=== PATIENT | male | born 1965 | race Caucasian/White ===

== ENCOUNTER 2019-08-24 13:21 | Outpatient (RCR) | payer MEDICARE, OTHER, SELFPAY | END 2019-08-25 00:01 | LOC: WOUND 13:21 | PROVIDERS: Family Provider Family Medicine; Visit Provider Nurse Practitioner Family | DX: I96 Gangrene, not elsewhere classified (principal); L89.623 Pressure ulcer of left heel, stage 3; L02.416 Cutaneous abscess of left lower limb | CPT/HCPCS: 11042 ×2; 87070; 87075; 87186; 87205; 97605 ×3 ==

== ENCOUNTER 2019-09-15 11:11 | Outpatient (CLI) | payer MEDICARE, BC, SELFPAY ==
--- NOTE | 2019-09-15 11:26 | CT_ITS ---
WS: [id number] CT LEFT LOWER EXTREMITY WITH CONTRAST. HISTORY: PAIN, REDNESS, NON HEALING ULCER, SWELLING LT KNEE DOWN Technique: All CT scans at [facility] use at least one of these dose optimization techniq ues: automated exposure control; mA and/or kV adjustment per patient size (includes targeted exams wh ere dose is matched to clinical indication); or iterative reconstruction. DLP: 2894.83 mGy-cm. COMPARISON: 04/20/2016. Prior MRI 05/26/2019. Progression of the abscess centered within the anterior tibialis muscle since 05/26/2019. There is a c omplex fluid collection with enhancing wall extending over a length of 25 cm in the anterior tibialis muscle. Fluid collection begins in the proximal lower extremity and extends nearly to the ankle join t. Maximum diameter of 3.2 cm. There is a large amount of adjacent soft tissue edema and cellulitis. Focal tract-like ulceration measures 1.4 cm over the anterior tibia. There is an additional ulceratio n/tract over the mid tibia which extends to the abscess collection. Advanced degenerative changes at the knee. There is a single screw remaining in the proximal tibia. H ealed fracture with degenerative changes and bone hypertrophy involving the proximal tibia. No defini te osteomyelitis. There is hypertrophic bone formation over the tibial cortex. CT/CT lower leg LT w con [id number] IMPRESSION: 1. Progression of the anterior tibialis intramuscular abscess now extending ov er length of 25 cm with a maximum transverse diameter of 3.2 cm. Large amount o f adjacent soft tissue edema and cellulitis. 2. Ulcerated tracts over the anterior and mid tibia extend to the abscess. 3. No osteomyelitis is identified.
[2019-09-15] MEDS: iohexol 300 mg/mL 100 mL Btl IV (12:05)
== END 2019-09-15 11:12 | disposition home or self-care (01) ==
LOC: RADWPI 11:25
PROVIDERS: Family Provider Family Medicine; PCP Family Medicine; Visit Provider Nurse Practitioner Family
DX: L97.825 Non-pressure chronic ulcer of other part of left lower leg with muscle involvement without evidence of necrosis (principal); M79.662 Pain in left lower leg; M79.89 Other specified soft tissue disorders; M60.062 Infective myositis, left lower leg
CPT/HCPCS: 73701; Q9967

== ENCOUNTER → 2019-09-17 13:22 | Outpatient (BNVA) | payer MEDICARE, BC, SELFPAY | PROVIDERS: Family Provider Family Medicine; PCP Family Medicine; Visit Provider Anesthesiology | DX: G89.29 Other chronic pain (principal); M54.5 Low back pain; M12.812 Other specific arthropathies, not elsewhere classified, left shoulder; Z79.891 Long term (current) use of opiate analgesic | CPT/HCPCS: 99214 ==

== ENCOUNTER 2019-09-21 11:09 | Day surgery (SDC) | payer MEDICARE, BC, SELFPAY ==
[2019-09-19 07:54] VITALS: BMI 33.5
--- NOTE | 2019-09-21 | SCC_ITS ---
Procedure Done: Removal of deep retained hardware left tibia 10.3 seconds of fluoroscopic guidance, for a cumulative dose of 0.16 mGy, was provided to Dr. Hastings by the radiology department. C-arm images of the LEFT knee/lower leg were saved for the patient's permanent record. [facility]
--- NOTE | 2019-09-21 | XR_ITS ---
WS: [id number] C-ARM RADIOGRAPHS LEFT KNEE; 2 IMAGES HISTORY: HARDWARE REMOVAL COMPARISON: None available. Intraoperative imaging during hardware removal of the tibia. XR/XR knee LT 1-2V 19558 IMPRESSION: Intraoperative imaging during hardware removal. Only a small portion of the tib ia is included.
[2019-09-21 11:37] VITALS: BP 117/97; PULSE 61; RESP 18; TEMP 36.8; O2SAT 94
--- NOTE | 2019-09-21 11:46 | PM.OP ---
Operative Report Date of procedure: 09/21/19 Pre-op Diagnosis: retained harware left tibia Post-op diagnosis: other (Multiple wounds left leg with packing of which one wound was debrided and standard wound cultures taken) Procedure Done: Removal of deep retained hardware left tibia Debridement of skin subcutaneous tissue from left leg Implants: n/a Specimens removed/disposition: Screw sterilized and given to patient Aerobic and anaerobic cultures done of wound Aspirate from bone marrow submitted and blood culture bottles Pathology: other Pathology: See above Surgeon: Krishan Hastings Anesthesia: Local Estimated blood loss (mL): 25 Tourniquet time (min): 0 Tourniquet time: not used Complications: None Findings: Screw was removed without difficulty from the proximal tibia. The screw was well affixed. No purulent material flowed out from the screw hole. We did stick an 18-gauge needle into the screw hole and aspirated the marrow contents in the region and submitted these in 2 blood culture bottles. There is granulation distal to our incision we debrided that to include skin and subcutaneous tissue down to bone of the tibia that was healthy in appearance. The patient prior to surgery had 4 draining sinuses. Packing was removed from the sinuses the wounds were irrigated and repacked. The middle superior sinus had some purulent material about the edges this was debrided sharply and using a curette and I cultured areas and here with standard aerobic and anaerobic cultures these were submitted. No purulence was noted from the proximal incision area with there is granulation tissue which was distal and lateral to the actual placement of the screw that was retained and has now been removed. An elevator was taken from the proximal incision and run along the anterior medial aspect of the tibia as there is been some report previously that there was a fluid collection deep to the tibialis anterior muscle. After he advanced the elevator approximately 8 mm down the anterior aspect of the tibia we encountered no fluid pocket. Condition: stable Disposition: other (outpatient surgery) Brief History: 53-year-old quadriplegic white male status post ORIF of left tibial plateau fracture. He is developed some wound breakdown has had 2 years ago portion of the plate and screws removed from his left tibia leaving a single anterior to posterior screw that was used to treat a coronal fracture at the time of his index surgery in 2014. Wound care called the office 3 days ago and were concerned that the reason he was having breakdown and was because of a retained screw. Patient was seen in the office today will be taken to the operating to remove the screw cultures will be taken. Procedure: Paced identified. Surgical site signed. Surgical permit signed. Patient taken the operative room. Patient was given intravenous Tylenol in the preoperative holding area. He was kept on his [facility]. We used fluoroscopic imaging to identify the precise location of the screw in the proximal tibia. The left lower extremity then sterilely prepped and draped in usual fashion while he was in his [facility]. A timeout was performed. We injected local anesthetic in the intended area of incision approximately 5 cc of a one-to-one mixture of 1% lidocaine with epinephrine and half percent bupivacaine made a 4 cm incision along his previous incision line and sharply dissected down to bone and then used the periosteal elevator to expose the anterior aspect of the medial tibia and identified the screw. Using a screwdriver we remove the screw without difficulty. We aspirated intramedullary bloody contents and put this in blood culture bottles to see if there is any infection within the bone marrow. (Previous MRI showed no abnormalities of the bone marrow that might suggest osteomyelitis however there was hardware shadow in the area.) No gross purulence was noted of this aspirated material. The patient had several sinus areas that had packing in them the packing is been removed prior to prepping the wounds. The most superior of the packed wounds had some degree of purulence so I debrided this with brushing a 15 blade along the margins of the sinus tract and took a curette deeply in this area and encountered some purulent material. We performed aerobic and anaerobic cultures of this area. We then irrigated our surgical wound and the draining sinus areas had been packed in the wound care clinic with Betadine containing saline solution antibiotic-containing saline solution. We repacked the wounds with quarter percent packing material. I packed the incision area on the distal pole where there is been some granulation tissue that we excised after we had closed the incision partially using interrupted sutures of 3-0 nylon in a vertical mattress fashion. Silver sorb gel was then applied to the sinus areas as well as the surgical wound we created today surgery. Sterile dressings were applied which included Telfa, 4 x 4's, ABD pads, 4 inch sterile Webril and a 4 inch Ronn. The patient was then taken to outpatient surgery he received no sedation during this procedure and will be allowed to go home later today. At the end the procedure all counts are correct.. Patient tolerated the procedure well.
--- NOTE | 2019-09-21 12:19 | ANES.PREANES ---
Pre-Anesthetic Assessment Pre-Anesthetic Assessment: Height/Weight: Height 1.8 m Weight 108.862 kg Temp Pulse Resp BP Pulse Ox 98.3 F 61 18 117/97 94 09/21/19 11:37 09/21/19 11:37 09/21/19 11:37 09/21/19 11:37 09/21/19 11:37 Preop Diagnosis: retained harware left tibia Proposed Procedure: Operation Date: 09/21/19 12:20 Proposed Procedures p Hardware Removal Knee Tiba(Left) - Krishna Hastings DO Familial anesthetic complications: None (but has personal history of autonomic hyperreflexia). Says he's had procedures done on this knee with local before. Decided together with surgeon and patient we will attempt local and convert to general if any increase in BP or sweating/tachycardia occurs Was Beta Shana taken within 24 hours: N/A Last intake: Intake Last Liquid Date 09/20/19 Last Liquid Time 22:00 Last Solid Date 09/20/19 Last Solid Time 19:00 Social: Social History: No alcohol and No tobacco Exam: Pre-Anes Outpt Exam: alert Airway: Cervical ROM: Other (C6 injury) MP: 3 Dentition: Chipped Pulmonary: Pulmonary: None reported CV/HEM: CV/HEM: None reported : : None reported Hepatic: Hepatic: None reported GI: GI: None reported Metabolic: Metabolic: None reported Musc/skel: Comments: c6 injury Neuropsych: Neuropsych: Neuropathy Anesthetic Plan: ASA status: III Anesthesia: Local Only Risk of > 500 ml blood loss (7ml/kg in children): No PFSH Anesthesia PFSH: Medical History (Updated 09/21/19 @ 11:29 by Krishan Hastings DO) Chronic bilateral low back pain without sciatica (Chronic) Encounter for long-term opiate analgesic use (Chronic) Hx of fracture of femur (Acute) 2014 metal placed right femur Hx of staphylococcal infection (Acute) multiple surgeries to remove STAPH in left wrist Presence of retained hardware (Acute) Surgical History History of nasal surgery (Acute) 1989 History of urostomy (Acute) 10-15 years ago Hx of knee surgery (Acute) Left -metal put in 2014 and removed 2016- due to infection Hx of neck surgery (Acute) 1989 Social History Smoking and tobacco status: never smoked Alcohol intake: never Data Anesthesia Cardiac Studies: No Data to Display
[2019-09-21] MEDS: sodium chloride 0.9% 1,000 ML 30 ML IV (12:52)
[2019-09-21] MEDS: silvasorb gel 44.4 mL 1 APPLIC TOPICAL (13:35)
[2019-09-21 13:53] VITALS: BP 119/67; PULSE 82; RESP 18; TEMP 36.8; O2SAT 93
--- NOTE | 2019-09-21 14:03 | SUR.OPER ---
3963 one screw removed intact. sent out of room to be cleaned for patient to take home.
[2019-09-21] MEDS: diphenhydrAMINE 12.5 mg/5 mL UDC 10 mL PO (14:05)
[2019-09-21 14:24] VITALS: BP 116/66; PULSE 63; RESP 18; O2SAT 98
== END 2019-09-21 15:56 | disposition home or self-care (01) ==
PROVIDERS: Family Provider Family Medicine; PCP Family Medicine; Visit Provider Orthopaedic Surgery
PROC: (CPT 20680; principal; 2019-09-21 12:00)
DX: T84.84XA Pain due to internal orthopedic prosthetic devices, implants and grafts, initial encounter (principal); S81.802A Unspecified open wound, left lower leg, initial encounter; X58.XXXA Exposure to other specified factors, initial encounter
CPT/HCPCS: 20680; 12345; 36415; 73560; 76000; 87070; 87075; 87077; 87176; 87186; 87205; 96365; J0131; J1580; J2001; J3370; J3490; J7030; J7050

== ENCOUNTER 2019-09-23 13:57 | Outpatient (RCR) | payer MEDICARE, BC, SELFPAY | END 2019-09-25 23:59 | disposition home or self-care (01) | LOC: WOUND 13:57 | PROVIDERS: Family Provider Family Medicine; PCP Family Medicine; Visit Provider Nurse Practitioner Family | DX: L89.623 Pressure ulcer of left heel, stage 3 (principal); I87.2 Venous insufficiency (chronic) (peripheral); L97.822 Non-pressure chronic ulcer of other part of left lower leg with fat layer exposed; T81.89XA Other complications of procedures, not elsewhere classified, initial encounter; Y83.8 Other surgical procedures as the cause of abnormal reaction of the patient, or of later complication, without mention of misadventure at the time of the procedure | CPT/HCPCS: 11042; 99214; 99215; A6446 ==

== ENCOUNTER 2019-09-28 12:54 | Day surgery (SDC) | payer MEDICARE, BC, SELFPAY ==
[2019-09-25 16:05] VITALS: BMI 33.5
[2019-09-28 13:21] VITALS: BP 143/90; PULSE 66; RESP 20; TEMP 36.7; O2SAT 90
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
[2019-09-28] MEDS: sodium chloride 0.9% 1,000 ML 30 ML IV (15:27)
--- NOTE | 2019-09-28 15:53 | P.HPUD_ITS ---
H&P update H&P Update: DATE OF SURGERY/PROCEDURE: 09/28/19 DATE H&P PERFORMED: H&P UPDATE INFORMATION: H&P completed within last 30 days and Changes to prior documentation as noted here (Apparently the patient undergone hardware removal by orthopedic service last week yet the abscess was not drained for unclear reason, patient came back to the wound care center and continue to have discharging sinuses with purulent material, I did developmental training counselor the patient for I&D of left leg abscess and he agreed to proceed accordingly) CHANGES TO PREVIOUS DOCUMENTATION: Patient comes today for incision and drainage of left lower extremity abscess status post orthopedic procedure that had a hardware due to fracture of the tibia and patient ended up by having multiple sinuses that was taking care at the wound care center because of the nature of the wounds did not heal with my nurse practitioner approach me to assess the patient, at that point I did request a CT scan of the left lower extremity with IV contrast that showed retained hardware at the proximal tibia, orthopedic service was approached to intervene and their intervention was limited only to removal of the hardware but the abscess was not drained, and so I elected to proceed and drain the abscess and have the patient continue follow-up with wound care center to. PREOP DIAGNOSIS: Left lower extremity abscess status post orthopedic intervention PLANNED PROCEDURE: Operation Date: 09/28/19 14:15 Proposed Procedures p Incision And Drainage/Left Leg 59205(Left) - Kalen Londono MD Full H&P Medications/Allergies: Current Medications: Current Medications Generic Name Dose Route Start Last Admin Trade Name Freq PRN Reason Stop Dose Admin Sodium Chloride 1,000 mls @ 30 ml s/hr 09/28/19 15:15 09/28/19 15:27 Sodium Chloride 0.9% IV 09/29/19 15:14 30 mls/hr .Q24H LAYTON Administration Perinent History: Medical/Surgical History: Medical History (Updated 09/22/19 @ 00:00 by ) Chronic bilateral low back pain without sciatica (Chronic) Encounter for long-term opiate analgesic use (Chronic) Hx of fracture of femur (Acute) 2014 metal placed right femur Hx of staphylococcal infection (Acute) multiple surgeries to remove STAPH in left wrist Family History: Family History (Updated 09/17/19 @ 14:45 by LU Cristina) Grandfather Diabetes Family history of premature coronary artery disease Mother Lupus (systemic lupus erythematosus) Social History: Social History Smoking and tobacco status: never smoked Alcohol intake: never
--- NOTE | 2019-09-28 16:53 | PM.OP ---
Operative Report Date of procedure: September 28, 2019 Pre-op Diagnosis: Left lower extremity abscess status post orthopedic intervention Pre-op Diagnosis: Multiple draining sinuses along the anterior tibial line average in diameter 2 to 4 mm Post-op diagnosis: other (Left tibialis anterior muscle central necrosis) Procedure Done: Incision and drainage of left lower extremity abscess Sharp debridement of the abscess cavity postprocedure and debridement wound 17 x 5 x 3[address] to the muscle layer Specimens removed/disposition: Tissues sent for cultures and sensitivities Wound edge tissue sent for pathology Surgeon: Kalen Londono Needle Felt Making Machine Operator: technical expert Gloria Medical student Candy Cutter Machine Anesthesia: MAC Estimated blood loss (mL): 20 Condition: stable Disposition: same day Brief History: This is a pleasant 53 years old gentleman undergone an orthopedic procedure before 1 year or so the hardware was placed for fracture left tibia, apparently most of the hardware was removed and patient was followed up on with nonhealing wound at the wound care center by my nurse practitioner Ms. Mijares, whom she did approach me about a week ago or so that the wound is not healing, so I elected to order a CT scan of the left lower extremity with IV contrast and it did show a proximal left tibial hardware, orthopedic surgery was consulted to remove the hardware and to drain the left lower extremity abscess, apparently the patient ended up by having the hardware removed and the patient was referred back to us for abscess management. After thorough history physical examination and reviewing the chart and images with my personal interpretation further counseling the patient for I&D of left lower extremity abscess, understanding that the patient may require future surgical interventions and he may end up by [id number] amputation if local measures were not successful, patient is fully aware and he wants to proceed accordingly. An informed consent per chart Procedure: After identifying the patient holding area, the left lower extremity was marked before the procedure by myself, patient was then transferred to the operative suite, was placed in supine position then was placed in right lateral position where all pressure points were padded, IV antibiotics were given per protocol,IV Versed was infused by the anesthesia provider, prep and drape of the left lower extremity was done under the usual sterile technique. Time-out was done verifying the patient's name/date of /planned procedure and destination after the procedure, all were in agreement. There are multiple draining sinuses along the chin of the left tibia, I started by incision along the anterior tibial line including the draining sinuses all the way to the deeper muscle layer of the left tibialis anterior muscle, there was a cavity within the muscle was appreciated with lots of necrotic material. Started by excising the unhealthy necrotic indurated tissues using sharp debridement at that point tissues were sent for cultures and sensitivities.Noticed extensive fibrotic tissues while debridment Pre-debridement measurements of multiple sinuses with range of 2 to 4 mm in diameter reaching to the deeper muscle layer Post debridement measurements 17 x 5 x 3[address] to the muscle layer there was no evidence of bone exposure Towards the edge of the wound and underlying fibrotic tissues were sent for pathology Thorough irrigation of the wound was done with Pulsavac using 3 L, followed by appropriate hemostasis were multiple [id number] silk sutures were applied to the bed of the wound, I did extend the incision cephalad and caudad to make sure all necrotic tissues were debrided, following that I did place nylon sutures horizontal mattress x2 at the proximal part of the wound and x1 at the distal part.Followed by application of large piece of Surgicel then wet to dry 4 x 4 Kerlix and Ronn wrap. Patient tolerated the procedure well, count of instruments, needles and sponges were completed at the end of the procedure.Patient was then transferred to the recovery area in stable condition. I was present for the whole entire procedure
[2019-09-28 16:55] VITALS: BP 105/60; PULSE 83; RESP 18; TEMP 36.3; O2SAT 92
[2019-09-28 17:37] VITALS: BP 121/72; PULSE 72; RESP 18; TEMP 36.4; O2SAT 99
[2019-09-28 17:55] VITALS: BP 138/67; PULSE 105; RESP 18; TEMP 36.6; O2SAT 92
== END 2019-09-28 18:55 | disposition home or self-care (01) ==
PROVIDERS: Family Provider Family Medicine; PCP Family Medicine; Visit Provider Surgery
PROC: (CPT 11043; principal; 2019-09-28 14:05)
DX: L02.416 Cutaneous abscess of left lower limb (principal); Z79.891 Long term (current) use of opiate analgesic; Z82.49 Family history of ischemic heart disease and other diseases of the circulatory system; Z83.3 Family history of diabetes mellitus
CPT/HCPCS: 11043; 11046 ×4; 12345; 87070; 87077; 87176; 87186; 87205; 88304; 96365; J0690; J2250; J7030

== ENCOUNTER 2019-10-22 10:19 | Outpatient (RCR) | payer MEDICARE, BC, SELFPAY ==
--- NOTE | 2019-10-13 12:45 | US_ITS ---
WS: [id number] RENAL ULTRASOUND REASON FOR EXAM: Renal Lesion TECHNIQUE: Grayscale and Doppler ultrasound examination of the kidneys. FINDINGS: Right kidney: Right kidney measures 12.0 cm x 4.9 cm x 4.4 cm. Right kidney cortex measures 1.9 cm. Left kidney: Left kidney measures 10.7 cm x 7.1 cm x 6.4 cm. Left kidney cortex measures 1.4 cm. In the region of the superior aspects of the right kidney is a lesion measures 2.8 x 2.2 x 2.8 cm thi s lesion is solid. No additional lesion measures 2.83 x 2.83 x 3.06 cm is noted along the midportion of the right kidney. US/US renal BI* [id number] IMPRESSION: 2 solid lesions are identified in the right kidney consideration of CT with con trast to evaluate these structures. These lesions appear to be solid.
== END 2019-10-24 23:59 | disposition home or self-care (01) ==
LOC: WOUND 10:19
PROVIDERS: Family Provider Family Medicine; PCP Family Medicine; Visit Provider Nurse Practitioner Family
DX: L02.416 Cutaneous abscess of left lower limb; L89.623 Pressure ulcer of left heel, stage 3; I87.2 Venous insufficiency (chronic) (peripheral); L97.822 Non-pressure chronic ulcer of other part of left lower leg with fat layer exposed; T81.31XA Disruption of external operation (surgical) wound, not elsewhere classified, initial encounter; Y83.8 Other surgical procedures as the cause of abnormal reaction of the patient, or of later complication, without mention of misadventure at the time of the procedure; N28.1 Cyst of kidney, acquired
CPT/HCPCS: 11044; 11047; 76770; 97606; 99214; 99215

== ENCOUNTER → 2019-11-12 13:57 | Outpatient (BNVA) | payer MEDICARE, BC, SELFPAY | PROVIDERS: Family Provider Family Medicine; PCP Family Medicine; Visit Provider Anesthesiology | DX: G89.29 Other chronic pain (principal); M54.5 Low back pain; Z79.891 Long term (current) use of opiate analgesic | CPT/HCPCS: 99213; 99214 ==

== ENCOUNTER 2019-11-23 13:21 | Outpatient (RCR) | payer MEDICARE, BC, SELFPAY | END 2019-11-24 23:59 | disposition home or self-care (01) | LOC: WOUND 13:21 | PROVIDERS: Family Provider Family Medicine; PCP Family Medicine; Visit Provider Nurse Practitioner Family | DX: I96 Gangrene, not elsewhere classified (principal); L02.416 Cutaneous abscess of left lower limb; L97.822 Non-pressure chronic ulcer of other part of left lower leg with fat layer exposed | CPT/HCPCS: 11042; 11045; 87070; 87077; 87176; 87186; 87205; 97605; 97606; 99214; G0463 ==

== ENCOUNTER 2019-12-21 14:49 | Outpatient (RCR) | payer MEDICARE, BC, SELFPAY ==
--- NOTE | 2019-12-08 15:03 | USCV_ITS ---
Mihir Keller Age: 53 Gender: M : 1965 Exam Date: 12/08/2019 15:08 Ordering Phys: Marialuisa Negron DO Technologist: Exam Location: [facility] [place] Indication: OPEN WOUND LT LEG RIGHT LEFT Brachial 116.00 mmHg Brachial 126.00 mmHg Pressure (mmHg) Waveform Pressure (mmHg) Waveform STUDENT OFFICER 177.00 DPA 169.00 Ankle/Brachial Index 1.23 Pre-Exercise Toe Pressure 155.00 Pre-Exercise Toe/Brachial Index 1.23 FINDINGS Normal resting WENDY and TBI on the left side PVR waveforms showing blunting of the dicrotic notch CONCLUSIONS No significant arterial obstruction based on the above findings. Abnormal PVR waveforms may suggest arterial noncompliance Dr Jamel Bell MD FAC (Electronically Signed) Final Date: 09 December 2019 20:26 S
== END 2019-12-24 23:59 | disposition home or self-care (01) ==
LOC: WOUND 14:49
PROVIDERS: Family Provider Family Medicine; PCP Family Medicine; Visit Provider Emergency Medicine
DX: I96 Gangrene, not elsewhere classified (principal); L02.416 Cutaneous abscess of left lower limb
CPT/HCPCS: 11042; 11043; 11045; 11046; 15271; 15272; 93922; 97606; E0191; Q4110

== ENCOUNTER 2019-12-28 13:23 | Outpatient (CLI) | payer MEDICARE, BC, SELFPAY | END 2019-12-28 13:24 | disposition home or self-care (01) | PROVIDERS: Family Provider Family Medicine; PCP Family Medicine; Visit Provider Nurse Practitioner Family | DX: I96 Gangrene, not elsewhere classified (principal); L89.893 Pressure ulcer of other site, stage 3; L02.416 Cutaneous abscess of left lower limb | CPT/HCPCS: 97606 ==

== ENCOUNTER 2020-01-04 14:51 | Outpatient (CLI) | payer MEDICARE, BC, SELFPAY | END 2020-01-04 14:52 | disposition home or self-care (01) | LOC: WOUND 14:52 | PROVIDERS: Family Provider Family Medicine; PCP Family Medicine; Visit Provider Nurse Practitioner Family | DX: I96 Gangrene, not elsewhere classified (principal); L89.893 Pressure ulcer of other site, stage 3; L02.416 Cutaneous abscess of left lower limb | CPT/HCPCS: 11042; 11045 ==

== ENCOUNTER 2020-01-06 13:22 | Outpatient (CLI) | payer MEDICARE, BC, SELFPAY ==
--- NOTE | 2020-01-06 13:00 | CT_ITS ---
WS: [id number] CT ABDOMEN AND PELVIS WITH AND WITHOUT CONTRAST HISTORY: Renal Lesion TECHNIQUE: Unenhanced 5 mm axial imaging first performed through the abdomen. Post contrast imaging t hrough the abdomen and pelvis. Oral contrast has been provided. Sagittal and coronal reformats are s ubmitted. All CT scans at [facility] use at least one of these dose optimization techniqu es: automated exposure control; mA and/or kV adjustment per patient size (includes targeted exams whe re dose is matched to clinical indication); or iterative reconstruction. CONTRAST: Omnipaque 300; 95 mL IV. DLP: 4700.74 mGy.cm COMPARISON: Renal ultrasound 10/13/2019 and 01/10/2019 CT. Moderate cardiomegaly. Dependent changes at the lung bases. Liver, spleen, gallbladder, pancreas and adrenal glands are negative. No acute process is identified. RIGHT kidney: Mild atrophy of the renal cortex. Nonobstructing 5 mm calcification lower pole. Multipl e focal areas of cortical thinning from scarring. Nonobstructing 5 mm calcification in the lower pole . No enhancing solid mass identified. There is very slight dilatation of the RIGHT renal pelvis. This is due to an ileal conduit in the mild dilatation has been present on prior studies. LEFT kidney: Mild atrophy of the kidney with focal areas of diffuse cortical thinning and scarring. N onobstructing 8 mm calcification in the mid kidney. Mild dilatation of the LEFT renal pelvis due to t he ileal conduit. Exophytic cortical cyst from the medial kidney measures 1.5 cm which is been presen t on prior studies. No free fluid or adenopathy. No GI tract obstruction. CT/CT abdomen pelvis wo/w [id number] IMPRESSION: 1. No renal mass identified. 2. Mild renal atrophy bilateral multifocal areas of cortical thinning cyst. Si milar to prior studies. 3. Ileal conduit intact with no complications. 4. Cardiomegaly.
[2020-01-06] MEDS: iohexol 300 mg/mL 50 mL Btl PO (13:48)
[2020-01-06] MEDS: iohexol 300 mg/mL 100 mL Btl PO (15:01)
== END 2020-01-06 13:23 | disposition home or self-care (01) ==
LOC: RAD 13:25
PROVIDERS: Family Provider Family Medicine; PCP Family Medicine; Visit Provider Urology
DX: N28.9 Disorder of kidney and ureter, unspecified (principal); I51.7 Cardiomegaly
CPT/HCPCS: 74178

== ENCOUNTER 2020-01-07 13:48 | Outpatient (CLI) | payer MEDICARE, BC, SELFPAY | END 2020-01-07 13:49 | disposition home or self-care (01) | LOC: WOUND 13:50 | PROVIDERS: Family Provider Family Medicine; PCP Family Medicine; Visit Provider Nurse Practitioner Family | DX: Z51.89 Encounter for other specified aftercare (principal) | CPT/HCPCS: 29581; L4397 ==

== ENCOUNTER 2020-01-11 13:41 | Outpatient (CLI) | payer MEDICARE, BC, SELFPAY | END 2020-01-11 13:42 | disposition home or self-care (01) | LOC: WOUND 13:42 | PROVIDERS: Family Provider Family Medicine; PCP Family Medicine; Visit Provider Nurse Practitioner Family | DX: I96 Gangrene, not elsewhere classified (principal); L89.892 Pressure ulcer of other site, stage 2; L02.416 Cutaneous abscess of left lower limb | CPT/HCPCS: 11042; 11045; 15275; 15276; Q4110 ==

== ENCOUNTER 2020-01-20 13:43 | Outpatient (CLI) | payer MEDICARE, BC, SELFPAY | END 2020-01-20 13:44 | disposition home or self-care (01) | LOC: WOUND 13:44 | PROVIDERS: Family Provider Family Medicine; PCP Family Medicine; Visit Provider Nurse Practitioner Family | DX: I96 Gangrene, not elsewhere classified (principal); L89.893 Pressure ulcer of other site, stage 3; L02.416 Cutaneous abscess of left lower limb | CPT/HCPCS: 15271; 15272; Q4110 ==

== ENCOUNTER 2020-02-03 13:48 | Outpatient (CLI) | payer MEDICARE, BC, SELFPAY | END 2020-02-03 13:49 | disposition home or self-care (01) | LOC: WOUND 13:52 | PROVIDERS: Family Provider Family Medicine; PCP Family Medicine; Visit Provider Thoracic Surgery (Cardiothoracic Vascular Surgery) | DX: I96 Gangrene, not elsewhere classified (principal); L89.893 Pressure ulcer of other site, stage 3; L02.416 Cutaneous abscess of left lower limb | CPT/HCPCS: 11042; 11045 ==

== ENCOUNTER 2020-02-10 13:34 | Outpatient (CLI) | payer MEDICARE, BC, SELFPAY | END 2020-02-10 13:35 | disposition home or self-care (01) | LOC: WOUND 13:35 | PROVIDERS: Family Provider Family Medicine; PCP Family Medicine; Visit Provider Nurse Practitioner Family | DX: L89.893 Pressure ulcer of other site, stage 3 (principal); L02.416 Cutaneous abscess of left lower limb | CPT/HCPCS: 11042; 11045 ==

== ENCOUNTER 2020-02-17 13:45 | Outpatient (CLI) | payer MEDICARE, BC, SELFPAY | END 2020-02-17 13:46 | disposition home or self-care (01) | LOC: WOUND 13:47 | PROVIDERS: Family Provider Family Medicine; PCP Family Medicine; Visit Provider Thoracic Surgery (Cardiothoracic Vascular Surgery) | DX: L89.893 Pressure ulcer of other site, stage 3 (principal); L02.416 Cutaneous abscess of left lower limb | CPT/HCPCS: 11042; 11045 ==

== ENCOUNTER 2020-02-23 14:25 | Outpatient (CLI) | payer MEDICARE, BC, SELFPAY | END 2020-02-23 14:26 | disposition home or self-care (01) | LOC: WOUND 14:26 | PROVIDERS: Family Provider Family Medicine; PCP Family Medicine; Visit Provider Thoracic Surgery (Cardiothoracic Vascular Surgery) | DX: L02.416 Cutaneous abscess of left lower limb (principal) | CPT/HCPCS: 11042; 11045 ==

== ENCOUNTER → 2020-02-24 15:04 | Outpatient (BNVA) | payer MEDICARE, BC, SELFPAY | PROVIDERS: Family Provider Family Medicine; PCP Family Medicine; Visit Provider Nurse Practitioner | DX: G89.29 Other chronic pain (principal); M54.5 Low back pain; M12.812 Other specific arthropathies, not elsewhere classified, left shoulder; Z79.891 Long term (current) use of opiate analgesic | CPT/HCPCS: 99213 ==

== ENCOUNTER 2020-03-02 13:22 | Outpatient (CLI) | payer MEDICARE, BC, SELFPAY | END 2020-03-02 13:23 | disposition home or self-care (01) | LOC: WOUND 13:23 | PROVIDERS: Family Provider Family Medicine; PCP Family Medicine; Visit Provider Thoracic Surgery (Cardiothoracic Vascular Surgery) | DX: L02.416 Cutaneous abscess of left lower limb (principal) | CPT/HCPCS: 11042; 11045 ==

== ENCOUNTER 2020-03-09 14:30 | Outpatient (CLI) | payer MEDICARE, BC, SELFPAY | END 2020-03-09 14:31 | disposition home or self-care (01) | LOC: WOUND 14:32 | PROVIDERS: Family Provider Family Medicine; PCP Family Medicine; Visit Provider Thoracic Surgery (Cardiothoracic Vascular Surgery) | DX: L02.31 Cutaneous abscess of buttock (principal) | CPT/HCPCS: 11042; 11045 ==

== ENCOUNTER 2020-03-15 16:09 | Outpatient (CLI) | payer MEDICARE, BC, SELFPAY | END 2020-03-15 16:10 | disposition home or self-care (01) | LOC: WOUND 16:10 | PROVIDERS: Family Provider Family Medicine; PCP Family Medicine; Visit Provider Thoracic Surgery (Cardiothoracic Vascular Surgery) | DX: L02.416 Cutaneous abscess of left lower limb (principal) | CPT/HCPCS: 11042; 11045 ==

== ENCOUNTER 2020-03-22 15:30 | Outpatient (CLI) | payer MEDICARE, BC, SELFPAY | END 2020-03-22 15:31 | disposition home or self-care (01) | LOC: WOUND 15:31 | PROVIDERS: Family Provider Family Medicine; PCP Family Medicine; Visit Provider Thoracic Surgery (Cardiothoracic Vascular Surgery) | DX: L97.825 Non-pressure chronic ulcer of other part of left lower leg with muscle involvement without evidence of necrosis (principal) | CPT/HCPCS: 11042; 11045 ==

== ENCOUNTER 2020-03-25 14:02 | Outpatient (CLI) | payer MEDICARE, BC, SELFPAY ==
--- NOTE | 2020-03-25 14:16 | MR_ITS ---
WS: [id number] MRI OF THE LEFT LOWER LEG WITHOUT AND WITH GADOLINIUM ENHANCEMENT. INDICATION: Osteomyelitis TECHNIQUE: MRI of the left lower leg without and with gadolinium enhancement. Coronal T1, coronal STI R, coronal post gadolinium imaging was obtained. Sagittal T1, STIR, axial T2, axial PD, and post gado linium imaging with fat saturation technique. FINDINGS: MRI May 26, [address] September 15, 2019 reviewed Vitamin E marker placed over the nonhealing ulcer. Soft tissue ulceration. Soft tissue edema and subc utaneous enhancement involving the anterior lower leg compartment soft tissues deep to the ulceration . Previously described abscess is decreased in size today measuring 2.2 x 1.0 cm with residual sinus track extending to the ulceration. This does not appear to be drainable. Cellulitis and inflammatory changes extend down to the underlying Tibia and fibula. Evidence of prior hardware removal. Abnormal cortical bone marrow signal in the mid tibial diaphysis with enhancement involving the middle third tibial diaphysis extending over approximately 10.4 cm miah picious for osteomyelitis. Underlying additional similar-appearing abnormal bone marrow signal in the mid to proximal third fibula extending over approximately 6.9 CM. Associated enhancement. This is al so suspicious for osteomyelitis. Some of the signal abnormality in the tibia and fibula may be reacti ve no evidence of bony destruction or fragmentation. MR/MR lower leg LT wo/w con [id number] IMPRESSION: 1. Abnormal bone marrow signal in the mid tibial diaphysis and adjacent fibula r diaphysis with edema and enhancement suspicious for osteomyelitis. This is ne w from the prior examinations. No bony destruction or fragmentation 2. Extensive soft tissue edema in the anterior tibialis with sinus tract exten ding to the ulceration consistent with previously described phlegmon/abscess. T his is smaller compared to the prior CT. Abscess measures 2.2 x 1.0 CM. This do es not appear to be drainable.
== END 2020-03-25 14:03 | disposition home or self-care (01) ==
LOC: RADSHAW 14:09
PROVIDERS: PCP Family Medicine; Visit Provider Thoracic Surgery (Cardiothoracic Vascular Surgery)
DX: M79.605 Pain in left leg (principal); L53.9 Erythematous condition, unspecified; L97.829 Non-pressure chronic ulcer of other part of left lower leg with unspecified severity; R60.0 Localized edema; M86.9 Osteomyelitis, unspecified
CPT/HCPCS: 73720; A9579

== ENCOUNTER 2020-03-29 15:38 | Outpatient (CLI) | payer MEDICARE, BC, SELFPAY | END 2020-03-29 15:39 | disposition home or self-care (01) | LOC: WOUND 15:39 | PROVIDERS: PCP Family Medicine; Visit Provider Thoracic Surgery (Cardiothoracic Vascular Surgery) | DX: L97.823 Non-pressure chronic ulcer of other part of left lower leg with necrosis of muscle (principal) | CPT/HCPCS: 29581 ==

== ENCOUNTER 2020-04-01 14:54 | Outpatient (CLI) | payer MEDICARE, BC, SELFPAY ==
[2020-04-01 15:10] LABS: Basophils # 0.1 10^3/uL (0.0-0.1); Basophils % 0.8 %; Eosinophils # 0.2 10^3/uL (0.0-0.8); Eosinophils % 3.8 %; Hematocrit 33.7 % (42.0-52.0); Hemoglobin 8.2 g/dL (11.7-16.6); Lymphocytes # 1.1 10^3/uL (0.8-4.8); Lymphocytes % 17.6 %; Mean Corpuscular HGB Conc 24.3 g/dL (30.0-36.0); Mean Corpuscular Hemoglobin 17.4 pg (28.0-34.0); Mean Corpuscular Volume 71.5 fL (80-94); Mean Platelet Volume 9.6 fL (7.4-10.4); Monocytes # 0.6 10^3/uL (0.2-0.9); Monocytes % 9.7 %; Neutrophils % 67.6 %; Nucleated Red Blood Cells % 0 %; Platelet Count 356 10^3/cmm (130-400); Red Blood Count 4.71 10^6/uL (4.1-5.3); Red Cell Distribution Width 18.8 % (12.1-15.1); White Blood Count 6.1 10^3/uL (4.0-10.0)
[2020-04-01 15:53] LABS: Alanine Aminotransferase 7 U/L (0-41); Albumin Level 3.5 g/dL (3.5-5.2); Alkaline Phosphatase 86 IU/L (40-130); Anion Gap 11.4 (5-19); Aspartate Amino Transferase 11 U/L (0-40); Blood Urea Nitrogen 19 mg/dL (6-20); Calcium 8.5 mg/dL (8.5-10.5); Carbon Dioxide 31 mmol/L (22-29); Chloride 102 mmol/L (98-107); Glomerular Filtration Rate 100.7 mL/min (90-130); Glucose 121 mg/dL (65-115); Osmolality Calculated 288 mOsm/kg (285-295); Potassium 4.4 mmol/L (3.5-5.1); Sodium 140 mmol/L (136-145); Total Bilirubin 0.6 mg/dL (0.15-1.2); Total Protein 6.5 g/dL (6.6-8.7)
== END 2020-04-01 14:55 | disposition home or self-care (01) ==
LOC: LAB 14:59
PROVIDERS: PCP Family Medicine; Visit Provider Surgery
DX: L98.499 Non-pressure chronic ulcer of skin of other sites with unspecified severity (principal)
CPT/HCPCS: 80053; 85025

== ENCOUNTER 2020-04-05 15:00 | Outpatient (CLI) | payer MEDICARE, BC, SELFPAY | END 2020-04-05 15:01 | disposition home or self-care (01) | LOC: WOUND 15:02 | PROVIDERS: PCP Family Medicine; Visit Provider Thoracic Surgery (Cardiothoracic Vascular Surgery) | DX: L97.825 Non-pressure chronic ulcer of other part of left lower leg with muscle involvement without evidence of necrosis (principal) | CPT/HCPCS: 11042; 11045 ==

== ENCOUNTER 2020-04-12 13:54 | Outpatient (CLI) | payer MEDICARE, BC, SELFPAY | END 2020-04-12 13:55 | disposition home or self-care (01) | LOC: WOUND 13:55 | PROVIDERS: PCP Family Medicine; Visit Provider Nurse Practitioner Family | DX: L97.825 Non-pressure chronic ulcer of other part of left lower leg with muscle involvement without evidence of necrosis (principal) | CPT/HCPCS: G0463 ==

== ENCOUNTER 2020-04-18 17:00 | Outpatient (CLI) | payer MEDICARE, BC, SELFPAY ==
[2020-04-18 17:30] LABS: Basophils % 0.6 %; Eosinophils # 0.1 10^3/uL (0.0-0.8); Eosinophils % 1.9 %; Hematocrit 35.1 % (42.0-52.0); Hemoglobin 8.6 g/dL (11.7-16.6); Lymphocytes # 0.5 10^3/uL (0.8-4.8); Lymphocytes % 10.1 %; Mean Corpuscular HGB Conc 24.5 g/dL (30.0-36.0); Mean Corpuscular Hemoglobin 18.3 pg (28.0-34.0); Mean Corpuscular Volume 74.7 fL (80-94); Mean Platelet Volume 8.8 fL (7.4-10.4); Monocytes # 0.5 10^3/uL (0.2-0.9); Neutrophils # 3.49 10^3/uL (1.8-7.7); Neutrophils % 75.1 %; Nucleated Red Blood Cells % 0 %; Platelet Count 260 10^3/cmm (130-400); White Blood Count 4.7 10^3/uL (4.0-10.0)
[2020-04-18 19:11] LABS: Alanine Aminotransferase 6 U/L (0-41); Albumin Level 3.4 g/dL (3.5-5.2); Alkaline Phosphatase 75 IU/L (40-130); Aspartate Amino Transferase 9 U/L (0-40); Blood Urea Nitrogen 8 mg/dL (6-20); Carbon Dioxide 31 mmol/L (22-29); Chloride 101 mmol/L (98-107); Globulin 3.7 g/dL (1.3-4.6); Glomerular Filtration Rate 117.5 mL/min (90-130); Glucose 94 mg/dL (65-115); Osmolality Calculated 286 mOsm/kg (285-295); Sodium 140 mmol/L (136-145); Total Protein 7.1 g/dL (6.6-8.7)
== END 2020-04-18 17:01 | disposition home or self-care (01) ==
LOC: LAB 17:03
PROVIDERS: PCP Family Medicine; Visit Provider Thoracic Surgery (Cardiothoracic Vascular Surgery)
DX: I10 Essential (primary) hypertension (principal); L89.90 Pressure ulcer of unspecified site, unspecified stage; I87.2 Venous insufficiency (chronic) (peripheral)
CPT/HCPCS: 80053; 85025

== ENCOUNTER 2020-04-19 14:02 | Outpatient (CLI) | payer MEDICARE, BC, SELFPAY | END 2020-04-19 14:03 | disposition home or self-care (01) | LOC: WOUND 14:03 | PROVIDERS: PCP Family Medicine; Visit Provider Thoracic Surgery (Cardiothoracic Vascular Surgery) | DX: L97.822 Non-pressure chronic ulcer of other part of left lower leg with fat layer exposed (principal) | CPT/HCPCS: 11042; 11045 ==

== ENCOUNTER 2020-04-26 14:13 | Outpatient (CLI) | payer MEDICARE, BC, SELFPAY | END 2020-04-26 14:14 | disposition home or self-care (01) | LOC: WOUND 14:14 | PROVIDERS: PCP Family Medicine; Visit Provider Thoracic Surgery (Cardiothoracic Vascular Surgery) | DX: L02.416 Cutaneous abscess of left lower limb (principal) | CPT/HCPCS: 11042; 11045 ==

== ENCOUNTER 2020-05-03 14:15 | Outpatient (CLI) | payer MEDICARE, BC, SELFPAY | END 2020-05-03 14:16 | disposition home or self-care (01) | LOC: WOUND 14:16 | PROVIDERS: PCP Family Medicine; Visit Provider Thoracic Surgery (Cardiothoracic Vascular Surgery) | DX: L97.822 Non-pressure chronic ulcer of other part of left lower leg with fat layer exposed (principal) | CPT/HCPCS: 11042; 11045 ==

== ENCOUNTER → 2020-05-06 13:40 | Outpatient (BNVA) | payer MEDICARE, BC, SELFPAY | PROVIDERS: PCP Family Medicine; Visit Provider Anesthesiology | DX: G89.29 Other chronic pain (principal); M54.5 Low back pain; M12.812 Other specific arthropathies, not elsewhere classified, left shoulder; Z79.891 Long term (current) use of opiate analgesic | CPT/HCPCS: 99213; 99214 ==

== ENCOUNTER 2020-05-10 14:29 | Outpatient (CLI) | payer MEDICARE, BC, SELFPAY | END 2020-05-10 14:30 | disposition home or self-care (01) | LOC: WOUND 14:32 | PROVIDERS: PCP Family Medicine; Visit Provider Thoracic Surgery (Cardiothoracic Vascular Surgery) | DX: L97.825 Non-pressure chronic ulcer of other part of left lower leg with muscle involvement without evidence of necrosis (principal) | CPT/HCPCS: 11042; 11045 ==

== ENCOUNTER 2020-05-17 15:04 | Outpatient (CLI) | payer MEDICARE, BC, SELFPAY | END 2020-05-17 15:05 | disposition home or self-care (01) | LOC: WOUND 15:05 | PROVIDERS: PCP Family Medicine; Visit Provider Thoracic Surgery (Cardiothoracic Vascular Surgery) | DX: T81.89XA Other complications of procedures, not elsewhere classified, initial encounter (principal) | CPT/HCPCS: 11042; 11045 ==

== ENCOUNTER 2020-05-24 15:08 | Outpatient (CLI) | payer MEDICARE, BC, SELFPAY | END 2020-05-24 15:09 | disposition home or self-care (01) | LOC: WOUND 15:09 | PROVIDERS: PCP Family Medicine; Visit Provider Thoracic Surgery (Cardiothoracic Vascular Surgery) | DX: L97.823 Non-pressure chronic ulcer of other part of left lower leg with necrosis of muscle (principal) | CPT/HCPCS: 15271; Q4137 ==

== ENCOUNTER 2020-06-03 13:43 | Outpatient (CLI) | payer MEDICARE, BC, SELFPAY | END 2020-06-03 13:44 | disposition home or self-care (01) | LOC: WOUND 13:44 | PROVIDERS: PCP Family Medicine; Visit Provider Surgery | DX: L97.822 Non-pressure chronic ulcer of other part of left lower leg with fat layer exposed (principal) | CPT/HCPCS: 15271; Q4137 ==

== ENCOUNTER 2020-06-07 14:16 | Outpatient (CLI) | payer MEDICARE, BC, SELFPAY | END 2020-06-07 14:17 | disposition home or self-care (01) | LOC: WOUND 14:17 | PROVIDERS: PCP Family Medicine; Visit Provider Thoracic Surgery (Cardiothoracic Vascular Surgery) | DX: L97.823 Non-pressure chronic ulcer of other part of left lower leg with necrosis of muscle (principal) | CPT/HCPCS: 11042; 11045 ==

== ENCOUNTER 2020-06-14 14:05 | Outpatient (CLI) | payer MEDICARE, BC, SELFPAY | END 2020-06-14 14:06 | disposition home or self-care (01) | LOC: WOUND 14:06 | PROVIDERS: PCP Family Medicine; Visit Provider Thoracic Surgery (Cardiothoracic Vascular Surgery) | DX: L97.825 Non-pressure chronic ulcer of other part of left lower leg with muscle involvement without evidence of necrosis (principal) | CPT/HCPCS: 11042; 11045 ==

== ENCOUNTER 2020-06-21 14:42 | Outpatient (CLI) | payer MEDICARE, BC, SELFPAY | END 2020-06-21 14:43 | disposition home or self-care (01) | LOC: WOUND 14:43 | PROVIDERS: PCP Family Medicine; Visit Provider Thoracic Surgery (Cardiothoracic Vascular Surgery) | DX: L97.822 Non-pressure chronic ulcer of other part of left lower leg with fat layer exposed (principal) | CPT/HCPCS: 11042; 11045 ==

== ENCOUNTER 2020-06-28 15:06 | Outpatient (CLI) | payer MEDICARE, BC, SELFPAY | END 2020-06-28 15:07 | disposition home or self-care (01) | LOC: WOUND 15:09 | PROVIDERS: PCP Family Medicine; Visit Provider Thoracic Surgery (Cardiothoracic Vascular Surgery) | DX: L97.825 Non-pressure chronic ulcer of other part of left lower leg with muscle involvement without evidence of necrosis (principal) | CPT/HCPCS: 15271; 15272; Q4137 ==

== ENCOUNTER 2020-07-05 14:58 | Outpatient (CLI) | payer MEDICARE, BC, SELFPAY | END 2020-07-05 14:59 | disposition home or self-care (01) | LOC: WOUND 14:59 | PROVIDERS: PCP Family Medicine; Visit Provider Thoracic Surgery (Cardiothoracic Vascular Surgery) | DX: L97.823 Non-pressure chronic ulcer of other part of left lower leg with necrosis of muscle (principal) | CPT/HCPCS: 11042; 11045; 87070; 87077; 87176; 87186; 87205 ==

== ENCOUNTER 2020-07-12 15:58 | Outpatient (CLI) | payer MEDICARE, BC, SELFPAY | END 2020-07-12 15:59 | disposition home or self-care (01) | LOC: WOUND 15:59 | PROVIDERS: PCP Family Medicine; Visit Provider Nurse Practitioner Family | DX: L97.822 Non-pressure chronic ulcer of other part of left lower leg with fat layer exposed (principal) | CPT/HCPCS: 11042; 11045 ==

== ENCOUNTER 2020-07-27 14:15 | Outpatient (CLI) | payer MEDICARE, BC, SELFPAY | END 2020-07-27 14:16 | disposition home or self-care (01) | LOC: WOUND 14:16 | PROVIDERS: PCP Family Medicine; Visit Provider Thoracic Surgery (Cardiothoracic Vascular Surgery) | DX: L97.822 Non-pressure chronic ulcer of other part of left lower leg with fat layer exposed (principal); I96 Gangrene, not elsewhere classified | CPT/HCPCS: 11042; 11045 ==

== ENCOUNTER 2020-07-28 11:17 | Emergency (ER) | payer MEDICARE, BC, SELFPAY ==
[2020-07-28] VITALS (8 sets, daily range): BP systolic 109–180; BP diastolic 60–118; PULSE 83–107; RESP 17–18; TEMP 36.6; O2SAT 93–99; BMI 32.8
--- NOTE | 2020-07-28 11:37 | USCV_ITS ---
Mihir Keller Age: 54 Gender: M : 1965 Exam Date: 07/28/2020 11:54 Ordering Phys: Elvira Arce MD Technologist: Lashell Harris Exam Location: [facility] Indication: LT ABSCESS, SWELLING HISTORY: HX OF ABSCESS SINCE INFECTION IN HARDWARE IN KNEE; PT QUAD PROCEDURES: Venous duplex imaging was performed in only the left lower extremity. The following venous structures were evaluated: common femoral vein, profunda vein, proximal portion of the greater saphenous vein, superficial femoral vein, and the popliteal vein. In addition, the posterior tibial and peroneal trunk were evaluated. FINDINGS: Normal 2-D Doppler and augmentation and compressibility throughout the lower extremity venous structures. Additional imaging through the proximal calf veins also reveals no thrombus. Limited evaluation of the greater saphenous vein is patent with no thrombus.. CONCLUSIONS No evidence of left lower extremity DVT. Oh Crowley MD (Electronically Signed) Final Date: 28 July 2020 12:38 S
--- NOTE | 2020-07-28 12:05 | W.ED.EXTPRO ---
HPI - Extremity Problem General: Chief complaint: Extremity Problem,Nontraumatic Stated complaint: SWOLLEN LEFT LEG/ ABSCESS ON CASTILLO Time Seen by Provider: 07/28/20 11:28 Source: patient Mode of arrival: ambulatory Limitations: no limitations History of Present Illness: HPI Narrative: 54-year-old male who has a history of paraplegia has had a chronic wound to his lower leg for months is being treated in the wound clinic. Patient states he saw Dr. Orozco in the wound clinic yesterday and has no acute changes. He states today he is worried he started having pain in his thigh with swelling. He states he had a blood clot in the other leg and was concerned he may have a blood clot. States pain is sharp in nature and rates it a 4 out of 10. Denies any worsening improving factors. Denies any vomiting. Associated symptoms: Deny chest pain, fever(s) or rash Review of Systems Const: Denies: fever(s), chills, body aches or change in appetite Eyes: Denies: blurry vision or eye discomfort ENMT: Denies: throat pain or dental pain Card: Denies: chest pain Resp: Denies: dyspnea GI: Denies: abdominal pain, nausea, vomiting or diarrhea : Denies: dysuria Musc: Reports: extremity pain Skin/Breast: Denies: rash Neuro: Denies: headache(s) Psych: Denies: depression Boaz/Lymph: Denies: easy bruising All/Imm: Denies: urticaria PFSH ED PFSH: Medical History (Updated 07/28/20 @ 15:47 by Elvira Arce MD) Chronic bilateral low back pain without sciatica Encounter for long-term opiate analgesic use History of recurrent UTI (urinary tract infection) Hx of fracture of femur 2014 metal placed right femur Hx of staphylococcal infection multiple surgeries to remove STAPH in left wrist Renal lesion Surgical History History of nasal surgery 1989 History of removal of calculus of renal pelvis through percutaneous nephrostomy History of removal of retained hardware 09/2019 Dr. Hastings at [facility] left lower ext History of urostomy 10-15 years ago Hx of knee surgery Left -metal put in 2014 and removed 2016- due to infection Hx of neck surgery 1989 Family History Grandfather Diabetes Family history of premature coronary artery disease Mother Lupus (systemic lupus erythematosus) Social History Smoking and tobacco status: never smoked Second hand smoke exposure: Yes Alcohol intake: never Marital status: Single Current occupational status: disabled History of recent travel: No Current gender identity: Male Physical Exam Const: COMMON NORMALS: no acute distress, patient oriented x3 and healthy appearing HENMT: COMMON NORMALS: normocephalic and atraumatic HEAD & SCALP: normocephalic and atraumatic Eye: COMMON NORMALS: Equal, round and reactive pupils present and EOMs intact bilaterally PUPIL: Yes Equal, round and reactive pupils present Neck/C-Spine: COMMON NORMALS: full ROM and supple Chest: COMMONS NORMALS: normal inspection of the chest and normal palpation of entire chest wall Resp: COMMON NORMALS: normal respiratory effort, No retractions, No use of accessory muscles and clear to auscultation bilaterally AUSCULTATION: clear to auscultation bilaterally Cardio: COMMON NORMALS: regular rate, regular rhythm and No murmurs present (Cardio) RATE: regular rate RHYTHM: regular rhythm GI: COMMON NORMALS: Normal to inspection, nondistended, normoactive bowel sounds present, Soft to palpation, non-tender and no masses PALPATION: Yes Soft to palpation Extremity: NARRATIVE EXTREMITY EXAM: Slight tenderness in left upper thigh with little swelling. No wounds noted. Did undress his lower leg wound on the left it is well-appearing at this time. Neuro: COMMON NORMALS: patient oriented x3, moves all extremities and no focal motor deficits Psych: COMMON NORMALS: mental status grossly normal, Normal thought process present and cooperative THOUGHT PROCESS: Normal thought process present Skin: COMMON NORMALS: no rashes or lesions noted and no wounds GENERAL SKIN EXAM: no rashes or lesions noted Course Vital Signs: Vital signs: Vital Signs Temperature 97.8 F 07/28/20 11:22 Pulse Rate 87 07/28/20 15:00 Respiratory Rate 18 07/28/20 15:36 Blood Pressure 180/118 07/28/20 15:00 Pulse Oximetry 99 07/28/20 15:36 MDM - Extremity (Nontraumatic) MDM Narrative: Medical decision making narrative: 54-year-old male seen here for left hip pain. He did state that he had a fall while getting in the shower 1 week ago. He has a intertrochanteric fracture of the left hip. Patient is pain is been well. I spoke to Dr. Walsh and patient is a quadriplegic and he stated he would follow him up outpatient in 1 to 2 weeks patient is okay with this plan as well. He had no other injuries. We will place him on Percocet and he is stable for discharge. He is return if worsening. Lab Data: Labs: Lab Results 07/28/20 07/28/20 Range/Units 13:54 13:54 WBC 8.3 (4.0-10.0) 10^3/ uL RBC 4.64 (4.1-5.3) 10^6/u L Hgb 10.7 L (11.7-16.6) g/dL Hct 38.3 L (42.0-52.0) % MCV 82.5 (80-94) fL MCH 23.1 L (28.0-34.0) pg MCHC 27.9 L (30.0-36.0) g/dL RDW 16.5 H (12.1-15.1) % Plt Count 383 (130-400) 10^3/c mm MPV 8.8 (7.4-10.4) fL Neut % (Auto) 76.2 % Lymph % (Auto) 9.6 % [place] % (Auto) 10.5 % Eos % (Auto) 2.5 % Baso % (Auto) 0.7 % Neut # (Auto) 6.30 (1.8-7.7) 10^3/u L Lymph # (Auto) 0.8 (0.8-4.8) 10^3/u L [place] # (Auto) 0.9 (0.2-0.9) 10^3/u L Eos # (Auto) 0.2 (0.0-0.8) 10^3/u L Baso # (Auto) 0.1 (0.0-0.1) 10^3/u L Nucleated RBC % (a uto) 0 % Nucleated RBCs # 0.0 /100WBC Sodium 143 (136-145) mmol/L Potassium 5.3 H (3.5-5.1) mmol/L Chloride 107 (98-107) mmol/L Carbon Dioxide 27 (22-29) mmol/L Anion Gap 14.3 (5-19) BUN 19 (6-20) mg/dL Creatinine 0.7 (0.7-1.2) mg/dL GFR Calculation 117.5 (90-130) mL/min Glucose 94 (65-115) mg/dL Calculated Osmolal ity 298 H (285-295) mOsm/k g Calcium 8.4 L (8.5-10.5) mg/dL Total Bilirubin 0.6 (0.15-1.2) mg/dL AST 10 (0-40) U/L ALT 7 (0-41) U/L Alkaline Phosphata se 56 (40-130) IU/L Total Protein 6.7 (6.6-8.7) g/dL Albumin 2.6 L (3.5-5.2) g/dL Globulin 4.1 (1.3-4.6) g/dL Imaging Data^: xr l hip: Attestation: I personally reviewed and interpreted this imaging study as follows: Radiologist's impression: [address] [address] XRay Report Signed Patient: Mihir Keller Unit #: [id number] : 1965 Age/Sex: 54 / M ADM Date: 07/28/20 Loc: ER Room/Bed: Attending Dr: Ordering Provider/Ordering MD: Elvira Arce MD Date of Service: 07/28/20 Procedure(s): XR femur LT min 2V* [id number] Accession Number(s): [id number] Report Number: [id number] WS: [id number] Left femur and thigh, AP and lateral views, 07/28/2020 Clinical Data: fx Comparison: None. Findings: The comminuted intertrochanteric fracture of the left hip is seen. The shaft of the femurs intact. The left knee is partly seen and shows osteoarthritis but no definite fracture. The soft tissues are normal. XR/XR femur LT min 2V* [id number] Impression: Comminuted intertrochanteric fracture left hip but no fractures of the distal left femoral shaft. Discharge Plan Discharge Patient Disposition: Home Clinical Impression: Leg wound, left Qualifiers: Encounter type: subsequent encounter Qualified Code(s): S81.802D - Unspecified open wound, left lower leg, subsequent encounter Closed fracture of left hip Qualifiers: Encounter type: initial encounter Qualified Code(s): S72.002A - Fracture of unspecified part of neck of left femur, initial encounter for closed fracture Condition: Stable Prescriptions: New Percocet 5-325 mg tablet 1 tab PO Q8H PRN (Reason: pain) Qty: 15 RF: 0 Continued oxycodone-acetaminophen [Percocet] 5-325 mg tablet 1 tab PO BID PRN (Reason: pain) 30 Days Qty: 60 RF: 0 No Action linezolid 600 mg tablet 600 mg PO BID RF: 0 baclofen 20 mg tablet 20 mg PO BID PRN (Reason: muscle spasticity) 30 Days Qty: 60 RF: 0 gabapentin 300 mg capsule 300 mg PO BID 30 Days Qty: 60 RF: 1 oxycodone-acetaminophen [Percocet] 5-325 mg tablet 1 tab PO BID PRN (Reason: pain) 30 Days Qty: 60 RF: 0 ascorbic acid (vitamin C) 1,000 mg tablet 1 gm PO ONCE RF: 0 naproxen sodium [Aleve] 220 mg tablet 220 mg PO ONCE PRN (Reason: pain) RF: 0 Hold Instructions: Resume on 10/01/19. testosterone 20.25 mg/1.25 gram (1.62 %) gel in metered-dose pump 1 pump TOPICAL .5 pumps day RF: 0 methenamine hippurate 1 gram tablet 1 gm PO BID Qty: 60 RF: 12 Discharge Orders: Discharge ED (Routine); Ordered 07/28/20 Ordered By: Elvira Arce Referrals: Jonah Kerr MD [Primary Care Provider] - Des Walsh MD [Physician] - 1-3 days Discharge Diet: Advance as tolerated Discharge Activity: Resume usual activity Patient Instructions: Leg Fracture (ED) Coding Level of Care Code ED Acid Maker for Cristyg Fwd Exam Comprehensive
[2020-07-28 14:03] LABS: Basophils # 0.1 10^3/uL (0.0-0.1); Basophils % 0.7 %; Eosinophils # 0.2 10^3/uL (0.0-0.8); Eosinophils % 2.5 %; Hematocrit 38.3 % (42.0-52.0); Hemoglobin 10.7 g/dL (11.7-16.6); Lymphocytes # 0.8 10^3/uL (0.8-4.8); Lymphocytes % 9.6 %; Mean Corpuscular HGB Conc 27.9 g/dL (30.0-36.0); Mean Corpuscular Hemoglobin 23.1 pg (28.0-34.0); Mean Corpuscular Volume 82.5 fL (80-94); Mean Platelet Volume 8.8 fL (7.4-10.4); Monocytes # 0.9 10^3/uL (0.2-0.9); Monocytes % 10.5 %; Neutrophils % 76.2 %; Nucleated Red Blood Cells % 0 %; Platelet Count 383 10^3/cmm (130-400); Red Blood Count 4.64 10^6/uL (4.1-5.3); Red Cell Distribution Width 16.5 % (12.1-15.1); White Blood Count 8.3 10^3/uL (4.0-10.0)
[2020-07-28 14:22] LABS: Alanine Aminotransferase 7 U/L (0-41); Albumin Level 2.6 g/dL (3.5-5.2); Alkaline Phosphatase 56 IU/L (40-130); Anion Gap 14.3 (5-19); Aspartate Amino Transferase 10 U/L (0-40); Blood Urea Nitrogen 19 mg/dL (6-20); Calcium 8.4 mg/dL (8.5-10.5); Carbon Dioxide 27 mmol/L (22-29); Chloride 107 mmol/L (98-107); Creatinine Clr Calc Pharmacy 149.8475; Globulin 4.1 g/dL (1.3-4.6); Glomerular Filtration Rate 117.5 mL/min (90-130); Glucose 94 mg/dL (65-115); Osmolality Calculated 298 mOsm/kg (285-295); Potassium 5.3 mmol/L (3.5-5.1); Sodium 143 mmol/L (136-145); Total Bilirubin 0.6 mg/dL (0.15-1.2); Total Protein 6.7 g/dL (6.6-8.7)
--- NOTE | 2020-07-28 14:43 | XR_ITS ---
WS: [id number] Left hip, AP and frog-leg, 07/28/2020 Clinical Data: pain Comparison: Left hip, 09/18/2014 Findings: There is a comminuted intertrochanteric fracture left hip. The left femoral head remains within the a cetabulum. There is deformity of the left iliac crest which is old. The soft tissues are unremarkable. XR/XR hip LT 2-3V wo/w pel* [id number] Impression: Comminuted intertrochanteric fracture of the left hip.
--- NOTE | 2020-07-28 14:46 | XR_ITS ---
WS: [id number] Left femur and thigh, AP and lateral views, 07/28/2020 Clinical Data: fx Comparison: None. Findings: The comminuted intertrochanteric fracture of the left hip is seen. The shaft of the femurs intact. Th e left knee is partly seen and shows osteoarthritis but no definite fracture. The soft tissues are normal. XR/XR femur LT min 2V* [id number] Impression: Comminuted intertrochanteric fracture left hip but no fractures of the distal l eft femoral shaft.
[2020-07-28] MEDS: morphine 4 mg/mL SDV 1 mL IM (15:36)
--- NOTE | 2020-07-29 09:09 | DCPLANNER ---
extrusion manager has message to schedule a follow up appointment for patient with ortho. extrusion manager called the ortho clinic, spoke with Betzy, gave clinic patients information. extrusion manager was told that patients information would be printed and reviewed. Clinic will call patient with appointment information.
--- NOTE | 2020-08-03 14:26 | DCPLANNER ---
Patient has a follow up appointment scheduled for Sunday, August 23, 2020 at 3:15 with . Clinic will call patient with appointment information.
--- NOTE | 2020-10-07 13:56 | DCPLANNER ---
Patient had a follow up appointment scheduled for 08.23.20 with ortho - patient did attend appointment.
== END 2020-07-28 17:05 | disposition home or self-care (01) ==
PROVIDERS: Emergency Provider Emergency Medicine; PCP Family Medicine
DX: S72.002A Fracture of unspecified part of neck of left femur, initial encounter for closed fracture (principal); S81.802A Unspecified open wound, left lower leg, initial encounter; Z77.22 Contact with and (suspected) exposure to environmental tobacco smoke (acute) (chronic); X58.XXXA Exposure to other specified factors, initial encounter; M79.89 Other specified soft tissue disorders
CPT/HCPCS: 12345; 73502; 73552; 80053; 85025; 93971; 96372; 99281; 99283; J2270

== ENCOUNTER 2020-08-03 14:06 | Outpatient (CLI) | payer MEDICARE, BC, SELFPAY ==
--- NOTE | 2020-08-03 14:16 | MR_ITS ---
WS: [id number] MRI LEFT LOWER LEG WITH AND WITHOUT CONTRAST. COMPARISON: 03/25/2020 Multiplanar, multisequence imaging is performed with and without contrast. Persistent increased T2 signal in the mid tibial diaphysis extending over length of 11 cm. There has been slight improvement in the overall intensity of the signal. The cortex is intact. Signal abnormal ity described in the fibula has resolved. There is still mild enhancement in the tibial diaphysis ext ending over length of 10 cm. No focal abscess within the bone. The enhancement and abnormal signal wi thin the anterior tibialis muscle has significantly improved. There is no focal collection remaining. There is some very mild edema and enhancement. The sinus tract is still evident but there is no enha ncement. Mild soft tissue thickening with enhancement over the anterior mid tibia and fibula. No joint effusion of any significance at the knee or ankle identified. MR/MR lower leg LT wo/w con [id number] IMPRESSION: 1. Persistent osteomyelitis but improved since 03/25/2020 in the mid tibial benny physis extending over a length of 10 cm. 2. Resolved osteomyelitis in the fibula. 3. Near complete resolution of the myositis and enhancement in the anterior ti bialis. There is still mild soft tissue thickening and cellulitis over the ante rior tibia. No soft tissue abscess.
== END 2020-08-03 14:07 | disposition home or self-care (01) ==
LOC: RADSHAW 14:10
PROVIDERS: PCP Family Medicine; Visit Provider Thoracic Surgery (Cardiothoracic Vascular Surgery)
DX: M86.9 Osteomyelitis, unspecified (principal); M79.662 Pain in left lower leg; L53.9 Erythematous condition, unspecified
CPT/HCPCS: 73720; A9579

== ENCOUNTER 2020-08-04 14:25 | Outpatient (CLI) | payer MEDICARE, BC, SELFPAY | END 2020-08-04 14:26 | disposition home or self-care (01) | LOC: WOUND 14:25 | PROVIDERS: PCP Family Medicine; Visit Provider Nurse Practitioner Family | DX: L97.822 Non-pressure chronic ulcer of other part of left lower leg with fat layer exposed (principal) | CPT/HCPCS: 11042; 11045 ==

== ENCOUNTER → 2020-08-05 10:10 | Outpatient (BNVA) | payer MEDICARE, BC, SELFPAY | PROVIDERS: PCP Family Medicine; Visit Provider Anesthesiology | DX: G89.29 Other chronic pain (principal); M54.5 Low back pain; Z79.891 Long term (current) use of opiate analgesic | CPT/HCPCS: 99212; 99214 ==

== ENCOUNTER 2020-08-10 14:34 | Outpatient (CLI) | payer MEDICARE, BC, SELFPAY | END 2020-08-10 14:35 | disposition home or self-care (01) | LOC: WOUND 14:35 | PROVIDERS: PCP Family Medicine; Visit Provider Thoracic Surgery (Cardiothoracic Vascular Surgery) | DX: L97.822 Non-pressure chronic ulcer of other part of left lower leg with fat layer exposed (principal) | CPT/HCPCS: 11042; 11045 ==

== ENCOUNTER 2020-08-12 17:52 | Outpatient (CLI) | payer MEDICARE, BC, SELFPAY ==
[2020-08-12 18:12] LABS: Basophils # 0.1 10^3/uL (0.0-0.1); Basophils % 0.6 %; Eosinophils # 0.2 10^3/uL (0.0-0.8); Eosinophils % 1.9 %; Hematocrit 43.3 % (42.0-52.0); Hemoglobin 11.7 g/dL (11.7-16.6); Lymphocytes # 0.9 10^3/uL (0.8-4.8); Lymphocytes % 7.9 %; Mean Corpuscular Hemoglobin 22.6 pg (28.0-34.0); Mean Corpuscular Volume 83.8 fL (80-94); Mean Platelet Volume 9.1 fL (7.4-10.4); Monocytes % 8.5 %; Neutrophils % 80.7 %; Nucleated Red Blood Cells % 0 %; Platelet Count 558 10^3/cmm (130-400); Red Blood Count 5.17 10^6/uL (4.1-5.3); White Blood Count 11.3 10^3/uL (4.0-10.0)
[2020-08-12 18:36] LABS: Anion Gap 14.5 (5-19); Blood Urea Nitrogen 12 mg/dL (6-20); Calcium 8.7 mg/dL (8.5-10.5); Carbon Dioxide 32 mmol/L (22-29); Chloride 97 mmol/L (98-107); Glomerular Filtration Rate 140.4 mL/min (90-130); Glucose 114 mg/dL (65-115); Osmolality Calculated 289 mOsm/kg (285-295); Potassium 4.5 mmol/L (3.5-5.1); Sodium 139 mmol/L (136-145)
== END 2020-08-12 17:53 | disposition home or self-care (01) ==
LOC: LAB 18:00
PROVIDERS: PCP Family Medicine; Visit Provider Thoracic Surgery (Cardiothoracic Vascular Surgery)
DX: I83.009 Varicose veins of unspecified lower extremity with ulcer of unspecified site (principal)
CPT/HCPCS: 80048; 85025

== ENCOUNTER 2020-08-17 13:14 | Outpatient (CLI) | payer MEDICARE, BC, SELFPAY | END 2020-08-17 13:15 | disposition home or self-care (01) | LOC: WOUND 13:15 | PROVIDERS: PCP Family Medicine; Visit Provider Nurse Practitioner Family | DX: L97.823 Non-pressure chronic ulcer of other part of left lower leg with necrosis of muscle (principal) | CPT/HCPCS: 11042; 11045 ==

== ENCOUNTER 2020-08-22 17:51 | Outpatient (CLI) | payer MEDICARE, BC, SELFPAY ==
[2020-08-22 18:52] LABS: Basophils # 0.1 10^3/uL (0.0-0.1); Basophils % 0.6 %; Eosinophils # 0.2 10^3/uL (0.0-0.8); Eosinophils % 2.6 %; Hematocrit 41.6 % (42.0-52.0); Hemoglobin 11.4 g/dL (11.7-16.6); Lymphocytes # 0.9 10^3/uL (0.8-4.8); Lymphocytes % 9.6 %; Mean Corpuscular HGB Conc 27.4 g/dL (30.0-36.0); Mean Corpuscular Hemoglobin 22.4 pg (28.0-34.0); Mean Corpuscular Volume 81.6 fL (80-94); Mean Platelet Volume 9.2 fL (7.4-10.4); Monocytes # 0.6 10^3/uL (0.2-0.9); Neutrophils # 7.14 10^3/uL (1.8-7.7); Neutrophils % 79.8 %; Nucleated Red Blood Cells % 0 %; Platelet Count 444 10^3/cmm (130-400); Red Cell Distribution Width 16.2 % (12.1-15.1)
[2020-08-22 19:56] LABS: Alanine Aminotransferase 7 U/L (0-41); Albumin Level 3.2 g/dL (3.5-5.2); Alkaline Phosphatase 205 IU/L (40-130); Anion Gap 16.4 (5-19); Aspartate Amino Transferase 12 U/L (0-40); Blood Urea Nitrogen 20 mg/dL (6-20); Calcium 8.6 mg/dL (8.5-10.5); Carbon Dioxide 26 mmol/L (22-29); Chloride 101 mmol/L (98-107); Globulin 3.6 g/dL (1.3-4.6); Glomerular Filtration Rate 117.5 mL/min (90-130); Glucose 137 mg/dL (65-115); Osmolality Calculated 293 mOsm/kg (285-295); Potassium 4.4 mmol/L (3.5-5.1); Sodium 139 mmol/L (136-145); Total Bilirubin 0.6 mg/dL (0.15-1.2); Total Protein 6.8 g/dL (6.6-8.7)
== END 2020-08-22 17:52 | disposition home or self-care (01) ==
LOC: LAB 17:54
PROVIDERS: PCP Family Medicine; Visit Provider Thoracic Surgery (Cardiothoracic Vascular Surgery)
DX: Z79.01 Long term (current) use of anticoagulants (principal)
CPT/HCPCS: 80053; 85025

== ENCOUNTER → 2020-08-23 15:25 | Outpatient (BNVA) | payer MEDICARE, BC, SELFPAY | PROVIDERS: PCP Family Medicine; Visit Provider Orthopaedic Surgery | DX: S72.142A Displaced intertrochanteric fracture of left femur, initial encounter for closed fracture (principal); X58.XXXA Exposure to other specified factors, initial encounter | CPT/HCPCS: 73502 ==

== ENCOUNTER 2020-08-24 14:07 | Outpatient (CLI) | payer MEDICARE, BC, SELFPAY | END 2020-08-24 14:08 | disposition home or self-care (01) | LOC: WOUND 14:08 | PROVIDERS: PCP Family Medicine; Visit Provider Nurse Practitioner Family | DX: L97.822 Non-pressure chronic ulcer of other part of left lower leg with fat layer exposed (principal) | CPT/HCPCS: 11042; 11045 ==

== ENCOUNTER 2020-08-31 13:57 | Outpatient (CLI) | payer MEDICARE, BC, SELFPAY | END 2020-08-31 13:58 | disposition home or self-care (01) | PROVIDERS: PCP Family Medicine; Visit Provider Nurse Practitioner Family | DX: L97.822 Non-pressure chronic ulcer of other part of left lower leg with fat layer exposed (principal) | CPT/HCPCS: 11042 ==

== ENCOUNTER 2020-09-07 13:43 | Outpatient (CLI) | payer MEDICARE, BC, SELFPAY | END 2020-09-07 13:44 | disposition home or self-care (01) | LOC: WOUND 13:44 | PROVIDERS: PCP Family Medicine; Visit Provider Thoracic Surgery (Cardiothoracic Vascular Surgery) | DX: I96 Gangrene, not elsewhere classified (principal); L89.313 Pressure ulcer of right buttock, stage 3; L97.822 Non-pressure chronic ulcer of other part of left lower leg with fat layer exposed | CPT/HCPCS: 11042; 11045 ==

== ENCOUNTER 2020-09-14 14:09 | Outpatient (CLI) | payer MEDICARE, BC, SELFPAY | END 2020-09-14 14:10 | disposition home or self-care (01) | LOC: WOUND 14:09 | PROVIDERS: PCP Family Medicine; Visit Provider Thoracic Surgery (Cardiothoracic Vascular Surgery) | DX: L97.822 Non-pressure chronic ulcer of other part of left lower leg with fat layer exposed (principal); L89.313 Pressure ulcer of right buttock, stage 3 | CPT/HCPCS: 11042; 11045 ==

== ENCOUNTER 2020-09-19 17:16 | Outpatient (CLI) | payer MEDICARE, BC, SELFPAY ==
[2020-09-19 17:33] LABS: Basophils # 0.1 10^3/uL (0.0-0.1); Basophils % 0.5 %; Eosinophils # 0.4 10^3/uL (0.0-0.8); Eosinophils % 3.3 %; Hematocrit 38.5 % (42.0-52.0); Hemoglobin 10.7 g/dL (11.7-16.6); Lymphocytes # 1.1 10^3/uL (0.8-4.8); Lymphocytes % 9.6 %; Mean Corpuscular HGB Conc 27.8 g/dL (30.0-36.0); Mean Corpuscular Hemoglobin 21.1 pg (28.0-34.0); Mean Corpuscular Volume 75.9 fL (80-94); Mean Platelet Volume 9.5 fL (7.4-10.4); Monocytes # 0.8 10^3/uL (0.2-0.9); Monocytes % 6.9 %; Neutrophils # 9.37 10^3/uL (1.8-7.7); Neutrophils % 79.2 %; Nucleated Red Blood Cells % 0 %; Platelet Count 548 10^3/cmm (130-400); Red Blood Count 5.07 10^6/uL (4.1-5.3); Red Cell Distribution Width 16.6 % (12.1-15.1); White Blood Count 11.8 10^3/uL (4.0-10.0)
[2020-09-19 18:38] LABS: Alanine Aminotransferase 8 U/L (0-41); Albumin Level 2.9 g/dL (3.5-5.2); Alkaline Phosphatase 100 IU/L (40-130); Anion Gap 13.4 (5-19); Aspartate Amino Transferase 9 U/L (0-40); Blood Urea Nitrogen 20 mg/dL (6-20); Calcium 8.6 mg/dL (8.5-10.5); Carbon Dioxide 29 mmol/L (22-29); Chloride 101 mmol/L (98-107); Globulin 4.1 g/dL (1.3-4.6); Glomerular Filtration Rate 140.4 mL/min (90-130); Glucose 85 mg/dL (65-115); Osmolality Calculated 290 mOsm/kg (285-295); Potassium 4.4 mmol/L (3.5-5.1); Sodium 139 mmol/L (136-145); Total Bilirubin 0.6 mg/dL (0.15-1.2)
== END 2020-09-19 17:17 | disposition home or self-care (01) ==
PROVIDERS: PCP Family Medicine; Visit Provider Thoracic Surgery (Cardiothoracic Vascular Surgery)
DX: L08.9 Local infection of the skin and subcutaneous tissue, unspecified (principal)
CPT/HCPCS: 80053; 85025

== ENCOUNTER 2020-09-21 14:03 | Outpatient (CLI) | payer MEDICARE, BC, SELFPAY | END 2020-09-21 14:04 | disposition home or self-care (01) | LOC: WOUND 14:10 | PROVIDERS: PCP Family Medicine; Visit Provider Thoracic Surgery (Cardiothoracic Vascular Surgery) | DX: I96 Gangrene, not elsewhere classified (principal); L89.313 Pressure ulcer of right buttock, stage 3; L97.822 Non-pressure chronic ulcer of other part of left lower leg with fat layer exposed | CPT/HCPCS: 11042; 11045 ==

== ENCOUNTER 2020-09-28 13:55 | Outpatient (CLI) | payer MEDICARE, BC, SELFPAY | END 2020-09-28 13:56 | disposition home or self-care (01) | LOC: WOUND 13:56 | PROVIDERS: PCP Family Medicine; Visit Provider Thoracic Surgery (Cardiothoracic Vascular Surgery) | DX: I96 Gangrene, not elsewhere classified (principal); L89.313 Pressure ulcer of right buttock, stage 3; L02.416 Cutaneous abscess of left lower limb | CPT/HCPCS: 11042; 11045 ==

== ENCOUNTER → 2020-09-30 11:17 | Outpatient (BNVA) | payer MEDICARE, BC, SELFPAY | PROVIDERS: PCP Family Medicine; Visit Provider Nurse Practitioner | DX: G89.29 Other chronic pain (principal); M54.5 Low back pain; Z79.891 Long term (current) use of opiate analgesic | CPT/HCPCS: 99213; 99214 ==

== ENCOUNTER 2020-10-06 06:42 | Inpatient (IN) | payer MEDICARE, BC, SELFPAY ==
[2020-10-06] VITALS (56 sets, daily range): BP systolic 63–151; BP diastolic 39–103; PULSE 61–136; RESP 11–33; TEMP 36.2–37.2; O2SAT 95–100; BMI 33.5
--- NOTE | 2020-10-06 06:51 | CTR_ITS ---
PROCEDURE INFORMATION: Exam: CT Head Without Contrast Exam date and time: 10/06/2020 6:52 AM Age: 54 years old Clinical indication: Altered mental status/memory loss. TECHNIQUE: Imaging protocol: Computed tomography of the head without contrast. Radiation optimization: All CT scans at this facility use at least one of these dose optimization techniques: automated exposure control; mA and/or kV adjustment per patient size (includes targeted exams where dose is matched to clinical indication); or iterative reconstruction. COMPARISON: CT HEAD 12/08/2018 3:02 PM RADIATION DOSE METRICS: Total DLP (mGy-cm): 335.52 FINDINGS: Limitations: Streak artifact. Brain: No acute brain parenchymal abnormality. No intracranial hemorrhage. No extraaxial fluid collections. Cerebral ventricles: No hydrocephalus. Bones/joints: No calvarial fracture. Paranasal sinuses: The visualized paranasal sinuses are aerated. Mastoid air cells: The mastoid air cells are aerated. Soft tissues: No acute soft tissue abnormality. CT/CT head wo con* [id number] IMPRESSION: No acute intracranial abnormality. Radiation Dose CTDIVOL = (mGy): DLP = 335.52 (mGy-cm)
--- NOTE | 2020-10-06 06:51 | XR_ITS ---
WS: [id number] Portable AP upright chest, 10/06/2020 Clinical Data: dyspnea/cough Comparison: Portable chest, 01/10/2019. Findings: No nodules, masses or effusions are seen. The heart is enlarged. The pulmonary vascularity is not increased. No pneumonia or pneumothorax is seen. The patient has had an anterior cervical disc fusion. Monitor leads are on the chest wall. XR/XR chest 1V portable [id number] Impression: Cardiomegaly.
--- NOTE | 2020-10-06 06:51 | ECG_ITS ---
[facility] Test Date: 2020-10-06 Pat Name: Mihir Keller Department: Room: Gender: Male Recruiter Manager: : 1965 Requested By: Marcio Acosta Order Number: [id number] Pennie MD: Abelardo Chang M.D. Measurements Intervals [place] Rate: 110 P: 55 KS: 136 QRS: 70 QRSD: 101 T: 37 QT: 329 QTc: 446 Interpretive Statements SINUS TACHYCARDIA POSSIBLE LEFT ATRIAL ENLARGEMENT [-0.1mV P WAVE IN V1/V2] LOW QRS VOLTAGE IN PRECORDIAL LEADS [QRS DEFLECTION < 1.0 mV IN CHEST LEADS] SEPTAL MYOCARDIAL INFARCTION [40+ ms Q WAVE IN V1/V2], OF INDETERMINATE AGE Compared to ECG 01/11/2019 04:49:25 Myocardial infarct finding now present Sinus rhythm no longer present Electronically Signed On 10-06-2020 16:03:39 STONE PROCESSING MACHINE OPERATOR by Abelardo Chang M.D. [id number]
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
[2020-10-06] MEDS: sodium chloride 0.9% 1,000 ML 999 ML IV ×2 (07:00→09:48)
[2020-10-06 07:03] LABS: ABG PCO2 40.9 mmHg (35-45); Alveolar-Arterial Oxygen Gradi 62.2 mmHg (5-10); Arterial Blood Gas Hematocrit 26.2 % (42-52); Base Excess ABG 0.4 mmol/L (-2.0-2.0); Blood Gas Allen Test Pos; Blood Gas Sample Site Brachial, left; Blood Gas Sample Type Arterial; Carboxyhemoglobin 0.8 %THgb (0.4-20.1); HCO3 ABG 25.2 mmol/L (22-26); HGB O2 Sat 97.6 % (95-100); Ionized Calcium Level - ABG 1.1 mmol/L (1.1-1.4); Methemoglobin 1.2 % (0.4-1.5); Oxygen Device NRB; Oxygen Saturation ABG 99.7; Potassium Level - ABG 4.6 mmol/L (3.5-5.0); Total Hemoglobin 8.5 g/dL (14-18)
[2020-10-06 08:06] LABS: Lactic Sepsis W/Reflex 2.6 mmol/L (0.5-2.2)
[2020-10-06 08:10] LABS: Basophils # 0.1 10^3/uL (0.0-0.1); Basophils % 0.4 %; Eosinophils % 0.1 %; Hematocrit 30.6 % (42.0-52.0); Hemoglobin 8.5 g/dL (11.7-16.6); Lymphocytes # 0.3 10^3/uL (0.8-4.8); Lymphocytes % 1.8 %; Mean Corpuscular HGB Conc 27.8 g/dL (30.0-36.0); Mean Corpuscular Hemoglobin 20.3 pg (28.0-34.0); Mean Corpuscular Volume 73.2 fL (80-94); Mean Platelet Volume 9.4 fL (7.4-10.4); Monocytes # 0.3 10^3/uL (0.2-0.9); Monocytes % 2.1 %; Neutrophils % 94.9 %; Nucleated Red Blood Cells % 0 %; Platelet Count 472 10^3/cmm (130-400); Red Blood Count 4.18 10^6/uL (4.1-5.3); Red Cell Distribution Width 17.5 % (12.1-15.1)
[2020-10-06 08:26] LABS: Alanine Aminotransferase 9 U/L (0-41); Albumin Level 2.2 g/dL (3.5-5.2); Alkaline Phosphatase 103 IU/L (40-130); Anion Gap 16.7 (5-19); Aspartate Amino Transferase 20 U/L (0-40); Blood Urea Nitrogen 37 mg/dL (6-20); Calcium 7.6 mg/dL (8.5-10.5); Carbon Dioxide 23 mmol/L (22-29); Chloride 96 mmol/L (98-107); Creatine Phosphokinase 86 U/L (39-308); Globulin 4.6 g/dL (1.3-4.6); Glomerular Filtration Rate 52.8 mL/min (90-130); Glucose 88 mg/dL (65-115); Lipase 19 U/L (13-60); Magnesium 1.5 mg/dL (1.7-2.3); Osmolality Calculated 280 mOsm/kg (285-295); Potassium 4.7 mmol/L (3.5-5.1); Sodium 131 mmol/L (136-145); Total Bilirubin 0.6 mg/dL (0.15-1.2); Total Protein 6.8 g/dL (6.6-8.7)
[2020-10-06 08:27] LABS: Troponin(5th) Baseline 60 ng/L (0-15)
[2020-10-06 08:43] LABS: Urine Appearance Hazy (CLEAR); Urine Color Yellow (Yellow); pH Urine 5 (5-7)
[2020-10-06 08:44] LABS: Add Urine Culture? Yes; Add Urine Microscopic? YES; Bacteria Urine 3+ /hpf; Bilirubin Urine Neg (Negative); Blood Urine Neg (Negative); Glucose Urine UA Norm (Normal); Ketones Urine 1+ (Negative); Leukocyte Esterase Urine 1+ (Negative); Nitrate Urine Negative (Negative); Protein Urine Neg (Negative); Squamous Epithelial Cell Urine 0-4 /hpf (0-5); Urobilinogen Urine Norm (Negative)
--- NOTE | 2020-10-06 08:51 | ECG_ITS ---
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 Measurements Intervals [place] Rate: 126 P: 44 ME: 108 QRS: 67 QRSD: 112 T: 11 QT: 315 QTc: 456 Interpretive Statements SINUS TACHYCARDIA WITH SHORT ME INTERVAL LOW QRS VOLTAGE IN PRECORDIAL LEADS [QRS DEFLECTION < 1.0 mV IN CHEST LEADS] MODERATE INTRAVENTRICULAR CONDUCTION DELAY [110+ ms QRS DURATION] ABNORMAL RHYTHM ECG Compared to ECG 01/11/2019 04:49:25 Short ME interval now present Intraventricular conduction delay now present Sinus rhythm no longer present Electronically Signed On 10-06-2020 16:06:59 CAMPAIGN CONSULTANT by Abelardo Chang M.D. [id number]
--- NOTE | 2020-10-06 09:18 | CT_ITS ---
WS: [id number] CT ABDOMEN PELVIS TECHNIQUE: Contrast-enhanced CT of the abdomen and pelvis with coronal and sagittal reformatted image s. CLINICAL INFORMATION: abd pain COMPARISON: January 06, 2020 DLP: 1548.[address] scans at [facility] use at least one of these dose optimization techniques: automat ed exposure control; mA and/or kV adjustment per patient size (includes targeted exams where dose is matched to clinical indication); or iterative reconstruction. FINDINGS: Mild diffuse fatty infiltration liver. Splenomegaly. Normal gallbladder. Normal portal vein and splen ic vein. Cardiomegaly. Atelectasis in the lung bases. Normal pancreas. Adrenal glands are normal. No hydronephrosis. Normal renal parenchymal enhancement. Bilateral renal cortical atrophy. Bilateral renal cysts unchanged from previous. Nonobstructing renal parenchymal calculi. Ileal conduit in the r ight lower quadrant. Normal caliber abdominal aorta. Normal sigmoid colon. No evidence of high-grade small or large bowel obstruction. Comminuted healing left intertrochanteric hip fracture with callus formation. CT/CT abdomen pelvis w con* [id number] IMPRESSION: 1. No acute abdominal or pelvic findings. 2. Normal bilateral renal parenchymal enhancement. No hydronephrosis. Ileal co nduit. 3. Stable bilateral renal cysts. 4. No evidence of small or large bowel obstruction. 5. Comminuted intratrochanteric left hip fracture with callus formation. Attempted notification Marcio Gardner DO at 10/06/2020 9:58 AM.
[2020-10-06] MEDS: pantoprazole 40 mg SDV IVP ×2 (09:30→20:02)
[2020-10-06 09:35] LABS: Reflex Lactate Order REFLEX LACTIC ORDERD
[2020-10-06] MEDS: iodixanol 320 mg/mL 100mL Btl IV ×2 (09:35→12:20)
--- NOTE | 2020-10-06 09:40 | PC.NURSE ---
Patient returns from CT lethargic and not responsive. This RN obtained the Dr. Gardner. Orders from Dr. Gardner was then then given. Low BP noted upon patients arrival back from CT.
[2020-10-06] MEDS: naloxone 0.4 mg/ml SDV IVP (09:44)
[2020-10-06] MEDS: magnesium sulfate premix 2 GM/50 ML PIGGYBACK IV (09:49)
[2020-10-06] MEDS: piperacillin-tazobactam 3.375 GM in sodium chloride 0.9% (plus) 50 ML IV ×2 (10:00→16:13)
[2020-10-06] MEDS: sodium chloride 0.9% 500 ML 999 ML IV ×2 (10:07→12:42)
[2020-10-06 10:15] LABS: Troponin 5 2HR 61.52 ng/L (0-15); Troponin 5 2HR Delta 1.52 ABS# (0-10)
[2020-10-06 10:29] LABS: ABG PH Result 7.29 (7.35-7.45); Alveolar-Arterial Oxygen Gradi 54.9 mmHg (5-10); Arterial Blood Gas Hematocrit 24.5 % (42-52); Base Excess ABG -1.5 mmol/L (-2.0-2.0); Blood Gas Operator Identificat ED; Blood Gas Sample Site Brachial, left; Blood Gas Sample Type Arterial; Carboxyhemoglobin 0.6 %THgb (0.4-20.1); HCO3 ABG 25.2 mmol/L (22-26); HGB O2 Sat 98.2 % (95-100); Ionized Calcium Level - ABG 1.1 mmol/L (1.1-1.4); Methemoglobin 0.9 % (0.4-1.5); Oxygen Device NRB; Oxygen Saturation ABG 99.7; Potassium Level - ABG 4.2 mmol/L (3.5-5.0)
--- NOTE | 2020-10-06 10:32 | CT_ITS ---
WS: [id number] NONCONTRAST CT OF THE RIGHT HIP TECHNIQUE: Noncontrast CT right hip with coronal and sagittal reformatted images. CLINICAL INFORMATION: open wound COMPARISON: None. DLP: 1591.[address] scans at [facility] use at least one of these dose optimization techniques: automat ed exposure control; mA and/or kV adjustment per patient size (includes targeted exams where dose is matched to clinical indication); or iterative reconstruction. FINDINGS:Decubitus ulceration in the right buttock medially near the gluteal cleft. Soft tissue thick ening with induration and edema extending along the ulceration. This extends down to the inferior pub ic ramus with bony irregularity and osteolysis involving the tip of the pubic ramus consistent with o steomyelitis. No drainable fluid collections or drainable abscess. Small amount of soft tissue thicke alesha and induration extends to the base of the corpora cavernosum with a small locule of air. Noncontrast CT of the right hip. Moderate degenerative arthritis right hip joint space narrowing. Hyp ertrophic changes about the acetabulum. No acute femoral fractures. Hypertrophic changes along the gr eater trochanter. Tiny right joint effusion. Dystrophic calcification along the right femoral neck. CT/CT hip RT w con [id number] IMPRESSION: 1. Decubitus ulcer along the right buttock near the gluteal cleft with soft ti ssue thickening and induration. No evidence of drainable abscess or fluid colle ction. 2. Decubitus ulcer extends down to the right dorsal pubic ramus with osteolysi s and fragmentation consistent with osteomyelitis. 3. Moderate degenerative arthritis right hip with joint space narrowing and hy pertrophic changes. Notified Marcio Gardner DO at 10/06/2020 12:41 PM.
[2020-10-06 10:37] LABS: INR 1.84 (0.8-1.2)
[2020-10-06 10:38] LABS: Partial Thromboplastin Time 53.4 SECONDS (23.9-36.7)
[2020-10-06] MEDS: vancomycin 1,000 MG in sodium chloride 0.9% 250 ML 250 MG IV (10:57)
[2020-10-06] MEDS: sodium chlor 0.9% + KCl 20 mEq 20 MEQ/1,000 ML BAG 150 MEQ IV (10:59)
[2020-10-06 11:03] LABS: Lactic Acid level (Lactate) 1.5 mmol/L (0.5-2.2)
[2020-10-06 11:15] LABS: Hemoglobin 8.1 g/dL (11.7-16.6)
[2020-10-06 11:29] LABS: SARS Covid-2 Antigen Negative (Negative)
[2020-10-06 11:48] LABS: ABG PCO2 43.4 mmHg (35-45); ABG PH Result 7.36 (7.35-7.45); Alveolar-Arterial Oxygen Gradi 7.5 mmHg (5-10); Arterial Blood Gas Hematocrit 25.6 % (42-52); Blood Gas Operator Identificat ED; Blood Gas Sample Site Brachial, left; Blood Gas Sample Type Arterial; Carboxyhemoglobin 0.7 %THgb (0.4-20.1); HCO3 ABG 24.5 mmol/L (22-26); HGB O2 Sat 95.3 % (95-100); Ionized Calcium Level - ABG 1.1 mmol/L (1.1-1.4); Methemoglobin 0.8 % (0.4-1.5); Oxygen Device BIPAP; Oxygen Saturation ABG 96.8; PO2 ABG 89.5 mmHg (80.0-100.0); Potassium Level - ABG 4.4 mmol/L (3.5-5.0); Total Hemoglobin 8.3 g/dL (14-18)
--- NOTE | 2020-10-06 12:51 | ECG_ITS ---
[facility] Test Date: 2020-10-06 Pat Name: Mihir Keller Department: Room: Gender: Male Internal Consultant: : 1965 Requested By: Marcio Acosta Order Number: [id number] Pennie MD: Abelardo Chang M.D. Measurements Intervals Gregory Rate: 103 P: 51 TN: 133 QRS: 78 QRSD: 109 T: 24 QT: 337 QTc: 442 Interpretive Statements SINUS TACHYCARDIA POSSIBLE LEFT ATRIAL ENLARGEMENT [-0.1mV P WAVE IN V1/V2] LOW QRS VOLTAGE IN PRECORDIAL LEADS [QRS DEFLECTION < 1.0 mV IN CHEST LEADS] MODERATE INTRAVENTRICULAR CONDUCTION DELAY [105+ ms QRS DURATION, 80+ ms Q/S IN V1/V2, NO Q AND 60+ ms R IN I/aVL/V5/V6] Compared to ECG 10/06/2020 08:34:15 Short TN interval no longer present Electronically Signed On 10-06-2020 16:06:47 [employer]ITCHER [employer] by Abelardo Chang M.D. [id number]
--- NOTE | 2020-10-06 13:36 | PM.HP ---
Providers/Chief Complaint Admitting Physician: Sadi Blanton MD Primary Care Provider: Jonah Kerr MD Chief Complaint: ams History of Present Illness Mihir Keller is a 54 year old male who presented to the emergency department with history of some confusion. Mother, who he lives with supplemented his history for me. Patient himself was very sleepy and not able to relate what brought him into the emergency department. According to the mother he was not feeling well yesterday. He was hurting all over which sometimes occurs when he is getting an infection. This morning he passed out while he was being moved. She reports he was breathing through the entire event, and had no shaking. When the ambulance arrived he came around and was able to answer some questions. She does not believe he has been having any fever. He has had a significant odor to his wound on his right buttock lately. His most recent wound care appointment he could not make secondary to weather. Mother believes that the syncopal episode occurred around 5 AM. He has had no vomiting. He has been eating and drinking poorly lately. Mother does not believe he has had any blood in his stool or black or tarry stool but is not 100% sure. He does follow chronically at the wound care clinic and is currently on linezolid. I am not for sure of the duration. Review of Systems General: Reports: ROS unobtainable due to mental status (Unable to obtain from the patient currently secondary to lethargy) Medications/Allergies Home Medications Medication Instructions Recorded Confirmed Last Taken Type ascorbic acid (vitamin C) 1,000 mg 1 gm PO ONCE tab 09/16/19 10/06/20 09/27/19 History tablet naproxen sodium 220 mg tablet 220 mg PO ONCE PRN tab 09/16/19 10/06/20 09/27/19 History testosterone 20.25 mg/1.25 gram 1 pump TOPICAL .5 pumps day gm 09/16/19 10/06/20 09/27/19 History (1.62 %) transdermal gel pump methenamine hippurate 1 gram tablet 1 gm PO BID #60 tab 03/03/20 10/06/20 Unknown Rx linezolid 600 mg tablet 600 mg PO BID 05/06/20 10/06/20 Unknown History baclofen 20 mg tablet 20 mg PO BID PRN 30 Days #60 tab 09/30/20 10/06/20 Unknown Rx gabapentin 300 mg capsule 300 mg PO BID 30 Days #60 cap 09/30/20 10/06/20 Unknown Rx oxycodone-acetaminophen 5 mg-325 1 tab PO BID PRN 30 Days #60 tab 09/30/20 10/06/20 Unknown Rx mg tablet apixaban [Eliquis] 2.5 mg PO BID 10/06/20 10/06/20 Unknown History Allergies Allergy/AdvReac Type Severity Reaction Status Date / Time clindamycin Allergy rash Verified 09/30/20 11:26 PFSH Acute PFSH: Medical History (Updated 10/06/20 @ 13:50 by Sadi Blanton MD) Chronic bilateral low back pain without sciatica Encounter for long-term opiate analgesic use History of DVT (deep vein thrombosis) History of recurrent UTI (urinary tract infection) Hx of fracture of femur 2014 metal placed right femur Hx of staphylococcal infection multiple surgeries to remove STAPH in left wrist Opioid contract exists Renal lesion Surgical History History of nasal surgery 1989 History of removal of calculus of renal pelvis through percutaneous nephrostomy History of removal of retained hardware 09/2019 Dr. Hastings at [facility] left lower ext History of urostomy 10-15 years ago Hx of knee surgery Left -metal put in 2014 and removed 2016- due to infection Hx of neck surgery 1989 Family History Grandfather Diabetes Family history of premature coronary artery disease Mother Lupus (systemic lupus erythematosus) Social History Smoking and tobacco status: never smoked Second hand smoke exposure: Yes Alcohol intake: never Marital status: Single Current occupational status: disabled History of recent travel: No Current gender identity: Male Vitals/I&O/Wt Last Vital Signs Temp 99.0 F 10/06/20 13:12 Pulse 97 10/06/20 13:32 Resp 29 H 10/06/20 13:32 BP 131/80 10/06/20 13:32 Pulse Ox 98 10/06/20 13:32 10/05/20 10/06/20 10/06/20 22:59 06:59 14:59 Intake Total 2909.373 / 2909.373 Balance 2909.373 / 2909.373 Weight last 48 hrs Weight 108.862 kg Physical Exam Narrative: EXAM NARRATIVE: General exam is a sleepy male on BiPAP. Does not appear to be in any distress. HEENT: Atraumatic and normocephalic. Pupils equally round. Oropharynx not examined as he is on BiPAP Neck is supple no lymphadenopathy or thyromegaly Cardiovascular tachycardic, without murmur Lungs diminished breath sounds bilaterally but clear without wheezes or crackles Abdomen is soft, positive bowel sounds. No obvious organomegaly. Urostomy bag noted demonstrates normal-appearing male Extremities left atrophied. Tibial skin ulceration noted with slight maceration. Right buttock/gluteal area with tunneled decubitus with foul odor and significant amount of fibrin. Neuro: Unable to adequately test but consistent with paraplegia. From my understanding he has some movement of his upper extremities but this will need to be evaluated at a later date. Data : 10/06/20 11:08 10/06/20 07:57 Micro: Microbiology 10/06/20 07:57 Blood Culture - Preliminary Blood SPECIMEN COLLECTED 10/06/20 07:41 Blood Culture - Preliminary Blood SPECIMEN COLLECTED Other data: The emergency department physician alerts me that he is heme positive, although not grossly bloody INR 1.84 Multiple ABGs done. One demonstrating respiratory acidosis. Last ABG on BiPAP demonstrating a pH of 7.36, PCO2 43, PO2 89 on 28% FiO2. I think he likely had a rate entered on BiPAP for this blood gas Lactic acid 2.6 Magnesium 1.5 Calcium 7.6 Albumin 2.2 Troponin 60 with repeat 61 LFTs largely normal Urinalysis with 5-10 whites 0-4 squamous 0 reds 3+ bacteria 1+ leukocyte esterace Rapid Covid negative and PCR pending Hip CT on the right with large decubitus with no obvious abscess. This extends to the pubic ramus and evidence of osteomyelitis is present Moderate degenerative changes right hip are noted as well Abdominal pelvis CT demonstrated stable bilateral renal cysts, no evidence of obstruction, left hip fracture old with callus formation Head CT without acute changes Chest x-ray which I visualize demonstrated no infiltrate EKG demonstrated sinus tachycardia, normal axis, nonspecific ST-T wave changes A&P Assessment and plan (1) Sepsis: Septic on admission. Appropriate fluid being ordered by the emergency department. Note that he has elevated white blood cell count, elevated lactic acid, hypotension, tachycardia, evidence of significant organ dysfunction. Blood cultures, urine cultures, Covid PCR, IV antibiotics consisted of vancomycin and Zosyn Status: Acute (2) Hypotension: Fluid hydration Norepinephrine initiated, titrate for mean greater than 65 Status: Acute (3) Acute encephalopathy: Secondary to sepsis. Monitor closely for improvement Status: Acute (4) Acute kidney injury: Secondary to sepsis Hydration CT abdomen pelvis demonstrates no obstruction Avoid renal toxic medications Hold all anti-inflammatories Continue to monitor closely Status: Acute (5) Hypomagnesemia: Supplemented IV in the emergency department Status: Acute (6) Decubitus skin ulcer: Likely the cause of sepsis is right buttocks decubitus. Left tibia decubitus also noted. Surgery consulted for possible debridement, following patient stabilization Status: Acute (7) GI bleeding: Hold all anti-inflammatories Initiate Protonix 40 mg IV twice daily Close monitoring of hemoglobin Transfusion if needed Status: Acute (8) Anemia: See GI bleeding Anemia panel. Appears to be iron deficiency Status: Acute (9) Hyponatremia: Likely secondary to renal dysfunction. Close follow-up Check random cortisol and TSH Status: Acute (10) Elevated troponin: Type II. Secondary to sepsis Status: Acute (11) UTI (urinary tract infection): With urostomy it is difficult to know if this is skin organisms or colonization. Will culture. Status: Acute (12) Paraplegia: Longstanding since neck injury around 1989. Some movement of his upper extremities that needs to be reevaluated. Status: Acute Additional A&P Information Full code Secondary to decubiti sequential compression devices contraindicated and anticoagulation currently being held secondary to heme positive stool and significant anemia Attestations Medical Necessity Statement*: Will need greater than 2 midnight stay for evaluation and treatment of sepsis. Critical Care Time: Critical Care Time (min): 64 Other Attestations: The high probability of a clinically significant, sudden or life threatening deterioration of the patient's [neurologic, cardiovascular, infectious, renal] system(s) required my full and direct attention, intervention and personal management. The critical care time is as shown. 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
[2020-10-06] MEDS: lactated ringers 1,000 ML 150 ML IV ×2 (15:27→22:42)
[2020-10-06 16:50] LABS: Folate Level 9.4 ng/mL (4.5-32.2)
[2020-10-06 16:51] LABS: Thyroid Stimulating Hormone 0.83 uIU/mL (0.27-4.20); Vitamin B12 292 pg/mL (232-1245)
[2020-10-06 17:24] LABS: Ferritin 622 ng/mL (30-400); Iron 7 ug/dL (59-158); Percent Saturation 5.3 % (20-50); Total Iron Binding Capacity 130 mcg/dl; Unsaturated Iron Binding 123 ug/dL (112-347)
[2020-10-06 17:30] LABS: Troponin 5 6HR 42.35 ng/L (0-15)
[2020-10-06 17:59] LABS: Cortisol Random 12.19 ug/dL (2.47-19.5)
[2020-10-06] MEDS: vancomycin 1,500 MG/300 ML PIGGYBACK 200 MG IV (20:02)
[2020-10-07] VITALS (38 sets, daily range): BP systolic 80–164; BP diastolic 46–113; PULSE 53–96; RESP 13–32; TEMP 36.4–37.2; O2SAT 94–100
[2020-10-07] MEDS: piperacillin-tazobactam 3.375 GM in sodium chloride 0.9% (plus) 50 ML IV ×4 (00:58→23:55)
[2020-10-07] MEDS: morphine 4 mg/mL SDV 1 mL 2 MG IVP (03:57)
[2020-10-07 05:20] LABS: Basophils # 0.1 10^3/uL (0.0-0.1); Basophils % 0.5 %; Eosinophils # 0.2 10^3/uL (0.0-0.8); Eosinophils % 1.7 %; Hemoglobin 8.7 g/dL (11.7-16.6); Lymphocytes # 0.8 10^3/uL (0.8-4.8); Lymphocytes % 6.4 %; Mean Corpuscular HGB Conc 28.1 g/dL (30.0-36.0); Mean Corpuscular Hemoglobin 21.3 pg (28.0-34.0); Mean Platelet Volume 9.2 fL (7.4-10.4); Monocytes # 1.2 10^3/uL (0.2-0.9); Monocytes % 9.8 %; Neutrophils # 10.04 10^3/uL (1.8-7.7); Neutrophils % 80.4 %; Nucleated Red Blood Cells % 0 %; Platelet Count 436 10^3/cmm (130-400); Red Blood Count 4.08 10^6/uL (4.1-5.3); Red Cell Distribution Width 17.5 % (12.1-15.1); White Blood Count 12.5 10^3/uL (4.0-10.0)
[2020-10-07] MEDS: lactated ringers 1,000 ML 150 ML IV (05:57)
[2020-10-07 06:13] LABS: Alanine Aminotransferase 10 U/L (0-41); Alkaline Phosphatase 93 IU/L (40-130); Anion Gap 13.9 (5-19); Aspartate Amino Transferase 18 U/L (0-40); Blood Urea Nitrogen 27 mg/dL (6-20); Calcium 8.2 mg/dL (8.5-10.5); Carbon Dioxide 24 mmol/L (22-29); Chloride 105 mmol/L (98-107); Globulin 4.5 g/dL (1.3-4.6); Glomerular Filtration Rate 77.9 mL/min (90-130); Glucose 82 mg/dL (65-115); Osmolality Calculated 290 mOsm/kg (285-295); Potassium 4.9 mmol/L (3.5-5.1); Sodium 138 mmol/L (136-145); Total Bilirubin 0.5 mg/dL (0.15-1.2); Total Protein 6.5 g/dL (6.6-8.7)
[2020-10-07] MEDS: vancomycin 1,500 MG/300 ML PIGGYBACK 200 MG IV ×2 (08:01→20:52)
[2020-10-07] MEDS: pantoprazole 40 mg SDV IVP ×2 (09:15→20:52)
--- NOTE | 2020-10-07 11:23 | PC.NURSE ---
pt transferred to 269, report called to cynthia Villa
--- NOTE | 2020-10-07 12:00 | PM.PN ---
Subjective Subjective: Interval history: Mihir reports he is doing okay today. Does not feel confused. Less sleepy. Reports he needs some of his home medications back. Medications: Reviewed: Yes Vitals/I&O/Wt Last Vital Signs Temp 98.4 F 10/07/20 11:22 Pulse 92 10/07/20 11:22 Resp 18 10/07/20 11:22 BP 143/87 10/07/20 11:22 Pulse Ox 94 10/07/20 11:22 10/06/20 10/07/20 10/07/20 22:59 06:59 14:59 Intake Total 2642.25 / 5942.798 1175.488 / 7118.286 300 / 300 Output Total 1025 / 1025 500 / 1525 450 / 450 Balance 1617.25 / 4917.798 675.488 / 5593.286 -150 / -150 Weight last 48 hrs Weight 104.78 kg Weight 108.862 kg Physical Exam Narrative: EXAM NARRATIVE: General exam is a conversant male in no distress Neck is supple no lymphadenopathy or thyromegaly Cardiovascular regular rate and rhythm without murmur Lungs diminished breath sounds bilaterally but clear without wheezes or crackles Abdomen is soft, positive bowel sounds. No obvious organomegaly. Urostomy bag noted Extremities left atrophied. Tibial skin ulceration noted with slight maceration. Right buttock/gluteal area with tunneled decubitus with foul odor and significant amount of fibrin. Data : 10/07/20 05:00 10/07/20 05:00 Micro: Microbiology 10/06/20 07:50 Urine Culture - Preliminary Urine,Clean Catch Gram Negative Rods Gram Negative Rods#2 10/06/20 07:41 Blood Culture - Preliminary Blood Gram positive cocci 10/06/20 07:32 Occult Blood (FIT) - Final Stool Routine Collection 10/06/20 07:57 Blood Culture - Preliminary Blood NEGATIVE TO DATE A&P Assessment and plan (1) Sepsis: Septic on admission. This is resolving. Covid PCR pending. Rapid negative. Continue vancomycin and Zosyn Urine culture preliminary gram-negative rods, blood culture preliminary 1/4 bottles gram-positive cocci chains Status: Acute (2) Hypotension: Resolved. Norepinephrine discontinued Status: Acute (3) Acute encephalopathy: Secondary to sepsis. Resolved currently Status: Acute (4) Acute kidney injury: Secondary to sepsis With hydration this has resolved CT abdomen pelvis demonstrates no obstruction Avoid renal toxic medications Hold all anti-inflammatories Status: Acute (5) Hypomagnesemia: Supplemented IV in the emergency department Normal today Status: Acute (6) Decubitus skin ulcer: Likely the cause of sepsis is right buttocks decubitus. Left tibia decubitus also noted. Surgery consulted for possible debridement, which may occur today Evidence of osteomyelitis on CT scan Will likely need infectious disease consultation, PICC line prior to discharge but await full culture results. Status: Acute (7) GI bleeding: Hold all anti-inflammatories Continue Protonix 40 mg IV twice daily Close monitoring of hemoglobin Transfusion if needed Consider transitioning to oral protonix when starting po after surgery. Status: Acute (8) Anemia: See GI bleeding Anemia panel significant iron deficiency Iron transfusion today Status: Acute (9) Hyponatremia: Likely secondary to renal dysfunction. Normal today. Random cortisol and TSH normal Status: Acute (10) Elevated troponin: Type II. Secondary to sepsis Status: Acute (11) UTI (urinary tract infection): With urostomy it is difficult to know if this is skin organisms or colonization. Will culture. Status: Acute (12) Paraplegia: Longstanding since neck injury around 1989. Some movement of his upper extremities that needs to be reevaluated. 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
[2020-10-07] MEDS: lactated ringers 1,000 ML 75 ML IV (12:21)
--- NOTE | 2020-10-07 13:37 | P.ANESASSM_ITS ---
Pre-Anesthetic Assessment Pre-Anesthetic Assessment: Height/Weight: Height 1.8 m Weight 104.78 kg Temp Pulse Resp BP Pulse Ox 98.4 F 92 18 143/87 94 10/07/20 11:22 10/07/20 11:22 10/07/20 11:22 10/07/20 11:22 10/07/20 11:22 Preop Diagnosis: Left lower extremity abscess status post orthopedic intervention Proposed Procedure: Operation Date: 10/07/20 13:25 Proposed Procedures p Incision And Drainage Buttocks wound(Not Applicable) - Zaire Callejas MD Familial anesthetic complications: none Was Beta Shana taken within 24 hours: N/A Last intake: 10/05/20 2100 solid food 10/07/20 0800 water Social: Social History: No alcohol and No tobacco Exam: Pre-Anes Outpt Exam: alert, oriented x 3 and clear to auscultation bilaterally Airway: Submandibular: WNL Cervical ROM: WNL MP: 2 Dentition: Full History/ROS: No significant history except as noted Pulmonary: Pulmonary: None reported CV/HEM: CV/HEM: DVT : Comments: urostomy tube Hepatic: Hepatic: None reported Musc/skel: Musc/skel: Weakness Comments: quadriplegic Anesthetic Plan: ASA status: 3 Anesthesia: Anesthesia Evaluation and MAC Risk of > 500 ml blood loss (7ml/kg in children): No Meds/Allergies Current Medications: Current Medications Generic Name Dose Route Start Last Admin Trade Name Freq PRN Reason Stop Dose Admin Lactated Ringer's 1,000 mls @ 75 ml s/hr 10/06/20 15:11 10/07/20 12:21 Lactated Ringers IV 75 mls/hr .[id number] LAYTON Administration Piperacillin Sod/T azobactam 50 mls @ 12.5 mls /hr 10/06/20 16:00 10/07/20 12:27 Sod 3.375 gm/ So dium Chloride IV Infused Q8H LAYTON Infusion Vancomycin/PEG/NAD A/Lysine/Water 1,500 mg in 300 m ls @ 200 mls/hr 10/06/20 20:00 10/07/20 11:48 Vancocin IV Infused Q12H LAYTON Infusion Morphine Sulfate 2 mg 10/06/20 15:11 10/07/20 03:57 Morphine 4 Mg/Ml Sdv 1 Ml IVP 2 mg Q4H PRN Administration SEVERE PAIN Pantoprazole Sodiu m 40 mg 10/06/20 21:00 10/07/20 09:15 Pantoprazole 40 Mg Sdv IVP 40 mg Q12H L[place] Administration PFSH Anesthesia PFSH: Medical History (Updated 10/06/20 @ 13:50 by Sadi Blanton MD) Chronic bilateral low back pain without sciatica Encounter for long-term opiate analgesic use History of DVT (deep vein thrombosis) History of recurrent UTI (urinary tract infection) Hx of fracture of femur 2014 metal placed right femur Hx of staphylococcal infection multiple surgeries to remove STAPH in left wrist Opioid contract exists Renal lesion Surgical History History of nasal surgery 1989 History of removal of calculus of renal pelvis through percutaneous nephrostomy History of removal of retained hardware 09/2019 Dr. Hastings at [facility] [place] left lower ext History of urostomy 10-15 years ago Hx of knee surgery Left -metal put in 2014 and removed 2016- due to infection Hx of neck surgery 1989 Family History Grandfather Diabetes Family history of premature coronary artery disease Mother Lupus (systemic lupus erythematosus) Social History Smoking and tobacco status: never smoked Second hand smoke exposure: Yes Alcohol intake: never Marital status: Single Current occupational status: disabled History of recent travel: No Current gender identity: Male Data Anesthesia CBC & Chem 7: 10/07/20 05:00 10/07/20 05:00 Other Labs: Laboratory Results - last 48 hr 10/06/20 10/06/20 10/06/20 06:57 07:41 07:50 WBC RBC Hgb Hct MCV MCH MCHC RDW Plt Count MPV Neut % (Auto) Lymph % (Auto) [place] % (Auto) Eos % (Auto) Baso % (Auto) Neut # (Auto) Lymph # (Auto) [place] # (Auto) Eos # (Auto) Baso # (Auto) Nucleated RBC % (auto) Nucleated RBCs # PT INR APTT Specimen Type Arterial Sample Site Brachial, left ABG pH 7.40 ABG pCO2 40.9 ABG pO2 186.0 H ABG HCO3 25.2 ABG O2 Saturation 99.7 ABG Base Excess 0.4 Vito Test Pos A-a O2 Gradient 62.2 H Hematocrit 26.2 L Hgb O2 Saturation 97.6 Carboxyhemoglobin 0.8 Methemoglobin 1.2 Total Hemoglobin 8.5 L Sodium 135.0 Potassium 4.6 Glucose 99.0 Ionized Calcium 1.1 O2 Delivery Device Nrb O2 Liters/Min 15.0 FiO2 100.0 Cause Analyst ID [id number] Chloride Carbon Dioxide Anion Gap BUN Creatinine GFR Calculation Calculated Osmolality Lactic Acid 2.6 H Lactic Acid (Sepsis) Calcium Ionized Calcium Anny Magnesium Iron TIBC % Saturation Unsat Iron Binding Ferritin Total Bilirubin AST ALT Alkaline Phosphatase Creatine Kinase Troponin T Baseline Troponin T 120 Minute Delta Troponin T Troponin T Hi Sens 6Hr Troponin T Hi Sens 6Hr Delta Total Protein Albumin Globulin Lipase Vitamin B12 Folate TSH Random Cortisol Urine Color Yellow Urine Appearance Hazy A Urine pH 5 Ur Specific [place] 1.010 Urine Protein Neg Urine Glucose (UA) Norm Urine Ketones 1+ H Urine Blood Neg Urine Nitrate Negative Urine Bilirubin Neg Urine Urobilinogen Norm Ur Leukocyte Esterase 1+ H Urine RBC None Urine WBC 5-10 H Ur Squamous Epith Cells 0-4 H Amorphous Sediment Not Reportable Urine Bacteria 3+ H SARS-CoV-2 Ag (Rapid) Blood Type Rho(D) Type Antibody Screen Crossmatch 10/06/20 10/06/20 10/06/20 07:57 07:57 07:57 WBC 14.0 H RBC 4.18 Hgb 8.5 L Hct 30.6 L MCV 73.2 L MCH 20.3 L MCHC 27.8 L RDW 17.5 H Plt Count 472 H MPV 9.4 Neut % (Auto) 94.9 Lymph % (Auto) 1.8 [place] % (Auto) 2.1 Eos % (Auto) 0.1 Baso % (Auto) 0.4 Neut # (Auto) 13.30 H Lymph # (Auto) 0.3 L [place] # (Auto) 0.3 Eos # (Auto) 0.0 Baso # (Auto) 0.1 Nucleated RBC % (auto) 0 Nucleated RBCs # 0.0 PT INR APTT Specimen Type Sample Site ABG pH ABG pCO2 ABG pO2 ABG HCO3 ABG O2 Saturation ABG Base Excess Vito Test A-a O2 Gradient Hematocrit Hgb O2 Saturation Carboxyhemoglobin Methemoglobin Total Hemoglobin Sodium 131 L Potassium 4.7 Glucose 88 Ionized Calcium O2 Delivery Device O2 Liters/Min FiO2 Cause Analyst ID Chloride 96 L Carbon Dioxide 23 Anion Gap 16.7 BUN 37 H Creatinine 1.4 H GFR Calculation 52.8 L Calculated Osmolality 280 L Lactic Acid Lactic Acid (Sepsis) Calcium 7.6 L Ionized Calcium Anny Magnesium 1.5 L Iron TIBC % Saturation Unsat Iron Binding Ferritin Total Bilirubin 0.6 AST 20 ALT 9 Alkaline Phosphatase 103 Creatine Kinase 86 Troponin T Baseline 60 H Troponin T 120 Minute Delta Troponin T Troponin T Hi Sens 6Hr Troponin T Hi Sens 6Hr Delta Total Protein 6.8 Albumin 2.2 L Globulin 4.6 Lipase 19 Vitamin B12 Folate TSH Random Cortisol Urine Color Urine Appearance Urine pH Ur Specific [place] Urine Protein Urine Glucose (UA) Urine Ketones Urine Blood Urine Nitrate Urine Bilirubin Urine Urobilinogen Ur Leukocyte Esterase Urine RBC Urine WBC Ur Squamous Epith Cells Amorphous Sediment Urine Bacteria SARS-CoV-2 Ag (Rapid) Blood Type Rho(D) Type Antibody Screen Crossmatch 10/06/20 10/06/20 10/06/20 07:57 07:57 07:57 WBC RBC Hgb Hct MCV MCH MCHC RDW Plt Count MPV Neut % (Auto) Lymph % (Auto) [place] % (Auto) Eos % (Auto) Baso % (Auto) Neut # (Auto) Lymph # (Auto) [place] # (Auto) Eos # (Auto) Baso # (Auto) Nucleated RBC % (auto) Nucleated RBCs # PT 21.90 H INR 1.84 H APTT 53.4 H Specimen Type Sample Site ABG pH ABG pCO2 ABG pO2 ABG HCO3 ABG O2 Saturation ABG Base Excess Vito Test A-a O2 Gradient Hematocrit Hgb O2 Saturation Carboxyhemoglobin Methemoglobin Total Hemoglobin Sodium Potassium Glucose Ionized Calcium O2 Delivery Device O2 Liters/Min FiO2 Cause Analyst ID Chloride Carbon Dioxide Anion Gap BUN Creatinine GFR Calculation Calculated Osmolality Lactic Acid Lactic Acid (Sepsis) Calcium Ionized Calcium Anny Magnesium Iron 7 L TIBC 130 % Saturation 5.3 L Unsat Iron Binding 123 Ferritin 622 H Total Bilirubin AST ALT Alkaline Phosphatase Creatine Kinase Troponin T Baseline Troponin T 120 Minute Delta Troponin T Troponin T Hi Sens 6Hr Troponin T Hi Sens 6Hr Delta Total Protein Albumin Globulin Lipase Vitamin B12 292 Folate 9.4 TSH 0.83 Random Cortisol Urine Color Urine Appearance Urine pH Ur Specific [place] Urine Protein Urine Glucose (UA) Urine Ketones Urine Blood Urine Nitrate Urine Bilirubin Urine Urobilinogen Ur Leukocyte Esterase Urine RBC Urine WBC Ur Squamous Epith Cells Amorphous Sediment Urine Bacteria SARS-CoV-2 Ag (Rapid) Blood Type Rho(D) Type Antibody Screen Crossmatch 10/06/20 10/06/20 10/06/20 09:48 09:48 09:48 WBC RBC Hgb Hct MCV MCH MCHC RDW Plt Count MPV Neut % (Auto) Lymph % (Auto) [place] % (Auto) Eos % (Auto) Baso % (Auto) Neut # (Auto) Lymph # (Auto) [place] # (Auto) Eos # (Auto) Baso # (Auto) Nucleated RBC % (auto) Nucleated RBCs # PT INR APTT Specimen Type Sample Site ABG pH ABG pCO2 ABG pO2 ABG HCO3 ABG O2 Saturation ABG Base Excess Vito Test A-a O2 Gradient Hematocrit Hgb O2 Saturation Carboxyhemoglobin Methemoglobin Total Hemoglobin Sodium Potassium Glucose Ionized Calcium O2 Delivery Device O2 Liters/Min FiO2 Cause Analyst ID Chloride Carbon Dioxide Anion Gap BUN Creatinine GFR Calculation Calculated Osmolality Lactic Acid Lactic Acid (Sepsis) Calcium Ionized Calcium Anny 1.0 L Magnesium Iron TIBC % Saturation Unsat Iron Binding Ferritin Total Bilirubin AST ALT Alkaline Phosphatase Creatine Kinase Troponin T Baseline Troponin T 120 Minute 61.52 H Delta Troponin T 1.52 Troponin T Hi Sens 6Hr Troponin T Hi Sens 6Hr Delta Total Protein Albumin Globulin Lipase Vitamin B12 Folate TSH Random Cortisol Urine Color Urine Appearance Urine pH Ur Specific [place] Urine Protein Urine Glucose (UA) Urine Ketones Urine Blood Urine Nitrate Urine Bilirubin Urine Urobilinogen Ur Leukocyte Esterase Urine RBC Urine WBC Ur Squamous Epith Cells Amorphous Sediment Urine Bacteria SARS-CoV-2 Ag (Rapid) Blood Type O Positive Rho(D) Type Positive Antibody Screen Negative Crossmatch See Detail 10/06/20 10/06/20 10/06/20 10:00 10:27 10:41 WBC RBC Hgb Hct MCV MCH MCHC RDW Plt Count MPV Neut % (Auto) Lymph % (Auto) [place] % (Auto) Eos % (Auto) Baso % (Auto) Neut # (Auto) Lymph # (Auto) [place] # (Auto) Eos # (Auto) Baso # (Auto) Nucleated RBC % (auto) Nucleated RBCs # PT INR APTT Specimen Type Arterial Sample Site Brachial, left ABG pH 7.29 L ABG pCO2 53.0 H ABG pO2 229.0 H ABG HCO3 25.2 ABG O2 Saturation 99.7 ABG Base Excess -1.5 Vito Test N/a A-a O2 Gradient 54.9 H Hematocrit 24.5 L Hgb O2 Saturation 98.2 Carboxyhemoglobin 0.6 Methemoglobin 0.9 Total Hemoglobin 8.0 L Sodium 136.0 Potassium 4.2 Glucose 117.0 H Ionized Calcium 1.1 O2 Delivery Device Nrb O2 Liters/Min 15.0 FiO2 100.0 Cause Analyst ID Ed Chloride Carbon Dioxide Anion Gap BUN Creatinine GFR Calculation Calculated Osmolality Lactic Acid Lactic Acid (Sepsis) 1.5 Calcium Ionized Calcium Anny Magnesium Iron TIBC % Saturation Unsat Iron Binding Ferritin Total Bilirubin AST ALT Alkaline Phosphatase Creatine Kinase Troponin T Baseline Troponin T 120 Minute Delta Troponin T Troponin T Hi Sens 6Hr Troponin T Hi Sens 6Hr Delta Total Protein Albumin Globulin Lipase Vitamin B12 Folate TSH Random Cortisol Urine Color Urine Appearance Urine pH Ur Specific [place] Urine Protein Urine Glucose (UA) Urine Ketones Urine Blood Urine Nitrate Urine Bilirubin Urine Urobilinogen Ur Leukocyte Esterase Urine RBC Urine WBC Ur Squamous Epith Cells Amorphous Sediment Urine Bacteria SARS-CoV-2 Ag (Rapid) Negative Blood Type Rho(D) Type Antibody Screen Crossmatch 10/06/20 10/06/20 10/06/20 11:08 11:46 17:00 WBC RBC Hgb 8.1 L Hct MCV MCH MCHC RDW Plt Count MPV Neut % (Auto) Lymph % (Auto) [place] % (Auto) Eos % (Auto) Baso % (Auto) Neut # (Auto) Lymph # (Auto) [place] # (Auto) Eos # (Auto) Baso # (Auto) Nucleated RBC % (auto) Nucleated RBCs # PT INR APTT Specimen Type Arterial Sample Site Brachial, left ABG pH 7.36 ABG pCO2 43.4 ABG pO2 89.5 ABG HCO3 24.5 ABG O2 Saturation 96.8 ABG Base Excess -1.0 Vito Test N/a A-a O2 Gradient 7.5 Hematocrit 25.6 L Hgb O2 Saturation 95.3 Carboxyhemoglobin 0.7 Methemoglobin 0.8 Total Hemoglobin 8.3 L Sodium 135.0 Potassium 4.4 Glucose 120.0 H Ionized Calcium 1.1 O2 Delivery Device Bipap O2 Liters/Min FiO2 28.0 Cause Analyst ID Ed Chloride Carbon Dioxide Anion Gap BUN Creatinine GFR Calculation Calculated Osmolality Lactic Acid Lactic Acid (Sepsis) Calcium Ionized Calcium Anny Magnesium Iron TIBC % Saturation Unsat Iron Binding Ferritin Total Bilirubin AST ALT Alkaline Phosphatase Creatine Kinase Troponin T Baseline Troponin T 120 Minute Delta Troponin T Troponin T Hi Sens 6Hr 42.35 H Troponin T Hi Sens 6Hr Delta TNP Total Protein Albumin Globulin Lipase Vitamin B12 Folate TSH Random Cortisol Urine Color Urine Appearance Urine pH Ur Specific [place] Urine Protein Urine Glucose (UA) Urine Ketones Urine Blood Urine Nitrate Urine Bilirubin Urine Urobilinogen Ur Leukocyte Esterase Urine RBC Urine WBC Ur Squamous Epith Cells Amorphous Sediment Urine Bacteria SARS-CoV-2 Ag (Rapid) Blood Type Rho(D) Type Antibody Screen Crossmatch 10/06/20 10/07/20 10/07/20 17:00 05:00 05:00 WBC 12.5 H RBC 4.08 L Hgb 8.7 L Hct 31.0 L MCV 76.0 L MCH 21.3 L MCHC 28.1 L RDW 17.5 H Plt Count 436 H MPV 9.2 Neut % (Auto) 80.4 Lymph % (Auto) 6.4 [place] % (Auto) 9.8 Eos % (Auto) 1.7 Baso % (Auto) 0.5 Neut # (Auto) 10.04 H Lymph # (Auto) 0.8 [place] # (Auto) 1.2 H Eos # (Auto) 0.2 Baso # (Auto) 0.1 Nucleated RBC % (auto) 0 Nucleated RBCs # 0.0 PT INR APTT Specimen Type Sample Site ABG pH ABG pCO2 ABG pO2 ABG HCO3 ABG O2 Saturation ABG Base Excess Vito Test A-a O2 Gradient Hematocrit Hgb O2 Saturation Carboxyhemoglobin Methemoglobin Total Hemoglobin Sodium Potassium Glucose Ionized Calcium O2 Delivery Device O2 Liters/Min FiO2 Cause Analyst ID Chloride Carbon Dioxide Anion Gap BUN Creatinine GFR Calculation Calculated Osmolality Lactic Acid Lactic Acid (Sepsis) Calcium Ionized Calcium Anny Magnesium 2.0 Iron TIBC % Saturation Unsat Iron Binding Ferritin Total Bilirubin AST ALT Alkaline Phosphatase Creatine Kinase Troponin T Baseline Troponin T 120 Minute Delta Troponin T Troponin T Hi Sens 6Hr Troponin T Hi Sens 6Hr Delta Total Protein Albumin Globulin Lipase Vitamin B12 Folate TSH Random Cortisol 12.19 Urine Color Urine Appearance Urine pH Ur Specific [place] Urine Protein Urine Glucose (UA) Urine Ketones Urine Blood Urine Nitrate Urine Bilirubin Urine Urobilinogen Ur Leukocyte Esterase Urine RBC Urine WBC Ur Squamous Epith Cells Amorphous Sediment Urine Bacteria SARS-CoV-2 Ag (Rapid) Blood Type Rho(D) Type Antibody Screen Crossmatch 10/07/20 05:00 WBC RBC Hgb Hct MCV MCH MCHC RDW Plt Count MPV Neut % (Auto) Lymph % (Auto) [place] % (Auto) Eos % (Auto) Baso % (Auto) Neut # (Auto) Lymph # (Auto) [place] # (Auto) Eos # (Auto) Baso # (Auto) Nucleated RBC % (auto) Nucleated RBCs # PT INR APTT Specimen Type Sample Site ABG pH ABG pCO2 ABG pO2 ABG HCO3 ABG O2 Saturation ABG Base Excess Vito Test A-a O2 Gradient Hematocrit Hgb O2 Saturation Carboxyhemoglobin Methemoglobin Total Hemoglobin Sodium 138 Potassium 4.9 Glucose 82 Ionized Calcium O2 Delivery Device O2 Liters/Min FiO2 Cause Analyst ID Chloride 105 Carbon Dioxide 24 Anion Gap 13.9 BUN 27 H Creatinine 1.0 GFR Calculation 77.9 L Calculated Osmolality 290 Lactic Acid Lactic Acid (Sepsis) Calcium 8.2 L Ionized Calcium Anny Magnesium Iron TIBC % Saturation Unsat Iron Binding Ferritin Total Bilirubin 0.5 AST 18 ALT 10 Alkaline Phosphatase 93 Creatine Kinase Troponin T Baseline Troponin T 120 Minute Delta Troponin T Troponin T Hi Sens 6Hr Troponin T Hi Sens 6Hr Delta Total Protein 6.5 L Albumin 2.0 L Globulin 4.5 Lipase Vitamin B12 Folate TSH Random Cortisol Urine Color Urine Appearance Urine pH Ur Specific [place] Urine Protein Urine Glucose (UA) Urine Ketones Urine Blood Urine Nitrate Urine Bilirubin Urine Urobilinogen Ur Leukocyte Esterase Urine RBC Urine WBC Ur Squamous Epith Cells Amorphous Sediment Urine Bacteria SARS-CoV-2 Ag (Rapid) Blood Type Rho(D) Type Antibody Screen Crossmatch Micro: Microbiology 10/06/20 07:50 Urine Culture - Preliminary Urine,Clean Catch Gram Negative Rods Gram Negative Rods#2 10/06/20 07:41 Blood Culture - Preliminary Blood Gram positive cocci 10/06/20 07:32 Occult Blood (FIT) - Final Stool Routine Collection 10/06/20 07:57 Blood Culture - Preliminary Blood NEGATIVE TO DATE Cardiac Studies: No Data to Display
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
--- NOTE | 2020-10-07 14:30 | PM.OP ---
Operative Report Date of procedure: October 07, 2020 Pre-op Diagnosis: Right gluteal stage IV decubitus ulcer Post-op Diagnosis: Right gluteal stage IV decubitus ulcer measuring 7 x 5 x 10 cm Procedure Done: Excisional debridement of necrotic subcutaneous tissue and muscle using Molina scissors Specimens removed/disposition: Necrotic tissue for wound cultures Surgeon: Zaire Callejas Anesthesia: MAC Condition: stable Disposition: same day Procedure: The patient was taken to the operating room and placed in right lateral position under MAC. Patient is on therapeutic IV antibiotics. The area around the gluteal decubitus ulcer was prepped and draped in a sterile manner. Using Molina scissors extensive debridement of necrotic subcutaneous tissue and muscle was performed until there was punctate bleeding noted. The wound measured 7 x 5 x 10 cm with tunneling. Surgicel was used for hemostasis and wound packed with moist Kerlix gauze and covered with ABDs. The patient was transferred to recovery room in stable condition.
--- NOTE | 2020-10-07 15:13 | ANE.PACU2 ---
Inpatient post-anesthesia follow up: Airway intact: Yes Vital signs: Temperature 98.4 F Pulse Rate [Monito r] 111 Pulse Rate 87 Respiratory Rate 16 Blood Pressure [Ri ght Arm] 83/58 Blood Pressure 99/51 Pulse Oximetry 94 Oxygen Delivery Me thod Room Air Oxygen Flow Rate 2 Fraction of Inspir ed Oxygen 28 Hydration adequate: Yes Pain level: 1 Mental status: Baseline
[2020-10-07] MEDS: iron sucrose 200 MG in sodium chloride 0.9% (100 ml) 100 ML 220 MG IV (15:57)
[2020-10-07] MEDS: oxyCODONE-APAP 5-325 mg Tablet 1 TAB PO (17:30)
[2020-10-07] MEDS: gabapentin 300 mg Capsule PO (17:30)
[2020-10-07 18:42] LABS: Coronavirus Test Green County Not Detected
--- NOTE | 2020-10-07 21:15 | PM.CONSULT ---
Providers/Reason For Consult Consulting Physican/Specialty*: aKtia Infante MD/Infectious Disease Attending Physician: Sadi Blanton MD Primary Care Provider: Jonah Kerr MD History of Present Illness History of Present Illness Mihir Keller is a 54 year old male Meds/Allergies Home Medications and Allergies Home Medications Medication Instructions Recorded Confirmed Last Taken Type ascorbic acid (vitamin C) 1,000 mg 1 gm PO ONCE tab 09/16/19 10/06/20 09/27/19 History tablet naproxen sodium 220 mg tablet 220 mg PO ONCE PRN tab 09/16/19 10/06/20 09/27/19 History testosterone 20.25 mg/1.25 gram 1 pump TOPICAL .5 pumps day gm 09/16/19 10/06/20 09/27/19 History (1.62 %) transdermal gel pump methenamine hippurate 1 gram tablet 1 gm PO BID #60 tab 03/03/20 10/06/20 Unknown Rx linezolid 600 mg tablet 600 mg PO BID 05/06/20 10/06/20 Unknown History baclofen 20 mg tablet 20 mg PO BID PRN 30 Days #60 tab 09/30/20 10/06/20 Unknown Rx gabapentin 300 mg capsule 300 mg PO BID 30 Days #60 cap 09/30/20 10/06/20 Unknown Rx oxycodone-acetaminophen 5 mg-325 1 tab PO BID PRN 30 Days #60 tab 09/30/20 10/06/20 Unknown Rx mg tablet apixaban [Eliquis] 2.5 mg PO BID 10/06/20 10/06/20 Unknown History Allergies Allergy/AdvReac Type Severity Reaction Status Date / Time clindamycin Allergy rash Verified 09/30/20 11:26 Current Medications Current Medications Generic Name Dose Route Start Last Admin Trade Name Freq PRN Reason Stop Dose Admin Gabapentin 300 mg 10/07/20 18:00 10/07/20 17:30 Gabapentin 300 Mg Capsule PO 300 mg BID [facility] Administration Lactated Ringer's 1,000 mls @ 75 mls/hr 10/06/20 15:11 10/07/20 12:21 Lactated Ringers IV 75 mls/hr .[id number] [facility] Administration Piperacillin Sod/Tazobactam 50 mls @ 12.5 mls/hr 10/06/20 16:00 10/07/20 21:00 Sod 3.375 gm/ Sodium Chloride IV Infused Q8H [facility] Infusion Vancomycin/PEG/NADA/Lysine/Water 1,500 mg in 300 mls @ 200 mls/hr 10/06/20 20:00 10/07/20 20:52 Vancocin IV 200 mls/hr Q12H [facility] Administration Morphine Sulfate 2 mg 10/06/20 15:11 10/07/20 03:57 Morphine 4 Mg/Ml Sdv 1 Ml IVP 2 mg Q4H PRN Administration SEVERE PAIN Oxycodone/Acetaminophen 1 tab 10/07/20 09:11 10/07/20 17:30 Oxycodone-Apap 5-325 Mg Tablet PO 1 tab Q6H PRN Administration MODERATE PAIN Pantoprazole Sodium 40 mg 10/06/20 21:00 10/07/20 20:52 Pantoprazole 40 Mg Sdv IVP 40 mg Q12H [facility] Administration PFSH Acute PFSH: Medical History Chronic bilateral low back pain without sciatica History of DVT (deep vein thrombosis) History of recurrent UTI (urinary tract infection) Hx of fracture of femur 2014 metal placed right femur Hx of staphylococcal infection multiple surgeries to remove STAPH in left wrist Renal lesion Surgical History History of nasal surgery 1989 History of removal of calculus of renal pelvis through percutaneous nephrostomy History of removal of retained hardware 09/2019 Dr. Hastings at [facility] left lower ext History of urostomy 10-15 years ago Hx of knee surgery Left -metal put in 2014 and removed 2016- due to infection Hx of neck surgery 1989 Family History Grandfather Diabetes Family history of premature coronary artery disease Mother Lupus (systemic lupus erythematosus) Social History Smoking and tobacco status: never smoked Second hand smoke exposure: Yes Alcohol intake: never Marital status: Single Current occupational status: disabled History of recent travel: No Current gender identity: Male Vitals/I&O/Wt Last Vital Signs Temp 98.3 F 10/07/20 19:55 Pulse 87 10/07/20 19:55 Resp 18 10/07/20 19:55 BP 128/83 10/07/20 19:55 Pulse Ox 99 10/07/20 19:55 10/07/20 10/07/20 10/07/20 06:59 14:59 22:59 Intake Total 1175.488 / 7118.286 1534.297 / 1534.297 520 / 2054.297 Output Total 500 / 1530 750 / 750 450 / 1200 Balance 675.488 / 5588.286 784.297 / 784.297 70 / 854.297 Weight last 48 hrs Weight 104.78 kg Weight 108.862 kg Data Micro: Micro: Microbiology 10/07/20 14:06 Gram Stain - Final Buttock 10/06/20 07:41 Blood Culture - Pr eliminary Blood Gram positive c occi 10/06/20 07:57 Blood Culture - Pr eliminary Blood Gram positive c occi 10/06/20 07:50 Urine Culture - Pr eliminary Urine,Clean Catch Gram Negative R ods Gram Negative R ods#2 10/06/20 07:32 Occult Blood (FIT) - Final Stool Routine Col lection Coding Level of Care Code 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
[2020-10-07] MEDS: baclofen 10 mg Tablet PO (22:42)
[2020-10-08] VITALS (14 sets, daily range): BP systolic 108–133; BP diastolic 67–84; PULSE 64–87; RESP 17–19; TEMP 36.4–36.7; O2SAT 98–100
[2020-10-08 06:35] LABS: Basophils # 0.1 10^3/uL (0.0-0.1); Basophils % 0.5 %; Eosinophils # 0.5 10^3/uL (0.0-0.8); Eosinophils % 4.6 %; Hemoglobin 8.5 g/dL (11.7-16.6); Lymphocytes # 0.9 10^3/uL (0.8-4.8); Lymphocytes % 8.4 %; Mean Corpuscular HGB Conc 27.4 g/dL (30.0-36.0); Mean Corpuscular Hemoglobin 20.7 pg (28.0-34.0); Mean Corpuscular Volume 75.4 fL (80-94); Mean Platelet Volume 9.2 fL (7.4-10.4); Monocytes # 0.8 10^3/uL (0.2-0.9); Monocytes % 7.2 %; Neutrophils # 7.96 10^3/uL (1.8-7.7); Neutrophils % 76.9 %; Nucleated Red Blood Cells % 0 %; Platelet Count 443 10^3/cmm (130-400); Red Blood Count 4.11 10^6/uL (4.1-5.3); Red Cell Distribution Width 17.9 % (12.1-15.1); White Blood Count 10.4 10^3/uL (4.0-10.0)
--- NOTE | 2020-10-08 07:23 | NUR.SHIFT ---
Patient was awake for most of the night. Patient had no real complaints. Patient stated that he will have the adapter to go from his urostomy to our [place] system.
[2020-10-08 07:35] LABS: Alanine Aminotransferase 9 U/L (0-41); Alkaline Phosphatase 81 IU/L (40-130); Anion Gap 10.7 (5-19); Aspartate Amino Transferase 15 U/L (0-40); Blood Urea Nitrogen 17 mg/dL (6-20); Calcium 8.3 mg/dL (8.5-10.5); Carbon Dioxide 27 mmol/L (22-29); Chloride 106 mmol/L (98-107); Globulin 4.5 g/dL (1.3-4.6); Glomerular Filtration Rate 100.7 mL/min (90-130); Glucose 73 mg/dL (65-115); Osmolality Calculated 288 mOsm/kg (285-295); Potassium 4.7 mmol/L (3.5-5.1); Sodium 139 mmol/L (136-145); Total Bilirubin 0.4 mg/dL (0.15-1.2); Total Protein 6.5 g/dL (6.6-8.7)
[2020-10-08 08:12] LABS: Vancomycin Trough 23.7 ug/mL (10-15)
[2020-10-08] MEDS: lactated ringers 1,000 ML 74 ML IV (08:20)
[2020-10-08] MEDS: pantoprazole 40 mg SDV IVP ×2 (08:26→21:33)
[2020-10-08 08:52] LABS: Erythrocyte Sedimentation Rate 68 mm/hr (0-10)
--- NOTE | 2020-10-08 11:14 | PM.PN ---
Subjective Subjective: Interval history: Patient stable overnight Vitals/I&O/Wt Last Vital Signs Temp 97.8 F 10/08/20 07:34 Pulse 85 10/08/20 08:00 Resp 17 10/08/20 07:34 BP 121/74 10/08/20 07:34 Pulse Ox 98 10/08/20 08:00 10/07/20 10/08/20 10/08/20 22:59 06:59 14:59 Intake Total 520 / 3404.297 1350 / 3404.297 236 / 236 Output Total 700 / 1750 300 / 1750 450 / 450 Balance -180 / 7021.307 0614 / 1654.297 -214 / -214 Weight last 48 hrs Weight 233 lb 3.2 oz Weight 231 lb Data : 10/08/20 05:55 10/08/20 05:55 Micro: Microbiology 10/07/20 14:06 Gram Stain - Final Buttock Tissue Culture - Preliminary Gram Negative Rods 10/06/20 07:57 Blood Culture - Preliminary Blood Strep species, alpha hemolytic 10/06/20 07:41 Blood Culture - Preliminary Blood Strep species, alpha hemolytic 10/06/20 07:50 Urine Culture - Final Urine,Clean Catch Escherichia coli 10/08/20 05:55 Blood Culture - Preliminary Blood SPECIMEN COLLECTED 10/08/20 05:55 Blood Culture - Preliminary Blood SPECIMEN COLLECTED 10/06/20 07:32 Occult Blood (FIT) - Final Stool Routine Collection A&P Assessment and plan (1) Decubitus skin ulcer: Status post debridement of right gluteal wound Wet-to-dry dressing change 3 times a day Medical management as per hospitalist service Status: Acute Attestations Medical Necessity Statement*: Status post debridement of gluteal wound Coding Level of Care Code Acute Doctor Of Naturopathic Medicine for [facility] Fwd Diagnoses Decubitus skin ulcer L89.90
[2020-10-08] MEDS: gabapentin 300 mg Capsule PO (11:29)
[2020-10-08] MEDS: piperacillin-tazobactam 3.375 GM in sodium chloride 0.9% (plus) 50 ML IV ×3 (11:29→23:54)
[2020-10-08] MEDS: morphine 4 mg/mL SDV 1 mL 2 MG IVP ×2 (11:48→17:54)
--- NOTE | 2020-10-08 13:47 | P.PN_ITS ---
Subjective Subjective: Interval history: Hospital course, labs and vitals noted. Patient is post day 1 surgical debridement. He states he is fairly comfortable. He is doing a lot better. Pain is well controlled. Denies any nausea, vomiting, headache. Patient seems to be jovial today during the examination. Medications: Reviewed: Yes Vitals/I&O/Wt Last Vital Signs Temp 98.0 F 10/08/20 11:17 Pulse 87 10/08/20 11:17 Resp 19 H 10/08/20 11:48 BP 133/84 10/08/20 11:17 Pulse Ox 100 10/08/20 11:48 10/07/20 10/08/20 10/08/20 22:59 06:59 14:59 Intake Total 520 / 2054.297 1350 / 3404.297 236 / 236 Output Total 700 / 1450 300 / 1750 600 / 600 Balance -180 / 723.422 1659 / 1654.297 -364 / -364 Weight last 48 hrs Weight 105.778 kg Weight 104.78 kg Physical Exam Narrative: EXAM NARRATIVE: General exam is a conversant male in no distress Neck is supple no lymphadenopathy or thyromegaly Cardiovascular regular rate and rhythm without murmur Lungs diminished breath sounds bilaterally but clear without wheezes or crackles Abdomen is soft, positive bowel sounds. No obvious organomegaly. Urostomy bag noted Extremities left atrophied. Tibial skin ulceration noted with slight maceration. Right buttock/gluteal area surgically dressed. Data : 10/08/20 05:55 10/08/20 05:55 Other Labs: Pertinent Labs During Stay 10/06/20 10/06/20 10/06/20 07:57 07:57 07:57 ESR Lactic Acid (Sepsis) Iron 7 L TIBC 130 % Saturation 5.3 L Ferritin 622 H Creatine Kinase 86 Lipase 19 Vitamin B12 292 Folate 9.4 TSH 0.83 Random Cortisol Vancomycin Trough 10/06/20 10/06/20 10/08/20 10:41 17:00 05:55 ESR 68 H Lactic Acid (Sepsis) 1.5 Iron TIBC % Saturation Ferritin Creatine Kinase Lipase Vitamin B12 Folate TSH Random Cortisol 12.19 Vancomycin Trough 10/08/20 07:25 ESR Lactic Acid (Sepsis) Iron TIBC % Saturation Ferritin Creatine Kinase Lipase Vitamin B12 Folate TSH Random Cortisol Vancomycin Trough 23.7 H Impressions Chest X-Ray 10/06/20 06:51 Impression: Cardiomegaly. Head CT 10/06/20 06:51 IMPRESSION: No acute intracranial abnormality. Radiation Dose CTDIVOL = (mGy): DLP = 335.52 (mGy-cm) Abdomen/Pelvis CT 10/06/20 09:18 IMPRESSION: 1. No acute abdominal or pelvic findings. 2. Normal bilateral renal parenchymal enhancement. No hydronephrosis. Ileal conduit. 3. Stable bilateral renal cysts. 4. No evidence of small or large bowel obstruction. 5. Comminuted intratrochanteric left hip fracture with callus formation. Attempted notification Marcio Gardner DO at 10/06/2020 9:[address] 10/06/20 10:32 IMPRESSION: 1. Decubitus ulcer along the right buttock near the gluteal cleft with soft tissue thickening and induration. No evidence of drainable abscess or fluid collection. 2. Decubitus ulcer extends down to the right dorsal pubic ramus with osteolysis and fragmentation consistent with osteomyelitis. 3. Moderate degenerative arthritis right hip with joint space narrowing and hypertrophic changes. Notified Marcio Gardner DO at 10/06/2020 12:41 PM. Micro: Microbiology 10/07/20 14:06 Gram Stain - Final Buttock Tissue Culture - Preliminary Gram Negative Rods 10/06/20 07:57 Blood Culture - Preliminary Blood Strep species, alpha hemolytic 10/06/20 07:41 Blood Culture - Preliminary Blood Strep species, alpha hemolytic 10/06/20 07:50 Urine Culture - Final Urine,Clean Catch Escherichia coli 10/08/20 05:55 Blood Culture - Preliminary Blood SPECIMEN COLLECTED 10/08/20 05:55 Blood Culture - Preliminary Blood SPECIMEN COLLECTED 10/06/20 07:32 Occult Blood (FIT) - Final Stool Routine Collection Microbiology 10/07/20 14:06 Buttock Gram Stain - Final 10/07/20 14:06 Buttock Tissue Culture - Preliminary Gram Negative Rods 10/06/20 07:57 Blood Blood Culture - Preliminary Strep species, alpha hemolytic 10/06/20 07:41 Blood Blood Culture - Preliminary Strep species, alpha hemolytic 10/06/20 07:50 Urine,Clean Catch Urine Culture - Final Escherichia coli 10/08/20 05:55 Blood Blood Culture - Preliminary SPECIMEN COLLECTED 10/08/20 05:55 Blood Blood Culture - Preliminary SPECIMEN COLLECTED 10/06/20 07:32 Stool Routine Collection Occult Blood (FIT) - Final A&P Assessment and plan (1) Streptococcal bacteremia: Sensitivities pending. For now c/w Vanc. Most likely need 4 weeks outpatient ABx with PICC line once repeat Bcx come back negative Status: Acute (2) Sepsis: Septic on admission. Secondary to UTI, decubitus ulcer. COVID-19 negative. Remove isolation cautions: Continue vancomycin and Zosyn. Urine culture growing E. coli and blood culture growing 2 out of 4 bottles positive for strep species, alpha hemolytic. Repeat blood cultures sent today. Status: Acute (3) Osteomyelitis hip: Status: Acute (4) Decubitus skin ulcer: S/p debridement day 1. Likely the cause of sepsis is right buttocks decubitus. Left tibia decubitus also noted. Evidence of osteomyelitis on CT scan. Wound care as per Dr. Callejas Patient will most likely need 6 weeks antibiotics for gram-negative osteomyelitis, and strep alphahemolytic bacteremia Appreciate Dr. Callejas's recommendations. Patient will most likely need PICC line once blood cultures come back negative. ID consulted. Will likely need infectious disease consultation, PICC line prior to discharge but await full culture results. Status: Acute (5) UTI (urinary tract infection): With urostomy it is difficult to know if this is skin organisms or colonization. Culture results appreciated. Being covered with Zosyn. Status: Acute (6) GI bleeding: Hold all anti-inflammatories Continue Protonix 40 mg IV twice daily Close monitoring of hemoglobin Transfusion if needed Consider transitioning to oral protonix when starting po after surgery. Status: Acute (7) Anemia: See GI bleeding Anemia panel significant iron deficiency IV iron 2 mg daily for 5 days for overall 1 g supplementation. Status: Acute (8) Hyponatremia: Likely secondary to renal dysfunction. Normal today. Random cortisol and TSH normal Status: Acute (9) Acute encephalopathy: Secondary to sepsis. Resolved currently Status: Acute (10) Hypotension: Resolved. Norepinephrine discontinued Status: Acute (11) Acute kidney injury: Secondary to sepsis With hydration this has resolved CT abdomen pelvis demonstrates no obstruction Avoid renal toxic medications Hold all anti-inflammatories Status: Acute (12) Hypomagnesemia: Supplemented IV in the emergency department Normal today Status: Acute (13) Paraplegia: Longstanding since neck injury around 1989. Some movement of his upper extremities that needs to be reevaluated. Status: Acute (14) Elevated troponin: Type II. Secondary to sepsis Status: Acute Additional A&P Information Full code Secondary to decubiti sequential compression devices contraindicated and anticoagulation currently being held secondary to heme positive stool and significant anemia Regular diet Attestations Medical Necessity Statement*: Requires further hospitalization for management of strep bacteremia, sepsis due to decubitus ulcer, UTI, post surgical debridement care for decubitus ulcer with osteomyelitis Time Spent in Patient Care: Greater than 35 minutes (>than 50% of time spent in counselling and/or direct pt care on unit) . Coding Level of Care Code Acute Head Of Precision Targeting for [facility] Fwd Diagnoses Streptococcal bacteremia R78.81; B95.5 Sepsis A41.9 Osteomyelitis hip M86.9 Decubitus skin ulcer L89.90 UTI (urinary tract infection) N39.0 GI bleeding K92.2 Anemia D64.9 Hyponatremia E87.1 Acute encephalopathy G93.40 Hypotension I95.9 Acute kidney injury N17.9 Hypomagnesemia E83.42 Paraplegia G82.20 Elevated troponin R77.8
[2020-10-08 14:49] LABS: Thyroid Stimulating Hormone 2.33 uIU/mL (0.27-4.20)
[2020-10-08] MEDS: iron sucrose 200 MG in sodium chloride 0.9% (100 ml) 100 ML 220 MG IV (15:16)
--- NOTE | 2020-10-08 16:29 | PC.NURSE ---
PATIENT CURRENTLY SLEEPING
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
--- NOTE | 2020-10-08 18:35 | PC.NURSE ---
SHIFT SUMMARY PATIENT HAS BEEN ALERT AND ORIENTED X3 THROUGHOUT SHIFT. PATIENT HAS ONLY REQUESTED PAIN MEDICATION TWICE THROUGHOUT TODAY. PATIENT HAS BEEN ABLE TO EAT ALL OF HIS MEALS AND HAS GOOD URINE OUTPUT. PATIENT HAS BEEN CALM AND COOPERATIVE FOR THE MOST PART, BUT DID BECOME IRRITABLE WHEN HIS VISITED.
[2020-10-08] MEDS: vancomycin 1,500 MG/300 ML PIGGYBACK 200 MG IV (21:34)
[2020-10-08] MEDS: lactated ringers 1,000 ML 75 ML IV (23:55)
[2020-10-09] VITALS (15 sets, daily range): BP systolic 130–152; BP diastolic 70–91; PULSE 69–93; RESP 17–20; TEMP 36.3–37; O2SAT 97–100
--- NOTE | 2020-10-09 00:34 | PC.NURSE ---
Wet to dry dressing change done.
[2020-10-09 06:47] LABS: Hematocrit 34.5 % (42.0-52.0); Hemoglobin 9.1 g/dL (11.7-16.6); Mean Corpuscular HGB Conc 26.4 g/dL (30.0-36.0); Mean Corpuscular Hemoglobin 20.5 pg (28.0-34.0); Mean Corpuscular Volume 77.7 fL (80-94); Mean Platelet Volume 9.5 fL (7.4-10.4); Platelet Count 481 10^3/cmm (130-400); Red Blood Count 4.44 10^6/uL (4.1-5.3); Red Cell Distribution Width 17.8 % (12.1-15.1); White Blood Count 9.9 10^3/uL (4.0-10.0)
--- NOTE | 2020-10-09 06:48 | NUR.SHIFT ---
Wet to dry dressing changes done x2, patient tolerated well. Patient had no complaints through the night. Patient mainly slept.
[2020-10-09 07:05] LABS: Alanine Aminotransferase 9 U/L (0-41); Albumin Level 2.2 g/dL (3.5-5.2); Alkaline Phosphatase 81 IU/L (40-130); Anion Gap 7.8 (5-19); Aspartate Amino Transferase 11 U/L (0-40); Blood Urea Nitrogen 12 mg/dL (6-20); Calcium 7.9 mg/dL (8.5-10.5); Carbon Dioxide 31 mmol/L (22-29); Chloride 102 mmol/L (98-107); Globulin 4.7 g/dL (1.3-4.6); Glomerular Filtration Rate 140.4 mL/min (90-130); Glucose 83 mg/dL (65-115); Osmolality Calculated 281 mOsm/kg (285-295); Potassium 4.8 mmol/L (3.5-5.1); Sodium 136 mmol/L (136-145); Total Bilirubin 0.3 mg/dL (0.15-1.2); Total Protein 6.9 g/dL (6.6-8.7)
--- NOTE | 2020-10-09 07:43 | PC.NURSE ---
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
[2020-10-09] MEDS: piperacillin-tazobactam 3.375 GM in sodium chloride 0.9% (plus) 50 ML IV (08:25)
[2020-10-09] MEDS: gabapentin 300 mg Capsule PO ×2 (08:26→17:29)
[2020-10-09 08:28] LABS: Slide Review Slide Review Perform
[2020-10-09 08:36] LABS: Absolute Eosinophils 0.1 10^3/cmm (0.0-0.7); Absolute Segmented Neutrophil 6.8 10/cmm (1.6-7.1); Band Neutrophils Absolute 1.3 10^3/cmm (0.0-1.2); Eosinophils 2 %; Lymphocytes 8 %; Monocytes Absolute 0.6 10^3/cmm (0.1-0.6); Segmented Neutrophils 69 %; Total Cells Counted 100 (0-100)
[2020-10-09 08:37] LABS: Anisocytosis 1+; Poikilocytosis 1+
[2020-10-09 08:38] LABS: Microcytosis Trace; Ovalocytes 1+
[2020-10-09 08:39] LABS: Absolute Neutrophil 8.1 10^3/cmm (1.4-6.5); Platelet Estimate Increased (Normal)
[2020-10-09 08:40] LABS: Tear Drop Cells Trace
[2020-10-09] MEDS: oxyCODONE-APAP 5-325 mg Tablet 1 TAB PO ×3 (09:20→23:35)
--- NOTE | 2020-10-09 09:20 | PC.SOCIAL ---
IM follow up explained and copy provided. Pt verbalized understanding.
--- NOTE | 2020-10-09 09:34 | PC.NURSE ---
DR ESPINOZA DORAN PREVIOUSLY IN ROOM TO ASSESS PT - PLAN OF CARE REVIEWED
[2020-10-09] MEDS: pantoprazole 40 mg SDV IVP ×2 (09:36→21:30)
[2020-10-09] MEDS: morphine 4 mg/mL SDV 1 mL 2 MG IVP ×2 (10:27→15:38)
[2020-10-09] MEDS: lactated ringers 1,000 ML 75 ML IV (13:19)
[2020-10-09] MEDS: vancomycin 1,500 MG/300 ML PIGGYBACK 200 MG IV (14:49)
--- NOTE | 2020-10-09 15:49 | P.PN_ITS ---
Subjective Subjective: Interval history: No acute events overnight. Patient has remained hemodynamically stable. He states he is feeling a lot better and he is a lot more awake. Denies any nausea, vomiting, headache. Medications: Reviewed: Yes Vitals/I&O/Wt Last Vital Signs Temp 97.9 F 10/09/20 15:43 Pulse 80 10/09/20 15:43 Resp 20 H 10/09/20 15:43 BP 152/91 10/09/20 15:43 Pulse Ox 99 10/09/20 15:43 10/09/20 10/09/20 10/09/20 06:59 14:59 22:59 Intake Total 350 / 2411 1750 / 1750 Output Total 900 / 2050 Balance -550 / 361 1750 / 1750 Weight last 48 hrs Weight 106.005 kg Weight 105.778 kg Physical Exam Narrative: EXAM NARRATIVE: General exam is a conversant male in no distress Neck is supple no lymphadenopathy or thyromegaly Cardiovascular regular rate and rhythm without murmur Lungs diminished breath sounds bilaterally but clear without wheezes or crackles Abdomen is soft, positive bowel sounds. No obvious organomegaly. Urostomy bag noted Extremities left atrophied. Tibial skin ulceration noted with slight maceration. Right buttock/gluteal area surgically dressed. Data : 10/09/20 05:10 10/09/20 05:10 Micro: Microbiology 10/06/20 07:57 Blood Culture - Preliminary Blood Strep anginosus group 10/06/20 07:41 Blood Culture - Preliminary Blood Strep anginosus group 10/07/20 14:06 Gram Stain - Final Buttock Tissue Culture - Preliminary Escherichia coli 10/08/20 05:55 Blood Culture - Preliminary Blood NEGATIVE TO DATE 10/08/20 05:55 Blood Culture - Preliminary Blood NEGATIVE TO DATE Microbiology 10/06/20 07:57 Blood Blood Culture - Preliminary Strep anginosus group 10/06/20 07:41 Blood Blood Culture - Preliminary Strep anginosus group 10/07/20 14:06 Buttock Gram Stain - Final 10/07/20 14:06 Buttock Tissue Culture - Preliminary Escherichia coli 10/08/20 05:55 Blood Blood Culture - Preliminary NEGATIVE TO DATE 10/08/20 05:55 Blood Blood Culture - Preliminary NEGATIVE TO DATE 10/06/20 07:50 Urine,Clean Catch Urine Culture - Final Escherichia coli 10/06/20 07:32 Stool Routine Collection Occult Blood (FIT) - Final A&P Assessment and plan (1) Streptococcal bacteremia: Sensitivities appreciated Case discussed with ID We will switch over to ceftriaxone which will cover both for strep and E. coli. Status: Acute (2) Sepsis: Septic on admission. Secondary to UTI, decubitus ulcer. COVID-19 negative. Remove isolation cautions: Continue vancomycin and Zosyn. Urine culture growing E. coli and blood culture growing 2 out of 4 bottles positive for strep species, alpha hemolytic. Repeat blood cultures sent October 08 have remained negative for now. Status: Acute (3) Osteomyelitis hip: Status: Acute (4) Decubitus skin ulcer: S/p debridement day 2. Likely the cause of sepsis is right buttocks decubitus. Left tibia decubitus also noted. Evidence of osteomyelitis on CT scan. Wound care as per Dr. Callejas Patient will most likely need 6 weeks antibiotics for gram-negative osteomyeli tis, and strep alphahemolytic bacteremia Appreciate Dr. Callejas's and Dr. Infante recommendations. Patient will most likely need PICC line once blood cultures come back negative. Will likely need infectious disease consultation, PICC line prior to discharge but await full culture results. Status: Acute (5) UTI (urinary tract infection): With urostomy it is difficult to know if this is skin organisms or coloniz ation. Culture results appreciated. Being covered with Zosyn. Status: Acute (6) GI bleeding: Hold all anti-inflammatories Continue Protonix 40 mg IV twice daily Close monitoring of hemoglobin Transfusion if needed Consider transitioning to oral protonix when starting po after surgery. Status: Acute (7) Anemia: See GI bleeding Anemia panel significant iron deficiency IV iron 2 mg daily for 5 days for overall 1 g supplementation. Status: Acute (8) Hyponatremia: Likely secondary to renal dysfunction. Normal today. Random cortisol and TSH normal Status: Acute (9) Acute encephalopathy: Secondary to sepsis. Resolved currently Status: Acute (10) Hypotension: Resolved. Norepinephrine discontinued Status: Acute (11) Acute kidney injury: Secondary to sepsis With hydration this has resolved CT abdomen pelvis demonstrates no obstruction Avoid renal toxic medications Hold all anti-inflammatories Status: Acute (12) Hypomagnesemia: Supplemented IV in the emergency department Normal today Status: Acute (13) Paraplegia: Longstanding since neck injury around 1989. Some movement of his upper extremities that needs to be reevaluated. Status: Acute (14) Elevated troponin: Type II. Secondary to sepsis Status: Acute Additional A&P Information Full code. Regular diet. Lovenox for DVT prophylaxis. Discharge planning: If patient blood cultures remain negative we will plan for PICC line tomorrow and then discharged on IV antibiotics as per ID recommendations for next 6 weeks. Attestations Medical Necessity Statement*: Patient requires further hospitalization for management of strep bacteremia, osteomyelitis of buttocks, E. coli infection Time Spent in Patient Care: Greater than 35 minutes (>than 50% of time spent in counselling and/or direct pt care on unit) . Coding Level of Care Code Acute Clinical Practitioner for g Fwd Diagnoses Streptococcal bacteremia R78.81; B95.5 Sepsis A41.9 Osteomyelitis hip M86.9 Decubitus skin ulcer L89.90 UTI (urinary tract infection) N39.0 GI bleeding K92.2 Anemia D64.9 Hyponatremia E87.1 Acute encephalopathy G93.40 Hypotension I95.9 Acute kidney injury N17.9 Hypomagnesemia E83.42 Paraplegia G82.20 Elevated troponin R77.8
[2020-10-09] MEDS: cefTRIAXone 1,000 MG in sodium chloride 0.9% (plus) 50 ML 100 MG IV (17:02)
[2020-10-09] MEDS: heparin 5,000 unit/mL INJ 1 mL 5000 UNIT SUBCUT (17:29)
[2020-10-09] MEDS: iron sucrose 200 MG in sodium chloride 0.9% (100 ml) 100 ML 220 MG IV (17:49)
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
[2020-10-09] MEDS: baclofen 10 mg Tablet PO (23:35)
[2020-10-10] VITALS (11 sets, daily range): BP systolic 143–160; BP diastolic 85–96; PULSE 71–81; RESP 17–19; TEMP 36.4–37.1; O2SAT 95–99
[2020-10-10] MEDS: heparin 5,000 unit/mL INJ 1 mL 5000 UNIT SUBCUT ×2 (05:15→17:31)
[2020-10-10 06:06] LABS: Hematocrit 31.2 % (42.0-52.0); Hemoglobin 8.5 g/dL (11.7-16.6); Mean Corpuscular HGB Conc 27.2 g/dL (30.0-36.0); Mean Corpuscular Hemoglobin 21.1 pg (28.0-34.0); Mean Corpuscular Volume 77.6 fL (80-94); Mean Platelet Volume 9.3 fL (7.4-10.4); Platelet Count 421 10^3/cmm (130-400); Red Blood Count 4.02 10^6/uL (4.1-5.3); Red Cell Distribution Width 17.6 % (12.1-15.1); White Blood Count 8.7 10^3/uL (4.0-10.0)
[2020-10-10 06:27] LABS: Alanine Aminotransferase < 5 U/L (0-41); Albumin Level 2.1 g/dL (3.5-5.2); Alkaline Phosphatase 67 IU/L (40-130); Anion Gap 7.6 (5-19); Aspartate Amino Transferase 9 U/L (0-40); Blood Urea Nitrogen 8 mg/dL (6-20); Carbon Dioxide 32 mmol/L (22-29); Chloride 106 mmol/L (98-107); Globulin 4.2 g/dL (1.3-4.6); Glomerular Filtration Rate 173.3 mL/min (90-130); Glucose 76 mg/dL (65-115); Osmolality Calculated 289 mOsm/kg (285-295); Potassium 4.6 mmol/L (3.5-5.1); Sodium 141 mmol/L (136-145); Total Bilirubin 0.3 mg/dL (0.15-1.2); Total Protein 6.3 g/dL (6.6-8.7)
[2020-10-10] MEDS: lactated ringers 1,000 ML 75 ML IV ×2 (07:13→22:38)
[2020-10-10 08:02] LABS: Slide Review Slide Review Perform
[2020-10-10 08:10] LABS: Absolute Eosinophils 0.4 10^3/cmm (0.0-0.7); Absolute Segmented Neutrophil 4.7 10/cmm (1.6-7.1); Band Neutrophils Absolute 0.3 10^3/cmm (0.0-1.2); Eosinophils 5 %; Lymphocytes 23 %; Monocytes Absolute 0.7 10^3/cmm (0.1-0.6); Segmented Neutrophils 54 %; Total Cells Counted 100 (0-100)
[2020-10-10 08:11] LABS: Platelet Estimate Normal (Normal); Toxic Granulation 1+
[2020-10-10 08:12] LABS: Hypochromasia 1+; Poikilocytosis Trace
[2020-10-10] MEDS: gabapentin 300 mg Capsule PO ×2 (08:57→17:31)
[2020-10-10] MEDS: pantoprazole 40 mg SDV IVP ×2 (09:35→20:18)
--- NOTE | 2020-10-10 10:13 | PM.PN ---
Subjective Subjective: Interval history: No events overnight. Patient has remained comfortable without any nausea, vomiting, headache. Afebrile last 24 hours. Denies any nausea vomiting, headache. Medications: Reviewed: Yes Vitals/I&O/Wt Last Vital Signs Temp 97.9 F 10/10/20 07:57 Pulse 73 10/10/20 07:57 Resp 18 10/10/20 07:57 BP 156/95 10/10/20 07:57 Pulse Ox 98 10/10/20 07:57 10/09/20 10/10/20 10/10/20 22:59 06:59 14:59 Intake Total 1820 / 3570 Output Total 1300 / 1300 Balance 1820 / 3570 -1300 / 2270 Weight last 48 hrs Weight 107.365 kg Weight 106.005 kg Physical Exam Narrative: EXAM NARRATIVE: General exam is a conversant male in no distress Neck is supple no lymphadenopathy or thyromegaly Cardiovascular regular rate and rhythm without murmur Lungs diminished breath sounds bilaterally but clear without wheezes or crackles Abdomen is soft, positive bowel sounds. No obvious organomegaly. Urostomy bag noted Extremities left atrophied. Tibial skin ulceration noted with slight maceration. Right buttock/gluteal area surgically dressed. Edema of left arm seen. Data : 10/10/20 05:40 10/10/20 05:40 Micro: Microbiology 10/07/20 14:06 Gram Stain - Final Buttock Tissue Culture - Final Escherichia coli 10/06/20 07:57 Blood Culture - Preliminary Blood Strep anginosus group 10/06/20 07:41 Blood Culture - Preliminary Blood Strep anginosus group 10/08/20 05:55 Blood Culture - Preliminary Blood NEGATIVE TO DATE 10/08/20 05:55 Blood Culture - Preliminary Blood NEGATIVE TO DATE Microbiology 10/06/20 07:57 Blood Blood Culture - Final Strep anginosus group 10/06/20 07:41 Blood Blood Culture - Final Strep anginosus group 10/07/20 14:06 Buttock Gram Stain - Final 10/07/20 14:06 Buttock Tissue Culture - Final Escherichia coli 10/08/20 05:55 Blood Blood Culture - Preliminary NEGATIVE TO DATE 10/08/20 05:55 Blood Blood Culture - Preliminary NEGATIVE TO DATE 10/06/20 07:50 Urine,Clean Catch Urine Culture - Final Escherichia coli 10/06/20 07:32 Stool Routine Collection Occult Blood (FIT) - Final A&P Assessment and plan (1) Streptococcal bacteremia: Sensitivities appreciated Case discussed with ID. Continue with ceftriaxone 2 g IV daily. Patient will require IV antibiotics for 6 weeks overall. Status: Acute (2) Sepsis: Septic on admission. Secondary to UTI, decubitus ulcer. COVID-19 negative. Remove isolation cautions: Continue vancomycin and Zosyn. Urine culture and wound culture from the OR growing E. coli and blood culture growing 2 out of 4 bottles positive for strep species, alpha hemolytic. Repeat blood cultures sent October 08 have remained negative for now. Status: Acute (3) Osteomyelitis hip: Status: Acute (4) Decubitus skin ulcer: S/p debridement. Likely the cause of sepsis is right buttocks decubitus. Left tibia decubitus also noted. Evidence of osteomyelitis on CT scan. Wound care as per Dr. Callejas Patient will most likely need 6 weeks antibiotics for gram-negative osteomyelitis, and strep alphahemolytic bacteremia Appreciate Dr. Callejas's and Dr. Infante recommendations. Patient to get PICC line today. Status: Acute (5) UTI (urinary tract infection): With urostomy it is difficult to know if this is skin organisms or colonization. Culture results appreciated. Being covered with Zosyn. Status: Acute (6) GI bleeding: Hold all anti-inflammatories Continue Protonix 40 mg IV twice daily Close monitoring of hemoglobin Transfusion if needed Consider transitioning to oral protonix when starting po after surgery. Status: Acute (7) Anemia: See GI bleeding Anemia panel significant iron deficiency IV iron 2 mg daily for 5 days for overall 1 g supplementation. Status: Acute (8) Hyponatremia: Likely secondary to renal dysfunction. Normal today. Random cortisol and TSH normal Status: Acute (9) Acute encephalopathy: Secondary to sepsis. Resolved currently Status: Acute (10) Hypotension: Resolved. Norepinephrine discontinued Status: Acute (11) Acute kidney injury: Secondary to sepsis With hydration this has resolved CT abdomen pelvis demonstrates no obstruction Avoid renal toxic medications Hold all anti-inflammatories Status: Acute (12) Hypomagnesemia: Supplemented IV in the emergency department Normal today Status: Acute (13) Paraplegia: Longstanding since neck injury around 1989. Some movement of his upper extremities that needs to be reevaluated. Status: Acute (14) Elevated troponin: Type II. Secondary to sepsis Status: Acute Additional A&P Information Full code. Regular diet. Heparin for DVT prophylaxis. Discharge planning: Plan for PICC line today and after that IV ceftriaxone for 6 weeks. Today patient states he would like to go to SNF for at least a week where he can get his medications arranged. Attestations Medical Necessity Statement*: Patient requires further hospitalization for management of strep bacteremia, gram-negative osteomyelitis needing antibiotics for next 6 weeks while safe discharge planning is sought. Time Spent in Patient Care: Greater than 35 minutes (>than 50% of time spent in counselling and/or direct pt care on unit). 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
[2020-10-10] MEDS: cefTRIAXone 2,000 MG in sodium chloride 0.9% (plus) 50 ML 100 MG IV (10:50)
--- NOTE | 2020-10-10 11:50 | USCV_ITS ---
Mihir Keller Age: 54 Gender: M : 1965 Exam Date: 10/10/2020 12:41 Ordering Phys: Ramakrishna Amaral MD Technologist: Anshu Ramos [place] [facility] [place]: LT ARM SWELLING HISTORY: Upper extremity swelling. PROCEDURES: Venous duplex imaging was performed in only the left upper extremity. The following venous structures were evaluated: internal jugular vein, subclavian vein, axillary vein, and brachial veins. In addition, the basilic vein, cephalic vein, radial vein, and ulnar vein. FINDINGS: The veins of the left upper extremity are readily compressible with normal venous flow dynamics including spontaneous flow, respiratory phasic variation and augmentation. No evidence of deep vein thrombosis or superficial thrombophlebitis in the left upper extremity. There is subcutaneous left upper extremity edema noted. CONCLUSIONS No left upper extremity DVT. Dr. Micki Hart DO (Electronically Signed) Final Date: 10 October 2020 15:22 S
--- NOTE | 2020-10-10 13:58 | XR_ITS ---
WS: [id number] PORTABLE CHEST HISTORY: PICC placement. COMPARISON: 10/06/2020 Significant rotation of patient the RIGHT. Right-sided PICC line with tip overlying the spine. Obscuration of the LEFT lower lobe is probably due to rotation of the patient in the heart silhouette . No pleural effusion or pneumothorax. Cardiac size: Mildly enlarged cardiac silhouette. Mediastinum/Aorta: Normal mediastinum. No osseous abnormality seen. XR/XR chest 1V portable [id number] IMPRESSION: Interval insertion of a RIGHT PICC line. Significant rotation of the patient bu t the tip appears to be in the distal SVC.
[2020-10-10] MEDS: baclofen 10 mg Tablet PO (16:49)
[2020-10-10] MEDS: oxyCODONE-APAP 5-325 mg Tablet 1 TAB PO (16:49)
[2020-10-10] MEDS: morphine 4 mg/mL SDV 1 mL 2 MG IVP (17:32)
[2020-10-10] MEDS: iron sucrose 200 MG in sodium chloride 0.9% (100 ml) 100 ML 220 MG IV (17:33)
[2020-10-11] VITALS (13 sets, daily range): BP systolic 143–184; BP diastolic 85–99; PULSE 68–91; RESP 17–20; TEMP 36.5–37.2; O2SAT 95–98
[2020-10-11] MEDS: oxyCODONE-APAP 5-325 mg Tablet 1 TAB PO (01:05)
[2020-10-11] MEDS: heparin 5,000 unit/mL INJ 1 mL 5000 UNIT SUBCUT ×2 (06:11→17:17)
[2020-10-11 06:15] LABS: Basophils % 0.2 %; Eosinophils # 0.6 10^3/uL (0.0-0.8); Eosinophils % 6.5 %; Hematocrit 32.4 % (42.0-52.0); Hemoglobin 8.8 g/dL (11.7-16.6); Lymphocytes # 1.5 10^3/uL (0.8-4.8); Lymphocytes % 15.5 %; Mean Corpuscular HGB Conc 27.2 g/dL (30.0-36.0); Mean Corpuscular Hemoglobin 21.3 pg (28.0-34.0); Mean Corpuscular Volume 78.3 fL (80-94); Mean Platelet Volume 9.1 fL (7.4-10.4); Monocytes # 0.6 10^3/uL (0.2-0.9); Monocytes % 6.6 %; Neutrophils # 5.56 10^3/uL (1.8-7.7); Neutrophils % 58.9 %; Nucleated Red Blood Cells % 0 %; Platelet Count 432 10^3/cmm (130-400); Red Blood Count 4.14 10^6/uL (4.1-5.3); Red Cell Distribution Width 17.5 % (12.1-15.1); White Blood Count 9.4 10^3/uL (4.0-10.0)
[2020-10-11 06:32] LABS: Slide Review Slide Review Perform
[2020-10-11 06:43] LABS: Alanine Aminotransferase 7 U/L (0-41); Albumin Level 2.1 g/dL (3.5-5.2); Alkaline Phosphatase 70 IU/L (40-130); Anion Gap 7.7 (5-19); Aspartate Amino Transferase 13 U/L (0-40); Blood Urea Nitrogen 6 mg/dL (6-20); Carbon Dioxide 34 mmol/L (22-29); Chloride 103 mmol/L (98-107); Globulin 4.4 g/dL (1.3-4.6); Glomerular Filtration Rate 224.2 mL/min (90-130); Glucose 75 mg/dL (65-115); Osmolality Calculated 286 mOsm/kg (285-295); Potassium 4.7 mmol/L (3.5-5.1); Sodium 140 mmol/L (136-145); Total Bilirubin 0.3 mg/dL (0.15-1.2); Total Protein 6.5 g/dL (6.6-8.7)
--- NOTE | 2020-10-11 10:05 | PC.SOCIAL ---
IMM Updated Updated pt on Pg 2 IMM. No questions voiced. Provided pt a copy. Signed, dated, & timed copy in chart.
[2020-10-11] MEDS: gabapentin 300 mg Capsule PO ×2 (10:23→18:11)
[2020-10-11] MEDS: pantoprazole 40 mg SDV IVP ×2 (10:26→23:29)
[2020-10-11] MEDS: cyanocobalamin 1,000 mcg/mL SDV 1000 MCG IM (10:36)
[2020-10-11] MEDS: folic acid 1 mg Tablet PO (10:37)
[2020-10-11] MEDS: cefTRIAXone 2,000 MG in sodium chloride 0.9% (plus) 50 ML 100 MG IV (12:07)
[2020-10-11] MEDS: lactated ringers 1,000 ML 75 ML IV (12:08)
--- NOTE | 2020-10-11 12:25 | P.PN_ITS ---
Subjective Subjective: Interval history: Chart reviewed, updates discussed with case management, patient not seen due to bad weather today. Vitals/I&O/Wt Last Vital Signs Temp 97.7 F 10/11/20 11:57 Pulse 80 10/11/20 11:57 Resp 18 10/11/20 11:57 BP 184/98 10/11/20 11:57 Pulse Ox 96 10/11/20 11:57 10/10/20 10/11/20 10/11/20 22:59 06:59 14:59 Intake Total 1710 / 2240 1200 / 1200 Output Total 3100 / 3100 1750 / 4850 Balance -1390 / -860 -1750 / -2610 1200 / 1200 Weight last 48 hrs Weight 104.236 kg Weight 107.365 kg Data : 10/11/20 05:30 10/11/20 05:30 Micro: Microbiology 10/06/20 07:57 Blood Culture - Final Blood Strep anginosus group 10/06/20 07:41 Blood Culture - Final Blood Strep anginosus group 10/07/20 14:06 Gram Stain - Final Buttock Tissue Culture - Final Escherichia coli Coding Level of Care Code Acute Business Consult for Vinicio Murphy
[2020-10-11] MEDS: iron sucrose 200 MG in sodium chloride 0.9% (100 ml) 100 ML 220 MG IV (18:11)
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
[2020-10-12] VITALS (15 sets, daily range): BP systolic 121–190; BP diastolic 74–99; PULSE 67–84; RESP 16–20; TEMP 36.6–37; O2SAT 94–97
[2020-10-12] MEDS: lactated ringers 1,000 ML 75 ML IV (02:09)
[2020-10-12] MEDS: oxyCODONE-APAP 5-325 mg Tablet 1 TAB PO (04:02)
--- NOTE | 2020-10-12 04:03 | PC.NURSE ---
REPORTED BP TO NURSE!
[2020-10-12] MEDS: heparin 5,000 unit/mL INJ 1 mL 5000 UNIT SUBCUT ×2 (05:07→17:19)
[2020-10-12 06:13] LABS: Basophils % 0.2 %; Eosinophils # 0.6 10^3/uL (0.0-0.8); Eosinophils % 5.1 %; Hematocrit 34.6 % (42.0-52.0); Hemoglobin 9.3 g/dL (11.7-16.6); Lymphocytes # 1.5 10^3/uL (0.8-4.8); Mean Corpuscular HGB Conc 26.9 g/dL (30.0-36.0); Mean Corpuscular Volume 78.3 fL (80-94); Mean Platelet Volume 9.8 fL (7.4-10.4); Monocytes # 0.6 10^3/uL (0.2-0.9); Monocytes % 5.7 %; Neutrophils # 7.07 10^3/uL (1.8-7.7); Neutrophils % 63.1 %; Nucleated Red Blood Cells % 0 %; Platelet Count 444 10^3/cmm (130-400); Red Blood Count 4.42 10^6/uL (4.1-5.3); Red Cell Distribution Width 19.6 % (12.1-15.1); White Blood Count 11.2 10^3/uL (4.0-10.0)
[2020-10-12 06:42] LABS: Albumin Level 2.4 g/dL (3.5-5.2); Blood Urea Nitrogen 6 mg/dL (6-20); Calcium 8.1 mg/dL (8.5-10.5); Carbon Dioxide 28 mmol/L (22-29); Chloride 100 mmol/L (98-107); Glomerular Filtration Rate 224.2 mL/min (90-130); Glucose 76 mg/dL (65-115); Phosphorus 2.3 mg/dL (2.5-4.5); Sodium 137 mmol/L (136-145)
[2020-10-12 06:44] LABS: Anion Gap 14.3 (5-19); Potassium 5.3 mmol/L (3.5-5.1)
[2020-10-12 07:14] LABS: Slide Review Slide Review Perform
[2020-10-12 08:03] LABS: Magnesium 1.5 mg/dL (1.7-2.3)
[2020-10-12] MEDS: gabapentin 300 mg Capsule PO ×2 (08:38→17:19)
[2020-10-12] MEDS: folic acid 1 mg Tablet PO (08:38)
[2020-10-12] MEDS: cyanocobalamin 1,000 mcg/mL SDV 1000 MCG IM (08:38)
--- NOTE | 2020-10-12 10:05 | PC.NURSE ---
Dr. Fraire notified of elevated blood pressure, pitting edema to lower legs, and elevated potassium, new orders received for labetalol PRN, see MAR for further details.
[2020-10-12] MEDS: sodium chloride 0.9% 1,000 ML 50 ML IV (10:12)
[2020-10-12] MEDS: labetalol 5 mg/mL SDV 20mL 10 MG IVP (10:23)
--- NOTE | 2020-10-12 10:23 | PC.NURSE ---
labetalol given for hypertension per doctors orders, see MAR for further details. BP 169/96 heart rate 81.
--- NOTE | 2020-10-12 10:52 | PC.NURSE ---
dressings changed per doctors orders, see wound care for further details, patient tolerated well and denies pain.
[2020-10-12] MEDS: cefTRIAXone 2,000 MG in sodium chloride 0.9% (plus) 50 ML 100 MG IV (11:19)
--- NOTE | 2020-10-12 11:28 | PC.NURSE ---
Blood pressure reassessment 121/74 heart rate 83.
[2020-10-12] MEDS: pantoprazole 40 mg SDV IVP ×2 (12:18→22:03)
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
--- NOTE | 2020-10-12 16:14 | PC.NURSE ---
2nd dressing change completed by this nurse per doctors wound care orders, patient tolerated well, see wound care for further details.
[2020-10-12] MEDS: iron sucrose 200 MG in sodium chloride 0.9% (100 ml) 100 ML 220 MG IV (17:19)
[2020-10-13] VITALS (10 sets, daily range): BP systolic 160–196; BP diastolic 82–96; PULSE 71–81; RESP 16–18; TEMP 36.6–37.3; O2SAT 94–98
[2020-10-13] MEDS: labetalol 5 mg/mL SDV 20mL 10 MG IVP ×2 (00:12→04:26)
[2020-10-13] MEDS: oxyCODONE-APAP 5-325 mg Tablet 1 TAB PO (04:31)
[2020-10-13] MEDS: heparin 5,000 unit/mL INJ 1 mL 5000 UNIT SUBCUT (05:48)
[2020-10-13 05:49] LABS: Basophils % 0.2 %; Eosinophils # 0.4 10^3/uL (0.0-0.8); Eosinophils % 3.5 %; Hematocrit 35.8 % (42.0-52.0); Hemoglobin 9.6 g/dL (11.7-16.6); Lymphocytes # 1.4 10^3/uL (0.8-4.8); Lymphocytes % 11.3 %; Mean Corpuscular HGB Conc 26.8 g/dL (30.0-36.0); Mean Corpuscular Hemoglobin 21.2 pg (28.0-34.0); Mean Corpuscular Volume 79.2 fL (80-94); Mean Platelet Volume 9.2 fL (7.4-10.4); Monocytes # 0.9 10^3/uL (0.2-0.9); Monocytes % 6.9 %; Neutrophils # 8.66 10^3/uL (1.8-7.7); Neutrophils % 68.2 %; Nucleated Red Blood Cells % 0.2 %; Platelet Count 477 10^3/cmm (130-400); Red Blood Count 4.52 10^6/uL (4.1-5.3); Red Cell Distribution Width 20.5 % (12.1-15.1); White Blood Count 12.7 10^3/uL (4.0-10.0)
[2020-10-13] MEDS: sodium chloride 0.9% 1,000 ML 50 ML IV (05:53)
[2020-10-13 06:09] LABS: Magnesium 1.6 mg/dL (1.7-2.3)
[2020-10-13 06:22] LABS: Slide Review Slide Review Perform
[2020-10-13 06:31] LABS: Albumin Level 2.3 g/dL (3.5-5.2); Anion Gap 11.8 (5-19); Blood Urea Nitrogen 8 mg/dL (6-20); Calcium 8.4 mg/dL (8.5-10.5); Carbon Dioxide 28 mmol/L (22-29); Chloride 103 mmol/L (98-107); Glomerular Filtration Rate 173.3 mL/min (90-130); Glucose 85 mg/dL (65-115); Phosphorus 2.6 mg/dL (2.5-4.5); Potassium 4.8 mmol/L (3.5-5.1); Sodium 138 mmol/L (136-145)
[2020-10-13] MEDS: folic acid 1 mg Tablet PO (09:25)
[2020-10-13] MEDS: pantoprazole 40 mg SDV IVP (09:25)
[2020-10-13] MEDS: gabapentin 300 mg Capsule PO (09:25)
[2020-10-13] MEDS: cyanocobalamin 1,000 mcg/mL SDV 1000 MCG IM (09:25)
[2020-10-13] MEDS: amlodipine 10 mg Tablet PO (09:28)
[2020-10-13] MEDS: magnesium oxide 400 mg tablet PO (09:28)
[2020-10-13] MEDS: metoprolol tartrate 25 mg Tablet PO (09:28)
[2020-10-13] MEDS: cefTRIAXone 2,000 MG in sodium chloride 0.9% (plus) 50 ML 100 MG IV (10:51)
--- NOTE | 2020-10-13 10:55 | PC.NURSE ---
wound care completed per doctors orders, tolerated well, repositioned with pillows to prevent pressure, denies pain or needs, call light in reach, side rails up X2.
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
--- NOTE | 2020-10-13 12:06 | PC.NURSE ---
Called report to Maria C [facility], denies further questions or concerns.
--- NOTE | 2020-10-13 14:23 | PC.NURSE ---
ANJ here to package pick up patient for transportation via stretcher, belongings sent with patient including phone and zinc furnace charger contacts case and solution, denies further needs, discharge packet given to transportation.
== END 2020-10-13 14:25 | disposition home or self-care (01) | DRG 853 ==
LOC: ER 07:11 → ICU 13:23 → MEDSURG 10-07 11:04
PROVIDERS: Student in an Organized Health Care Education/Training Program; Surgery; Admitting Provider Internal Medicine; Emergency Provider Family Medicine; PCP Family Medicine; Visit Provider Internal Medicine
PROC: 0KBN0ZZ Excision of Right Hip Muscle, Open Approach (ICD-10-PCS; principal; 2020-10-07 13:25)
DX: A41.9 Sepsis, unspecified organism (principal); L89.893 Pressure ulcer of other site, stage 3; L89.313 Pressure ulcer of right buttock, stage 3; E87.2 Acidosis; M86.18 Other acute osteomyelitis, other site; F05 Delirium due to known physiological condition; N17.9 Acute kidney failure, unspecified; K92.2 Gastrointestinal hemorrhage, unspecified; N39.0 Urinary tract infection, site not specified; G82.20 Paraplegia, unspecified; I95.9 Hypotension, unspecified; G89.29 Other chronic pain; M54.5 Low back pain; Z86.718 Personal history of other venous thrombosis and embolism; Z87.440 Personal history of urinary (tract) infections; Z79.891 Long term (current) use of opiate analgesic; E83.42 Hypomagnesemia; D50.9 Iron deficiency anemia, unspecified; B95.5 Unspecified streptococcus as the cause of diseases classified elsewhere; B96.20 Unspecified Escherichia coli [E. coli] as the cause of diseases classified elsewhere; I10 Essential (primary) hypertension; Z87.442 Personal history of urinary calculi; L89.322 Pressure ulcer of left buttock, stage 2
CPT/HCPCS: 12345; 36415; 36430; 36569; 36592; 36600; 70450; 71045; 73701; 74177; 80051; 80053; 80069; 80202; 81001; 82274; 82330; 82533; 82550; 82607; 82728; 82746; 82805; 83540; 83550; 83605; 83690; 83735; 84443; 84484; 85007; 85018; 85025; 85610; 85651; 85730; 86850; 86900; 86920; 87040; 87070; 87077; 87086; 87176; 87186; 87205; 87426; 87635; 93005; 93971; 94660; 96372; C9113; J0696; J1644; J1756; J2270; J2310; J2543; J3010; J3370; J3420; J3475; J3490; J7030; J7040; J7050; P9016; Q9967

== ENCOUNTER 2020-10-25 09:49 | Day surgery (SDC) | payer MEDICARE, BC, SELFPAY ==
[2020-10-21 09:21] VITALS: BMI 29.2
[2020-10-25 10:34] VITALS: BP 91/58; PULSE 75; RESP 18; TEMP 36.9; O2SAT 93
[2020-10-25] MEDS: sodium chloride 0.9% 1,000 ML 30 ML IV (10:35)
--- NOTE | 2020-10-25 11:32 | P.ANESASSM_ITS ---
Pre-Anesthetic Assessment Pre-Anesthetic Assessment: Height/Weight: Height 1.8 m Weight 95.254 kg Temp Pulse Resp BP Pulse Ox 98.5 F 75 18 91/58 93 10/25/20 10:34 10/25/20 10:34 10/25/20 10:34 10/25/20 10:34 10/25/20 10:34 Preop Diagnosis: Right gluteal stage IV decubitus ulcer Proposed Procedure: Operation Date: 10/25/20 11:00 Proposed Procedures p EGD 34358 39655 D64.9 K92.2(Not Applicable) - Zaire Callejas MD s Colonoscopy(Not Applicable) - Zaire Callejas MD Familial anesthetic complications: None Last intake: Intake Last Liquid Date 10/24/20 Last Liquid Time 23:55 Last Solid Date 10/23/20 Last Solid Time 20:00 Social: Social History: No alcohol and No tobacco Exam: Pre-Anes Outpt Exam: alert, oriented x 3, clear to auscultation bilaterally and regular rate & rhythm Airway: Cervical ROM: WNL MP: 3 Dentition: Full CV/HEM: CV/HEM: Anemia, DVT and HTN Neuropsych: Comments: quadriplegia, 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 of autonomic hyper-refle garrett - states BP goes up when he's in pain Anesthetic Plan: ASA status: 3 Anesthesia: MAC Risk of > 500 ml blood loss (7ml/kg in children): No PFSH Anesthesia PFSH: Medical History Acute kidney injury Chronic bilateral low back pain without sciatica History of DVT (deep vein thrombosis) History of recurrent UTI (urinary tract infection) Hx of fracture of femur 2014 metal placed right femur Hx of staphylococcal infection multiple surgeries to remove STAPH in left wrist Renal lesion Surgical History History of nasal surgery 1989 History of removal of calculus of renal pelvis through percutaneous nephrostomy History of removal of retained hardware 09/2019 [place] [facility] [place] History of urostomy 10-15 years ago Hx of knee surgery Left -metal put in 2014 and removed 2016- due to infection Hx of neck surgery 1989 S/P debridement (10/07/20) right gluteal wound Family History Grandfather Diabetes Family history of premature coronary artery disease Mother Lupus (systemic lupus erythematosus) Social History Smoking and tobacco status: never smoked Second hand smoke exposure: Yes Alcohol intake: never Marital status: Single Current occupational status: disabled History of recent travel: No Current gender identity: Male Data Anesthesia Cardiac Studies: No Data to Display
--- NOTE | 2020-10-25 12:04 | W.PM.OPSUD ---
Surgery/Procedure H&P Update DATE OF PROCEDURE: October 25, 2020 DATE H&P PERFORMED: 10/17/20 H&P UPDATE INFORMATION: I have reviewed H&P completed within last 30 days, I have examined patient prior to procedure and No changes to prior documentation PREOP DIAGNOSIS: Right gluteal stage IV decubitus ulcer PLANNED PROCEDURE: Operation Date: 10/25/20 11:00 Proposed Procedures p EGD 46604 20236 D64.9 K92.2(Not Applicable) - Zaire Callejas MD s Colonoscopy(Not Applicable) - Zaire Callejas MD
[2020-10-25 13:28] VITALS: BP 106/75; PULSE 75; RESP 16; TEMP 36.3; O2SAT 93
[2020-10-25 13:43] VITALS: BP 131/79; PULSE 64; RESP 16; O2SAT 98
--- NOTE | 2020-10-25 21:34 | ANE.PACU2 ---
Inpatient post-anesthesia follow up: Airway intact: Yes Vital signs: Temperature 97.4 F Pulse Rate 64 Respiratory Rate 16 Blood Pressure 131/79 Pulse Oximetry 98 Oxygen Delivery Me thod Room Air Oxygen Flow Rate Fraction of Inspir ed Oxygen Hydration adequate: Yes Nausea and vomiting: No Pain level: 2 Mental status: Baseline
== END 2020-10-25 14:18 | disposition home or self-care (01) ==
PROVIDERS: PCP Family Medicine; Visit Provider Surgery
PROC: 0DJ08ZZ Inspection of Upper Intestinal Tract, Via Natural or Artificial Opening Endoscopic (ICD-10-PCS; CPT 43235; principal; 2020-10-25 11:00)
PROC: 0DJD8ZZ Inspection of Lower Intestinal Tract, Via Natural or Artificial Opening Endoscopic (ICD-10-PCS; CPT 45378; 2020-10-25 11:00)
DX: R19.5 Other fecal abnormalities (principal); D64.9 Anemia, unspecified; K29.70 Gastritis, unspecified, without bleeding; K64.8 Other hemorrhoids; Z79.01 Long term (current) use of anticoagulants; Z86.718 Personal history of other venous thrombosis and embolism; I10 Essential (primary) hypertension
CPT/HCPCS: 43235; 45378; 96360; 96361; J2704; J7030

== ENCOUNTER 2020-11-02 14:20 | Outpatient (CLI) | payer MEDICARE, BC, SELFPAY | END 2020-11-02 14:21 | disposition home or self-care (01) | LOC: WOUND 14:22 | PROVIDERS: PCP Family Medicine; Visit Provider Thoracic Surgery (Cardiothoracic Vascular Surgery) | DX: I96 Gangrene, not elsewhere classified (principal); L89.313 Pressure ulcer of right buttock, stage 3; L97.822 Non-pressure chronic ulcer of other part of left lower leg with fat layer exposed | CPT/HCPCS: 11042; 11045 ==

== ENCOUNTER 2020-11-22 13:43 | Outpatient (CLI) | payer MEDICARE, BC, SELFPAY | END 2020-11-22 13:44 | disposition home or self-care (01) | LOC: WOUND 13:47 | PROVIDERS: PCP Family Medicine; Visit Provider Thoracic Surgery (Cardiothoracic Vascular Surgery) | DX: L89.152 Pressure ulcer of sacral region, stage 2 (principal); L89.313 Pressure ulcer of right buttock, stage 3 | CPT/HCPCS: 11042; 11045 ==

== ENCOUNTER → 2020-11-25 14:14 | Outpatient (BNVA) | payer MEDICARE, BC, SELFPAY | PROVIDERS: PCP Family Medicine; Visit Provider Nurse Practitioner | DX: G89.29 Other chronic pain (principal); M54.5 Low back pain; Z79.891 Long term (current) use of opiate analgesic | CPT/HCPCS: 99213 ==

== ENCOUNTER 2020-11-29 13:53 | Outpatient (CLI) | payer MEDICARE, BC, SELFPAY | END 2020-11-29 13:54 | disposition home or self-care (01) | LOC: WOUND 13:54 | PROVIDERS: PCP Family Medicine; Visit Provider Thoracic Surgery (Cardiothoracic Vascular Surgery) | DX: I96 Gangrene, not elsewhere classified (principal); L89.313 Pressure ulcer of right buttock, stage 3; T81.89XA Other complications of procedures, not elsewhere classified, initial encounter; L02.416 Cutaneous abscess of left lower limb | CPT/HCPCS: 11042; 11045; 97597 ==

== ENCOUNTER 2020-12-06 13:54 | Outpatient (CLI) | payer MEDICARE, BC, SELFPAY | END 2020-12-06 13:55 | disposition home or self-care (01) | LOC: WOUND 13:57 | PROVIDERS: PCP Family Medicine; Visit Provider Thoracic Surgery (Cardiothoracic Vascular Surgery) | DX: I96 Gangrene, not elsewhere classified (principal); L89.314 Pressure ulcer of right buttock, stage 4; L97.422 Non-pressure chronic ulcer of left heel and midfoot with fat layer exposed; L97.822 Non-pressure chronic ulcer of other part of left lower leg with fat layer exposed | CPT/HCPCS: 11044; 11047; 87070; 87077; 87176; 87186; 87205 ==

== ENCOUNTER 2020-12-14 14:13 | Outpatient (CLI) | payer MEDICARE, BC, SELFPAY | END 2020-12-14 14:14 | disposition home or self-care (01) | LOC: WOUND 14:14 | PROVIDERS: PCP Family Medicine; Visit Provider Thoracic Surgery (Cardiothoracic Vascular Surgery) | DX: I96 Gangrene, not elsewhere classified (principal); L89.314 Pressure ulcer of right buttock, stage 4; L97.822 Non-pressure chronic ulcer of other part of left lower leg with fat layer exposed; L97.422 Non-pressure chronic ulcer of left heel and midfoot with fat layer exposed | CPT/HCPCS: 11042; 11045 ==

== ENCOUNTER 2020-12-21 13:59 | Outpatient (CLI) | payer MEDICARE, BC, SELFPAY | END 2020-12-21 14:00 | disposition home or self-care (01) | LOC: WOUND 14:00 | PROVIDERS: Visit Provider Thoracic Surgery (Cardiothoracic Vascular Surgery) | DX: I96 Gangrene, not elsewhere classified (principal); L89.314 Pressure ulcer of right buttock, stage 4; L89.623 Pressure ulcer of left heel, stage 3 | CPT/HCPCS: 11042; 11045 ==

== ENCOUNTER 2020-12-28 15:09 | Outpatient (CLI) | payer MEDICARE, BC, SELFPAY | END 2020-12-28 15:10 | disposition home or self-care (01) | LOC: WOUND 15:10 | PROVIDERS: Visit Provider Thoracic Surgery (Cardiothoracic Vascular Surgery) | DX: L89.314 Pressure ulcer of right buttock, stage 4 (principal); L89.623 Pressure ulcer of left heel, stage 3 | CPT/HCPCS: 11042; 11045 ==

== ENCOUNTER 2021-01-03 13:12 | Outpatient (CLI) | payer MEDICARE, BC, SELFPAY ==
--- NOTE | 2021-01-03 13:00 | XRR_ITS ---
PROCEDURE INFORMATION: Exam: XR Abdomen Exam date and time: 01/03/2021 2:09 PM Age: 55 years old Clinical indication: Condition or disease; Kidney or ureter condition; Calculus (stone) in kidney; Additional info: N20.0 - calculus of kidney TECHNIQUE: Imaging protocol: XR of the abdomen. Views: Frontal supine view of the abdomen. 1 View. COMPARISON: CT abdomen pelvis w con* [id number] 10/06/2020 9:48 AM FINDINGS: Gastrointestinal tract: Moderate retained feces. Bones/joints: Unremarkable. Other findings: There are postoperative changes over the abdomen. XR/XR KUB [id number] IMPRESSION: Moderate retained feces.
[2021-01-03 14:06] LABS: Basophils # 0.1 10^3/uL (0.0-0.1); Basophils % 0.7 %; Eosinophils # 0.2 10^3/uL (0.0-0.8); Eosinophils % 1.7 %; Hematocrit 39.6 % (42.0-52.0); Hemoglobin 11.7 g/dL (11.7-16.6); Lymphocytes # 1.2 10^3/uL (0.8-4.8); Mean Corpuscular HGB Conc 29.5 g/dL (30.0-36.0); Mean Corpuscular Hemoglobin 25.9 pg (28.0-34.0); Mean Corpuscular Volume 87.8 fL (80-94); Mean Platelet Volume 8.7 fL (7.4-10.4); Monocytes # 0.9 10^3/uL (0.2-0.9); Monocytes % 9.4 %; Neutrophils # 7.38 10^3/uL (1.8-7.7); Neutrophils % 75.4 %; Nucleated Red Blood Cells % 0 %; Platelet Count 462 10^3/cmm (130-400); Red Blood Count 4.51 10^6/uL (4.1-5.3); Red Cell Distribution Width 16.9 % (12.1-15.1); White Blood Count 9.8 10^3/uL (4.0-10.0)
[2021-01-03 15:03] LABS: Erythrocyte Sedimentation Rate 72 mm/hr (0-10)
== END 2021-01-03 13:13 | disposition home or self-care (01) ==
PROVIDERS: Student in an Organized Health Care Education/Training Program; PCP Family Medicine; Visit Provider Urology
DX: N20.0 Calculus of kidney (principal); M86.9 Osteomyelitis, unspecified
CPT/HCPCS: 36415; 74018; 85025; 85651

== ENCOUNTER 2021-01-04 14:41 | Outpatient (CLI) | payer MEDICARE, BC, SELFPAY | END 2021-01-04 14:42 | disposition home or self-care (01) | LOC: WOUND 14:42 | PROVIDERS: PCP Family Medicine; Visit Provider Thoracic Surgery (Cardiothoracic Vascular Surgery) | DX: I96 Gangrene, not elsewhere classified (principal); L89.314 Pressure ulcer of right buttock, stage 4; L89.623 Pressure ulcer of left heel, stage 3 | CPT/HCPCS: 11042; 11045 ==

== ENCOUNTER 2021-01-04 16:07 | Outpatient (CLI) | payer MEDICARE, BC, SELFPAY ==
[2021-01-04 17:26] LABS: Alanine Aminotransferase < 5 U/L (0-41); Albumin Level 2.6 g/dL (3.5-5.2); Alkaline Phosphatase 123 IU/L (40-130); Aspartate Amino Transferase 9 U/L (0-40); Blood Urea Nitrogen 11 mg/dL (6-20); C Reactive Protein 96.9 mg/L (0.0-4.9); Calcium 8.2 mg/dL (8.5-10.5); Carbon Dioxide 30 mmol/L (22-29); Chloride 103 mmol/L (98-107); Globulin 4.9 g/dL (1.3-4.6); Glomerular Filtration Rate 172.6 mL/min (90-130); Glucose 109 mg/dL (65-115); Osmolality Calculated 288 mOsm/kg (285-295); Sodium 139 mmol/L (136-145); Total Bilirubin 0.3 mg/dL (0.15-1.2); Total Protein 7.5 g/dL (6.6-8.7)
== END 2021-01-04 16:08 | disposition home or self-care (01) ==
PROVIDERS: PCP Family Medicine; Visit Provider Student in an Organized Health Care Education/Training Program
DX: M86.9 Osteomyelitis, unspecified (principal)
CPT/HCPCS: 80053; 86140

== ENCOUNTER 2021-01-11 14:08 | Outpatient (CLI) | payer MEDICARE, BC, SELFPAY | END 2021-01-11 14:09 | disposition home or self-care (01) | LOC: WOUND 14:10 | PROVIDERS: PCP Family Medicine; Visit Provider Thoracic Surgery (Cardiothoracic Vascular Surgery) | DX: I96 Gangrene, not elsewhere classified (principal); L89.314 Pressure ulcer of right buttock, stage 4; L89.623 Pressure ulcer of left heel, stage 3 | CPT/HCPCS: 11042; 11045 ==

== ENCOUNTER 2021-01-17 14:22 | Outpatient (CLI) | payer MEDICARE, BC, SELFPAY | END 2021-01-17 14:23 | disposition home or self-care (01) | LOC: WOUND 14:23 | PROVIDERS: PCP Family Medicine; Visit Provider Nurse Practitioner Family | DX: I96 Gangrene, not elsewhere classified (principal); L89.314 Pressure ulcer of right buttock, stage 4; L89.623 Pressure ulcer of left heel, stage 3 | CPT/HCPCS: G0463 ==

== ENCOUNTER → 2021-01-24 10:46 | Day surgery (SDC) | payer MEDICARE, BC, SELFPAY ==
[2021-01-24 11:04] VITALS: BP 89/49; PULSE 87; RESP 18; TEMP 36.1; O2SAT 98
[2021-01-24] MEDS: DEXTROSE 5% IV (12:03)
[2021-01-24] MEDS: DALBAVANCIN IV (12:03)
--- NOTE | 2021-01-24 12:08 | PC.NURSE ---
IV FLUSED WITH D5W BEFORE MEDICINE STARTED
== END ==
PROVIDERS: PCP Family Medicine; Visit Provider Student in an Organized Health Care Education/Training Program
DX: M86.9 Osteomyelitis, unspecified (principal)
CPT/HCPCS: 96365; 96366; J0875

== ENCOUNTER 2021-01-24 13:48 | Outpatient (CLI) | payer MEDICARE, BC, SELFPAY | END 2021-01-24 13:49 | disposition home or self-care (01) | LOC: WOUND 13:49 | PROVIDERS: PCP Family Medicine; Visit Provider Thoracic Surgery (Cardiothoracic Vascular Surgery) | DX: I96 Gangrene, not elsewhere classified (principal); L89.314 Pressure ulcer of right buttock, stage 4; L89.623 Pressure ulcer of left heel, stage 3; L89.613 Pressure ulcer of right heel, stage 3 | CPT/HCPCS: 11042; 11045 ==

== ENCOUNTER 2021-01-31 14:21 | Outpatient (CLI) | payer MEDICARE, BC, SELFPAY | END 2021-01-31 14:22 | disposition home or self-care (01) | LOC: WOUND 14:22 | PROVIDERS: PCP Family Medicine; Visit Provider Thoracic Surgery (Cardiothoracic Vascular Surgery) | DX: I96 Gangrene, not elsewhere classified (principal); L89.314 Pressure ulcer of right buttock, stage 4; L89.623 Pressure ulcer of left heel, stage 3; L89.613 Pressure ulcer of right heel, stage 3 | CPT/HCPCS: 11042; 11045 ==

== ENCOUNTER → 2021-02-02 13:08 | Day surgery (SDC) | payer MEDICARE, BC, SELFPAY ==
[2021-02-02 13:21] VITALS: BP 70/44; PULSE 92; RESP 18; TEMP 37.3; O2SAT 96; BMI 29.2
--- NOTE | 2021-02-02 13:22 | PC.NURSE ---
PATIENTS BLOOD PRESSURE IS 70/44. PATIENT SAYS THIS CAN BE NORMAL FOR HIM. HE SAYS HE HAS PAIN IN HIS BACK, IS WANTING TO TAKE HOME MEDICATION OF GABAPENTIN. PATIENT IS AWAKE ALERT ORIENTED.
[2021-02-02] MEDS: dalbavancin 500 MG in dextrose 5 % 100 ML 200 MG IV (14:38)
[2021-02-02 14:40] VITALS: BP 86/55
--- NOTE | 2021-02-02 14:43 | SUR.PREOP ---
Administration of medication was late due to delay from pharmacy - emergency meds needed in ER
== END ==
PROVIDERS: PCP Family Medicine; Visit Provider Student in an Organized Health Care Education/Training Program
DX: M86.9 Osteomyelitis, unspecified (principal)
CPT/HCPCS: 96365; J0875

== ENCOUNTER → 2021-02-03 14:07 | Outpatient (BNVA) | payer MEDICARE, BC, SELFPAY | PROVIDERS: PCP Family Medicine; Visit Provider Anesthesiology | DX: G89.29 Other chronic pain (principal); M54.5 Low back pain; Z79.891 Long term (current) use of opiate analgesic | CPT/HCPCS: 99213 ==

== ENCOUNTER 2021-02-07 14:03 | Outpatient (RCR) | payer MEDICARE, BC, SELFPAY | END 2021-02-22 23:59 | disposition home or self-care (01) | LOC: WOUND 14:03 | PROVIDERS: PCP Family Medicine; Visit Provider Thoracic Surgery (Cardiothoracic Vascular Surgery) | DX: I96 Gangrene, not elsewhere classified (principal); L89.314 Pressure ulcer of right buttock, stage 4; L89.623 Pressure ulcer of left heel, stage 3; L89.613 Pressure ulcer of right heel, stage 3 | CPT/HCPCS: 11042; 11045 ==

== ENCOUNTER 2021-02-21 13:53 | Outpatient (CLI) | payer MEDICARE, BC, SELFPAY | END 2021-02-21 13:54 | disposition home or self-care (01) | LOC: WOUND 13:54 | PROVIDERS: PCP Family Medicine; Visit Provider Thoracic Surgery (Cardiothoracic Vascular Surgery) | DX: I96 Gangrene, not elsewhere classified (principal); L89.314 Pressure ulcer of right buttock, stage 4; L89.623 Pressure ulcer of left heel, stage 3; L89.613 Pressure ulcer of right heel, stage 3 | CPT/HCPCS: 11042; 11043; 11045 ==

== ENCOUNTER → 2021-02-28 16:55 | Outpatient (BNVA) | payer MEDICARE, BC, SELFPAY | PROVIDERS: PCP Family Medicine; Visit Provider Student in an Organized Health Care Education/Training Program | DX: M86.9 Osteomyelitis, unspecified (principal) | CPT/HCPCS: 85651; 86140 ==

== ENCOUNTER 2021-03-15 13:34 | Outpatient (CLI) | payer MEDICARE, BC, SELFPAY | END 2021-03-15 13:35 | disposition home or self-care (01) | LOC: WOUND 13:35 | PROVIDERS: PCP Family Medicine; Visit Provider Thoracic Surgery (Cardiothoracic Vascular Surgery) | DX: I96 Gangrene, not elsewhere classified (principal); L89.314 Pressure ulcer of right buttock, stage 4; L89.623 Pressure ulcer of left heel, stage 3; L89.613 Pressure ulcer of right heel, stage 3 | CPT/HCPCS: 11042; 11045 ==

== ENCOUNTER 2021-03-29 13:21 | Outpatient (CLI) | payer MEDICARE, BC, SELFPAY | END 2021-03-29 13:22 | disposition home or self-care (01) | LOC: WOUND 13:22 | PROVIDERS: PCP Family Medicine; Visit Provider Thoracic Surgery (Cardiothoracic Vascular Surgery) | DX: I96 Gangrene, not elsewhere classified (principal); L89.314 Pressure ulcer of right buttock, stage 4; L89.623 Pressure ulcer of left heel, stage 3; L89.613 Pressure ulcer of right heel, stage 3 | CPT/HCPCS: 11042; 11043; 11045; 97597 ==

== ENCOUNTER 2021-04-12 13:56 | Outpatient (CLI) | payer MEDICARE, BC, SELFPAY | END 2021-04-12 13:57 | disposition home or self-care (01) | LOC: WOUND 13:57 | PROVIDERS: PCP Family Medicine; Visit Provider Thoracic Surgery (Cardiothoracic Vascular Surgery) | DX: I96 Gangrene, not elsewhere classified (principal); L89.314 Pressure ulcer of right buttock, stage 4; L89.613 Pressure ulcer of right heel, stage 3 | CPT/HCPCS: 11042; 11045 ==

== ENCOUNTER → 2021-04-14 14:05 | Outpatient (BNVA) | payer MEDICARE, BC, SELFPAY | PROVIDERS: PCP Family Medicine; Visit Provider Anesthesiology | DX: G89.29 Other chronic pain (principal); M54.5 Low back pain; Z79.891 Long term (current) use of opiate analgesic | CPT/HCPCS: 99213 ==

== ENCOUNTER 2021-04-26 13:50 | Outpatient (CLI) | payer MEDICARE, BC, SELFPAY | END 2021-04-26 13:51 | disposition home or self-care (01) | LOC: WOUND 13:51 | PROVIDERS: PCP Family Medicine; Visit Provider Thoracic Surgery (Cardiothoracic Vascular Surgery) | DX: I96 Gangrene, not elsewhere classified (principal); L89.314 Pressure ulcer of right buttock, stage 4; L89.613 Pressure ulcer of right heel, stage 3 | CPT/HCPCS: 11042; 11045 ==

== ENCOUNTER 2021-05-07 15:12 | Inpatient (IN) | payer MEDICARE, BC, SELFPAY ==
--- NOTE | 2021-05-07 15:25 | ECG_ITS ---
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 Measurements Intervals [place] Rate: 74 P: 36 [place]: 128 QRS: 67 QRSD: 101 T: 42 QT: 382 QTc: 424 Interpretive Statements SINUS RHYTHM Compared to ECG 10/06/2020 09:54:17 Sinus tachycardia no longer present Intraventricular conduction delay no longer present Electronically Signed On 05-08-2021 19:11:49 CDT by Bette Lopez M.D. [id number]
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
[2021-05-07 15:49] VITALS: BP 99/60; PULSE 92; RESP 18; TEMP 36.8; O2SAT 94
[2021-05-07] MEDS: sodium chloride 0.9% 1,000 ML 50 ML IV (16:08)
[2021-05-07 16:34] VITALS: RESP 18
[2021-05-07] MEDS: famotidine 20 mg/2 mL INJ IVP (16:34)
[2021-05-07] MEDS: oxyCODONE-APAP 5-325 mg Tablet 1 TAB PO (16:34)
[2021-05-07 16:49] VITALS: BMI 25.9
[2021-05-07 17:19] LABS: Basophils % 0.4 %; Eosinophils # 0.1 10^3/uL (0.0-0.8); Eosinophils % 0.9 %; Hematocrit 34.2 % (42.0-52.0); Hemoglobin 9.7 g/dL (11.7-16.6); Lymphocytes # 0.7 10^3/uL (0.8-4.8); Lymphocytes % 8.9 %; Mean Corpuscular HGB Conc 28.4 g/dL (30.0-36.0); Mean Corpuscular Hemoglobin 23.1 pg (28.0-34.0); Mean Corpuscular Volume 81.4 fl (80-94); Mean Platelet Volume 8.7 fL (7.4-10.4); Monocytes # 0.8 10^3/uL (0.2-0.9); Monocytes % 10.6 %; Neutrophils % 78.5 %; Nucleated Red Blood Cells % 0 %; Platelet Count 439 10^3/cmm (130-400); Red Cell Distribution Width 17.5 % (12.1-15.1); White Blood Count 7.6 10^3/uL (4.0-10.0)
[2021-05-07 17:28] LABS: Bilirubin Urine Neg (Negative); Blood Urine 2+ (Negative); Glucose Urine UA Norm (Normal); Ketones Urine Negative (Negative); Nitrate Urine Positive (Negative); Protein Urine Trace (Negative); Specific Gravity, Urine 1.015 (1.005-1.030); Urine Appearance Cloudy (CLEAR); Urine Color Yellow (Yellow); Urobilinogen Urine Norm (Negative); pH Urine 5 (5-7)
[2021-05-07 17:29] LABS: Add Urine Microscopic? YES; Leukocyte Esterase Urine 2+ (Negative)
[2021-05-07 17:30] LABS: Add Urine Culture? Yes; Bacteria Urine 1+ /hpf; WBC Urine >100 /hpf (0-5)
[2021-05-07 17:39] LABS: Lactic Sepsis W/Reflex 1.8 mmol/L (0.5-2.2)
[2021-05-07 17:50] LABS: NT Pro B Type Natriuretic Pept 352 pg/mL (0-125); Procalcitonin 0.08 ng/mL (0-0.5)
[2021-05-07 17:51] LABS: Magnesium 1.9 mg/dL (1.7-2.3); Phosphorus 2.7 mg/dL (2.5-4.5); Thyroid Stimulating Hormone 1.38 uIU/mL (0.27-4.20)
[2021-05-07] MEDS: apixaban 5 mg Tablet 2.5 MG PO (18:00)
[2021-05-07 18:02] LABS: Alanine Aminotransferase < 5 U/L (0-41); Albumin Level 2.4 g/dL (3.5-5.2); Alkaline Phosphatase 121 IU/L (40-130); Anion Gap 13.9 (5-19); Aspartate Amino Transferase 5 U/L (0-40); Blood Urea Nitrogen 10 mg/dL (6-20); Calcium 7.6 mg/dL (8.5-10.5); Carbon Dioxide 24 mmol/L (22-29); Chloride 102 mmol/L (98-107); Glomerular Filtration Rate 77.6 mL/min (90-130); Glucose 85 mg/dL (65-115); Osmolality Calculated 278 mOsm/kg (285-295); Potassium 4.9 mmol/L (3.5-5.1); Sodium 135 mmol/L (136-145); Total Bilirubin 0.2 mg/dL (0.15-1.2); Total Protein 6.4 g/dL (6.6-8.7)
[2021-05-07 18:08] VITALS: O2SAT 95
[2021-05-07 20:00] VITALS: BP 94/57; PULSE 79; RESP 17; TEMP 36.9; O2SAT 93
[2021-05-07] MEDS: baclofen 10 mg Tablet PO (21:59)
[2021-05-07] MEDS: gabapentin 300 mg Capsule PO (21:59)
[2021-05-07 22:02] LABS: Iron 12 ug/dL (59-158); Percent Saturation 10.7 % (20-50); Total Iron Binding Capacity 112 mcg/dl; Unsaturated Iron Binding 100 ug/dL (112-347)
[2021-05-08] VITALS (9 sets, daily range): BP systolic 105–136; BP diastolic 64–83; PULSE 64–74; RESP 16–18; TEMP 36.4–36.9; O2SAT 65–97
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
[2021-05-08] MEDS: famotidine 20 mg/2 mL INJ IVP ×2 (04:05→15:30)
--- NOTE | 2021-05-08 05:06 | PC.NURSE ---
amount of patient urostomy is under cath amount
[2021-05-08] MEDS: cefTRIAXone 2,000 MG in sodium chloride 0.9% (plus) 50 ML 100 MG IV (05:42)
[2021-05-08] MEDS: DAPTOmycin 800 MG in sodium chloride 0.9% (100 ml) 100 ML 100 MG IV (06:19)
[2021-05-08 06:42] LABS: Basophils % 0.6 %; Eosinophils # 0.2 10^3/uL (0.0-0.8); Hematocrit 32.7 % (42.0-52.0); Hemoglobin 9.1 g/dL (11.7-16.6); Lymphocytes # 1.5 10^3/uL (0.8-4.8); Lymphocytes % 30.6 %; Mean Corpuscular HGB Conc 27.8 g/dL (30.0-36.0); Mean Corpuscular Hemoglobin 22.8 pg (28.0-34.0); Mean Platelet Volume 8.7 fL (7.4-10.4); Monocytes # 0.6 10^3/uL (0.2-0.9); Monocytes % 11.4 %; Neutrophils # 2.53 10^3/uL (1.8-7.7); Neutrophils % 52.6 %; Nucleated Red Blood Cells % 0 %; Platelet Count 425 10^3/cmm (130-400); Red Blood Count 3.99 10^6/uL (4.1-5.3); Red Cell Distribution Width 17.6 % (12.1-15.1); White Blood Count 4.8 10^3/uL (4.0-10.0)
--- NOTE | 2021-05-08 07:00 | CT_ITS ---
WS: [id number] CT bony pelvis [address] REASON FOR EXAM: osteomyelitis of pubic ramus IV CONTRAST ADMINISTERED: Noncontrast. TOTAL EXAM DLP: 1960.[address] scans at [facility] use at least one of these dose optimization techniques: automat ed exposure control; mA and/or kV adjustment per patient size (includes targeted exams where dose is matched to clinical indication); or iterative reconstruction. FINDINGS: Compared to the previous CT examination of 10/06/2020: The decubitus ulcer underlying the right ischial tuberosity has increased in depth. The ill-defined, presumed inflammatory, mass associated with the decubitus ulcer has increased signif icantly in volume. There is gas within this mass and possibly a soft tissue abscess posterior and lat eral to the right ischial tuberosity at the level of the lesser trochanter of the right femur. There is edema and adjacent muscle groups. There is an effusion in the right hip joint which was present on the previous examination. Septic rig ht hip joint cannot be excluded. There is extensive heterotopic bone formation in the region of contact between the decubitus ulcer an d the right ischial tuberosity. CT/CT bony pelvis 37318 IMPRESSION: The inflammatory soft tissue changes have increased significantly in volume and there may be a focal abscess. Extensive heterotopic bone formation is most lik lenore secondary to chronic organizing periosteal reaction to chronic osteomyeliti s involving the the right ischial tuberosity and inferior pubic ramus. Possible septic right hip joint.
[2021-05-08 07:05] LABS: Alanine Aminotransferase < 5 U/L (0-41); Albumin Level 2.1 g/dL (3.5-5.2); Alkaline Phosphatase 104 IU/L (40-130); Anion Gap 12.6 (5-19); Aspartate Amino Transferase 6 U/L (0-40); Blood Urea Nitrogen 9 mg/dL (6-20); Calcium 7.6 mg/dL (8.5-10.5); Carbon Dioxide 24 mmol/L (22-29); Chloride 108 mmol/L (98-107); Glomerular Filtration Rate 117.1 mL/min (90-130); Glucose 72 mg/dL (65-115); Osmolality Calculated 287 mOsm/kg (285-295); Potassium 4.6 mmol/L (3.5-5.1); Sodium 140 mmol/L (136-145); Total Bilirubin 0.2 mg/dL (0.15-1.2); Total Protein 6.1 g/dL (6.6-8.7)
[2021-05-08 07:06] LABS: C Reactive Protein 77.7 mg/L (0.0-4.9); Creatine Phosphokinase 17 U/L (39-308)
[2021-05-08 07:29] LABS: Estmated Average Glucose 88; Hemoglobin A1C 4.7 % (4.0-6.0)
[2021-05-08 07:33] LABS: Ferritin 511 ng/mL (30-400)
[2021-05-08 07:55] LABS: Erythrocyte Sedimentation Rate 61 mm/hr (0-10)
--- NOTE | 2021-05-08 08:59 | PC.CHAP ---
Pastoral Care Encounter/Spiritual Assessment Type of Contact [] Declined warehouse order puller visit [] Patient/Family/Request visit [] Outpatient visit [] Follow-up visit [] Physician referral [] Code/Alert [x] Routine visit [] Staff referral [] Actively dying [] Patient sleeping [] Family support [] [x] Out of room [] Palliative care [] [] Receiving care in room [] Pre-surgical visit [] Trauma [] Long length of stay [] ICU visit [] Other: Relational/Emotional Strength [] Patient feels connected with others/family/visitors/staff [] Distress [] Loneliness/isolation [] Abandonment Spirituality of Patient [] Person of Stella [] Attends Muslim of their Stella [] Believes in Prayer [] Reads Bible or Restoration materials [] There are Spiritual issues to be addressed Flight Dynamicist Interventions [] Prayer [] Active listening [] Non-anxious presence [] Spiritual/emotional support [] Crisis/trauma care [] Spiritual counseling [] Bereavement support [] Provided bereavement packet [] Provided Bible/devotional materials [] Provided toy/stuffed animal, coloring book to patient or family member [] Provided Communion [] Anointing/[place] [] Salvation [] Completed spiritual assessment [] Other: Impact on Illness or Injury [] Angry [] Fearful [] Anxious [] Often cries [] Exhaustion [] Unable to work [] Unable to attend sikh [] Unable to walk/stand [] Unable to read [] Unable to drive [] Unable to eat/drink [] Unable to sleep [] Unable to be with family [] Patient intubated [] Other: Summary Time spent with patient
--- NOTE | 2021-05-08 09:13 | PC.PHAR ---
pt states he takes care of his own medications-pt states he takes the medications entered
[2021-05-08] MEDS: apixaban 5 mg Tablet 2.5 MG PO ×2 (09:20→17:52)
[2021-05-08] MEDS: gabapentin 300 mg Capsule PO ×3 (09:21→21:52)
--- NOTE | 2021-05-08 10:03 | PM.PN ---
Subjective Subjective: Interval history: Mihir reports he is doing okay this morning and is in no pain secondary to paraplegia. States he can tell when his body is stressed due to shaking and diaphoresis, when this occurs he will ask for pain medication. He is currently receiving IV ceftriaxone and daptomycin for chronic osteomyelitis of the hip and pelvis and a pressure ulcer on right gluteus. Medications: Reviewed: Yes Vitals/I&O/Wt Last Vital Signs Temp 98.5 F 05/08/21 08:00 Pulse 72 05/08/21 08:25 Resp 18 05/08/21 08:00 BP 105/64 05/08/21 08:00 Pulse Ox 92 05/08/21 08:25 05/07/21 05/08/21 05/08/21 22:59 06:59 14:59 Intake Total 340 / 340 50 / 390 460 / 460 Output Total 1400 / 1400 Balance 340 / 340 -1350 / -1010 460 / 460 Weight last 48 hrs Weight 84.623 kg Weight 84.277 kg Physical Exam Narrative: EXAM NARRATIVE: General: Male in no acute distress, AO x3 HEENT: PERRLA, oropharynx clear. Chest: Normal vesicular breath sounds bilaterally, no wheezing, rales or crackles. CVS: S1-S2 regular rate and rhythm, no murmurs, rubs or gallops. Abdomen: Soft, nontender, no organomegaly, bowel sounds present Neuro: paraplegia, wheelchair bound at baseline. Extremities: stage 4 pressure ulcer located over the right gluteal region, measuring approx 9x10x6 cm with tunneling at 11 o clock position probes to bone. Necrotic tissue and adherent slough over wound margins with serosanginous discharge. ZAK Reeves noted Data : 05/08/21 05:58 05/08/21 05:58 Micro: Microbiology 05/07/21 17:08 Blood Culture - Preliminary Blood SPECIMEN COLLECTED 05/07/21 17:05 Blood Culture - Preliminary Blood SPECIMEN COLLECTED Other data: ESR 61 CK 17 CRP 77 Procalcitonin 0.08 Ferritin [address] pelvis inflammatory soft tissue changes increased with possible focal abscess. Extensive heterotopic bone formation secondary to chronic osteomyelitis involving the right ischial tuberosity and inferior pubic ramus. Possible septic right hip joint. Blood culture pending A&P Assessment and plan (1) Osteomyelitis, pelvis: Status: Acute (2) Failure of outpatient treatment: Status: Acute (3) Paraplegia: Status: Acute (4) Pressure ulcers of skin of multiple topographic sites: Status: Acute Additional A&P Information Osteomyelitis of pelvis: Continue daptomycin and ceftriaxone CT pelvis showed inflammatory soft tissue changes with possible focal abscess and possible septic right hip joint. Most recent bone cx 12/06 with MRSA and E. fecalis, deep tissue cx with E. Coli and E.fecalis. Blood cultures pending PICC to be placed today. Wound care as per outpatient wound center. Goal: Best chance moving forward to clear his osteomyelitis will be to use a combined approach of iv abx, daily wound care and debridements as necessary, prone positioning with offloading for extended time of the day and eventually plastics wound closure. Full code Heparin for DVT prophylaxis Coding Level of Care Code Acute Automobile Taillight Assembler for [facility] Fwd Diagnoses Osteomyelitis, pelvis M86.9 Failure of outpatient treatment Z78.9 Paraplegia G82.20 Pressure ulcers of skin of multiple topographic sites L89.90
[2021-05-08] MEDS: ferrous sulfate EC 325 mg Tablet PO (10:55)
[2021-05-08] MEDS: ascorbic acid 500 mg Tablet PO ×2 (10:55→17:52)
[2021-05-08] MEDS: sodium chloride 0.9% 1,000 ML 50 ML IV (16:36)
[2021-05-08] MEDS: oxyCODONE-APAP 5-325 mg Tablet 1 TAB PO (17:51)
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
[2021-05-08] MEDS: piperacillin-tazobactam 3.375 GM in sodium chloride 0.9% (plus) 50 ML IV (22:52)
[2021-05-09] VITALS (7 sets, daily range): BP systolic 129–150; BP diastolic 78–86; PULSE 59–71; RESP 16–20; TEMP 36.4–37; O2SAT 93–96
--- NOTE | 2021-05-09 03:31 | PC.NURSE ---
SPOKE WITH BENSON AT [facility]. SHE STATES THAT [facility] IS AT FULL CAPACITY BUT PT IS STILL ON THE WAITING LIST AND WILL CONTINUE TO BE UNLESS PROVIDER CHANGES ORDERS. THEY WILL CALL EVERY SHIFT (q12H) FOR UPDATES FROM US AND TO LET US KNOW OF HIS POSITION ON THE WAIT LIST. IF WE NEED TO CALL FOR ANY REASON THE NUMBER IS [phone].
[2021-05-09] MEDS: famotidine 20 mg/2 mL INJ IVP ×2 (04:19→16:14)
[2021-05-09] MEDS: DAPTOmycin 800 MG in sodium chloride 0.9% (100 ml) 100 ML 100 MG IV (05:45)
[2021-05-09 06:41] LABS: Basophils % 0.7 %; Eosinophils # 0.2 10^3/uL (0.0-0.8); Eosinophils % 3.8 %; Hematocrit 35.2 % (42.0-52.0); Hemoglobin 10.1 g/dL (11.7-16.6); Lymphocytes # 1.4 10^3/uL (0.8-4.8); Lymphocytes % 25.8 %; Mean Corpuscular HGB Conc 28.7 g/dL (30.0-36.0); Mean Corpuscular Volume 80.2 fl (80-94); Mean Platelet Volume 8.7 fL (7.4-10.4); Monocytes # 0.6 10^3/uL (0.2-0.9); Monocytes % 10.4 %; Neutrophils # 3.18 10^3/uL (1.8-7.7); Neutrophils % 58.4 %; Nucleated Red Blood Cells % 0 %; Platelet Count 418 10^3/cmm (130-400); Red Blood Count 4.39 10^6/uL (4.1-5.3); Red Cell Distribution Width 17.5 % (12.1-15.1); White Blood Count 5.5 10^3/uL (4.0-10.0)
[2021-05-09] MEDS: piperacillin-tazobactam 3.375 GM in sodium chloride 0.9% (plus) 50 ML IV ×3 (06:49→21:08)
[2021-05-09 07:04] LABS: Alanine Aminotransferase < 5 U/L (0-41); Albumin Level 2.4 g/dL (3.5-5.2); Alkaline Phosphatase 108 IU/L (40-130); Anion Gap 11.5 (5-19); Aspartate Amino Transferase 7 U/L (0-40); Blood Urea Nitrogen 9 mg/dL (6-20); Calcium 7.5 mg/dL (8.5-10.5); Carbon Dioxide 24 mmol/L (22-29); Chloride 109 mmol/L (98-107); Globulin 3.6 g/dL (1.3-4.6); Glomerular Filtration Rate 139.9 mL/min (90-130); Glucose 75 mg/dL (65-115); Osmolality Calculated 287 mOsm/kg (285-295); Potassium 4.5 mmol/L (3.5-5.1); Sodium 140 mmol/L (136-145); Total Bilirubin 0.2 mg/dL (0.15-1.2)
[2021-05-09] MEDS: ascorbic acid 500 mg Tablet PO ×2 (09:26→17:52)
[2021-05-09] MEDS: gabapentin 300 mg Capsule PO ×3 (09:26→19:39)
[2021-05-09] MEDS: ferrous sulfate EC 325 mg Tablet PO (09:26)
[2021-05-09] MEDS: apixaban 5 mg Tablet 2.5 MG PO ×2 (09:26→17:52)
[2021-05-09] MEDS: oxyCODONE-APAP 5-325 mg Tablet 1 TAB PO ×2 (10:16→19:39)
--- NOTE | 2021-05-09 11:24 | PC.CHAP ---
Pastoral Care Encounter/Spiritual Assessment Type of Contact [] Declined theology teacher visit [] Patient/Family/Request visit [] Outpatient visit [] Follow-up visit [] Physician referral [] Code/Alert [x] Routine visit [] Staff referral [] Actively dying [x] Patient sleeping [] Family support [] [] Out of room [] Palliative care [] [] Receiving care in room [] Pre-surgical visit [] Trauma [] Long length of stay [] ICU visit [] Other: Relational/Emotional Strength [] Patient feels connected with others/family/visitors/staff [] Distress [] Loneliness/isolation [] Abandonment Spirituality of Patient [] Person of Stella [] Attends Denominational of their [place] [] Believes in Prayer [] Reads Bible or Baptism materials [] There are Spiritual issues to be addressed Chief Of Service Interventions [] Prayer [] Active listening [] Non-anxious presence [] Spiritual/emotional support [] Crisis/trauma care [] Spiritual counseling [] Bereavement support [] Provided bereavement packet [] Provided Bible/devotional materials [] Provided toy/stuffed animal, coloring book to patient or family member [] Provided Communion [] Anointing/[place] [] Salvation [] Completed spiritual assessment [] Other: Impact on Illness or Injury [] Angry [] Fearful [] Anxious [] Often cries [] Exhaustion [] Unable to work [] Unable to attend baptist [] Unable to walk/stand [] Unable to read [] Unable to drive [] Unable to eat/drink [] Unable to sleep [] Unable to be with family [] Patient intubated [] Other: Summary Time spent with patient
[2021-05-09] MEDS: sodium chloride 0.9% 1,000 ML 50 ML IV (12:54)
--- NOTE | 2021-05-09 19:40 | PC.NURSE ---
GABAPENTIN ADMIN 20 MINS WITH PAIN MEDICATION PRE DRESSING CHANGE
--- NOTE | 2021-05-09 20:18 | P.PN_ITS ---
Subjective Subjective: Interval history: He denies any changes. Tells me about the history of wounds on his heels, left side is almost healed up, right side there is still wound on the heel. He states he has been offloading them. Denies any changes in his hip. No chest pain pressure or shortness of breath. Discussed with him we reached out again to [facility]: There was a bed opening at an affiliated facility with [facility], but his case was too complex for them. [facility] itself has no room, and was unable to take him on a waiting list at this time. Asked to consider calling back. We are continuing to await bed opening at [facility]. Vitals/I&O/Wt Last Vital Signs Temp 97.7 F 05/09/21 16:00 Pulse 69 05/09/21 16:00 Resp 16 05/09/21 19:39 BP 138/86 05/09/21 16:00 Pulse Ox 96 05/09/21 19:39 05/09/21 05/09/21 05/09/21 06:59 14:59 22:59 Intake Total 150 / 2090 1290 / 1290 410 / 1700 Output Total 700 / 1600 400 / 400 500 / 900 Balance -550 / 490 890 / 890 -90 / 800 Weight last 48 hrs Weight 84.113 kg Weight 84.623 kg Physical Exam Const: COMMON NORMALS: no acute distress and patient oriented x3 HENMT: COMMON NORMALS: oropharynx normal Neck/C-Spine: COMMON NORMALS: no JVD Resp: COMMON NORMALS: normal respiratory effort and clear to auscultation bilaterally AUSCULTATION: clear to auscultation bilaterally Cardio: COMMON NORMALS: no JVD, regular rhythm, S1 normal heart sound present, S2 normal heart sound present and No murmurs present (Cardio) RHYTHM: regular rhythm HEART SOUNDS: S1 normal heart sound present and S2 normal heart sound present GI: COMMON NORMALS: Normal to inspection, nondistended, normoactive bowel sounds present, Soft to palpation and non-tender PALPATION: Yes Soft to palpation Extremity: COMMON NORMALS: no joint enlargement and no pedal edema OTHER: Right buttock large deep stage IV pressure ulcer with ischial tuberosity exposure, muscle, fatty tissue exposure. Necrotic tissues around edges. Undermining and tunneling noted at the supero-lateral aspect. No extension laterally, no erythema, swelling in the groin or thigh. Neuro: COMMON NORMALS: patient oriented x3 and moves all extremities Skin: COMMON NORMALS: no rashes or lesions noted GENERAL SKIN EXAM: no rashes or lesions noted Data : 05/09/21 06:20 05/09/21 06:20 Micro: Microbiology 05/08/21 11:55 Gram Stain - Final Buttock 05/07/21 16:42 Urine Culture - Preliminary Urine,Clean Catch 05/07/21 17:05 Blood Culture - Preliminary Blood NEGATIVE TO DATE 05/07/21 17:08 Blood Culture - Preliminary Blood NEGATIVE TO DATE A&P Assessment and plan (1) Pressure ulcers of skin of multiple topographic sites: Pending admission to [facility], accepted, pending bed opening. Continue IV antibiotics. So far no additional local extension, nor erythema in the groin, thigh. No sign of worsening sepsis or infection appears to be contained to the localized area. Pending definitive treatment. Continue wound care. Per discussion with surgery given extent of wound and involvement may be even at risk of possible need of hindquarter amputation. Status: Acute (2) Osteomyelitis, pelvis: Ischial tuberosity, pubic ramus. Status: Acute (3) Failure of outpatient treatment: Progressively worsening stage IV right buttock ulcer with deep extension proximal to the right hip with also chronic fracture, nonunion of the right hip, osteomyelitis of the right hip. Status: Acute (4) Paraplegia: Status: Acute Additional A&P Information Chronic heel ulcers R>L Attestations Medical Necessity Statement*: Continue admission for IV antibiotics secondary to progressive worsening of stage IV deep right side pressure ulcer with bone exposure, osteomyelitis, deep extension with proximity to right hip joint which also has chronic osteomyelitis as well as chronic nonunion fracture. Pending transfer to higher level facility for additional treatment with general surgery, possibly orthopedic involvement, plastic surgery involvement, possibly infectious disease involvement. 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
[2021-05-09] MEDS: silver sulfadiazine cream 1% 50 gm 1 APPLIC TOPICAL (20:51)
[2021-05-10 04:00] VITALS: BP 114/71; PULSE 66; RESP 16; TEMP 36.6; O2SAT 94
[2021-05-10] MEDS: famotidine 20 mg/2 mL INJ IVP ×2 (04:36→17:31)
[2021-05-10 04:53] LABS: Basophils # 0.1 10^3/uL (0.0-0.1); Basophils % 1.1 %; Eosinophils # 0.3 10^3/uL (0.0-0.8); Eosinophils % 5.1 %; Hemoglobin 9.6 g/dL (11.7-16.6); Lymphocytes # 1.2 10^3/uL (0.8-4.8); Lymphocytes % 21.6 %; Mean Corpuscular HGB Conc 27.4 g/dL (30.0-36.0); Mean Corpuscular Hemoglobin 22.8 pg (28.0-34.0); Mean Corpuscular Volume 83.1 fl (80-94); Mean Platelet Volume 8.9 fL (7.4-10.4); Monocytes # 0.6 10^3/uL (0.2-0.9); Monocytes % 10.9 %; Neutrophils # 3.36 10^3/uL (1.8-7.7); Neutrophils % 60.8 %; Nucleated Red Blood Cells % 0 %; Platelet Count 464 10^3/cmm (130-400); Red Blood Count 4.21 10^6/uL (4.1-5.3); Red Cell Distribution Width 17.9 % (12.1-15.1); White Blood Count 5.5 10^3/uL (4.0-10.0)
[2021-05-10] MEDS: DAPTOmycin 800 MG in sodium chloride 0.9% (100 ml) 100 ML 100 MG IV (05:01)
[2021-05-10 05:17] LABS: Alanine Aminotransferase < 5 U/L (0-41); Alkaline Phosphatase 105 IU/L (40-130); Aspartate Amino Transferase 7 U/L (0-40); Blood Urea Nitrogen 12 mg/dL (6-20); Calcium 7.9 mg/dL (8.5-10.5); Carbon Dioxide 24 mmol/L (22-29); Chloride 109 mmol/L (98-107); Globulin 4.3 g/dL (1.3-4.6); Glomerular Filtration Rate 139.9 mL/min (90-130); Glucose 90 mg/dL (65-115); Osmolality Calculated 293 mOsm/kg (285-295); Sodium 142 mmol/L (136-145); Total Bilirubin 0.2 mg/dL (0.15-1.2); Total Protein 6.3 g/dL (6.6-8.7)
[2021-05-10 05:19] LABS: Anion Gap 13.3 (5-19); Potassium 4.3 mmol/L (3.5-5.1)
[2021-05-10] MEDS: piperacillin-tazobactam 3.375 GM in sodium chloride 0.9% (plus) 50 ML IV ×2 (06:15→13:46)
[2021-05-10 08:00] VITALS: PULSE 86; RESP 18; TEMP 36.7; O2SAT 96
[2021-05-10] MEDS: apixaban 5 mg Tablet 2.5 MG PO ×2 (09:13→17:31)
[2021-05-10] MEDS: acetaminophen 325 mg Tablet 650 MG PO (09:14)
[2021-05-10] MEDS: sodium chloride 0.9% 1,000 ML 50 ML IV (09:15)
[2021-05-10] MEDS: gabapentin 300 mg Capsule PO ×2 (09:15→17:31)
[2021-05-10] MEDS: ascorbic acid 500 mg Tablet PO ×2 (09:15→17:31)
[2021-05-10] MEDS: ferrous sulfate EC 325 mg Tablet PO (09:15)
[2021-05-10] MEDS: silver sulfadiazine cream 1% 50 gm 1 APPLIC TOPICAL ×2 (09:22→17:31)
--- NOTE | 2021-05-10 09:29 | PC.SOCIAL ---
IMM update IMM updated with patient. Verbalized an understanding. Copy Pg. 2 provided. Initialled, dated, timed, and placed in chart.
--- NOTE | 2021-05-10 11:42 | P.PN_ITS ---
Subjective Subjective: Interval history: States he is doing all right. He occasionally gets muscle cramps in his abdomen and legs for which he takes baclofen at home. He is aware he has baclofen available here. He has not been needing it so far. Has not felt fever, chills. Vitals/I&O/Wt Last Vital Signs Temp 98.0 F 05/10/21 08:00 Pulse 86 05/10/21 08:00 Resp 18 05/10/21 08:00 BP 114/71 05/10/21 04:00 Pulse Ox 96 05/10/21 08:00 05/09/21 05/10/21 05/10/21 22:59 06:59 14:59 Intake Total 410 / 1700 630 / 2330 1490 / 1490 Output Total 500 / 900 800 / 1700 Balance -90 / 800 -170 / 630 1490 / 1490 Weight last 48 hrs Weight 85.304 kg Weight 84.113 kg Physical Exam Const: COMMON NORMALS: no acute distress and patient oriented x3 HENMT: COMMON NORMALS: oropharynx normal Neck/C-Spine: COMMON NORMALS: no JVD Resp: COMMON NORMALS: normal respiratory effort and clear to auscultation bilaterally AUSCULTATION: clear to auscultation bilaterally Cardio: COMMON NORMALS: no JVD, regular rhythm, S1 normal heart sound present, S2 normal heart sound present and No murmurs present (Cardio) RHYTHM: regular rhythm HEART SOUNDS: S1 normal heart sound present and S2 normal heart sound present GI: COMMON NORMALS: Normal to inspection, nondistended, normoactive bowel sounds present, Soft to palpation and non-tender PALPATION: Yes Soft to palpation Extremity: COMMON NORMALS: no joint enlargement and no pedal edema OTHER: Right buttock large deep stage IV pressure ulcer with ischial tuberosity exposure, muscle, fatty tissue exposure. Necrotic tissues around edges. Undermining and tunneling noted at the supero-lateral aspect. No extension laterally, no erythema, swelling in the groin or thigh. Neuro: COMMON NORMALS: patient oriented x3 and moves all extremities Skin: COMMON NORMALS: no rashes or lesions noted GENERAL SKIN EXAM: no rashes or lesions noted Data : 05/10/21 04:20 05/10/21 04:20 Micro: Microbiology 05/08/21 11:55 Gram Stain - Final Buttock Wound Culture - Final Escherichia coli 05/07/21 16:42 Urine Culture - Final Urine,Clean Catch Escherichia coli A&P Assessment and plan (1) Pressure ulcers of skin of multiple topographic sites: We are obtaining a PICC line for IV access. He states he has difficulties with access frequently. He is surprised that the current IV is still functional. Pending admission to [facility], accepted, pending bed opening. Still no bed opening set [facility]. We are inquiring with as well. Continue IV antibiotics. So far no additional local extension, nor erythema in the groin, thigh. No sign of worsening sepsis or infection appears to be contained to the localized area. Pending definitive treatment. Continue wound care. Per discussion with surgery given extent of wound and involvement may be even at risk of possible need of hindquarter amputation. Status: Acute (2) Osteomyelitis, pelvis: Ischial tuberosity, pubic ramus. Status: Acute (3) Failure of outpatient treatment: Progressively worsening stage IV right buttock ulcer with deep extension proximal to the right hip with also chronic fracture, nonunion of the right hip, osteomyelitis of the right hip. Status: Acute (4) Paraplegia: Status: Acute Additional A&P Information Chronic heel ulcers R>L Attestations Medical Necessity Statement*: Continue admission for assessment management of wound infection with stage IV pressure ulcer with bone exposure, ischial tuberosity and chronic right hip osteomyelitis, chronic known. Fracture right hip. Coding Level of Care Code Acute [employer] [facility] for [facility] Diagnoses Pressure ulcers of skin of multiple topographic sites L89.90 Osteomyelitis, pelvis M86.9 Failure of outpatient treatment Z78.9 Paraplegia G82.20
[2021-05-10 12:00] VITALS: BP 105/70; PULSE 61; RESP 18; TEMP 36.7; O2SAT 95
[2021-05-10 13:47] VITALS: RESP 12; O2SAT 95
[2021-05-10] MEDS: oxyCODONE-APAP 5-325 mg Tablet 1 TAB PO (13:47)
--- NOTE | 2021-05-10 14:56 | PC.NUTR ---
Nutrition note: Discontinued Prosource Gelatein per pt preference.
[2021-05-10 16:00] VITALS: BP 152/87; PULSE 60; RESP 18; TEMP 36.4; O2SAT 93
--- NOTE | 2021-05-10 19:49 | PC.NURSE ---
PT HAS DONE WELL FOR ME TODAY. PT HAS NOT HAD MANY COMPLAINTS OF PAIN. PT WILL TRANSFER TO [facility] [place] THIS EVENING. THIS NURSE CALLED AND GAVE REPORT TO RAMONA MARIE RN AT FACILITY. ALL QUESTIONS ANSWERED. IV WAS LEFT IN PLACE. PT WILL SOON LEAVE WITH AMBULANCE PERSONNEL.
[2021-05-10 20:07] LABS: SARS Covid-2 Antigen Negative (Negative)
--- NOTE | 2021-05-10 20:23 | PC.NURSE ---
EMS here to trasport patient to receiving hospital. Day shift nurse called report to receiving hospital. Patient left WC for sister to pick up attendant. PIV left in place per receiving facility request.
--- NOTE | 2021-05-11 10:33 | PC.SOCIAL ---
follow up call made to Manoj Garcia, pt is on the medical specialty floor 5E, spoke with pts nurse Lisandra, reports patient arrived last pm and is currently on IV antibiotics, pt has consults with skin and plastics. Pt is doing well at this time.
== END 2021-05-10 20:27 | disposition skilled nursing facility (03) | DRG 539 ==
PROVIDERS: Admitting Provider Student in an Organized Health Care Education/Training Program; PCP Family Medicine; Visit Provider Internal Medicine
DX: M86.8X8 Other osteomyelitis, other site (principal); L89.314 Pressure ulcer of right buttock, stage 4; G82.20 Paraplegia, unspecified; L97.429 Non-pressure chronic ulcer of left heel and midfoot with unspecified severity; L97.419 Non-pressure chronic ulcer of right heel and midfoot with unspecified severity; L89.899 Pressure ulcer of other site, unspecified stage; B96.20 Unspecified Escherichia coli [E. coli] as the cause of diseases classified elsewhere; Z86.718 Personal history of other venous thrombosis and embolism; Z79.01 Long term (current) use of anticoagulants; Z87.440 Personal history of urinary (tract) infections; Z83.3 Family history of diabetes mellitus; Z84.89 Family history of other specified conditions; Z82.49 Family history of ischemic heart disease and other diseases of the circulatory system; Z20.822 Contact with and (suspected) exposure to COVID-19
CPT/HCPCS: 36415; 72192; 80053; 81001; 82550; 82728; 83036; 83540; 83550; 83605; 83735; 83880; 84100; 84145; 84443; 85025; 85651; 86140; 87040; 87070; 87075; 87077; 87086; 87186; 87205; 87426; 93005; 94664; J0696; J0878; J2543; J3490; J7030

== ENCOUNTER 2021-09-21 14:17 | Outpatient (CLI) | payer MEDICARE, BC, SELFPAY ==
--- NOTE | 2021-09-21 14:00 | XRR_ITS ---
PROCEDURE INFORMATION: Exam: XR Abdomen Exam date and time: 09/21/2021 2:00 PM Age: 55 years old Clinical indication: Condition or disease; Kidney or ureter condition; Calculus (stone) in kidney; Additional info: Renal stones, kub @ [facility] on 09/21/21 @ 2. Appt to follow TECHNIQUE: Imaging protocol: XR of the abdomen. Views: Frontal supine view of the abdomen. 1 View. Total images: 3 COMPARISON: CR XR KUB [id number] 01/03/2021 2:04 PM FINDINGS: Gastrointestinal tract: Nonobstructive bowel pattern. No visible evidence of significant adynamic or reactive ileus. Very heavy fecal residue consistent with constipation/obstipation. Intraperitoneal space: Anastomotic suture clips right lower quadrant. Numerous surgical clips pelvis. Organs: No radiographically visible renal or ureteral lithiasis. No radiographically visible bladder stone. Bones/joints: Unremarkable. XR/XR KUB [id number] IMPRESSION: 1. No radiographically visible renal or ureterolithiasis. 2. Constipation.
== END 2021-09-21 14:18 | disposition home or self-care (01) ==
LOC: RAD 14:28
PROVIDERS: PCP Family Medicine; Visit Provider Urology
DX: N20.0 Calculus of kidney (principal); K59.00 Constipation, unspecified
CPT/HCPCS: 74018

== ENCOUNTER 2021-10-30 12:43 | Outpatient (CLI) | payer MEDICARE, BC, SELFPAY ==
[2021-10-30 14:17] LABS: Erythrocyte Sedimentation Rate 37 mm/hr (0-10)
[2021-10-30 14:23] LABS: Blood Urea Nitrogen 14 mg/dL (6-20); C Reactive Protein 18.4 mg/L (0.0-4.9); Glomerular Filtration Rate 172.6 mL/min (90-130)
== END 2021-10-30 12:44 | disposition home or self-care (01) ==
LOC: LAB 12:47
PROVIDERS: PCP Family Medicine; Visit Provider Student in an Organized Health Care Education/Training Program
DX: M86.9 Osteomyelitis, unspecified (principal)
CPT/HCPCS: 82565; 84520; 85651; 86140

== ENCOUNTER 2021-10-30 13:48 | Outpatient (CLI) | payer MEDICARE, BC, SELFPAY | END 2021-10-30 13:49 | disposition home or self-care (01) | LOC: WOUND 13:49 | PROVIDERS: PCP Family Medicine; Visit Provider Thoracic Surgery (Cardiothoracic Vascular Surgery) | DX: E11.622 Type 2 diabetes mellitus with other skin ulcer (principal); I96 Gangrene, not elsewhere classified; L89.323 Pressure ulcer of left buttock, stage 3 | CPT/HCPCS: 97597; 97598; 99214; A6253 ==

== ENCOUNTER 2021-11-01 13:52 | Outpatient (CLI) | payer MEDICARE, BC, SELFPAY ==
--- NOTE | 2021-11-01 13:30 | CT_ITS ---
WS: [id number] CT PELVIS WITH CONTRAST. HISTORY: follow up osteomyelitis TECHNIQUE: Contiguous imaging is performed of the pelvis with contrast. Coronal and sagittal reformat s are reviewed. All CT scans at [facility] use at least one of these dose optimization techni ques: automated exposure control; mA and/or kV adjustment per patient size (includes targeted exams w here dose is matched to clinical indication); or iterative reconstruction. DLP: 800.05 mGy-cm. Contrast: Omnipaque 300; 95 mL IV. COMPARISON: 05/08/2020 There is extensive destruction involving the LEFT pelvis and particularly the LEFT hip. Destruction e xtends completely through the femoral neck and head region which is similar to the prior study with s oft tissue. Femoral head remains within the acetabulum, there are multiple foci of surrounding hetero topic bone formation. Marked soft tissue thickening extends superior to the hip joint and extends inf eriorly to the greater trochanter region. As compared to the prior examination no progression of the destructive findings and heterotopic bone formation. The soft tissue inflammation extending to the RIGHT ischium is similar to the prior study. There is a large soft tissue tract extending to the ischial tuberosity on the RIGHT. Hypertrophic bone formatio n at the RIGHT ilium is sclerotic. These findings have progressed at the ischium suggesting interval healing due to the increase in sclerosis. Additional hypertrophic bone formation surrounding the RIGH T hip. Nondistended urinary bladder. No free fluid within the pelvis. CT/CT pelvis w con* [id number] IMPRESSION: 1. Significant inflammatory changes surrounding the LEFT hip with destruction of the bone is very similar to the prior study with no obvious progression. No focal area of enhancement or abscess. 2. Large soft tissue ulceration in the RIGHT pelvis extends to the RIGHT ischi al tuberosity has not progressed. Interval healing of the RIGHT ischial tuberos ity osteomyelitis.
[2021-11-01] MEDS: iohexol 300 mg/mL 100 mL Btl IV (14:35)
== END 2021-11-01 13:53 | disposition home or self-care (01) ==
LOC: RAD 13:52
PROVIDERS: PCP Family Medicine; Visit Provider Student in an Organized Health Care Education/Training Program
DX: M86.9 Osteomyelitis, unspecified (principal); L98.499 Non-pressure chronic ulcer of skin of other sites with unspecified severity
CPT/HCPCS: 72193

== ENCOUNTER 2021-11-06 14:44 | Outpatient (CLI) | payer MEDICARE, BC, SELFPAY | END 2021-11-06 14:45 | disposition home or self-care (01) | LOC: WOUND 14:45 | PROVIDERS: PCP Family Medicine; Visit Provider Thoracic Surgery (Cardiothoracic Vascular Surgery) | DX: I96 Gangrene, not elsewhere classified (principal); L89.323 Pressure ulcer of left buttock, stage 3 | CPT/HCPCS: 97597 ==

== ENCOUNTER → 2021-11-15 14:23 | Outpatient (BNVA) | payer MEDICARE, BC, SELFPAY | PROVIDERS: PCP Family Medicine; Visit Provider Thoracic Surgery (Cardiothoracic Vascular Surgery) | DX: I96 Gangrene, not elsewhere classified (principal); L89.323 Pressure ulcer of left buttock, stage 3 | CPT/HCPCS: 97597 ==

== ENCOUNTER → 2021-11-29 13:55 | Outpatient (BNVA) | payer MEDICARE, BC, SELFPAY | PROVIDERS: PCP Family Medicine; Visit Provider Thoracic Surgery (Cardiothoracic Vascular Surgery) | DX: I96 Gangrene, not elsewhere classified (principal); L89.323 Pressure ulcer of left buttock, stage 3 | CPT/HCPCS: 97597 ==

== ENCOUNTER → 2021-12-06 13:49 | Outpatient (BNVA) | payer MEDICARE, BC, SELFPAY | PROVIDERS: PCP Family Medicine; Visit Provider Nurse Practitioner Family | DX: L89.323 Pressure ulcer of left buttock, stage 3 (principal); I96 Gangrene, not elsewhere classified | CPT/HCPCS: 11042; 11045 ==

== ENCOUNTER → 2021-12-13 15:09 | Outpatient (BNVA) | payer MEDICARE, BC, SELFPAY | PROVIDERS: PCP Family Medicine; Visit Provider Nurse Practitioner Family | DX: I96 Gangrene, not elsewhere classified (principal); L89.323 Pressure ulcer of left buttock, stage 3 | CPT/HCPCS: 11042; 11045; 87070; 87077; 87176; 87186; 87205 ==

== ENCOUNTER 2021-12-20 11:21 | Outpatient (CLI) | payer MEDICARE, BC, SELFPAY ==
[2021-12-20 11:55] LABS: C Reactive Protein 48.5 mg/L (0.0-4.9)
== END 2021-12-20 11:22 | disposition home or self-care (01) ==
PROVIDERS: PCP Family Medicine; Visit Provider Thoracic Surgery (Cardiothoracic Vascular Surgery)
DX: L89.314 Pressure ulcer of right buttock, stage 4 (principal)
CPT/HCPCS: 11042; 11045; 86140; A6197

== ENCOUNTER → 2021-12-27 14:03 | Outpatient (BNVA) | payer MEDICARE, BC, SELFPAY | PROVIDERS: PCP Family Medicine; Visit Provider Thoracic Surgery (Cardiothoracic Vascular Surgery) | DX: L89.323 Pressure ulcer of left buttock, stage 3 (principal); I96 Gangrene, not elsewhere classified | CPT/HCPCS: 11042; 11045; A6210; A6252 ==

== ENCOUNTER → 2022-01-03 13:28 | Outpatient (BNVA) | payer MEDICARE, BC, SELFPAY | PROVIDERS: PCP Family Medicine; Visit Provider Thoracic Surgery (Cardiothoracic Vascular Surgery) | DX: I96 Gangrene, not elsewhere classified (principal); L89.323 Pressure ulcer of left buttock, stage 3 | CPT/HCPCS: 97597; 97598; A6210 ==

== ENCOUNTER → 2022-01-17 13:03 | Outpatient (BNVA) | payer MEDICARE, BC, SELFPAY | PROVIDERS: PCP Family Medicine; Visit Provider Nurse Practitioner Family | DX: I96 Gangrene, not elsewhere classified (principal); L89.323 Pressure ulcer of left buttock, stage 3 | CPT/HCPCS: 11042; 11045; A6210 ==

== ENCOUNTER 2022-01-23 12:08 | Emergency (ER) | payer MEDICARE, BC, SELFPAY ==
[2022-01-23 12:16] VITALS: BP 113/74; PULSE 74; RESP 18; TEMP 36.4; O2SAT 98; BMI 29.9
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
[2022-01-23 13:20] LABS: Basophils % 0.5 %; Eosinophils # 0.2 10^3/uL (0.0-0.8); Eosinophils % 2.5 %; Hematocrit 42.9 % (42.0-52.0); Lymphocytes # 0.9 10^3/uL (0.8-4.8); Lymphocytes % 11.5 %; Mean Corpuscular HGB Conc 30.3 g/dL (30.0-36.0); Mean Corpuscular Hemoglobin 24.3 pg (28.0-34.0); Mean Corpuscular Volume 80.3 fl (80-94); Mean Platelet Volume 9.3 fL (7.4-10.4); Monocytes # 0.7 10^3/uL (0.2-0.9); Neutrophils # 6.17 10^3/uL (1.8-7.7); Neutrophils % 75.9 %; Nucleated Red Blood Cells % 0 %; Platelet Count 395 10^3/cmm (130-400); Red Blood Count 5.34 10^6/uL (4.1-5.3); Red Cell Distribution Width 14.7 % (12.1-15.1); White Blood Count 8.1 10^3/uL (4.0-10.0)
[2022-01-23 13:42] LABS: Alanine Aminotransferase 6 U/L (0-41); Albumin Level 2.9 g/dL (3.5-5.2); Alkaline Phosphatase 138 IU/L (40-130); Anion Gap 12.3 (5-19); Aspartate Amino Transferase 10 U/L (0-40); Blood Urea Nitrogen 16 mg/dL (6-20); Calcium 8.5 mg/dL (8.5-10.5); Carbon Dioxide 27 mmol/L (22-29); Chloride 101 mmol/L (98-107); Globulin 4.7 g/dL (1.3-4.6); Glomerular Filtration Rate 139.4 mL/min (90-130); Glucose 95 mg/dL (65-115); Osmolality Calculated 285 mOsm/kg (285-295); Potassium 3.3 mmol/L (3.5-5.1); Sodium 137 mmol/L (136-145); Total Bilirubin 0.5 mg/dL (0.15-1.2); Total Protein 7.6 g/dL (6.6-8.7)
[2022-01-23 13:49] VITALS: BP 163/102; PULSE 70; RESP 14; O2SAT 95
[2022-01-23 15:30] VITALS: RESP 14; O2SAT 94
[2022-01-23] MEDS: morphine 4 mg/mL SDV 1 mL IVP (15:30)
[2022-01-23 15:41] VITALS: BP 189/92; PULSE 68; RESP 14; O2SAT 94
== END 2022-01-23 15:45 | disposition home or self-care (01) ==
PROVIDERS: Emergency Provider Family Medicine; PCP Family Medicine
DX: L89.319 Pressure ulcer of right buttock, unspecified stage (principal); G82.20 Paraplegia, unspecified; S70.311A Abrasion, right thigh, initial encounter; X58.XXXA Exposure to other specified factors, initial encounter
CPT/HCPCS: 80053; 85025; 87040; 96374; 99284; J2270

== ENCOUNTER → 2022-01-24 14:07 | Outpatient (BNVA) | payer MEDICARE, BC, SELFPAY | PROVIDERS: PCP Family Medicine; Visit Provider Thoracic Surgery (Cardiothoracic Vascular Surgery) | DX: I96 Gangrene, not elsewhere classified (principal); L89.323 Pressure ulcer of left buttock, stage 3 | CPT/HCPCS: 11043; 11046; A6210 ==

== ENCOUNTER → 2022-01-31 15:31 | Outpatient (BNVA) | payer MEDICARE, BC, SELFPAY | PROVIDERS: PCP Family Medicine; Visit Provider Nurse Practitioner Family | DX: I96 Gangrene, not elsewhere classified (principal); L89.323 Pressure ulcer of left buttock, stage 3 | CPT/HCPCS: 11042; 11045; A6197 ==

== ENCOUNTER → 2022-02-05 13:30 | Outpatient (BNVA) | payer MEDICARE, BC, SELFPAY | PROVIDERS: PCP Family Medicine; Visit Provider Thoracic Surgery (Cardiothoracic Vascular Surgery) | DX: I96 Gangrene, not elsewhere classified (principal); L89.323 Pressure ulcer of left buttock, stage 3 | CPT/HCPCS: 97597; 97598; A6197 ==

== ENCOUNTER → 2022-02-12 14:29 | Outpatient (BNVA) | payer MEDICARE, BC, SELFPAY | PROVIDERS: PCP Family Medicine; Visit Provider Nurse Practitioner Family | DX: I96 Gangrene, not elsewhere classified (principal); L89.313 Pressure ulcer of right buttock, stage 3 | CPT/HCPCS: 11042; 11045; A6197 ==

== ENCOUNTER 2022-02-14 15:39 | Outpatient (CLI) | payer MEDICARE, BC, SELFPAY ==
--- NOTE | 2022-02-14 15:57 | XR_ITS ---
WS: [id number] Exam: XR pelvis min 3V [id number] Date/Time of Exam: 02/14/2022 3:58 PM Reason For Exam: M86.9 - Osteomyelitis, unspecified Comparison 08/23/2020. Displaced nonunion fracture of the left hip noted. There is superior displacement of the femoral shaf t with pseudoarticulation along the lateral ilium. There are areas of bony sclerosis involving the ri ght ischium and proximal right femur. Hypertrophic bone formation along the right ischium. Osteopenia . No definite osseous destruction to suggest osteomyelitis. Surgical clips in the pelvis. XR/XR pelvis min 3V [id number] IMPRESSION: 1. Displaced nonunion fracture of the left hip with extensive hypertrophic bone formation. There is superior displacement of the femoral shaft with pseudoarti culation along the left ilium. 2. Areas of bony sclerosis and hypertrophic bone formation along the right isch ium and proximal right femur. 3. Osteopenia. No definite sign of osteomyelitis.
== END 2022-02-14 15:40 | disposition home or self-care (01) ==
LOC: RAD 15:43
PROVIDERS: PCP Family Medicine; Visit Provider Nurse Practitioner Family
DX: M86.9 Osteomyelitis, unspecified (principal); L89.314 Pressure ulcer of right buttock, stage 4
CPT/HCPCS: 72190

== ENCOUNTER → 2022-02-19 14:53 | Outpatient (BNVA) | payer MEDICARE, BC, SELFPAY | PROVIDERS: PCP Family Medicine; Visit Provider Thoracic Surgery (Cardiothoracic Vascular Surgery) | DX: I96 Gangrene, not elsewhere classified (principal); L89.313 Pressure ulcer of right buttock, stage 3 | CPT/HCPCS: 97597; 97598; A6197 ==

== ENCOUNTER → 2022-03-05 14:06 | Outpatient (BNVA) | payer MEDICARE, BC, SELFPAY | PROVIDERS: PCP Family Medicine; Visit Provider Thoracic Surgery (Cardiothoracic Vascular Surgery) | DX: I96 Gangrene, not elsewhere classified (principal); L89.313 Pressure ulcer of right buttock, stage 3 | CPT/HCPCS: 97597; 97598; A6197 ==

== ENCOUNTER → 2022-03-12 13:49 | Outpatient (BNVA) | payer MEDICARE, BC, SELFPAY | PROVIDERS: PCP Family Medicine; Visit Provider Thoracic Surgery (Cardiothoracic Vascular Surgery) | DX: I96 Gangrene, not elsewhere classified (principal); L89.313 Pressure ulcer of right buttock, stage 3 | CPT/HCPCS: 97597; 97598; A6197 ==

== ENCOUNTER → 2022-03-15 15:26 | Outpatient (BNVA) | payer MEDICARE, BC, SELFPAY | PROVIDERS: PCP Family Medicine; Visit Provider Student in an Organized Health Care Education/Training Program | DX: M86.9 Osteomyelitis, unspecified (principal); K64.9 Unspecified hemorrhoids | CPT/HCPCS: 85651; 86140; 99203; 99213 ==

== ENCOUNTER → 2022-03-19 14:09 | Outpatient (BNVA) | payer MEDICARE, BC, SELFPAY | PROVIDERS: PCP Family Medicine; Visit Provider Thoracic Surgery (Cardiothoracic Vascular Surgery) | DX: I96 Gangrene, not elsewhere classified (principal); L89.313 Pressure ulcer of right buttock, stage 3 | CPT/HCPCS: 11042; 11045; A6197 ==

== ENCOUNTER 2022-04-02 10:49 | Inpatient (IN) | payer MEDICARE, BC, SELFPAY ==
[2022-04-02] VITALS (24 sets, daily range): BP systolic 79–100; BP diastolic 46–64; PULSE 70–89; RESP 14–18; TEMP 36.9–37.1; O2SAT 88–98; BMI 31.4; BMI 27.6
--- NOTE | 2022-04-02 10:57 | PC.NURSE ---
Pt arrived via EMS, per report, pt is quadrapalegic. Reports last night around 1900 was transferring self into bed when he felt a pop to his left knee. Reports it twitches, was sweating and tachycardic which is his baseline pain symptoms. Reports it is not abdomen for his bp to be around 80s/50s. Pt denies fall or other trauma. Pt reports he took his home rx of 5m-325 oxycodone-acetaminophen around 0930 this am. Pt denies nausea, vomiting, or other symptoms. Pt appears pale but pt reports that is his baseline. Pt has a urostomy and reports a butt wound that he sees wound clinic for.
--- NOTE | 2022-04-02 11:09 | XR_ITS ---
WS: [id number] XR knee LT 1-2V [id number] REASON FOR EXAM: knee pain and swelling FINDINGS: No acute fracture. Severe posttraumatic (previous complex proximal tibial and lateral tibial plateau fracture) osteoarth ritis involving the left knee joint with obliteration of the lateral knee joint space Subchondral sclerosis and marginal osteophytosis in the medial knee joint space which is relatively w ell preserved. Moderate osteoarthritis in the patellofemoral joint space with joint space narrowing and subchondral sclerosis. Possible small joint effusion. 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 No acute abnormality iden tified.
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
--- NOTE | 2022-04-02 11:20 | XR_ITS ---
WS: [id number] XR femur LT min 2V* [id number] REASON FOR EXAM: femur fx FINDINGS: Severe posttraumatic arthropathy involving the left hip joint. Significant deformity and sclerosis. No acute fracture identified in the left hip. Oblique fracture through the distal left femoral diaphysis with no significant displacement or angula tion. XR/XR femur LT min 2V* 65049 IMPRESSION: Severely deforming posttraumatic osteoarthritis left hip joint without definite acute abnormality. Distal left femur fracture.
[2022-04-02] MEDS: acetaminophen 500 mg Tablet PO (11:45)
[2022-04-02] MEDS: morphine 4 mg/mL SDV 1 mL IM (11:46)
--- NOTE | 2022-04-02 13:03 | PC.PHAR ---
pt states he takes care of his own medications-pt states he only took levothyroxine 75mcg for a month rx last filled 10/23/21 30d/s with no refills-
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
[2022-04-02] MEDS: apixaban 5 mg Tablet 2.5 MG PO (17:41)
[2022-04-02] MEDS: baclofen 10 mg Tablet 20 MG PO (17:41)
[2022-04-02] MEDS: gabapentin 300 mg Capsule PO (17:41)
[2022-04-02] MEDS: oxyCODONE-APAP 5-325 mg Tablet 1 TAB PO (17:41)
[2022-04-03] VITALS (11 sets, daily range): BP systolic 91–107; BP diastolic 41–66; PULSE 82–102; RESP 16–18; TEMP 36.3–38.4; O2SAT 89–94
[2022-04-03] MEDS: acetaminophen 500 mg Tablet PO (03:57)
[2022-04-03] MEDS: oxyCODONE-APAP 5-325 mg Tablet 1 TAB PO ×3 (03:57→22:23)
[2022-04-03] MEDS: zinc gluconate 50 mg Tablet PO (05:42)
[2022-04-03 07:01] LABS: Basophils # 0.1 10^3/uL (0.0-0.1); Basophils % 0.5 %; Eosinophils # 0.5 10^3/uL (0.0-0.8); Eosinophils % 5.3 %; Hematocrit 34.5 % (42.0-52.0); Hemoglobin 9.6 g/dL (11.7-16.6); Lymphocytes % 10.7 %; Mean Corpuscular HGB Conc 27.8 g/dL (30.0-36.0); Mean Corpuscular Hemoglobin 22.5 pg (28.0-34.0); Mean Platelet Volume 9.4 fL (7.4-10.4); Monocytes # 0.8 10^3/uL (0.2-0.9); Monocytes % 8.3 %; Neutrophils # 7.24 10^3/uL (1.8-7.7); Neutrophils % 74.7 %; Nucleated Red Blood Cells % 0 %; Platelet Count 366 10^3/cmm (130-400); Red Blood Count 4.26 10^6/uL (4.1-5.3); Red Cell Distribution Width 18.3 % (12.1-15.1); White Blood Count 9.7 10^3/uL (4.0-10.0)
[2022-04-03 07:18] LABS: Anion Gap 14.6 (5-19); Blood Urea Nitrogen 23 mg/dL (6-20); Calcium 8.1 mg/dL (8.5-10.5); Carbon Dioxide 25 mmol/L (22-29); Chloride 105 mmol/L (98-107); Glucose 103 mg/dL (65-115); Magnesium 1.9 mg/dL (1.7-2.3); Osmolality Calculated 294 mOsm/kg (285-295); Potassium 4.6 mmol/L (3.5-5.1); Sodium 140 mmol/L (136-145)
[2022-04-03] MEDS: apixaban 5 mg Tablet 2.5 MG PO ×2 (08:28→17:23)
[2022-04-03] MEDS: baclofen 10 mg Tablet 20 MG PO ×2 (08:28→17:22)
[2022-04-03] MEDS: gabapentin 300 mg Capsule PO ×2 (08:28→17:22)
--- NOTE | 2022-04-03 10:11 | PC.CHAP ---
Pastoral Care Encounter/Spiritual Assessment Type of Contact [] Declined fitness and wellness manager visit [] Patient/Family/Request visit [] Outpatient visit [] Follow-up visit [] Physician referral [] Code/Alert [x] Routine visit [] Staff referral [] Actively dying [] Patient sleeping [] Family support [] [] Out of room [] Palliative care [] [] Receiving care in room [] Pre-surgical visit [] Trauma [] Long length of stay [] ICU visit [] Other: Relational/Emotional Strength [] Patient feels connected with others/family/visitors/staff [] Distress [] Loneliness/isolation [] Abandonment Spirituality of Patient [x] Person of Stella [] Attends Christian of their Stella [x] Believes in Prayer [] Reads Bible or Muslim materials [] There are Spiritual issues to be addressed Flask Handler Interventions [x] Prayer x[] Active listening [x] Non-anxious presence x[] Spiritual/emotional support [] Crisis/trauma care [] Spiritual counseling [] Bereavement support [] Provided bereavement packet [] Provided Bible/devotional materials [] Provided toy/stuffed animal, coloring book to patient or family member [] Provided Communion [] Anointing/[place] [] Salvation [x] Completed spiritual assessment [] Other: Impact on Illness or Injury [] Angry [] Fearful [] Anxious [] Often cries [] Exhaustion [] Unable to work [] Unable to attend rastafarian [] Unable to walk/stand [] Unable to read [] Unable to drive [] Unable to eat/drink [] Unable to sleep [] Unable to be with family [] Patient intubated [] Other: Summary Time spent with patient 20 min
[2022-04-03] MEDS: morphine 4 mg/mL SDV 1 mL 2 MG IVP (10:34)
[2022-04-03] MEDS: vancomycin 1,500 MG/300 ML PIGGYBACK 200 MG IV (11:32)
--- NOTE | 2022-04-03 12:14 | PM.PN ---
Subjective Subjective: Febrile event noted, start him on broad-spectrum antibiotics, obtain UA, blood culture Changed opiate frequency to every 6 hours Patient is stating that he gets bowel movement every 4 days, this is his third day without any bowel movement, he thinks he will get a bowel movement today or tomorrow Vitals/I&O/Wt Last Vital Signs Temp 98.0 F 04/03/22 08:19 Pulse 82 04/03/22 08:23 Resp 17 04/03/22 08:23 BP 93/59 04/03/22 08:19 Pulse Ox 94 04/03/22 08:23 O2 Del Method 04/03/22 08:23 O2 Flow Rate 2 04/03/22 05:43 04/02/22 04/03/22 04/03/22 22:59 06:59 14:59 Intake Total 120 / 120 840 / 960 360 / 360 Output Total 600 / 600 Balance -480 / -480 840 / 360 360 / 360 Weight last 48 hrs Weight 89.811 kg Weight 102.058 kg Physical Exam Narrative: Sitting comfortably in his bed Afebrile this morning S1, S2 Looks euvolemic No active complaints No signs of vascular compromise of lower extremity Unstageable sacral ulcer Breathing well on room air Abdomen soft bowel sounds sluggish Data : 04/03/22 05:45 04/03/22 05:45 Micro: Microbiology 04/03/22 05:45 Blood Culture - Preliminary Blood SPECIMEN COLLECTED 04/03/22 05:55 Blood Culture - Preliminary Blood SPECIMEN COLLECTED A&P Assessment and plan (1) Femoral distal fracture: Status: Acute (2) Paraplegia: Status: Acute (3) Bleeding hemorrhoids: Status: Acute (4) Pressure ulcers of skin of multiple topographic sites: Status: Acute (5) Osteomyelitis, pelvis: Status: Acute (6) History of urinary diversion procedure: Status: Acute Plan Patient has history of chronic osteomyelitis Obtain UA, urine culture Febrile event noted Started on broad-spectrum antibiotics No leukocytosis she is not septic Patient has history of DVT, currently on Eliquis 2.5 mg twice daily Awaiting placement Full code Bowel regimen along opioids Distal femur fracture, and knee immobilizer, conservative management Attestations Medical Necessity Statement*: Continue medical manage Time Spent in Patient Care: 30 Coding Level of Care Code Acute Aprn for [facility] Katherine Diagnoses Femoral distal fracture S72.409A Paraplegia G82.20 Bleeding hemorrhoids K64.9 Pressure ulcers of skin of multiple topographic sites L89.90 Osteomyelitis, pelvis M86.9 History of urinary diversion procedure Z98.890
[2022-04-03] MEDS: piperacillin-tazobactam 3.375 GM in sodium chloride 0.9% (plus) 50 ML IV ×2 (13:06→20:38)
[2022-04-03 16:04] LABS: Urine Appearance Clear (CLEAR); Urine Color Yellow (Yellow)
[2022-04-03 16:05] LABS: Glucose Urine UA Norm (Normal); Protein Urine Trace (Negative); pH Urine 9 (5-7)
[2022-04-03 16:06] LABS: Add Urine Microscopic? YES; Bacteria Urine 3+ /hpf; Bilirubin Urine Neg (Negative); Blood Urine 2+ (Negative); Ketones Urine Negative (Negative); Leukocyte Esterase Urine 2+ (Negative); Nitrate Urine Negative (Negative); RBC Urine 0-4 /hpf (0-2); Squamous Epithelial Cell Urine 0-4 /hpf (0-5); Sulfosalicylic Acid Urine Negative (Negative); Urobilinogen Urine Neg (Negative)
[2022-04-03 16:07] LABS: Add Urine Culture? Yes; Triple Phosphate Crystal Urine 1 /hpf
[2022-04-04] VITALS (10 sets, daily range): BP systolic 75–104; BP diastolic 51–66; PULSE 69–93; RESP 12–18; TEMP 36.3–37.9; O2SAT 93–98
[2022-04-04] MEDS: vancomycin 1,500 MG/300 ML PIGGYBACK 200 MG IV ×2 (00:11→11:18)
[2022-04-04] MEDS: piperacillin-tazobactam 3.375 GM in sodium chloride 0.9% (plus) 50 ML IV ×3 (03:45→19:50)
[2022-04-04] MEDS: oxyCODONE-APAP 5-325 mg Tablet 1 TAB PO ×2 (04:37→11:27)
[2022-04-04] MEDS: zinc gluconate 50 mg Tablet PO (05:28)
[2022-04-04 05:55] LABS: Basophils # 0.1 10^3/uL (0.0-0.1); Basophils % 0.6 %; Eosinophils # 0.5 10^3/uL (0.0-0.8); Eosinophils % 6.5 %; Hematocrit 32.3 % (42.0-52.0); Hemoglobin 9.2 g/dL (11.7-16.6); Lymphocytes # 1.3 10^3/uL (0.8-4.8); Lymphocytes % 16.1 %; Mean Corpuscular HGB Conc 28.5 g/dL (30.0-36.0); Mean Corpuscular Hemoglobin 22.6 pg (28.0-34.0); Mean Corpuscular Volume 79.4 fl (80-94); Mean Platelet Volume 9.7 fL (7.4-10.4); Monocytes % 12.5 %; Neutrophils % 63.3 %; Nucleated Red Blood Cells % 0 %; Platelet Count 320 10^3/cmm (130-400); Red Blood Count 4.07 10^6/uL (4.1-5.3); Red Cell Distribution Width 18.2 % (12.1-15.1); White Blood Count 8.1 10^3/uL (4.0-10.0)
[2022-04-04 06:12] LABS: Anion Gap 12.4 (5-19); Blood Urea Nitrogen 20 mg/dL (6-20); Calcium 7.7 mg/dL (8.5-10.5); Carbon Dioxide 26 mmol/L (22-29); Chloride 103 mmol/L (98-107); Creatinine Clr Calc Pharmacy 105.1353; Glomerular Filtration Rate 87.3 mL/min (90-130); Glucose 93 mg/dL (65-115); Osmolality Calculated 286 mOsm/kg (285-295); Potassium 4.4 mmol/L (3.5-5.1); Sodium 137 mmol/L (136-145)
[2022-04-04] MEDS: morphine 4 mg/mL SDV 1 mL 2 MG IVP (07:20)
[2022-04-04] MEDS: apixaban 5 mg Tablet 2.5 MG PO ×2 (09:25→17:27)
[2022-04-04] MEDS: gabapentin 300 mg Capsule PO (09:26)
[2022-04-04] MEDS: baclofen 10 mg Tablet 20 MG PO ×2 (09:26→17:26)
--- NOTE | 2022-04-04 11:59 | P.PN_ITS ---
Subjective Subjective: Patient is stating that overnight no worsening of his pain he was not shivering It was relatively better Vitals/I&O/Wt Last Vital Signs Temp 98.3 F 04/04/22 08:00 Pulse 89 04/04/22 09:01 Resp 18 04/04/22 11:27 BP 100/66 04/04/22 08:00 Pulse Ox 94 04/04/22 09:01 O2 Del Method 04/04/22 09:01 O2 Flow Rate 2 04/03/22 05:43 04/03/22 04/04/22 04/04/22 22:59 06:59 14:59 Intake Total 440 / 1100 550 / 1650 170 / 170 Output Total 1200 / 1200 600 / 1800 Balance -760 / -100 -50 / -150 170 / 170 Weight last 48 hrs Weight 89.811 kg Physical Exam Narrative: Patient was resting when I entered the room Left knee is in an immobilizer No signs of vessel compromise Awake and alert Nonfocal neuro exam No sensation below his waist Quadriplegic Looks euvolemic Pleasant cooperative Room air doing well Data : 04/04/22 05:16 04/04/22 05:16 Micro: Microbiology 04/03/22 13:09 Urine Culture - Preliminary Urine,Clean Catch Gram Negative Rods 04/03/22 05:45 Blood Culture - Preliminary Blood NEGATIVE TO DATE 04/03/22 05:55 Blood Culture - Preliminary Blood NEGATIVE TO DATE A&P Assessment and plan (1) Femoral distal fracture: Status: Acute (2) Paraplegia: Status: Acute (3) Bleeding hemorrhoids: Status: Acute (4) Pressure ulcers of skin of multiple topographic sites: Status: Acute (5) Osteomyelitis, pelvis: Status: Acute (6) Anemia: Status: Acute (7) Unstageable pressure ulcer of sacral region: Status: Acute Plan Patient is awaiting placement Currently is on Eliquis for DVT prophylactic regimen Currently on opioids and bowel regimen He is complaining of back pain, I will give him gabapentin high-dose Full code medical staff services manager told me that he might have to pay $200 per day for his senior care placement, she will talk with the patient and his sister Attestations Medical Necessity Statement*: Awaiting placement Time Spent in Patient Care: 30 Coding Level of Care Code Acute Engineering Aide for Vinicio Murphy Diagnoses Femoral distal fracture S72.409A Paraplegia G82.20 Bleeding hemorrhoids K64.9 Pressure ulcers of skin of multiple topographic sites L89.90 Osteomyelitis, pelvis M86.9 Anemia D64.9 Unstageable pressure ulcer of sacral region L89.150
[2022-04-04] MEDS: gabapentin 300 mg Capsule 600 MG PO (12:10)
--- NOTE | 2022-04-04 12:29 | DCPLANNER ---
Addendum entered by Meghna Wilson 04/05/22 13:31: financial center manager received the following message from ortho regarding follow up appointment: Left vm/mailed letter for pt to call back to schedule with Dr. Pisano Original Note: financial center manager had message to schedule a follow up appointment for patient with ortho. financial center manager sent patients information to the front office staff at ortho. Patients information will be printed and reviewed. Clinic will call patient with appointment information.
[2022-04-04] MEDS: polyethylene glycol 3350 Pkt 17 gm PO (13:13)
[2022-04-04] MEDS: sennosides-docusate Tablet 1 TAB PO (13:13)
[2022-04-04] MEDS: gabapentin 400 mg Capsule 800 MG PO (17:26)
[2022-04-05] VITALS (8 sets, daily range): BP systolic 115–126; BP diastolic 72–82; PULSE 58–83; RESP 15–18; TEMP 36.3–36.9; O2SAT 94–100
[2022-04-05] MEDS: vancomycin 1,500 MG/300 ML PIGGYBACK 200 MG IV (00:06)
[2022-04-05] MEDS: piperacillin-tazobactam 3.375 GM in sodium chloride 0.9% (plus) 50 ML IV ×2 (03:46→10:39)
[2022-04-05] MEDS: zinc gluconate 50 mg Tablet PO (05:34)
--- NOTE | 2022-04-05 09:30 | PC.SOCIAL ---
IMM update IMM updated with patient. Verbalized an understanding. Copy Pg 2 provided. Initialled, dated, timed, and placed in chart.
[2022-04-05] MEDS: apixaban 5 mg Tablet 2.5 MG PO ×2 (10:37→18:45)
[2022-04-05] MEDS: polyethylene glycol 3350 Pkt 17 gm PO (10:37)
[2022-04-05] MEDS: baclofen 10 mg Tablet 20 MG PO ×2 (10:37→18:37)
[2022-04-05] MEDS: gabapentin 400 mg Capsule 800 MG PO ×2 (10:38→18:37)
[2022-04-05] MEDS: sennosides-docusate Tablet 1 TAB PO (10:38)
--- NOTE | 2022-04-05 11:55 | PM.PN ---
Subjective Subjective: No febrile events last night Gram-negative rods in the urine, discontinue vancomycin I will treat him for UTI with ceftriaxone Patient is aware that he is not a candidate for rehab because he has uses days covered by his insurance now he has to pay [id number] for rehab placement, it is a tough situation, he cannot afford going to a rehab with self finance, his sister is also not able to take care of him at home because he needs 18/03 care, home health care is an option which would be 2-3 times a week I will talk to his sister 1 more time today Vitals/I&O/Wt Last Vital Signs Temp 97.9 F 04/05/22 07:54 Pulse 65 04/05/22 08:00 Resp 18 04/05/22 08:00 BP 116/75 04/05/22 07:54 Pulse Ox 97 04/05/22 08:00 O2 Del Method 04/05/22 08:00 O2 Flow Rate 2 04/05/22 08:00 04/04/22 04/05/22 04/05/22 22:59 06:59 14:59 Intake Total 770 / 1240 590 / 1830 530 / 530 Output Total 1000 / 1000 500 / 1500 Balance -230 / 240 90 / 330 530 / 530 Physical Exam Narrative: Patient is laying flat Satting well room air Abdomen soft, no active abdominal pain Left leg in knee immobilizer Abdomen soft Awake and alert At the time of my evaluation he was on room air not requiring oxygen No active chest pain Data : 04/04/22 05:16 04/04/22 05:16 Micro: Microbiology 04/03/22 13:09 Urine Culture - Preliminary Urine,Clean Catch Gram Negative Rods A&P Assessment and plan (1) Unstageable pressure ulcer of sacral region: Status: Acute (2) Femoral distal fracture: Status: Acute (3) Paraplegia: Status: Acute (4) UTI (urinary tract infection): Status: Acute Plan Awaiting placement For his UTI we will start him on ceftriaxone Discontinue vancomycin No more febrile events Constipation: We will try rectal suppository, he did not respond to MiraLAX and docusate and senna S DVT prophylaxis on board Full code Attestations Medical Necessity Statement*: Awaiting placement Time Spent in Patient Care: 30 Coding Level of Care Code Acute Rivet Sorter for g Fwd Diagnoses Unstageable pressure ulcer of sacral region L89.150 Femoral distal fracture S72.409A Paraplegia G82.20 UTI (urinary tract infection) N39.0
--- NOTE | 2022-04-05 18:40 | PC.NURSE ---
Pt stated the gabapentin 800mg is to much and preferred only 400 this evening. He feels like its making him very sleepy.
[2022-04-05] MEDS: oxyCODONE-APAP 5-325 mg Tablet 1 TAB PO (21:42)
[2022-04-06] VITALS (8 sets, daily range): BP systolic 99–148; BP diastolic 69–94; PULSE 63–91; RESP 12–16; TEMP 36.4–36.9; O2SAT 93–100
[2022-04-06] MEDS: levoFLOXacin 750 mg Tablet PO (05:32)
[2022-04-06] MEDS: zinc gluconate 50 mg Tablet PO (05:32)
[2022-04-06] MEDS: apixaban 5 mg Tablet 2.5 MG PO (09:00)
[2022-04-06] MEDS: baclofen 10 mg Tablet 20 MG PO (09:01)
[2022-04-06] MEDS: polyethylene glycol 3350 Pkt 17 gm PO (09:02)
[2022-04-06] MEDS: sennosides-docusate Tablet 1 TAB PO (09:02)
[2022-04-06] MEDS: gabapentin 400 mg Capsule 800 MG PO (09:02)
[2022-04-06] MEDS: oxyCODONE-APAP 5-325 mg Tablet 1 TAB PO (11:35)
--- NOTE | 2022-04-06 13:26 | XR_ITS ---
WS: [id number] XR knee LT -V 07581 REASON FOR EXAM: Distal femur fracture ure FINDINGS: Complex fracture of the distal left femoral diaphysis with multiple fracture lines identified. The fracture is not comminuted. No angulation or displacement of the fracture fragments compared to the previous examination of 022. 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 XR/XR knee LT 08-27V 05705 IMPRESSION: Stable left distal femur fracture.
--- NOTE | 2022-04-06 13:26 | PM.PN ---
Subjective Subjective: Patient is still constipated Patient is stating that he heard another pop in his left knee I will repeat his x-ray We will give him suppository I have also added enema for as needed basis Noris aerial planting and cultivation manager is stating that we might be able to hear back from a nursing facility today Vitals/I&O/Wt Last Vital Signs Temp 98.0 F 04/06/22 12:00 Pulse 69 04/06/22 12:00 Resp 16 04/06/22 12:00 BP 144/94 04/06/22 12:00 Pulse Ox 95 04/06/22 12:00 O2 Del Method 04/06/22 12:00 O2 Flow Rate 2 04/06/22 07:08 04/05/22 04/06/22 04/06/22 22:59 06:59 14:59 Intake Total 530 / 1440 120 / 1560 240 / 240 Output Total 1200 / 1200 450 / 1650 Balance -670 / 240 -330 / -90 240 / 240 Physical Exam Narrative: Patient is laying supine No active complaints Patient is stating that he had abdominal cramps this morning however for now abdomen is distended however no tenderness, no active chest pain Satting well on room air Left knee in an immobilizer No signs of vascular compromise Edema of leg Data : 04/04/22 05:16 04/04/22 05:16 Micro: Microbiology 04/03/22 13:09 Urine Culture - Final Urine,Clean Catch Proteus mirabilis A&P Assessment and plan (1) UTI (urinary tract infection): Status: Acute (2) Unstageable pressure ulcer of sacral region: Status: Acute (3) Femoral distal fracture: Status: Acute (4) Paraplegia: Status: Acute (5) History of recurrent UTI (urinary tract infection): Status: Acute Plan UTI Proteus mirabilis, continue Levaquin Distal femur fracture: Knee immobilizer: Repeat x-ray of left leg Enema and suppository for constipation Opiates for pain management DVT prophylaxis covered with Eliquis Full code Regular diet Awaiting placement Attestations Medical Necessity Statement*: Awaiting placement Time Spent in Patient Care: 15 Coding Level of Care Code Acute File Conversion Operator for [facility] Fwd Diagnoses UTI (urinary tract infection) N39.0 Unstageable pressure ulcer of sacral region L89.150 Femoral distal fracture S72.409A Paraplegia G82.20 History of recurrent UTI (urinary tract infection) Z87.440
--- NOTE | 2022-04-06 14:08 | P.DS_ITS ---
Discharge Providers Date of Admission: 04/02/22 13:28 Date of Discharge: April 06, 2022 Attending Provider at Admission: David Silver MD Attending Provider at Discharge: David Silver MD Primary Care Provider: Jonah Kerr MD Diagnoses at Discharge Discharge Diagnosis (1) UTI (urinary tract infection): Status: Resolved (2) Unstageable pressure ulcer of sacral region: Status: Inactive (3) Femoral distal fracture: Status: Acute (4) Paraplegia: Status: Inactive (5) History of recurrent UTI (urinary tract infection): Status: Inactive Reason for Visit Reason for Visit: KNEE INJURY Hospital Course Hospital Course 56-year-old male who is quadriplegic, suffered from distal femur fracture when he was trying to maneuver and change his position. He heard a popping sound which was unusual and decided to come to the hospital for evaluation. Distal left femur fracture. Knee immobilizer were placed Dr. Pisano recommended outpatient follow-up. His pain was managed with opioids. Please note he had couple of febrile episodes, work-up revealed UTI for which she received antibiotics. I will give him Levaquin Proteus mirabilis. Patient was not septic, no significant leukocytosis He is being discharged to a [place] [facility], his sister is not able to take care of him at home anymore. Physical Exam Narrative: Patient is laying supine No active complaints Patient is stating that he had abdominal cramps this morning however for now abdomen is distended however no tenderness, no active chest pain Satting well on room air Left knee in an immobilizer No signs of vascular compromise Edema of leg Discharge Data Studies Completed and Pending Completed Studies During Hospitalization Category Date Time Status XR femur LT min 2V* [id number] Stat Exams 04/02/22 11:20 Completed XR knee LT 1-2V 97989 Stat Exams 04/02/22 11:09 Completed Pending at discharge Category Date Time Status XR knee LT 1-2V 45830 Routine Exams 04/06/22 13:26 Taken Blood Culture Stat Lab 04/03/22 05:45 Results SARS Covid-2 Antigen Routine Lab 04/06/22 13:50 Uncollected Radiology Impressions Femur X-Ray 04/02/22 11:20 IMPRESSION: Severely deforming posttraumatic osteoarthritis left hip joint without definite acute abnormality. Distal left femur fracture. Laboratory Results WBC 8.1 10^3/uL (4.0-10.0) 04/04/22 05:16 RBC 4.07 10^6/uL (4.1-5.3) L 04/04/22 05:16 Hgb 9.2 g/dL (11.7-16.6) L 04/04/22 05:16 Hct 32.3 % (42.0-52.0) L 04/04/22 05:16 MCV 79.4 fl (80-94) L 04/04/22 05:16 MCH 22.6 pg (28.0-34.0) L 04/04/22 05:16 MCHC 28.5 g/dL (30.0-36.0) L 04/04/22 05:16 RDW 18.2 % (12.1-15.1) H 04/04/22 05:16 Plt Count 320 10^3/cmm (130-400) 04/04/22 05:16 MPV 9.7 fL (7.4-10.4) 04/04/22 05:16 Neut % (Auto) 63.3 % 04/04/22 05:16 Lymph % (Auto) 16.1 % 04/04/22 05:16 [place] % (Auto) 12.5 % 04/04/22 05:16 Eos % (Auto) 6.5 % 04/04/22 05:16 Baso % (Auto) 0.6 % 04/04/22 05:16 Neut # (Auto) 5.10 10^3/uL (1.8-7.7) 04/04/22 05:16 Lymph # (Auto) 1.3 10^3/uL (0.8-4.8) 04/04/22 05:16 [place] # (Auto) 1.0 10^3/uL (0.2-0.9) H 04/04/22 05:16 Eos # (Auto) 0.5 10^3/uL (0.0-0.8) 04/04/22 05:16 Baso # (Auto) 0.1 10^3/uL (0.0-0.1) 04/04/22 05:16 Nucleated RBC % (auto) 0 % 04/04/22 05:16 Nucleated RBCs # 0.0 /100WBC 04/04/22 05:16 Sodium 137 mmol/L (136-145) 04/04/22 05:16 Potassium 4.4 mmol/L (3.5-5.1) 04/04/22 05:16 Chloride 103 mmol/L (98-107) 04/04/22 05:16 Carbon Dioxide 26 mmol/L (22-29) 04/04/22 05:16 Anion Gap 12.4 (5-19) 04/04/22 05:16 BUN 20 mg/dL (6-20) 04/04/22 05:16 Creatinine 0.9 mg/dL (0.7-1.2) 04/04/22 05:16 GFR Calculation 87.3 mL/min (90-130) L 04/04/22 05:16 Glucose 93 mg/dL (65-115) 04/04/22 05:16 Calculated Osmolality 286 mOsm/kg (285-295) 04/04/22 05:16 Calcium 7.7 mg/dL (8.5-10.5) L 04/04/22 05:16 Magnesium 1.9 mg/dL (1.7-2.3) 04/03/22 05:45 Urine Color Yellow (Yellow) 04/03/22 13:09 Urine Appearance Clear (CLEAR) 04/03/22 13:09 Urine pH 9 (5-7) H 04/03/22 13:09 Ur Specific [place] 1.010 (1.005-1.030) 04/03/22 13:09 Urine Protein Trace (Negative) 04/03/22 13:09 Urine Glucose (UA) Norm (Normal) 04/03/22 13:09 Urine Ketones Negative (Negative) 04/03/22 13:09 Urine Blood 2+ (Negative) H 04/03/22 13:09 Urine Nitrate Negative (Negative) 04/03/22 13:09 Urine Bilirubin Neg (Negative) 04/03/22 13:09 Prot Sulfosalicylic Acd Negative (Negative) 04/03/22 13:09 Urine Urobilinogen Neg mg/dL (Negative) 04/03/22 13:09 Ur Leukocyte Esterase 2+ (Negative) H 04/03/22 13:09 Urine RBC 0-4 /hpf (0-2) H 04/03/22 13:09 Urine WBC 5-10 /hpf (0-5) H 04/03/22 13:09 Ur Squamous Epith Cells 0-4 /hpf (0-5) H 04/03/22 13:09 Triple Phos Crystals 1 /hpf 04/03/22 13:09 Amorphous Sediment Not Reportable 04/03/22 13:09 Urine Bacteria 3+ /hpf (NONE) H 04/03/22 13:09 Vancomycin Trough 19.0 ug/mL (10-15) H 04/04/22 22:55 Vitals Last Vital Signs Temp 98.0 F 04/06/22 12:00 Pulse 69 04/06/22 12:00 Resp 16 04/06/22 12:00 BP 144/94 04/06/22 12:00 Pulse Ox 95 04/06/22 12:00 O2 Del Method 04/06/22 12:00 O2 Flow Rate 2 04/06/22 07:08 Discharge Plan Discharge Patient Disposition: Xfer SNF Condition: Stable Prescriptions: New levofloxacin 750 mg tablet 750 mg PO DAILY 7 Days Qty: 7 0RF No Action bisacodyl 10 mg suppository 10 mg LA DAILY PRN (Reason: Constipation) mupirocin 2 % ointment 1 applic topical TID PRN (Reason: unknown) baclofen 20 mg tablet 20 mg PO BID hydrocortisone [Anusol-HC] 2.5 % cream with perineal applicator 1 applic LA QID PRN (Reason: pain) 20 Days Qty: 30 1RF methenamine hippurate 1 gram tablet 1 g PO BID Qty: 60 12RF Rx Instructions: TAKE WITH 1000MG Vitamin C Eliquis 2.5 mg tablet 2.5 mg PO BID Hold Instructions: resume after GI evaluation by dr Callejas if no evidence of active GI bleeding and OK with dr Callejas naproxen sodium [Aleve] 220 mg Tablet 440 mg PO Q12H PRN (Reason: Migraine Headache) gabapentin 300 mg Capsule 300 mg PO BID testosterone 20.25 mg/1.25 gram (1.62 %) gel in metered-dose pump 2 pump topical BEDTIME Vitamin C 1,000 mg Tablet 1,000 mg PO BID oxycodone-acetaminophen 5-325 mg tablet 1 tab PO Q8H PRN (Reason: Pain) zinc 50 mg Tablet 50 mg PO QA Discharge Orders: Discharge Order (Routine); Ordered 04/06/22 Ordered By: David Silver Referrals: [facility] [Outside] Jonah Kerr MD [Primary Care Provider] - Discharge Diet: Advance as tolerated Discharge Activity: Increase activity as tolerated Patient Instructions: Levofloxacin (By mouth), Leg Fracture (ED), Opioid Safety Activity Restrictions/Additional Instructions: Our correctional case records supervisor will have you follow-up with Dr. Pisano in the next few days. You would be expected to have a phone call with our correctional case records supervisor who will put you on the schedule. You can expect a call from us in the next 2-3 days. If you don't hear from us, call us back in the emergency room at [phone]. Please take off your splint if you noticed more knee swelling Discharge Attestations Time Spent in Discharge Care*: less than 30 min Quality Metrics Clinical Quality Measures [ No reported AMI, CVA or VTE this stay] Coding Level of Care Code Acute Chg FW DC note Diagnoses UTI (urinary tract infection) N39.0 Unstageable pressure ulcer of sacral region L89.150 Femoral distal fracture S72.409A Paraplegia G82.20 History of recurrent UTI (urinary tract infection) Z87.440
[2022-04-06 16:21] LABS: SARS Covid-2 Antigen Negative (Negative)
== END 2022-04-06 16:30 | disposition skilled nursing facility (03) | DRG 542 ==
LOC: ER 13:30 → MEDSURG 14:52
PROVIDERS: Admitting Provider Internal Medicine; Emergency Provider Emergency Medicine; PCP Family Medicine; Visit Provider Internal Medicine
DX: M84.452A Pathological fracture, left femur, initial encounter for fracture (principal); L89.313 Pressure ulcer of right buttock, stage 3; G82.20 Paraplegia, unspecified; M86.68 Other chronic osteomyelitis, other site; N39.0 Urinary tract infection, site not specified; T14.8XXS Other injury of unspecified body region, sequela; V89.2XXS Person injured in unspecified motor-vehicle accident, traffic, sequela; Z86.718 Personal history of other venous thrombosis and embolism; Z87.440 Personal history of urinary (tract) infections; Z86.14 Personal history of Methicillin resistant Staphylococcus aureus infection; L89.319 Pressure ulcer of right buttock, unspecified stage; D64.9 Anemia, unspecified; K59.00 Constipation, unspecified; Z79.01 Long term (current) use of anticoagulants; Z79.891 Long term (current) use of opiate analgesic
CPT/HCPCS: 36415; 73552; 73560; 80048; 80202; 81001; 83735; 85025; 87040; 87077; 87086; 87186; 87426; 94760; 96365; 96367; 99285; J2270; J2543; J3370

== ENCOUNTER → 2022-04-17 11:22 | Outpatient (BNVA) | payer MEDICARE, BC, SELFPAY | PROVIDERS: PCP Family Medicine; Visit Provider Surgery | DX: K64.9 Unspecified hemorrhoids (principal) | CPT/HCPCS: 99213 ==

== ENCOUNTER 2022-04-18 15:34 | Outpatient (CLI) | payer OTHER, MEDICARE, BC, SELFPAY | END 2022-04-18 15:35 | disposition home or self-care (01) | LOC: SPT 15:35 | PROVIDERS: PCP Family Medicine; Visit Provider Specialist | DX: Z46.89 Encounter for fitting and adjustment of other specified devices (principal); S72.492D Other fracture of lower end of left femur, subsequent encounter for closed fracture with routine healing; X58.XXXD Exposure to other specified factors, subsequent encounter; S72.92XA Unspecified fracture of left femur, initial encounter for closed fracture; S72.492A Other fracture of lower end of left femur, initial encounter for closed fracture; X50.9XXA Other and unspecified overexertion or strenuous movements or postures, initial encounter | CPT/HCPCS: 27508; 97760; 99204; 99205; L1832 ==

== ENCOUNTER 2022-05-10 08:05 | Day surgery (SDC) | payer MEDICARE, BC, SELFPAY ==
[2022-05-10] VITALS (10 sets, daily range): BP systolic 139–155; BP diastolic 85–101; PULSE 57–83; RESP 15–18; TEMP 36.6–37.1; O2SAT 93–96
--- NOTE | 2022-05-10 09:03 | W.PM.OPSUD ---
Surgery/Procedure H&P Update DATE OF PROCEDURE: May 10, 2022 DATE H&P PERFORMED: 04/17/22 PREOP DIAGNOSIS: External hemorrhoids PLANNED PROCEDURE: Operation Date: 05/10/22 09:20 Proposed Procedures p Hemorroidectomy 19342,K64.9(Not Applicable) - Puneet De La Torre DO
[2022-05-10] MEDS: sodium chloride 0.9% 1,000 ML 30 ML IV (09:11)
[2022-05-10] MEDS: ceFAZolin 2,000 MG in sodium chloride 0.9% (plus) 50 ML 100 MG IV (09:14)
--- NOTE | 2022-05-10 09:14 | P.ANESASSM_ITS ---
Pre-Anesthetic Assessment Height/Weight: Height 1.8 m Weight 88.451 kg Temp Pulse Resp BP Pulse Ox O2 Del Method 98.7 F 57 L 18 142/85 94 05/10/22 08:38 05/10/22 08:38 05/10/22 08:38 05/10/22 08:38 05/10/22 08:38 05/10/22 08:38 Preop Diagnosis: External hemorrhoids Operation Date: 05/10/22 09:20 Proposed Procedures p Hemorroidectomy 37711,K64.9(Not Applicable) - Puneet De La Torre DO Familial anesthetic complications: none Was Beta Shana taken within 24 hours: N/A Was Clonidine taken within 24 hours: N/A Last intake: Intake Last Liquid Date 05/10/22 Last Liquid Time 06:00 Last Solid Date 05/09/22 Last Solid Time 19:00 Social No alcohol and No tobacco Exam alert, oriented x 3, clear to auscultation bilaterally and regular rate & rhythm Airway Submandibular: within normal limits Cervical ROM: within normal limits Mallampati: Class II Dentition: full CV/HEM anticoagulation Musc/skel Lower Back Pain chronic pain Neuropsych paraplegia C6 cord injury Anesthetic Plan ASA status: 3 Anesthesia: General Medications/Allergies Home Medications Medication Instructions Recorded Confirmed Last Taken Type apixaban 2.5 mg tablet (Eliquis) 2.5 mg PO BID 10/06/20 05/09/22 05/05/22 History baclofen 20 mg tablet 20 mg PO BID 04/14/21 05/10/22 05/10/22 History gabapentin 300 mg capsule 300 mg PO BID 05/08/21 05/10/22 05/10/22 History naproxen sodium 220 mg tablet 440 mg PO Q12H PRN Migraine 05/08/21 05/10/22 05/09/22 History (Aleve) Headache testosterone 20.25 mg/1.25 gram 2 pump topical BEDTIME 05/08/21 05/10/22 05/09/22 History (1.62 %) transdermal gel pump bisacodyl 10 mg rectal suppository 10 mg MS DAILY PRN Constipation 08/01/21 05/10/22 05/09/22 History mupirocin 2 % topical ointment 1 applic topical TID PRN unknown 09/21/21 05/10/22 05/09/22 History hydrocortisone 2.5 % topical cream 1 applic MS QID PRN pain 20 days 03/15/22 05/10/22 05/09/22 Rx with perineal applicator #30 grams (Anusol-HC) ascorbic acid (vitamin C) 1,000 mg 1,000 mg PO BID 04/02/22 05/10/22 05/09/22 History tablet (Vitamin C) oxycodone-acetaminophen 5 mg-325 1 tab PO Q8H PRN Pain 04/02/22 05/09/22 04/02/22 09:30 History mg tablet zinc 50 mg tablet 50 mg PO QAM 04/02/22 05/10/22 05/09/22 History Victor brace #1 ea 04/18/22 Unknown Rx methenamine hippurate 1 gram 1 g PO BID 05/09/22 05/10/22 05/09/22 History tablet (Hiprex) Allergies Allergy/AdvReac Type Severity Reaction Status Date / Time clindamycin Allergy rash Verified 04/18/22 13:28 Current Medications Generic Name Dose Route Start Last Admin Trade Name Freq PRN Reason Stop Dose Admin Sodium Chloride 1,000 mls @ 30 mls/hr 05/10/22 08:15 05/10/22 09:11 Sodium Chloride 0.9% IV 05/11/22 08:14 30 mls/hr .Q24H [place] Administration PFSH Anesthesia Medical History Acute kidney injury Anemia Bleeding hemorrhoids Chronic bilateral low back pain without sciatica Encounter for long-term opiate analgesic use GI bleeding History of DVT (deep vein thrombosis) History of recurrent UTI (urinary tract infection) Hx of fracture of femur 2015 metal placed right femur Hx of staphylococcal infection multiple surgeries to remove STAPH in left wrist Osteomyelitis hip Osteomyelitis, pelvis Paraplegia Paraplegia Pressure ulcers of skin of multiple topographic sites Renal lesion Renal stones Rotator cuff arthropathy of left shoulder Unstageable pressure ulcer of sacral region UTI (urinary tract infection) Wound of left lower extremity Surgical History H/O esophagogastroduodenoscopy (10/25/20) History of nasal surgery 1989 History of removal of calculus of renal pelvis through percutaneous nephrostomy History of removal of retained hardware 09/2019 Dr. Hastings at [facility] [place] left lower ext History of urinary diversion procedure History of urostomy 10-15 years ago Hx of knee surgery Left -metal put in 2014 and removed 2016- due to infection Hx of neck surgery 1989 S/P debridement (10/07/20) right gluteal wound Status post colonoscopy (10/25/20) Family History Grandfather Diabetes Family history of premature coronary artery disease Mother Lupus (systemic lupus erythematosus) Social History Smoking and tobacco status: never smoked Second hand smoke exposure: Yes Alcohol intake: never Marital status: Single Current occupational status: disabled History of recent travel: No Current gender identity: Male Data Anesthesia Cardiac Studies: No Data to Display
[2022-05-10] MEDS: thrombin 5,000 unit SDV 5000 UNIT XX (09:43)
[2022-05-10] MEDS: oxyCODONE-APAP 5-325 mg Tablet 1 TAB PO (11:42)
--- NOTE | 2022-05-10 15:20 | PM.OP ---
Operative Report Date of procedure: May 25, 2022 Pre-op diagnosis: Preop Diagnosis External hemorrhoids Post-op diagnosis: same Procedure done: Hemorrhoidectomy Specimens removed/disposition: hemorrhoids Surgeon: Dr. Puneet De La Torre DO Estimated blood loss (mL): 10 Complications: none apparent Brief History: This is a very pleasant 56 year old male quadraplegic with very large and bleeding external hemorrhoids. Hemorrhoidectomy is indicated. Procedure: Patient was wheeled into the operating room placed on the OR table and the left lateral decubitus position. General anesthesia was achieved by the department of anesthesia. A timeout was performed. All present were in agreement. The anus was inspected prepped and draped in the usual sterile fashion. The harmonic was used to excise the left lateral and right posterior hemorrhoidal columns. Hemostasis was noted. Gelfoam thrombin was then placed into the anus. Sterile dressing was applied. The patient tolerated the procedure well
--- NOTE | 2022-05-10 15:25 | ANE.PACU2 ---
Inpatient post-anesthesia follow up: Airway intact: Yes Vital signs: Temperature 97.8 F Pulse Rate 70 Respiratory Rate 18 Blood Pressure 155/91 Pulse Oximetry 96 Oxygen Delivery Me thod Room Air Oxygen Flow Rate 6 Fraction of Inspir ed Oxygen Hydration adequate: Yes Nausea and vomiting: No Pain level: 1 Mental status: Baseline
== END 2022-05-10 12:02 | disposition home or self-care (01) ==
PROVIDERS: PCP Family Medicine; Visit Provider Surgery
PROC: (CPT 46250; principal; 2022-05-10 09:10)
DX: K64.5 Perianal venous thrombosis (principal); K64.4 Residual hemorrhoidal skin tags; G82.50 Quadriplegia, unspecified; Z79.01 Long term (current) use of anticoagulants; G89.29 Other chronic pain; Z86.718 Personal history of other venous thrombosis and embolism
CPT/HCPCS: 46250; 88304; J0330; J1100; J2250; J2405; J2704; J3010; J3490; J7030

== ENCOUNTER → 2022-05-16 13:26 | Outpatient (BNVA) | payer MEDICARE, BC, SELFPAY | PROVIDERS: PCP Family Medicine; Visit Provider Specialist | DX: S72.492D Other fracture of lower end of left femur, subsequent encounter for closed fracture with routine healing (principal); X58.XXXD Exposure to other specified factors, subsequent encounter; G82.50 Quadriplegia, unspecified | CPT/HCPCS: 99024 ==

== ENCOUNTER 2022-05-17 09:22 | Emergency (ER) | payer MEDICARE, BC, SELFPAY ==
[2022-05-17 09:26] VITALS: BP 104/74; PULSE 79; RESP 18; TEMP 36.8; O2SAT 96; BMI 27.1
--- NOTE | 2022-05-17 10:18 | ED_ITS ---
HPI - GI Bleed General: Chief complaint: GI Bleed Stated complaint: rectal bleed Time Seen by Provider: 05/17/22 09:54 Source: patient and EMS Mode of arrival: EMS Limitations: no limitations History of Present Illness: 56-year-old male who had a history of hemorrhoidectomy 1 week ago he started back on his Eliquis on Saturday states he has had some large bright red bloody stools. He states this he had 1 last night and another large 1 this morning with some blood clots. He denies any weakness he had some slight hypotension but his blood pressure is low at normal. Associated symptoms: Denies abdominal pain, chills, easy bruising, fever(s), headache(s), nausea, rash or vomiting Review of Systems Const: Denies: fever(s), chills, body aches or change in appetite Eyes: Denies: blurry vision or eye discomfort ENMT: Denies: throat pain or dental pain Card: Denies: chest pain Resp: Denies: dyspnea GI: Reports: hematochezia; Denies: abdominal pain, nausea, vomiting or diarrhea : Denies: dysuria Musc: Denies: neck pain or back pain Skin/Breast: Denies: rash Neuro: Denies: headache(s) Psych: Denies: depression Boaz/Lymph: Denies: easy bruising All/Imm: Denies: urticaria PFSH ED PFSH: Medical History Acute kidney injury Anemia Bleeding hemorrhoids Chronic bilateral low back pain without sciatica Encounter for long-term opiate analgesic use GI bleeding History of DVT (deep vein thrombosis) History of recurrent UTI (urinary tract infection) Hx of fracture of femur 2014 metal placed right femur Hx of staphylococcal infection multiple surgeries to remove STAPH in left wrist Osteomyelitis hip Osteomyelitis, pelvis Paraplegia Paraplegia Pressure ulcers of skin of multiple topographic sites Renal lesion Renal stones Rotator cuff arthropathy of left shoulder Unstageable pressure ulcer of sacral region UTI (urinary tract infection) Wound of left lower extremity Surgical History H/O esophagogastroduodenoscopy (10/25/20) History of nasal surgery 1989 History of removal of calculus of renal pelvis through percutaneous nephrostomy History of removal of retained hardware 09/2019 Dr. Hastings at [facility] left lower ext History of urinary diversion procedure History of urostomy 10-15 years ago Hx of knee surgery Left -metal put in 2014 and removed 2017- due to infection Hx of neck surgery 1990 S/P debridement (10/07/20) right gluteal wound Status post colonoscopy (10/25/20) Family History Grandfather Diabetes Family history of premature coronary artery disease Mother Lupus (systemic lupus erythematosus) Social History Smoking and tobacco status: never smoked Second hand smoke exposure: Yes Alcohol intake: never Marital status: Single Current occupational status: disabled History of recent travel: No Current gender identity: Male Physical Exam Const: COMMON NORMALS: patient oriented x3 GENERAL APPEARANCE: frail appearing HENMT: COMMON NORMALS: normocephalic and atraumatic HEAD & SCALP: normocephalic and atraumatic Eye: COMMON NORMALS: Equal, round and reactive pupils present and EOMs intact bilaterally PUPIL: Yes Equal, round and reactive pupils present Neck/C-Spine: COMMON NORMALS: full ROM and supple Chest: COMMONS NORMALS: normal inspection of the chest and normal palpation of entire chest wall Resp: COMMON NORMALS: normal respiratory effort, No retractions, No use of accessory muscles and clear to auscultation bilaterally AUSCULTATION: clear to auscultation bilaterally Cardio: COMMON NORMALS: regular rate, regular rhythm and No murmurs present (Cardio) RATE: regular rate RHYTHM: regular rhythm GI: COMMON NORMALS: Normal to inspection, nondistended, normoactive bowel sounds present, Soft to palpation, non-tender and no masses PALPATION: Yes Soft to palpation OTHER: Postop hemorrhoidectomy has some bright red blood in depends Extremity: COMMON NORMALS: normal to inspection Neuro: COMMON NORMALS: patient oriented x3 and no focal motor deficits Psych: COMMON NORMALS: mental status grossly normal, Normal thought process present and cooperative THOUGHT PROCESS: Normal thought process present Skin: COMMON NORMALS: no rashes or lesions noted and no wounds GENERAL SKIN EXAM: no rashes or lesions noted Course Vital Signs: Vital signs: Vital Signs Temperature 98.3 F 05/17/22 09:26 Pulse Rate 79 05/17/22 09:26 Respiratory Rate 18 05/17/22 09:26 Blood Pressure 104/74 05/17/22 09:26 Pulse Oximetry 96 05/17/22 09:26 Oxygen Delivery Me thod 05/17/22 09:26 MDM - GI Bleed Medical Decision Making Patient presents with lower GI bleed after hemorrhoidectomy he had started his Eliquis back his hemoglobin here is normal his blood pressure is normal patient was seen in the ER by his surgeon Dr. De La Torre who changed his dressing recommended to hold his Eliquis for 3 more days he will follow him patient stable for discharge back to the halfway. Lab Data : 05/17/22 10:21 05/17/22 10:21 Laboratory Results WBC 11.4 10^3/uL (4.0-10.0) H 05/17/22 10:21 RBC 4.77 10^6/uL (4.1-5.3) 05/17/22 10:21 Hgb 11.1 g/dL (11.7-16.6) L 05/17/22 10:21 Hct 38.6 % (42.0-52.0) L 05/17/22 10:21 MCV 80.9 fl (80-94) 05/17/22 10:21 MCH 23.3 pg (28.0-34.0) L 05/17/22 10:21 MCHC 28.8 g/dL (30.0-36.0) L 05/17/22 10:21 RDW 18.4 % (12.1-15.1) H 05/17/22 10:21 Plt Count 330 10^3/cmm (130-400) 05/17/22 10:21 MPV 10.0 fL (7.4-10.4) 05/17/22 10:21 Neut % (Auto) 77.5 % 05/17/22 10:21 Lymph % (Auto) 8.3 % 05/17/22 10:21 Beadle % (Auto) 12.3 % 05/17/22 10:21 Eos % (Auto) 1.1 % 05/17/22 10:21 Baso % (Auto) 0.4 % 05/17/22 10:21 Neut # (Auto) 8.84 10^3/uL (1.8-7.7) H 05/17/22 10:21 Lymph # (Auto) 0.9 10^3/uL (0.8-4.8) 05/17/22 10:21 Beadle # (Auto) 1.4 10^3/uL (0.2-0.9) H 05/17/22 10:21 Eos # (Auto) 0.1 10^3/uL (0.0-0.8) 05/17/22 10:21 Baso # (Auto) 0.0 10^3/uL (0.0-0.1) 05/17/22 10:21 Nucleated RBC % (auto) 0 % 05/17/22 10:21 Nucleated RBCs # 0.0 /100WBC 05/17/22 10:21 PT 17.60 SECONDS (12.1-14.9) H 05/17/22 10:21 INR 1.41 (0.8-1.2) H 05/17/22 10:21 Sodium 140 mmol/L (136-145) 05/17/22 10:21 Potassium 4.4 mmol/L (3.5-5.1) 05/17/22 10:21 Chloride 104 mmol/L (98-107) 05/17/22 10:21 Carbon Dioxide 29 mmol/L (22-29) 05/17/22 10:21 Anion Gap 11.4 (5-19) 05/17/22 10:21 BUN 14 mg/dL (6-20) 05/17/22 10:21 Creatinine 0.5 mg/dL (0.7-1.2) L 05/17/22 10:21 GFR Calculation 172.0 mL/min (90-130) H 05/17/22 10:21 Glucose 90 mg/dL (65-115) 05/17/22 10:21 Calculated Osmolality 290 mOsm/kg (285-295) 05/17/22 10:21 Calcium 8.3 mg/dL (8.5-10.5) L 05/17/22 10:21 Total Bilirubin 0.8 mg/dL (0.15-1.2) 05/17/22 10:21 AST 5 U/L (0-40) 05/17/22 10:21 ALT 9 U/L (0-41) 05/17/22 10:21 Alkaline Phosphatase 234 U/L (40-130) H 05/17/22 10:21 Total Protein 6.3 g/dL (6.6-8.7) L 05/17/22 10:21 Albumin 2.4 g/dL (3.5-5.2) L 05/17/22 10:21 Globulin 3.9 g/dL (1.3-4.6) 05/17/22 10:21 Discharge Plan Discharge Patient Disposition: Home Clinical Impression: Hemorrhoids, Lower gastrointestinal hemorrhage Condition: Stable Prescriptions: No Action bisacodyl 10 mg suppository 10 mg ME DAILY PRN (Reason: Constipation) mupirocin 2 % ointment 1 applic topical TID PRN (Reason: unknown) baclofen 20 mg tablet 20 mg PO BID hydrocortisone [Anusol-HC] 2.5 % cream with perineal applicator 1 applic ME QID PRN (Reason: pain) 20 Days Qty: 30 1RF (DME) [place] brace See Rx Instructions .Route .MEDSUPPLY Qty: 1 0RF Rx Instructions: As directed Eliquis 2.5 mg tablet 2.5 mg PO BID Hold Instructions: Resume on 05/13/22. naproxen sodium [Aleve] 220 mg Tablet 440 mg PO Q12H PRN (Reason: Migraine Headache) Hold Instructions: Resume on 05/13/22. gabapentin 300 mg Capsule 300 mg PO BID testosterone 20.25 mg/1.25 gram (1.62 %) gel in metered-dose pump 2 pump topical BEDTIME ascorbic acid (vitamin C) [Vitamin C] 1,000 mg Tablet 1,000 mg PO BID oxycodone-acetaminophen 5-325 mg tablet 1 tab PO Q8H PRN (Reason: Pain) Hold Instructions: Resume on 05/15/22. zinc 50 mg Tablet 50 mg PO QAM methenamine hippurate [Hiprex] 1 gram tablet 1 g PO BID Rx Instructions: TAKE WITH 1000MG Vitamin C oxycodone-acetaminophen 7.5-325 mg tablet 1 tab PO Q6H PRN (Reason: pain) Qty: 20 0RF Discharge Orders: Discharge ED (Routine); Ordered 05/17/22 Ordered By: Elvira Arce Referrals: Puneet De La Torre DO [Physician] - 1-3 days Jonah Kerr MD [Primary Care Provider] - Discharge Diet: Advance as tolerated Discharge Activity: Resume usual activity Patient Instructions: Hemorrhoids (ED) Activity Restrictions/Additional Instructions: Hold Eliquis until saturday Coding Level of Care Code ED Gravity Flow Irrigator for Chg Fwd Exam Comprehensive
[2022-05-17 10:28] LABS: Basophils % 0.4 %; Eosinophils # 0.1 10^3/uL (0.0-0.8); Eosinophils % 1.1 %; Hematocrit 38.6 % (42.0-52.0); Hemoglobin 11.1 g/dL (11.7-16.6); Lymphocytes # 0.9 10^3/uL (0.8-4.8); Lymphocytes % 8.3 %; Mean Corpuscular HGB Conc 28.8 g/dL (30.0-36.0); Mean Corpuscular Hemoglobin 23.3 pg (28.0-34.0); Mean Corpuscular Volume 80.9 fl (80-94); Monocytes # 1.4 10^3/uL (0.2-0.9); Monocytes % 12.3 %; Neutrophils # 8.84 10^3/uL (1.8-7.7); Neutrophils % 77.5 %; Nucleated Red Blood Cells % 0 %; Platelet Count 330 10^3/cmm (130-400); Red Blood Count 4.77 10^6/uL (4.1-5.3); Red Cell Distribution Width 18.4 % (12.1-15.1); White Blood Count 11.4 10^3/uL (4.0-10.0)
[2022-05-17 10:39] LABS: INR 1.41 (0.8-1.2)
[2022-05-17] MEDS: sodium chloride 0.9% 500 ML 999 ML IV (10:42)
[2022-05-17 10:44] LABS: Alanine Aminotransferase 9 U/L (0-41); Albumin Level 2.4 g/dL (3.5-5.2); Alkaline Phosphatase 234 U/L (40-130); Anion Gap 11.4 (5-19); Blood Urea Nitrogen 14 mg/dL (6-20); Calcium 8.3 mg/dL (8.5-10.5); Carbon Dioxide 29 mmol/L (22-29); Chloride 104 mmol/L (98-107); Globulin 3.9 g/dL (1.3-4.6); Glucose 90 mg/dL (65-115); Osmolality Calculated 290 mOsm/kg (285-295); Potassium 4.4 mmol/L (3.5-5.1); Sodium 140 mmol/L (136-145); Total Bilirubin 0.8 mg/dL (0.15-1.2); Total Protein 6.3 g/dL (6.6-8.7)
[2022-05-17 10:52] LABS: Aspartate Amino Transferase 5 U/L (0-40)
--- NOTE | 2022-05-17 11:01 | PC.NURSE ---
report called to DEVORAH Pereira at [facility]
[2022-05-17 12:28] VITALS: BP 100/60; PULSE 73; RESP 16; O2SAT 98
== END 2022-05-17 11:35 | disposition home or self-care (01) ==
PROVIDERS: Emergency Provider Emergency Medicine; PCP Family Medicine
DX: K92.2 Gastrointestinal hemorrhage, unspecified (principal); K64.9 Unspecified hemorrhoids; Z79.01 Long term (current) use of anticoagulants; Z77.22 Contact with and (suspected) exposure to environmental tobacco smoke (acute) (chronic)
CPT/HCPCS: 36415; 80053; 85025; 85610; 99283; J7040

== ENCOUNTER 2022-05-21 14:36 | Outpatient (CLI) | payer MEDICARE, BC, SELFPAY ==
--- NOTE | 2022-05-21 15:00 | CT_ITS ---
WS: [id number] CT pelvis TECHNIQUE: Contrast-enhanced CT of the pelvis with coronal and sagittal reformatted images. CLINICAL INFORMATION: follow up pelvic osteomyelitis, 6 months interval study COMPARISON: CT November 01, 2021 DLP: 750.[address] scans at [facility] use at least one of these dose optimization techniques: automated e xposure control; mA and/or kV adjustment per patient size (includes targeted exams where dose is matc hed to clinical indication); or iterative reconstruction. 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 Associated diffuse soft tissue thickening is unchanged. Femoral head remains withi n the acetabulum. Varus angulation. Decubitus ulcer RIGHT gluteus extending to the RIGHT atrium is similar in appearance to the prior truman dy. Soft tissue ulcer tract extends to the ischial tuberosity with progressed sclerosis with callus formation. No new foci of osteomyelitis. No evidence of drainable abscess or fluid collection. Ileostomy in the RIGHT lower quadrant. Slight retrolisthesis L5 on S1. CT/CT pelvis w con* [id number] IMPRESSION: 1. Stable RIGHT gluteus decubitus ulcer with soft tissue thickening along the ulcer tract. No drainable abscess or fluid collection. 2. Increased sclerosis and heterotopic bone formation at the RIGHT ischial tub erosity involving the RIGHT ischium extending to the pubic root is similar in a ppearance compared to previous. Evidence of additional healing with sclerotic a nd heterotopic bone formation today. 3. Chronic traumatic deformity LEFT hip are unchanged with ununited LEFT femor al neck fracture with associated heterotopic bone formation and soft tissue thi ckening.
[2022-05-21] MEDS: iohexol 300 mg/mL 100 mL Btl IV (15:25)
== END 2022-05-21 14:37 | disposition home or self-care (01) ==
PROVIDERS: PCP Family Medicine; Visit Provider Student in an Organized Health Care Education/Training Program
DX: L89.159 Pressure ulcer of sacral region, unspecified stage (principal); M86.9 Osteomyelitis, unspecified
CPT/HCPCS: 72193

== ENCOUNTER → 2022-05-22 10:29 | Outpatient (BNVA) | payer MEDICARE, BC, SELFPAY | PROVIDERS: PCP Family Medicine; Visit Provider Surgery | DX: Z98.890 Other specified postprocedural states (principal); Z87.19 Personal history of other diseases of the digestive system | CPT/HCPCS: 99213 ==

== ENCOUNTER 2022-05-31 07:10 | Emergency (ER) | payer MEDICARE, BC, SELFPAY ==
[2022-05-31 07:16] VITALS: BMI 29.5
[2022-05-31 07:22] VITALS: BP 126/56; PULSE 67; RESP 17; TEMP 36.6; O2SAT 93
[2022-05-31 07:36] VITALS: BP 86/49; PULSE 72; RESP 17; TEMP 36.6; O2SAT 91
[2022-05-31 07:42] LABS: Basophils # 0.1 10^3/uL (0.0-0.1); Basophils % 0.6 %; Eosinophils # 0.2 10^3/uL (0.0-0.8); Eosinophils % 1.9 %; Hematocrit 30.9 % (42.0-52.0); Lymphocytes # 1.5 10^3/uL (0.8-4.8); Lymphocytes % 15.3 %; Mean Corpuscular HGB Conc 29.1 g/dL (30.0-36.0); Mean Corpuscular Hemoglobin 23.2 pg (28.0-34.0); Mean Corpuscular Volume 79.6 fl (80-94); Mean Platelet Volume 9.5 fL (7.4-10.4); Monocytes # 0.8 10^3/uL (0.2-0.9); Neutrophils # 7.15 10^3/uL (1.8-7.7); Neutrophils % 73.7 %; Nucleated Red Blood Cells % 0 %; Platelet Count 450 10^3/cmm (130-400); Red Blood Count 3.88 10^6/uL (4.1-5.3); Red Cell Distribution Width 16.9 % (12.1-15.1); White Blood Count 9.7 10^3/uL (4.0-10.0)
[2022-05-31 07:57] LABS: INR 1.33 (0.8-1.2); Partial Thromboplastin Time 34.2 SECONDS (23.9-36.7)
[2022-05-31 08:04] LABS: Alanine Aminotransferase 8 U/L (0-41); Albumin Level 2.8 g/dL (3.5-5.2); Alkaline Phosphatase 167 U/L (40-130); Anion Gap 11.9 (5-19); Aspartate Amino Transferase 8 U/L (0-40); Blood Urea Nitrogen 23 mg/dL (6-20); Calcium 8.1 mg/dL (8.5-10.5); Carbon Dioxide 27 mmol/L (22-29); Chloride 101 mmol/L (98-107); Globulin 3.1 g/dL (1.3-4.6); Glucose 95 mg/dL (65-115); Osmolality Calculated 285 mOsm/kg (285-295); Potassium 3.9 mmol/L (3.5-5.1); Sodium 136 mmol/L (136-145); Total Bilirubin 0.4 mg/dL (0.15-1.2); Total Protein 5.9 g/dL (6.6-8.7)
--- NOTE | 2022-05-31 08:08 | PC.NURSE ---
PT BROUGHT IN BY EMS FROM [facility]. IMMEDIATELY WHEN ASSESSING THE PT, UPON TURNING THE PT TO THE LEFT SIDE, THERE WERE ICE CUBES, AN ICE PACK, WET BEDDING, AND BLOODY CHUCKS PADS UNDER THE PT WITH NO BARRIER IN BETWEEN. MULTIPLE ICE CUBES EXPOSED TO BARE SKIN. PT STATED THAT THEY WERE TRYING TO COOL ME DOWN BECAUSE I WAS BURNING UP. ALL ICE AND WET BEDDING REMOVED. CLEAN AND DRY CHUCKS AND SHEETS PLACED.
--- NOTE | 2022-05-31 08:19 | W.ED.GENADLT ---
HPI - General Adult General: Chief complaint: General Medical Stated complaint: rectal bleeding Time Seen by Provider: 05/31/22 07:11 Source: patient Mode of arrival: EMS History of Present Illness: 56-year-old male presents emergency room from local alf. Patient is a because he had a distal oblique femur fracture being treated conservatively. 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 3 weeks ago patient had a hemorrhoidectomy since then he has had a couple of episodes of bleeding. He is on Eliquis because he previously had a DVT. He is awake alert and oriented hypotensive. He is reporting patient had multiple large clots on Chux pad when he arrived here. Nursing reports there is bleeding from a sacral ulcer as well as from the rectum on arrival. Patient denies significant abdominal pain. Onset (ago): minute(s) Location: buttocks (rectum) Severity: moderate Relieving factors: none Exacerbating factors: none Associated symptoms: Reports decreased appetite; Deny chest pain, confusion, cough, diaphoresis, dyspnea, fevers/chills, headache(s), malaise, nausea, rash, palpitations, seizures, short of breath, syncope, vomiting or weakness Treatments prior to arrival: none Review of Systems Const: Denies: fever(s), chills, malaise or diaphoresis ENMT: Denies: throat pain, ear or mastoid pain, nasal discharge or nasal congestion Card: Denies: chest pain, palpitations or syncope Resp: Denies: dyspnea GI: Reports: rectal pain and hematochezia; Denies: abdominal pain, nausea, vomiting, hematemesis or coffee ground emesis : Denies: flank pain, difficulty urinating, dysuria, urinary frequency, urinary urgency or urinary hesitancy Skin/Breast: Denies: rash or pruritus Neuro: Denies: headache(s) or confusion PFSH ED PFSH: Medical History Acute kidney injury Anemia Bleeding hemorrhoids Chronic bilateral low back pain without sciatica Encounter for long-term opiate analgesic use GI bleeding History of DVT (deep vein thrombosis) History of recurrent UTI (urinary tract infection) Hx of fracture of femur 2014 metal placed right femur Hx of staphylococcal infection multiple surgeries to remove STAPH in left wrist Osteomyelitis hip Osteomyelitis, pelvis Paraplegia Paraplegia Pressure ulcers of skin of multiple topographic sites Renal lesion Renal stones Rotator cuff arthropathy of left shoulder Unstageable pressure ulcer of sacral region UTI (urinary tract infection) Wound of left lower extremity Surgical History H/O esophagogastroduodenoscopy (10/25/20) History of nasal surgery 1989 History of removal of calculus of renal pelvis through percutaneous nephrostomy History of removal of retained hardware 09/2019 Dr. Hastings at [facility] left lower ext History of urinary diversion procedure History of urostomy 10-15 years ago Hx of knee surgery Left -metal put in 2014 and removed 2016- due to infection Hx of neck surgery 1989 S/P debridement (10/07/20) right gluteal wound S/P hemorrhoidectomy Status post colonoscopy (10/25/20) Family History Grandfather Diabetes Family history of premature coronary artery disease Mother Lupus (systemic lupus erythematosus) Social History Smoking and tobacco status: never smoked Second hand smoke exposure: Yes Alcohol intake: never Marital status: Single Current occupational status: disabled History of recent travel: No Current gender identity: Male Physical Exam Const: COMMON NORMALS: no acute distress GENERAL APPEARANCE: cooperative and comfortable ORIENTATION/CONSCIOUSNESS: Yes awake, Yes oriented to person, Yes oriented to place and Yes oriented to time HENMT: COMMON NORMALS: normocephalic, atraumatic and hearing grossly normal bilaterally HEAD & SCALP: normocephalic and atraumatic Resp: COMMON NORMALS: normal respiratory effort, No retractions, No use of accessory muscles and clear to auscultation bilaterally AUSCULTATION: clear to auscultation bilaterally Cardio: COMMON NORMALS: regular rate, regular rhythm and No murmurs present (Cardio) RATE: regular rate RHYTHM: regular rhythm GI: COMMON NORMALS: Soft to palpation and No hepatosplenomegaly present AUSCULTATION: Yes normoactive bowel sounds PALPATION: Yes Soft to palpation, No Tenderness to palpation present (GI), No Guarding due to palpation present (GI) and Yes No hepatosplenomegaly present OTHER: Urination the rectum there is an open area at about 6 o'clock position from the hemorrhoidectomy. There is no active bleeding this time Extremity: COMMON NORMALS: normal to inspection, capillary refill normal, no clubbing, cyanosis or edema, no calf tenderness and no pedal edema Neuro: SENSORIUM/ORIENTATION: Yes oriented to person, Yes oriented to place and Yes oriented to time Skin: COMMON NORMALS: no rashes or lesions noted GENERAL SKIN EXAM: no rashes or lesions noted Course Vital Signs: Vital signs: Vital Signs Temperature 97.9 F 05/31/22 07:36 Pulse Rate 66 05/31/22 10:04 Respiratory Rate 17 05/31/22 07:36 Blood Pressure 108/54 05/31/22 10:04 Pulse Oximetry 97 05/31/22 10:04 Oxygen Delivery Me thod 05/31/22 10:04 [facility] - General Adult Medical Decision Making Discussed Dr. De La Torre. The open area noted on exam was left open to heal by secondary intent and is not a dehiscence of the wound. There is no active bleeding at this time. Dr. De La Torre asked that we hold the Eliquis and recheck hemoglobin discharge back to the alf continue routine scheduled follow-ups. Recheck hemoglobin in the next 1 to 2 days. Medical Records I reviewed the patient's medical records. Lab Data I reviewed the patient's lab results. : 05/31/22 07:30 05/31/22 07:30 Laboratory Results WBC 9.7 10^3/uL (4.0-10.0) 05/31/22 07:30 RBC 3.88 10^6/uL (4.1-5.3) L 05/31/22 07:30 Hgb 9.0 g/dL (11.7-16.6) L 05/31/22 07:30 Hct 30.9 % (42.0-52.0) L 05/31/22 07:30 MCV 79.6 fl (80-94) L 05/31/22 07:30 MCH 23.2 pg (28.0-34.0) L 05/31/22 07:30 MCHC 29.1 g/dL (30.0-36.0) L 05/31/22 07:30 RDW 16.9 % (12.1-15.1) H 05/31/22 07:30 Plt Count 450 10^3/cmm (130-400) H 05/31/22 07:30 MPV 9.5 fL (7.4-10.4) 05/31/22 07:30 Neut % (Auto) 73.7 % 05/31/22 07:30 Lymph % (Auto) 15.3 % 05/31/22 07:30 [place]ine % (Auto) 8.0 % 05/31/22 07:30 Eos % (Auto) 1.9 % 05/31/22 07:30 Baso % (Auto) 0.6 % 05/31/22 07:30 Neut # (Auto) 7.15 10^3/uL (1.8-7.7) 05/31/22 07:30 Lymph # (Auto) 1.5 10^3/uL (0.8-4.8) 05/31/22 07:30 Sabine # (Auto) 0.8 10^3/uL (0.2-0.9) 05/31/22 07:30 Eos # (Auto) 0.2 10^3/uL (0.0-0.8) 05/31/22 07:30 Baso # (Auto) 0.1 10^3/uL (0.0-0.1) 05/31/22 07:30 Nucleated RBC % (auto) 0 % 05/31/22 07:30 Nucleated RBCs # 0.0 /100WBC 05/31/22 07:30 PT 16.80 SECONDS (12.1-14.9) H 05/31/22 07:30 INR 1.33 (0.8-1.2) H 05/31/22 07:30 APTT 34.2 SECONDS (23.9-36.7) 05/31/22 07:30 Sodium 136 mmol/L (136-145) 05/31/22 07:30 Potassium 3.9 mmol/L (3.5-5.1) 05/31/22 07:30 Chloride 101 mmol/L (98-107) 05/31/22 07:30 Carbon Dioxide 27 mmol/L (22-29) 05/31/22 07:30 Anion Gap 11.9 (5-19) 05/31/22 07:30 BUN 23 mg/dL (6-20) H 05/31/22 07:30 Creatinine 0.5 mg/dL (0.7-1.2) L 05/31/22 07:30 GFR Calculation 172.0 mL/min (90-130) H 05/31/22 07:30 Glucose 95 mg/dL (65-115) 05/31/22 07:30 Calculated Osmolality 285 mOsm/kg (285-295) 05/31/22 07:30 Lactic Acid 1.8 mmol/L (0.5-2.2) 05/31/22 07:30 Calcium 8.1 mg/dL (8.5-10.5) L 05/31/22 07:30 Total Bilirubin 0.4 mg/dL (0.15-1.2) 05/31/22 07:30 AST 8 U/L (0-40) 05/31/22 07:30 ALT 8 U/L (0-41) 05/31/22 07:30 Alkaline Phosphatase 167 U/L (40-130) H 05/31/22 07:30 Total Protein 5.9 g/dL (6.6-8.7) L 05/31/22 07:30 Albumin 2.8 g/dL (3.5-5.2) L 05/31/22 07:30 Globulin 3.1 g/dL (1.3-4.6) 05/31/22 07:30 Discharge Plan Discharge Patient Disposition: Home Clinical Impression: Rectal bleeding, S/P hemorrhoidectomy, Pressure ulcer of buttock Condition: Stable Prescriptions: New oxycodone 5 mg tablet 5 mg PO Q8H PRN (Reason: pain) Qty: 14 0RF Discontinued Eliquis 2.5 mg tablet 2.5 mg PO BID Hold Instructions: Resume on 05/13/22. hydrocortisone [Anusol-HC] 2.5 % cream with perineal applicator 1 applic MT Q6H PRN (Reason: pain) No Action bisacodyl 10 mg suppository 10 mg MT DAILY PRN (Reason: Constipation) mupirocin 2 % ointment 1 applic topical Q8H PRN (Reason: Rash) baclofen 20 mg tablet 20 mg PO BID (DME) [place] brace See Rx Instructions .Route .MEDSUPPLY Qty: 1 0RF Rx Instructions: As directed naproxen sodium [Aleve] 220 mg Tablet 440 mg PO Q12H PRN (Reason: Pain) Hold Instructions: Resume on 05/13/22. gabapentin 300 mg Capsule 300 mg PO BID testosterone 20.25 mg/1.25 gram (1.62 %) gel in metered-dose pump 2 pump topical BEDTIME ascorbic acid (vitamin C) [Vitamin C] 1,000 mg Tablet 1,000 mg PO BID oxycodone-acetaminophen 5-325 mg tablet 1 tab PO Q8H PRN (Reason: Pain) Hold Instructions: Resume on 05/15/22. zinc 50 mg Tablet 50 mg PO DAILY@07 methenamine hippurate [Hiprex] 1 gram tablet 1 g PO BID Rx Instructions: TAKE WITH 1000MG Vitamin C DHA 200 mg Capsule 200 mg PO DAILY@07 cholecalciferol (vitamin D3) 1,250 mcg (50,000 unit) Tablet 50,000 unit PO Q7D Rx Instructions: on saturday acetaminophen 500 mg Tablet 500 mg PO Q6H PRN (Reason: Pain) Milk of Magnesia 400 mg/5 mL Suspension 30 ml PO DAILY PRN (Reason: Constipation) Fleet Enema 19-7 gram/118 mL Enema 118 ml MT DAILY PRN (Reason: Constipation) mupirocin 2 % Ointment 1 applic TOPICAL BID Rx Instructions: apply to left shoulder Pro-Stat Liquid 15 ml PO TID@0700,1430,2000 Discharge Orders: Discharge ED (Routine); Ordered 05/31/22 Ordered By: Marcio Gardner Referrals: Jonah Kerr MD [Primary Care Provider] - Patient Instructions: Opioid Safety, Pain Management Activity Restrictions/Additional Instructions: Repeat hemoglobin in the a.m. Stop Eliquis until hemorrhoid ectomy incision healed. Coding Level of Care Code ED Freight Booker for Vinicio Murphy
--- NOTE | 2022-05-31 08:45 | PC.PHAR ---
pt is from [facility] pierce nurse from [facility] states the pt had no medications today
[2022-05-31] MEDS: sodium chloride 0.9% 1,000 ML 999 ML IV ×2 (09:00→09:38)
[2022-05-31] MEDS: tranexamic acid 1,000 mg/10mL SDV 1000 MG IV (09:01)
[2022-05-31] MEDS: sodium chloride 0.9% 100 mL Bag 50 ML IV (09:01)
[2022-05-31 09:02] LABS: Lactic Sepsis W/Reflex 1.8 mmol/L (0.5-2.2)
[2022-05-31 09:05] VITALS: BP 92/50; PULSE 59; O2SAT 100
[2022-05-31 09:30] VITALS: BP 79/57; PULSE 58; O2SAT 98
[2022-05-31 10:04] VITALS: BP 108/54; PULSE 66; O2SAT 97
== END 2022-05-31 10:15 | disposition home or self-care (01) ==
PROVIDERS: Emergency Provider Family Medicine; PCP Family Medicine
DX: K62.5 Hemorrhage of anus and rectum (principal); L89.309 Pressure ulcer of unspecified buttock, unspecified stage; Z98.890 Other specified postprocedural states; G82.20 Paraplegia, unspecified
CPT/HCPCS: 80053; 83605; 85025; 85610; 85730; 96361; 96374; 99284; J7030

== ENCOUNTER 2022-06-12 11:31 | Outpatient (CLI) | payer MEDICARE, BC, SELFPAY | END 2022-06-12 11:32 | disposition home or self-care (01) | PROVIDERS: PCP Family Medicine; Visit Provider Family Medicine | DX: Z01.89 Encounter for other specified special examinations (principal) | CPT/HCPCS: 85660 ==

== ENCOUNTER → 2022-06-20 13:28 | Outpatient (BNVA) | payer MEDICARE, BC, SELFPAY | PROVIDERS: PCP Family Medicine; Visit Provider Thoracic Surgery (Cardiothoracic Vascular Surgery) | DX: L89.313 Pressure ulcer of right buttock, stage 3 (principal) | CPT/HCPCS: 97597; 99213; A6212 ==

== ENCOUNTER → 2022-06-27 13:46 | Outpatient (BNVA) | payer MEDICARE, BC, SELFPAY | PROVIDERS: PCP Family Medicine; Visit Provider Thoracic Surgery (Cardiothoracic Vascular Surgery) | DX: L89.313 Pressure ulcer of right buttock, stage 3 (principal) | CPT/HCPCS: 97597 ==

== ENCOUNTER → 2022-07-11 13:21 | Outpatient (BNVA) | payer MEDICARE, BC, SELFPAY | PROVIDERS: PCP Family Medicine; Visit Provider Nurse Practitioner Family | DX: L89.323 Pressure ulcer of left buttock, stage 3 (principal) | CPT/HCPCS: 99213 ==

== ENCOUNTER → 2022-07-18 13:13 | Outpatient (BNVA) | payer MEDICARE, BC, SELFPAY | PROVIDERS: PCP Family Medicine; Visit Provider Nurse Practitioner Family | DX: L89.313 Pressure ulcer of right buttock, stage 3 (principal) | CPT/HCPCS: 11042 ==

== ENCOUNTER → 2022-07-25 14:23 | Outpatient (BNVA) | payer MEDICARE, BC, SELFPAY | PROVIDERS: PCP Family Medicine; Visit Provider Specialist | DX: G82.20 Paraplegia, unspecified (principal); S72.492A Other fracture of lower end of left femur, initial encounter for closed fracture; X58.XXXA Exposure to other specified factors, initial encounter | CPT/HCPCS: 73552; 99213 ==

== ENCOUNTER → 2022-08-02 13:03 | Outpatient (BNVA) | payer MEDICARE, BC, SELFPAY | PROVIDERS: PCP Family Medicine; Visit Provider Nurse Practitioner Family | DX: Z09 Encounter for follow-up examination after completed treatment for conditions other than malignant neoplasm (principal) | CPT/HCPCS: 99212 ==

== ENCOUNTER 2022-11-15 11:39 | Oncology outpatient (recurring) (ONCR) | payer MEDICARE, OTHER, SELFPAY ==
[2022-11-15 12:00] VITALS: BP 134/77; PULSE 74; RESP 18; TEMP 36.3; O2SAT 93
[2022-11-15] MEDS: denosumab 60 mg SDV SUBCUT (12:20)
== END 2022-11-23 23:59 | disposition home or self-care (01) ==
LOC: ONCMED 11:41
PROVIDERS: PCP Family Medicine; Visit Provider Family Medicine
DX: M81.0 Age-related osteoporosis without current pathological fracture (principal); Z79.899 Other long term (current) drug therapy
CPT/HCPCS: 96372; J0897

== ENCOUNTER 2022-11-21 11:55 | Outpatient (CLI) | payer MEDICARE, OTHER, SELFPAY ==
--- NOTE | 2022-11-21 12:08 | XR_ITS ---
WS: [id number] Exam: XR KUB [id number] Date/Time of Exam: 11/21/2022 12:27 PM Reason For Exam: Renal Stones Comparison 09/21/2021. No bowel obstruction or free air. No calcifications seen in the region of the kidneys. Surgical clips in the lower abdomen and pelvis. Exuberant exostoses seen in the region of the hips and pelvis. Mode rate amount stool in the transverse and right colon. Mild dextroscoliosis the lumbar spine. XR/XR KUB [id number] IMPRESSION: 1. No acute abdominal finding. Constipation. 2. Postoperative changes. Bony changes of the pelvis and visualized hips as not ed above. This is chronic.
== END 2022-11-21 11:56 | disposition home or self-care (01) ==
LOC: RAD 12:00
PROVIDERS: PCP Family Medicine; Visit Provider Urology
DX: N20.0 Calculus of kidney (principal); K59.00 Constipation, unspecified; N28.9 Disorder of kidney and ureter, unspecified; G82.50 Quadriplegia, unspecified
CPT/HCPCS: 74018; 99213

== ENCOUNTER 2023-05-22 11:42 | Oncology outpatient (recurring) (ONCR) | payer MEDICARE, OTHER, SELFPAY ==
[2023-05-22] MEDS: denosumab 60 mg SDV SUBCUT (12:05)
[2023-05-22 12:12] VITALS: BP 88/51; PULSE 62; RESP 17; TEMP 36; O2SAT 91
== END 2023-05-25 23:59 | disposition home or self-care (01) ==
LOC: ONCMED 11:42
PROVIDERS: PCP Family Medicine; Visit Provider Family Medicine
DX: M81.0 Age-related osteoporosis without current pathological fracture (principal)
CPT/HCPCS: 96372; J0897

== ENCOUNTER 2023-11-21 13:42 | Oncology outpatient (recurring) (ONCR) | payer MEDICARE, OTHER, SELFPAY ==
[2023-11-21] MEDS: denosumab 60 mg SDV SUBCUT (15:00)
[2023-11-21 15:04] VITALS: BP 98/59; PULSE 70; O2SAT 91
== END 2023-11-24 23:59 | disposition home or self-care (01) ==
PROVIDERS: PCP Family Medicine; Visit Provider Family Medicine
DX: M81.0 Age-related osteoporosis without current pathological fracture (principal)
CPT/HCPCS: 96372; J0897

== ENCOUNTER 2025-01-28 17:09 | Inpatient (IN) | payer MEDICARE, OTHER, SELFPAY ==
[2025-01-28 17:13] VITALS: BP 154/98; PULSE 75; RESP 17; TEMP 36.7; O2SAT 92; BMI 31.5
--- NOTE | 2025-01-28 17:50 | XRR_ITS ---
PROCEDURE INFORMATION: Exam: XR Right Foot Exam date and time: 01/28/2025 5:58 PM Age: 59 years old Clinical indication: Condition or disease; Other: Ulcer on heel of RT foot; Additional info: Foot ulcer TECHNIQUE: Imaging protocol: Radiologic exam of the right foot. Views: 3 or more views. COMPARISON: No relevant prior studies available. FINDINGS: Bones/joints: Mild, diffuse demineralization. No acute osseous abnormality. Joint spaces aligned and maintained with overall mild degenerative osteoarthritis, greater of the subtalar joint. Soft tissues: Diffuse soft tissue edema throughout the exam, greatest at the dorsum of the foot. XR/XR foot RT min 3V* [id number] IMPRESSION: No identified acute osseous abnormality or secondary findings to suggest osteomyelitis. If there is further clinical concern, recommend follow-up MRI with and without contrast.
[2025-01-28 18:16] VITALS: RESP 17; O2SAT 93
[2025-01-28] MEDS: ondansetron 2 mg/ML SDV 2 mL 4 MG IVP (18:16)
[2025-01-28] MEDS: morphine 4 mg/mL SDV 1 mL IVP (18:16)
[2025-01-28] MEDS: vancomycin 1,500 MG/300 ML PIGGYBACK 200 MG IV (18:17)
[2025-01-28 18:34] LABS: Basophils # 0.1 10^3/uL (0.0-0.1); Basophils % 0.5 %; Eosinophils # 0.1 10^3/uL (0.0-0.8); Eosinophils % 1.2 %; Hematocrit 61.1 % (37-53); Lymphocytes # 0.9 10^3/uL (0.8-4.8); Lymphocytes % 8.6 %; Mean Corpuscular HGB Conc 31.6 g/dL (30-55); Mean Corpuscular Hemoglobin 31.3 pg (27-33); Mean Platelet Volume 9.8 fL (7.4-10.4); Monocytes # 0.9 10^3/uL (0.2-0.9); Monocytes % 8.1 %; Neutrophils # 8.56 10^3/uL (1.8-7.7); Neutrophils % 81.1 %; Nucleated Red Blood Cells % 0 %; Platelet Count 209 10^3/cmm (157-399); Red Blood Count 6.17 10^6/uL (3.85-5.65); Red Cell Distribution Width 13.5 % (12.1-15.1); White Blood Count 10.55 10^3/uL (3.29-11.43)
[2025-01-28 18:39] VITALS: BP 157/102; PULSE 77; O2SAT 95
[2025-01-28 18:52] LABS: Lactic Sepsis W/Reflex 2.9 mmol/L (0.5-2.2)
[2025-01-28 19:00] VITALS: BP 171/113; PULSE 87; RESP 18; O2SAT 93
[2025-01-28 19:03] LABS: Procalcitonin 0.03 ng/mL (0-0.5)
[2025-01-28 19:22] LABS: Blood Urea Nitrogen 15 mg/dL (6-20); Calcium 9.4 mg/dL (8.5-10.5); Carbon Dioxide 26 mmol/L (22-29); Chloride 98 mmol/L (98-107); Creatinine Clr Calc Pharmacy 156.9675; Glomerular Filtration Rate 137.9 mL/min (90-130); Glucose 145 mg/dL (65-115); Osmolality Calculated 293 mOsm/kg (285-295); Sodium 140 mmol/L (136-145)
--- NOTE | 2025-01-28 19:27 | W.ED.EXTPRO ---
HPI - Extremity Problem General: Chief complaint: Extremity Injury, Lower Stated complaint: right foot abcess Time Seen by Provider: 01/28/25 17:15 History of Present Illness: This patient is a 59-year-old white male paraplegic who presents to the emergency department with a decubitus ulcer to the right heel. Patient states he just noticed this a couple of days ago. It has been draining. Significant redness about the right foot and swelling of the right lower extremity. He has not noticed a fever. Related Data Home Medications ?Medication ?Instructions ?Recorded ?Confirmed baclofen 20 mg tablet 20 mg PO BID 04/14/21 11/21/22 gabapentin 300 mg capsule 300 mg PO BID 05/08/21 11/21/22 naproxen sodium 220 mg tablet 440 mg PO Q12H PRN Pain 05/08/21 11/21/22 (Aleve) Held on 05/10/22. Instructions: Resume on 05/13/22. testosterone 2 pump topical BEDTIME 05/08/21 11/21/22 bisacodyl 10 mg rectal suppository 10 mg [place] DAILY PRN Constipation 08/01/21 11/21/22 mupirocin 2 % topical ointment 1 applic topical Q8H PRN Rash 09/21/21 11/21/22 ascorbic acid (vitamin C) 1,000 mg 1,000 mg PO BID 04/02/22 11/21/22 tablet (Vitamin C) oxycodone-acetaminophen 5 mg-325 1 tab PO Q8H PRN Pain 04/02/22 11/21/22 mg tablet Held on 05/10/22. Instructions: Resume on 05/15/22. zinc 50 mg tablet 50 mg PO DAILY@04/02/22 11/21/22 Pro-Stat Liquid 15 ml PO TID@0700,1430,2000 05/31/22 11/21/22 acetaminophen 500 mg tablet 500 mg PO Q6H PRN Pain 05/31/22 11/21/22 cholecalciferol (vitamin D3) 1,250 50,000 unit PO Q7D 05/31/22 11/21/22 mcg (50,000 unit) tablet docosahexaenoic acid 200 mg 200 mg PO DAILY@05/31/22 11/21/22 capsule ( DHA) magnesium hydroxide 400 mg/5 mL 30 ml PO DAILY PRN Constipation 05/31/22 11/21/22 oral suspension (Milk of Magnesia) mupirocin 2 % topical ointment 1 applic topical BID 05/31/22 11/21/22 sodium phosphates 19 gram-7 118 ml [place] DAILY PRN Constipation 05/31/22 11/21/22 gram/118 mL enema (Fleet Enema) Previous Rx's ?Medication ?Instructions ?Recorded [place] brace #1 ea 04/18/22 oxycodone 5 mg tablet 5 mg PO Q8H PRN pain #14 tabs 05/31/22 methenamine hippurate 1 gram tablet See Rx Instructions .Route 01/01/23 .COMPLEX #180 tabs Allergies Allergy/AdvReac Type Severity Reaction Status Date / Time clindamycin Allergy rash Verified 11/21/22 13:04 Review of Systems General: Reports: 10 or more systems reviewed and unremarkable except in HPI and below Skin/Breast: Reports: erythema, sores and new lesions COUNT INCLUDES THE [facility] ED PFSH: Medical History Acute kidney injury Anemia Bleeding hemorrhoids Chronic bilateral low back pain without sciatica Encounter for long-term opiate analgesic use GI bleeding History of DVT (deep vein thrombosis) History of recurrent UTI (urinary tract infection) Hx of fracture of femur 2014 metal placed right femur Hx of staphylococcal infection multiple surgeries to remove STAPH in left wrist Osteomyelitis hip Osteomyelitis, pelvis Paraplegia Pressure ulcers of skin of multiple topographic sites Quadriplegia Renal lesion Renal stones Rotator cuff arthropathy of left shoulder Unstageable pressure ulcer of sacral region UTI (urinary tract infection) Wound of left lower extremity Surgical History H/O esophagogastroduodenoscopy (10/25/20) History of nasal surgery 1989 History of removal of calculus of renal pelvis through percutaneous nephrostomy History of removal of retained hardware 09/[place] [facility] [place] History of urinary diversion procedure History of urostomy 10-15 years ago Hx of knee surgery Left -metal put in 2014 and removed 2016- due to infection Hx of neck surgery 1989 S/P debridement (10/07/20) right gluteal wound S/P hemorrhoidectomy Status post colonoscopy (10/25/20) Family History Grandfather Diabetes Family history of premature coronary artery disease Mother Lupus (systemic lupus erythematosus) Social History Smoking and tobacco/nicotine status: never used tobacco/nicotine Second hand smoke exposure: Yes Alcohol intake: never Substance/Drug Use: never Marital status: Single Current occupational status: disabled Current gender identity: Male Physical Exam Const: COMMON NORMALS: no acute distress, patient oriented x3 and no limitations GENERAL APPEARANCE: cooperative HENMT: COMMON NORMALS: normocephalic, atraumatic, Normal nasal mucous membranes and turbinates present, moist oral mucous membranes and oropharynx normal HEAD & SCALP: normal to inspection, normocephalic and atraumatic FACE & SINUS: normal facial exam NOSE: Normal nasal mucous membranes and turbinates present Eye: COMMON NORMALS: Equal, round and reactive pupils present, EOMs intact bilaterally and conjunctivae normal GENERAL EYE: appearance normal, both eyes and all related structures CONJUNCTIVA: Yes conjunctivae normal PUPIL: Yes Equal, round and reactive pupils present Neck/C-Spine: COMMON NORMALS: supple and no JVD Chest: COMMONS NORMALS: normal inspection of the chest Resp: COMMON NORMALS: normal respiratory effort and clear to auscultation bilaterally AUSCULTATION: clear to auscultation bilaterally Cardio: COMMON NORMALS: no JVD, regular rate, regular rhythm, No gallops present (Cardio), No murmurs present (Cardio) and No rub (Cardio) RATE: regular rate RHYTHM: regular rhythm GI: COMMON NORMALS: Normal to inspection, nondistended, normoactive bowel sounds present, Soft to palpation and non-tender AUSCULTATION: Yes normoactive bowel sounds PALPATION: Yes Soft to palpation Neuro: COMMON NORMALS: patient oriented x3 and CN's II-XII intact bilaterally Psych: COMMON NORMALS: mental status grossly normal, Normal thought process present and cooperative THOUGHT PROCESS: Normal thought process present Skin: NARRATIVE SKIN EXAM: There is a decubitus ulcer overlying the right heel approximately 4 to 5 cm in diameter. Clear drainage. There is surrounding erythema extending throughout the foot. Right lower extremity edema. Course Vital Signs: Vital signs: Vital Signs Temperature 98.1 F 01/28/25 17:13 Pulse Rate 87 01/28/25 19:00 Respiratory Rate 18 01/28/25 19:00 Blood Pressure 171/113 01/28/25 19:00 Pulse Oximetry 93 01/28/25 19:00 Oxygen Delivery Me thod Room Air 01/28/25 19:00 MDM - Extremity (Nontraumatic) Medical Decision Making CBC was normal. Lactic acid 2.9. Procalcitonin 0.03. X-rays of the right foot were read by the radiologist. No evidence of osteomyelitis at this time. I did start vancomycin on the patient in the emergency department. He will need to be admitted for IV antibiotics. I discussed the case with Dr. Mitchell. Patient will be admitted to the [facility] floor. He is stable. Lab Data 01/28/25 18:15 01/28/25 18:15 Radiology Impressions Foot X-Ray 01/28/25 17:50 IMPRESSION: No identified acute osseous abnormality or secondary findings to suggest osteomyelitis. If there is further clinical concern, recommend follow-up MRI with and without contrast. Laboratory Results WBC 10.55 10^3/uL (3.29-11.43) 01/28/25 18:15 RBC 6.17 10^6/uL (3.85-5.65) H 01/28/25 18:15 Hgb 19.30 g/dL (11.27-16.99) H 01/28/25 18:15 Hct 61.1 % (37-53) H 01/28/25 18:15 MCV 99.0 fl (82-101) 01/28/25 18:15 MCH 31.3 pg (27-33) 01/28/25 18:15 MCHC 31.6 g/dL (30-55) 01/28/25 18:15 RDW 13.5 % (12.1-15.1) 01/28/25 18:15 Plt Count 209 10^3/cmm (157-399) 01/28/25 18:15 MPV 9.8 fL (7.4-10.4) 01/28/25 18:15 Neut % (Auto) 81.1 % 01/28/25 18:15 Lymph % (Auto) 8.6 % 01/28/25 18:15 [place] % (Auto) 8.1 % 01/28/25 18:15 Eos % (Auto) 1.2 % 01/28/25 18:15 Baso % (Auto) 0.5 % 01/28/25 18:15 Neut # (Auto) 8.56 10^3/uL (1.8-7.7) H 01/28/25 18:15 Lymph # (Auto) 0.9 10^3/uL (0.8-4.8) 01/28/25 18:15 [place] # (Auto) 0.9 10^3/uL (0.2-0.9) 01/28/25 18:15 Eos # (Auto) 0.1 10^3/uL (0.0-0.8) 01/28/25 18:15 Baso # (Auto) 0.1 10^3/uL (0.0-0.1) 01/28/25 18:15 Nucleated RBC % (auto) 0 % 01/28/25 18:15 Nucleated RBCs # 0.0 /100WBC 01/28/25 18:15 Sodium 140 mmol/L (136-145) 01/28/25 18:15 Potassium 4.1 mmol/L (3.5-5.1) 01/28/25 18:15 Chloride 98 mmol/L (98-107) 01/28/25 18:15 Carbon Dioxide 26 mmol/L (22-29) 01/28/25 18:15 Anion Gap 20.1 (5-19) H 01/28/25 18:15 BUN 15 mg/dL (6-20) 01/28/25 18:15 Creatinine 0.6 mg/dL (0.7-1.2) L 01/28/25 18:15 GFR Calculation 137.9 mL/min (90-130) H 01/28/25 18:15 Glucose 145 mg/dL (65-115) H 01/28/25 18:15 Calculated Osmolality 293 mOsm/kg (285-295) 01/28/25 18:15 Lactic Acid 2.9 mmol/L (0.5-2.2) H 01/28/25 18:15 Calcium 9.4 mg/dL (8.5-10.5) 01/28/25 18:15 Procalcitonin 0.03 ng/mL (0-0.5) 01/28/25 18:15 All radiology interpretation(s) finalized by discharge Discharge Plan Discharge Patient Disposition: Admitted As Inpatient Clinical Impression: Decubitus skin ulcer Qualifiers: Pressure injury location: heel Pressure injury stage: stage 2 Laterality: right Qualified Code(s): L89.612 - Pressure ulcer of right heel, stage 2 Condition: Stable Coding Level of Care Code ED Authorization Coordinator for Vinicio Murphy
[2025-01-28 19:32] LABS: Anion Gap 20.1 (5-19); Potassium 4.1 mmol/L (3.5-5.1)
[2025-01-28 20:15] LABS: Reflex Lactate Order REFLEX LACTIC ORDERD
--- NOTE | 2025-01-28 20:47 | PM.HP ---
Providers/Chief Complaint Admitting Physician: Dr ROJO----seen before 12 midnight Primary Care Provider: Jonah Kerr MD Chief Complaint: right foot abcess History of Present Illness Mihir Keller is a 59 year old male Medications/Allergies Home Medications ?Medication ?Instructions ?Recorded ?Confirmed ?Last Taken ?Type baclofen 20 mg tablet 20 mg PO BID 04/14/21 11/21/22 05/30/22 History gabapentin 300 mg capsule 300 mg PO BID 05/08/21 11/21/22 05/30/22 History naproxen sodium 220 mg tablet 440 mg PO Q12H PRN Pain 05/08/21 11/21/22 05/09/22 History (Aleve) Held on 05/10/22. Instructions: Resume on 05/13/22. testosterone 2 pump topical BEDTIME 05/08/21 11/21/22 05/09/22 History bisacodyl 10 mg rectal suppository 10 mg [place] DAILY PRN Constipation 08/01/21 11/21/22 05/09/22 History mupirocin 2 % topical ointment 1 applic topical Q8H PRN Rash 09/21/21 11/21/22 05/09/22 History ascorbic acid (vitamin C) 1,000 mg 1,000 mg PO BID 04/02/22 11/21/22 05/30/22 History tablet (Vitamin C) oxycodone-acetaminophen 5 mg-325 1 tab PO Q8H PRN Pain 04/02/22 11/21/22 04/02/22 09:30 History mg tablet Held on 05/10/22. Instructions: Resume on 05/15/22. zinc 50 mg tablet 50 mg PO DAILY@07 04/02/22 11/21/22 05/30/22 History [place] brace #1 ea 04/18/22 11/21/22 Unknown Rx Pro-Stat Liquid 15 ml PO TID@0700,1430,2000 05/31/22 11/21/22 05/30/22 History acetaminophen 500 mg tablet 500 mg PO Q6H PRN Pain 05/31/22 11/21/22 Unknown History cholecalciferol (vitamin D3) 1,250 50,000 unit PO Q7D 05/31/22 11/21/22 05/25/22 History mcg (50,000 unit) tablet docosahexaenoic acid 200 mg 200 mg PO DAILY@07 05/31/22 11/21/22 05/30/22 History capsule ( DHA) magnesium hydroxide 400 mg/5 mL 30 ml PO DAILY PRN Constipation 05/31/22 11/21/22 Unknown History oral suspension (Milk of Magnesia) mupirocin 2 % topical ointment 1 applic topical BID 05/31/22 11/21/22 Unknown History oxycodone 5 mg tablet 5 mg PO Q8H PRN pain #14 tabs 05/31/22 11/21/22 Unknown Rx sodium phosphates 19 gram-7 118 ml [place] DAILY PRN Constipation 05/31/22 11/21/22 Unknown History gram/118 mL enema (Fleet Enema) methenamine hippurate 1 gram tablet See Rx Instructions .Route 01/01/23 Unknown Rx .COMPLEX #180 tabs Allergies Allergy/AdvReac Type Severity Reaction Status Date / Time clindamycin Allergy rash Verified 11/21/22 13:04 PFSH Acute PFSH: Medical History Acute kidney injury Anemia Bleeding hemorrhoids Chronic bilateral low back pain without sciatica Encounter for long-term opiate analgesic use GI bleeding History of DVT (deep vein thrombosis) History of recurrent UTI (urinary tract infection) Hx of fracture of femur 2014 metal placed right femur Hx of staphylococcal infection multiple surgeries to remove STAPH in left wrist Osteomyelitis hip Osteomyelitis, pelvis Paraplegia Pressure ulcers of skin of multiple topographic sites Quadriplegia Renal lesion Renal stones Rotator cuff arthropathy of left shoulder Unstageable pressure ulcer of sacral region UTI (urinary tract infection) Wound of left lower extremity Surgical History H/O esophagogastroduodenoscopy (10/25/20) History of nasal surgery 1989 History of removal of calculus of renal pelvis through percutaneous nephrostomy History of removal of retained hardware 09[place] [facility] [place] History of urinary diversion procedure History of urostomy 10-15 years ago Hx of knee surgery Left -metal put in 2014 and removed 2016- due to infection Hx of neck surgery 1989 S/P debridement (10/07/20) right gluteal wound S/P hemorrhoidectomy Status post colonoscopy (10/25/20) Family History Grandfather Diabetes Family history of premature coronary artery disease Mother Lupus (systemic lupus erythematosus) Social History Smoking and tobacco/nicotine status: never used tobacco/nicotine Second hand smoke exposure: Yes Alcohol intake: never Substance/Drug Use: never Marital status: Single Current occupational status: disabled Current gender identity: Male Vitals/I&O/Wt Last Vital Signs Temp 98.1 F 01/28/25 17:13 Pulse 87 01/28/25 19:00 Resp 18 01/28/25 19:00 BP 171/113 01/28/25 19:00 Pulse Ox 93 01/28/25 19:00 O2 Del Method Room Air 01/28/25 19:00 Weight last 48 hrs Weight 99.79 kg Data 01/28/25 18:15 01/28/25 18:15 A&P PDMP PDMP Reviewed: Not Reviewed Coding Level of Care Code Acute Code for Cristyg Fwba
[2025-01-28 21:37] LABS: Lactic Acid level (Lactate) 0.9 mmol/L (0.5-2.2)
[2025-01-28] MEDS: pantoprazole 40 mg SDV IVP (21:58)
[2025-01-28] MEDS: cefepime 1,000 mg SDV 1000 MG IVP (21:58)
[2025-01-28] MEDS: heparin 5,000 unit/mL INJ 1 mL 5000 UNIT SUBCUT (21:58)
[2025-01-28 22:00] VITALS: BP 151/99; PULSE 78; RESP 18; O2SAT 95
[2025-01-28] MEDS: sennosides 8.6 mg Tablet 17.2 MG PO (22:00)
[2025-01-28] MEDS: sodium chloride 0.9% 1,000 ML 75 ML IV (23:07)
--- NOTE | 2025-01-28 23:18 | PC.NURSE ---
duplicate orders for heparin, protonix, senna, and normal saline. duplicate orders dc'd
[2025-01-28 23:32] VITALS: BMI 30.2
[2025-01-28 23:41] VITALS: BP 100/65; PULSE 89; RESP 18; TEMP 36.6; O2SAT 92
[2025-01-29] VITALS (24 sets, daily range): BP systolic 91–151; BP diastolic 50–98; PULSE 47–87; RESP 10–27; TEMP 36.8–37.3; O2SAT 85–97
[2025-01-29] MEDS: cefepime 1,000 mg SDV 1000 MG IVP ×2 (05:19→20:44)
[2025-01-29] MEDS: vancomycin 1,500 MG/300 ML PIGGYBACK 200 MG IV ×2 (05:20→18:06)
[2025-01-29 05:21] LABS: Basophils % 0.4 %; Eosinophils # 0.1 10^3/uL (0.0-0.8); Eosinophils % 1.3 %; Hematocrit 56.6 % (37-53); Lymphocytes # 0.7 10^3/uL (0.8-4.8); Lymphocytes % 6.7 %; Mean Corpuscular HGB Conc 30.7 g/dL (30-55); Mean Corpuscular Hemoglobin 30.9 pg (27-33); Mean Corpuscular Volume 100.5 fl (82-101); Monocytes # 0.8 10^3/uL (0.2-0.9); Monocytes % 8.1 %; Neutrophils # 8.01 10^3/uL (1.8-7.7); Neutrophils % 83.2 %; Nucleated Red Blood Cells % 0 %; Platelet Count 209 10^3/cmm (157-399); Red Blood Count 5.63 10^6/uL (3.85-5.65); Red Cell Distribution Width 13.6 % (12.1-15.1); White Blood Count 9.64 10^3/uL (3.29-11.43)
[2025-01-29 05:33] LABS: INR 1.21 (0.8-1.2)
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
[2025-01-29 05:50] LABS: Procalcitonin 0.06 ng/mL (0-0.5)
[2025-01-29 05:53] LABS: Alanine Aminotransferase 10 U/L (0-41); Albumin Level 2.8 g/dL (3.5-5.2); Alkaline Phosphatase 71 U/L (40-130); Aspartate Amino Transferase 9 U/L (0-40); Blood Urea Nitrogen 19 mg/dL (6-20); Calcium 8.7 mg/dL (8.5-10.5); Carbon Dioxide 36 mmol/L (22-29); Chloride 101 mmol/L (98-107); Creatinine Clr Calc Pharmacy 119.6921; Globulin 3.5 g/dL (1.3-4.6); Glomerular Filtration Rate 98.9 mL/min (90-130); Glucose 97 mg/dL (65-115); Magnesium 1.9 mg/dL (1.7-2.3); Osmolality Calculated 298 mOsm/kg (285-295); Phosphorus 4.1 mg/dL (2.5-4.5); Sodium 143 mmol/L (136-145); Total Bilirubin 1.2 mg/dL (0.15-1.2); Total Protein 6.3 g/dL (6.6-8.7)
[2025-01-29 05:55] LABS: Lactic Sepsis W/Reflex 0.8 mmol/L (0.5-2.2)
[2025-01-29 05:57] LABS: Estmated Average Glucose 108; Hemoglobin A1C 5.4 % (4.0-6.0)
[2025-01-29 06:12] LABS: C Reactive Protein 58.9 mg/L (0.0-4.9)
--- NOTE | 2025-01-29 06:46 | PM.HP ---
Providers/Chief Complaint Admitting Physician: Nhi Beauchamp MD--- patient seen before 12 midnight Primary Care Provider: Jonah Kerr MD Chief Complaint: right foot abcess History of Present Illness Mihir Keller is a 59 year old male with medical history significant for paraplegia now with a right heel infection and draining abscess requiring aggressive care. Patient related it has been there for just 2 days whenever he noted. I called for podiatry consult with Dr. Rios who will be seeing the patient this morning patient has been med n.p.o. after 12 midnight. Patient had been recultured from blood and the wound from the emergency room and the emergency room attending had given a dose of vancomycin and cefepime as well. This is to good coverage for gram-positive's and anaerobes with vancomycin and cefepime respectively. Pain medication optimized. Right foot x-ray did not show osteomyelitis MRI could be recommended to make sure patient does not have osteo-. Podiatry can decide to drain at the bedside or take the patient to the OR depending on the case and the depth of the abscess Review of Systems Narrative: System review upon 10 organ review we are significant for integumentary with abscess foul-smelling. Medications/Allergies Home Medications ?Medication ?Instructions ?Recorded ?Confirmed ?Last Taken ?Type baclofen 20 mg tablet 20 mg PO BID 04/14/21 11/21/22 05/30/22 History gabapentin 300 mg capsule 300 mg PO BID 05/08/21 11/21/22 05/30/22 History naproxen sodium 220 mg tablet 440 mg PO Q12H PRN Pain 05/08/21 11/21/22 05/09/22 History (Aleve) Held on 05/10/22. Instructions: Resume on 05/13/22. testosterone 2 pump topical BEDTIME 05/08/21 11/21/22 05/09/22 History bisacodyl 10 mg rectal suppository 10 mg VT DAILY PRN Constipation 08/01/21 11/21/22 05/09/22 History mupirocin 2 % topical ointment 1 applic topical Q8H PRN Rash 09/21/21 11/21/22 05/09/22 History ascorbic acid (vitamin C) 1,000 mg 1,000 mg PO BID 04/02/22 11/21/22 05/30/22 History tablet (Vitamin C) oxycodone-acetaminophen 5 mg-325 1 tab PO Q8H PRN Pain 04/02/22 11/21/22 04/02/22 09:30 History mg tablet Held on 05/10/22. Instructions: Resume on 05/15/22. zinc 50 mg tablet 50 mg PO DAILY@07 04/02/22 11/21/22 05/30/22 History [place] brace #1 ea 04/18/22 11/21/22 Unknown Rx Pro-Stat Liquid 15 ml PO TID@0700,1430,2000 05/31/22 11/21/22 05/30/22 History acetaminophen 500 mg tablet 500 mg PO Q6H PRN Pain 05/31/22 11/21/22 Unknown History cholecalciferol (vitamin D3) 1,250 50,000 unit PO Q7D 05/31/22 11/21/22 05/25/22 History mcg (50,000 unit) tablet docosahexaenoic acid 200 mg 200 mg PO DAILY@07 05/31/22 11/21/22 05/30/22 History capsule ( DHA) magnesium hydroxide 400 mg/5 mL 30 ml PO DAILY PRN Constipation 05/31/22 11/21/22 Unknown History oral suspension (Milk of Magnesia) mupirocin 2 % topical ointment 1 applic topical BID 05/31/22 11/21/22 Unknown History oxycodone 5 mg tablet 5 mg PO Q8H PRN pain #14 tabs 05/31/22 11/21/22 Unknown Rx sodium phosphates 19 gram-7 118 ml VT DAILY PRN Constipation 05/31/22 11/21/22 Unknown History gram/118 mL enema (Fleet Enema) methenamine hippurate 1 gram tablet See Rx Instructions .Route 01/01/23 Unknown Rx .COMPLEX #180 tabs Allergies Allergy/AdvReac Type Severity Reaction Status Date / Time clindamycin Allergy rash Verified 11/21/22 13:04 PFSH Acute PFSH: Medical History Acute kidney injury Anemia Bleeding hemorrhoids Chronic bilateral low back pain without sciatica Encounter for long-term opiate analgesic use GI bleeding History of DVT (deep vein thrombosis) History of recurrent UTI (urinary tract infection) Hx of fracture of femur 2014 metal placed right femur Hx of staphylococcal infection multiple surgeries to remove STAPH in left wrist Osteomyelitis hip Osteomyelitis, pelvis Paraplegia Pressure ulcers of skin of multiple topographic sites Quadriplegia Renal lesion Renal stones Rotator cuff arthropathy of left shoulder Unstageable pressure ulcer of sacral region UTI (urinary tract infection) Wound of left lower extremity Surgical History H/O esophagogastroduodenoscopy (10/25/20) History of nasal surgery 1989 History of removal of calculus of renal pelvis through percutaneous nephrostomy History of removal of retained hardware 09/2019 Dr. Hastings at [facility] left lower ext History of urinary diversion procedure History of urostomy 10-15 years ago Hx of knee surgery Left -metal put in 2014 and removed 2016- due to infection Hx of neck surgery 1989 S/P debridement (10/07/20) right gluteal wound S/P hemorrhoidectomy Status post colonoscopy (10/25/20) Family History Grandfather Diabetes Family history of premature coronary artery disease Mother Lupus (systemic lupus erythematosus) Social History Smoking and tobacco/nicotine status: never used tobacco/nicotine Second hand smoke exposure: Yes Alcohol intake: never Substance/Drug Use: never Marital status: Single Current occupational status: disabled Current gender identity: Male Vitals/I&O/Wt Last Vital Signs Temp 98.3 F 01/29/25 03:28 Pulse 63 01/29/25 03:28 Resp 16 01/29/25 03:28 BP 98/54 01/29/25 04:33 Pulse Ox 91 01/29/25 03:28 O2 Del Method Room Air 01/29/25 03:28 O2 Flow Rate 2 01/28/25 23:41 01/28/25 01/28/25 01/29/25 14:59 22:59 06:59 Intake Total 300 / 300 Output Total 600 / 600 Balance -300 / -300 Weight last 48 hrs Weight 99.836 kg Weight 98.384 kg Weight 99.79 kg Physical Exam Narrative: General The patient is awake alert oriented not confused and doing okay. HEENT normocephalic/atraumatic neck neck is supple cardiovascular heart rate is regular lungs are pretty much clear has good air movement. Abdomen is soft nontender nondistended. Obese abdomen. unremarkable extremities are intact except for the right heel with a draining abscess and cellulitis of the surrounding tissues.. Neurology has no focality Data 01/29/25 04:38 01/29/25 04:38 A&P Assessment and plan (1) Cellulitis of right foot: Admit to general medical floor Initiate IV antibiotics with vancomycin and cefepime ED attending had given the first doses of cefepime and vancomycin in the emergency room (2) Abscess of right foot excluding toes: Admitted to the surgical floor with consultation of podiatry for incision and drainage of the draining abscess Was continue to treat and optimize Patient is on vancomycin and cefepime for empiric coverage for gram-positive and gram-negative and anaerobes respectively PDMP PDMP Reviewed: Not Reviewed Attestations Medical Necessity Statement*: Patient is with decubitus ulcer with a draining abscess needs consultation of podiatry for debridement and drainage qualifies patient for inpatient care for at least 2 midnights. Coding Level of Care Code 85919 Diagnoses Cellulitis of right foot L03.115 Abscess of right foot excluding toes L02.611 Time Spent (min) 60
[2025-01-29] MEDS: morphine 4 mg/mL SDV 1 mL IVP ×3 (07:06→23:01)
[2025-01-29 07:12] LABS: Erythrocyte Sedimentation Rate 20 mm/hr (0-10)
--- NOTE | 2025-01-29 09:53 | CT_ITS ---
WS: [id number] CT pelvis TECHNIQUE: Noncontrast CT of the pelvis with coronal and sagittal reformatted images. CLINICAL INFORMATION: sacral decubitus ulcer, COMPARISON: None. DLP: 603.[address] scans at [facility] use at least one of these dose optimization techniques: automated exposure control; mA and/or kV adjustment per patient size (includes targeted exams where dose is matched to clinical indication); or iterative reconstruction. FINDINGS: New small decubitus ulcer overlying the RIGHT sacrum with associated soft tissue thickening. No evidence of drainable abscess or fluid collection. Underlying bony sacrum is normal in appearance. No evidence of osteomyelitis. Chronic decubitus ulcer RIGHT gluteus similar in appearance to the prior study. No evidence of drainable abscess or fluid collection. Associated sclerosis involving the ischial tuberosity is similar in appearance. 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 Varus angulation. Diffuse soft tissue thickening about the LEFT hip unchanged. Ileostomy RIGHT lower quadrant. Slight retrolisthesis L5 on S1. CT/CT pelvis wo [facility] [id number] IMPRESSION: 1. New small decubitus ulcer overlying the RIGHT hemisacrum with soft tissue t hickening. Normal underlying bony sacrum. No evidence of osteomyelitis. 2. No evidence of drainable abscess or fluid collection. 3. Additional findings described above are stable
--- NOTE | 2025-01-29 09:54 | CT_ITS ---
WS: [id number] Noncontrast CT RIGHT femur TECHNIQUE: Noncontrast CT RIGHT femur with coronal and sagittal reformatted images. CLINICAL INFORMATION: right thigh dti DLP: 704.[address] scans at [facility] use at least one of these dose optimization techniques: automated exposure control; mA and/or kV adjustment per patient size (includes targeted exams where dose is matched to clinical indication); or iterative reconstruction. FINDINGS: Prior postoperative changes plate and screw fixation RIGHT femur. Osteopenia. Chronic healed femoral fracture deformity with callus formation along the mid femoral shaft. No evidence of hardware loosening. Advanced arthritis RIGHT hip with hypertrophic changes. Chronic RIGHT gluteal ulcer with sclerosis in the underlying ischial tuberosity unchanged from the prior studies. No drainable abscess or fluid collection. Vascular calcification. Fatty atrophy of the RIGHT thigh and hamstring musculature. No other acute findings. CT/CT femur RT wo con* [id number] IMPRESSION: 1. Prior postoperative changes with chronic healed fracture deformity RIGHT fe mur. No evidence of hardware loosening. 2. No evidence of drainable abscess or fluid collection. 3. Chronic RIGHT gluteal ulcer with unchanged chronic sclerosis in the underly ing ischial tuberosity
--- NOTE | 2025-01-29 12:21 | PC.NURSE ---
Two OR nurses took patient to preop at 1220 on [facility].
--- NOTE | 2025-01-29 12:48 | P.ANESASSM_ITS ---
Pre-Anesthetic Assessment Height/Weight: Height 1.8 m Weight 99.836 kg Temp Pulse Resp BP Pulse Ox O2 Del Method O2 Flow Rate 98.4 F 82 18 124/74 92 Nasal Cannula 2 01/29/25 12:01/29/25 12:25 01/29/25 12:25 01/29/25 12:25 01/29/25 12:25 01/29/25 12:01/29/25 12:25 Operation Date: 01/29/25 12:30 Proposed Procedures p Incision And debridement of right heel(Right) - Darren Rios DPM Familial anesthetic complications: None Was Beta Shana taken within 24 hours: N/A Was Clonidine taken within 24 hours: N/A Last intake: Intake Last Liquid Date 01/28/25 Last Solid Date 01/28/25 Social No alcohol and No tobacco Exam alert, oriented x 3, clear to auscultation bilaterally and regular rate & rhythm Airway Mallampati: Class III Dentition: full Neuropsych Paraplegia 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 Anesthetic Plan ASA status: 4 Anesthesia: MAC Risk of > 500 ml blood loss (7ml/kg in children): No Medications/Allergies Home Medications ?Medication ?Instructions ?Recorded ?Confirmed ?Last Taken ?Type baclofen 20 mg tablet 20 mg PO BID 04/14/2101/28/25 History gabapentin 300 mg capsule 300 mg PO BID 05/08/2101/2901/28/25 History bisacodyl 10 mg rectal suppository 10 mg OK DAILY PRN Constipation 08/01/21 01/29/25 05/09/22 History ascorbic acid (vitamin C) 1,000 mg 1,000 mg PO BID 04/1601/29/25 01/28/25 History tablet (Vitamin C) [place] brace #1 ea 04/18/22 01/29/25 Unkn own Rx acetaminophen 500 mg tablet 500 mg PO Q6H PRN Pain 02/1401/29/25 Unknown History docosahexaenoic acid 200 mg 200 mg PO DAILY@07 2 01/29/25 01/28/25 History capsule ( DHA) magnesium hydroxide 400 mg/5 mL 30 ml PO DAILY PRN Con stipation 05/31/22 01/29/25 Unknown History oral suspension (Milk of Magnesia) mupirocin 2 % topical ointment 1 applic topical BID 01/29/25 Unknown History sodium phosphates 19 gram-7 118 ml OK DAILY PRN Consti pation 05/31/22 01/29/25 Unknown History gram/118 mL enema (Fleet Enema) methenamine hippurate 1 gram tablet See Rx Instruction s .Route 01/01/23 01/29/25 01/28/25 Rx .COMPLEX #180 tabs calcium 600 mg (as 1 tab PO DAILY 01/29/25 06/0 02/1701/28/25 History carbonate)-vitamin D3 5 mcg (200 unit) tablet oxycodone-acetaminophen 5 mg-325 See Rx Instructions . Route .COMPLEX 01/29/25 01/29/25 01/28/25 History mg tablet testosterone 2 pump topical DAILY 5 01/29/25 01/28/25 History zinc acetate 25 mg (zinc) capsule 25 mg PO DAILY 01/2901/29/25 01/28/25 History Allergies Allergy/AdvReac Type Severity Reaction Status Date / Time clindamycin Allergy rash Verified 11/21/22 13:04 Current Medications Generic Name Dose Route Start Last Admin Trade Name Freq PRN Reason Stop Dose Admin Cefepime HCl 1,000 mg 01/28/25 21:00 01/29/25 05:19 Cefepime 1,000 Mg Sdv IVP 1,000 mg On Hold: 01/29/25 12:26 Q8H [facility] Administration Comment: Order held by Process Protocol Transfer Docusate Sodium 100 mg 01/29/25 09:00 01/29/25 08:54 Docusate Sodium 100 Mg Capsule PO Not Given On Hold: 01/29/25 12:26 BID [facility] Comment: Order held by Process Transfer Heparin Sodium (Porcine) 5,000 unit 01/28/25 21:00 01/29/25 09:57 Heparin 5,000 Unit/Ml Inj 1 Ml SUBCUT Not Given On Hold: 01/29/25 12:26 Q12H [facility] Comment: Order held by Process Transfer Sodium Chloride 1,000 mls @ 75 mls/hr 01/28/25 21:00 01/29/25 11:35 Sodium Chloride 0.9% IV 0 mls/hr On Hold: 01/29/25 12:26 .[id number] [facility] Comment: Order held by Process Transfer Vancomycin HCl 1,500 mg in 300 mls @ 200 mls/hr 01/29/25 06:00 01/29/25 07:08 Vancocin IV Infused On Hold: 01/29/25 12:26 Q12H [facility] Comment: Order held by Process Transfer Morphine Sulfate 4 mg 01/28/25 20:48 01/29/25 07:06 Morphine 4 Mg/Ml Sdv 1 Ml IVP 4 mg On Hold: 01/29/25 12:26 Q4H [facility] Administration Comment: Order held by Process [facility] Transfer Pantoprazole Sodium 40 mg 01/28/25 21:00 01/28/25 21:58 Pantoprazole 40 Mg Sdv IVP 40 mg On Hold: 01/29/25 12:26 Q24H [facility] Administration Comment: Order held by Process Transfer Senna 17.2 mg 01/28/25 21:00 01/28/25 22:00 Sennosides 8.6 Mg Tablet PO 17.2 mg On Hold: 01/29/25 12:26 BEDTIME [facility] Administration Comment: Order held by Process Transfer Senna 17.2 mg 01/28/25 23:05 01/28/25 23:16 Sennosides 8.6 Mg Tablet PO Not Given On Hold: 01/29/25 12:26 BEDTIME [facility] Comment: Order held by Process Transfer [facility] Anesthesia Medical History Acute kidney injury Anemia Bleeding hemorrhoids Chronic bilateral low back pain without sciatica Encounter for long-term opiate analgesic use GI bleeding History of DVT (deep vein thrombosis) History of recurrent UTI (urinary tract infection) Hx of fracture of femur 2014 metal placed right femur Hx of staphylococcal infection multiple surgeries to remove STAPH in left wrist Osteomyelitis hip Osteomyelitis, pelvis Paraplegia Pressure ulcers of skin of multiple topographic sites Quadriplegia Renal lesion Renal stones Rotator cuff arthropathy of left shoulder Unstageable pressure ulcer of sacral region UTI (urinary tract infection) Wound of left lower extremity Surgical History H/O esophagogastroduodenoscopy (10/25/20) History of nasal surgery 1989 History of removal of calculus of renal pelvis through percutaneous nephrostomy History of removal of retained hardware 09/2019 Dr. Hastings at [facility] left lower ext History of urinary diversion procedure History of urostomy 10-15 years ago Hx of knee surgery Left -metal put in 2014 and removed 2016- due to infection Hx of neck surgery 1990 S/P debridement (10/07/20) right gluteal wound S/P hemorrhoidectomy Status post colonoscopy (10/25/20) Family History Grandfather Diabetes Family history of premature coronary artery disease Mother Lupus (systemic lupus erythematosus) Social History Smoking and tobacco/nicotine status: never used tobacco/nicotine Second hand smoke exposure: Yes Alcohol intake: never Substance/Drug Use: never Marital status: Single Current occupational status: disabled Current gender identity: Male Data Anesthesia 01/29/25 04:38 01/29/25 04:38 Short CBC 01/28/25 01/29/25 Range/Units 18:15 04:38 WBC 10.55 9.64 (3.29-11.43) 10^3/uL Hgb 19.30 H 17.40 H (11.27-16.99) g/dL Hct 61.1 H 56.6 H (37-53) % MCV 99.0 100.5 (82-101) fl Plt Count 209 209 (157-399) 10^3/cmm Neut % (Auto) 81.1 83.2 % Neut # (Auto) 8.56 H 8.01 H (1.8-7.7) 10^3/uL BMP 01/28/25 01/29/25 18:15 04:38 Sodium 140 143 Potassium 4.1 4.0 Chloride 98 101 Carbon Dioxide 26 36 H BUN 15 19 Creatinine 0.6 L 0.8 Glucose 145 H 97 Calcium 9.4 8.7 Liver Function 01/29/25 Range/Units 04:38 Total Bilirubin 1.2 (0.15-1.2) mg/dL AST 9 (0-40) U/L ALT 10 (0-41) U/L Alkaline Phosphatase 71 (40-130) U/L Albumin 2.8 L (3.5-5.2) g/dL Coags 06/06/25 04:38 ESR 20 H PT 16.20 H INR 1.21 H APTT 35.0 C-Reactive Protein 58.9 H
[2025-01-29] MEDS: sodium chloride 0.9% 1,000 ML 15 ML IV (12:58)
--- NOTE | 2025-01-29 13:11 | PHA.VACGOAL ---
Vancomycin Goal - Goal Vancomycin Indication:: Other - Therapy Day of therpy:: Day []of [] . Actual body weight (kg): 220 lb 1.6 oz - Data Labs: WBC 9.64 10^3/uL (3.29-11.43) 01/29/25 04:38 RBC 5.63 10^6/uL (3.85-5.65) 01/29/25 04:38 Hgb 17.40 g/dL (11.27-16.99) H 01/29/25 04:38 Hct 56.6 % (37-53) H 01/29/25 04:38 MCV 100.5 fl (82-101) 01/29/25 04:38 MCH 30.9 pg (27-33) 01/29/25 04:38 MCHC 30.7 g/dL (30-55) 01/29/25 04:38 RDW 13.6 % (12.1-15.1) 01/29/25 04:38 Sodium 143 mmol/L (136-145) 01/29/25 04:38 Potassium 4.0 mmol/L (3.5-5.1) 01/29/25 04:38 Chloride 101 mmol/L (98-107) 01/29/25 04:38 Carbon Dioxide 36 mmol/L (22-29) H 01/29/25 04:38 Anion Gap 10.0 (5-19) 01/29/25 04:38 BUN 19 mg/dL (6-20) 01/29/25 04:38 Creatinine 0.8 mg/dL (0.7-1.2) 01/29/25 04:38 GFR Calculation 98.9 mL/min (90-130) 01/29/25 04:38 Treatment plan:: continue Regimen:: CONTINUE
--- NOTE | 2025-01-29 13:12 | W.PM.OPSUD ---
Surgery/Procedure H&P Update DATE OF PROCEDURE: January 29, 2025 DATE H&P PERFORMED: 01/28/25 H&P UPDATE INFORMATION: I have reviewed H&P completed within last 30 days, I have examined patient prior to procedure, No changes to prior documentation and Risks and benefits of the procedure reviewed PLANNED PROCEDURE: Operation Date: 01/29/25 12:30 Proposed Procedures p Incision And debridement of right heel(Right) - Darren Rios DPM
--- NOTE | 2025-01-29 13:19 | P.PN_ITS ---
Subjective 2 Subjective: Patient was seen this morning, currently alert oriented x 3, following all commands, he tells me that he is paraplegic, he has a urostomy in place, he typically uses a motorized wheelchair, denies any fevers, no chills, no cough Vitals/I&O/Wt Last Vital Signs Temp 98.4 F 01/29/25 12:25 Pulse 82 01/29/25 12:25 Resp 18 01/29/25 12:25 BP 124/74 01/29/25 12:25 Pulse Ox 92 01/29/25 12:25 O2 Del Method Nasal Cannula 01/29/25 12:25 O2 Flow Rate 2 01/29/25 12:25 01/28/25 01/29/25 01/29/25 22:59 06:59 14:59 Intake Total 300 / 300 1235 / 1235 Output Total 600 / 600 250 / 250 Balance -300 / -300 985 / 985 Weight last 48 hrs Weight 99.836 kg Weight 98.384 kg Weight 99.79 kg Physical Exam 2 Const: COMMON NORMALS: no acute distress and patient oriented x3 Resp: COMMON NORMALS: normal respiratory effort, No retractions, No use of accessory muscles and clear to auscultation bilaterally AUSCULTATION: clear to auscultation bilaterally Cardio: COMMON NORMALS: regular rate, regular rhythm, S1 normal heart sound present and S2 normal heart sound present RATE: regular rate RHYTHM: r egular rhythm HEART SOUNDS: S1 normal heart sound present and S2 normal heart sound present GI: COMMON NORMALS: Normal to inspection, nondistended, normoactive bowel sounds present and non-tender OTHER: Urostomy in place : COMMON NORMALS: Yes no CVA tenderness BLADDER/KIDNEY EXAM: Yes no CVA tenderness Back/Pelvis: COMMON NORMALS: no CVA tenderness Extremity: COMMON NORMALS: no pedal edema Neuro: COMMON NORMALS: patient oriented x3, CN's II-XII intact bilaterally and moves all extremities Psych: COMMON NORMALS: mental status grossly normal Skin: NARRATIVE SKIN EXAM: - Sacral decubitus ulcer, measuring 2 x 2 cm, irregular borders, location is just above the gluteal cleft -Deep tissue injury, right thigh, director of product design ior, 1 x 1 cm, elongated, irregular borders - Right heel, wrapped Data 01/29/25 04:38 01/29/25 04:38 A&P Assessment and plan (1) Cellulitis of right foot: (2) Abscess of right foot excluding toes: (3) Deep tissue injury: Plan History of quadriplegia history of urostomy Cellulitis of the right foot, with foul-smelling, necrotic right heel ulcer Plan - N.p.o. - Ortho PDX has been consulted, plan on debridement in the operating room - Continue vancomycin - Continue cefepime Deep tissue injury - Over the sacrum - Over right thigh - CT pelvis - Continue vancomycin - Continue cefepime Full code ? Heparin for DVT prophylaxis PDMP PDMP Reviewed: Not Reviewed Attestations 2 Medical Necessity Statement*: Patient requires hospitalization for cellulitis right foot, deep tissue injury Diagnoses Cellulitis of right foot L03.115 Abscess of right foot excluding toes L02.611 Deep tissue injury T14.8XXA
--- NOTE | 2025-01-29 13:29 | PC.SOCIAL ---
IMM updated IMM dated and initialed, copy given to patient and placed in chart
[2025-01-29] MEDS: lidocaine 1% 10 ML INJ 30 ML XX (14:00)
--- NOTE | 2025-01-29 14:25 | P.OP_ITS ---
Operative Report Date of procedure: January 29, 2025 Pre-op diagnosis: Quadriplegia G82.50 Cellulitis of right foot L03.115 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 L97.413 Post-op diagnosis: Quadriplegia G82.50 Cellulitis of right foot L03.115 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 L97.413 Post-op findings: Devitalized tissue down to tendon muscle and fascia right posterior heel, did not extend to bone. Procedure done: Incision and debridement right heel down to and including muscle, tendon and fascia. CPT code 80544 Implants: No implants Specimens removed/disposition: Devitalized deep soft tissue right posterior heel sent to microbiology for Gram stain culture and sensitivity Pathology: None Surgeon: Darren Rios DPM Material Requirements Worker: Sherita Estimated blood loss: 15 mL See intraoperative documentation IV fluids: None Urine output: None Complications: None Brief History: 59-year-old with history of quadriplegia presenting with a foul smelling necrotic heel ulcer. Examination revealed right heel cellulitis and necrotic chronic ulceration without bony destruction, confirmed via X-ray. The condition necessitates surgical debridement due to the risk of infection progression and underlying systemic involvement. Treatment focuses on controlled infection management and wound healing. 1. Cellulitis Of The Right Foot Plan: The patient will continue with empiric IV antibiotics, vancomycin and Maxipime, due to significant foot cellulitis with concerns about spread. Surgical debridement is scheduled to address necrotic tissue in the right heel, intended to control infection effectively and promote wound healing. 2. Necrotic Chronic Heel Ulcer Plan: Surgical intervention is planned to debride the necrotic heel ulcer. Post- surgery, we will manage with appropriate wound care protocols and continue monitoring for healing and any signs of systemic implications. Adherence to the outlined antibiotics regime will be assessed based on post-procedure evaluations. I reviewed at length with the patient, the risks, potential complications, benefits, alternatives, expectations, and typical outcomes associated with the surgery. The risks and potential complications were explained in detail, including but not limited to infection, wound dehiscence or soft tissue complications, bleeding and hematoma, chronic edema, neuritis or nerve damage producing numbness or chronic pain, CRPS, failure to relieve pain or worsening pain, thick / painful / unsightly scar, limited motion / stiffness, malposition, delayed union, malunion, or nonunion, fracture, reaction to implants, anesthetic complications, venous thromboembolism, and deformity recurrence. I discussed the notion of no regrets with the patient as it pertains to complications and outcomes. The patient seemed to understand the nature of the proposed care and required convalescence. They asked appropriate questions, answered to their satisfaction. They are aware no guarantees can be made as to a satisfactory outcome and they understand there may be other possible unforeseen complications or outcomes not listed here that will be treated accordingly if they arise. There were no written or implied guarantees given to the patient. They gave informed consent to proceed. Procedure: Under mild sedation patient was brought to the operating room and remained on the gurney in supine position. A timeout was performed. Anesthesia was then administered by the anesthesia service. Local anesthesia injected by myself consisting of 30 cc of 1% lidocaine plain in a V-block fashion to the right posterior heel. Well-padded pneumatic tourniquet applied to the right ankle. Right lower extremity was scrubbed, prepped and draped utilizing normal aseptic technique. Right foot was then elevated and tourniquet inflated to 250 mmHg. Attention was directed to a devitalized wound at the right posterior heel with surrounding cellulitis, utilizing sharp debridement excisionally in nature with pickups and a #10 blade devitalized tissue consisting of epidermis, dermis, subcutaneous tissue, muscle tendon and fascia were debrided sharply and passed from the operative field, deep tissue culture sent to microbiology for Gram stain culture and sensitivity. With able to visualize a portion of the Achilles tendon, the wound did not extend down to bone. The wound was irrigated with copious amounts of Irrisept and saline solution. Predebridement wound measurements 3.3 cm x 3.9 cm x 0.3 cm. Postdebridement Sharp excisional debridement measurements 3.7 cm x 4.2 cm x 0.4 cm. Wound did not demonstrate undermining, tunneling or tracking. Portion of the Achilles tendon involved had no tracking up the tendon. Improved postdebridement appearance. Dressed with saline wet-to-dry dressing followed by Kerlix and cotton roll suspending/floating the heel for offloading and Ronn wrap. Tourniquet was deflated and a prompt hyperemic response is noted to the distal digits of the right foot. Patient tolerated the procedure and anesthesia well and was transferred to the PACU with vital signs stable and vascular status intact. Following a period of postoperative monitoring he will be transferred back to the floor to continue IV antibiotics. Surgical cultures pending. Will assess his clinical response to antibiotic therapy and surgical debridement over the next 2 to 3 days.
--- NOTE | 2025-01-29 14:25 | W.PM.BPON ---
Date of Procedure: 11/08/23 Surgeon: Darren Rios DPM [employer] Medic(s): Sherita Procedure(s) performed: Incision and debridement right heel down to myofascial layer. Findings of the procedure(s): Devitalized tissue down to tendon and deep fascia Estimated blood loss: 5 mL Specimen(s) removed: Devitalized tissue sent to microbiology for Gram stain culture and sensitivity Post-operative diagnosis: Right heel ulcer with surrounding cellulitis
--- NOTE | 2025-01-29 15:25 | ANE.PACU2 ---
Inpatient post-anesthesia follow up: Airway intact: Yes Vital signs: Temperature 98.4 F Pulse Rate 71 Respiratory Rate 16 Blood Pressure 151/89 Pulse Oximetry 94 Oxygen Delivery Me thod Nasal Cannula Oxygen Flow Rate 5 Fraction of Inspir ed Oxygen 40 Hydration adequate: Yes Nausea and vomiting: No Pain level: 1 Mental status: Baseline
--- NOTE | 2025-01-29 16:18 | PC.NURSE ---
Per OR request pt was put on Bipap upon arrival to PACU. Respiratory removed Bipap and put pt on O2 per nasal canula at 5 liters, pt remained stable with nasal canula, see vitals documentation. Phone report given to anders, pt's floor nurse, informed her pt stated he takes Baclofen at home for muscle spasms and has not had any since arriving last night. Anders stated she would contact hospitalist Dr. Perez regarding pt's request for nightly home medication Baclofen. Anders and charge nurse Talia came to pt room to assist with transfer from [facility] to bed. Pt stated he was more comfortable and breathes easier in his floor bed. Vitals taken by [facility] TECHNICIAN on floor: 02 94% on 5 liters per NC, pulse 71, BP 151/89, temp 98.4.
[2025-01-29] MEDS: sodium chloride 0.9% 1,000 ML 75 ML IV (18:06)
[2025-01-29] MEDS: baclofen 10 mg Tablet 20 MG PO (20:00)
[2025-01-29] MEDS: pantoprazole 40 mg SDV IVP (20:45)
[2025-01-29] MEDS: gabapentin 300 mg Capsule PO (20:45)
[2025-01-29] MEDS: heparin 5,000 unit/mL INJ 1 mL 5000 UNIT SUBCUT (20:45)
[2025-01-29] MEDS: sennosides 8.6 mg Tablet 17.2 MG PO (20:45)
[2025-01-30] VITALS (7 sets, daily range): BP systolic 92–154; BP diastolic 55–96; PULSE 70–94; RESP 14–17; TEMP 36.6–37.4; O2SAT 90–97
[2025-01-30] MEDS: cefepime 1,000 mg SDV 1000 MG IVP ×3 (05:10→21:25)
[2025-01-30 05:50] LABS: Basophils # 0.1 10^3/uL (0.0-0.1); Basophils % 0.6 %; Eosinophils # 0.1 10^3/uL (0.0-0.8); Eosinophils % 1.7 %; Hematocrit 53.9 % (37-53); Lymphocytes # 0.8 10^3/uL (0.8-4.8); Lymphocytes % 10.3 %; Mean Corpuscular HGB Conc 29.9 g/dL (30-55); Mean Corpuscular Hemoglobin 31.1 pg (27-33); Mean Corpuscular Volume 104.1 fl (82-101); Mean Platelet Volume 10.3 fL (7.4-10.4); Monocytes # 0.7 10^3/uL (0.2-0.9); Monocytes % 8.5 %; Neutrophils % 78.2 %; Nucleated Red Blood Cells % 0 %; Platelet Count 162 10^3/cmm (157-399); Red Blood Count 5.18 10^6/uL (3.85-5.65); Red Cell Distribution Width 13.5 % (12.1-15.1); White Blood Count 8.19 10^3/uL (3.29-11.43)
[2025-01-30] MEDS: vancomycin 1,500 MG/300 ML PIGGYBACK 200 MG IV (06:02)
[2025-01-30 06:22] LABS: Blood Urea Nitrogen 17 mg/dL (6-20); Calcium 8.1 mg/dL (8.5-10.5); Carbon Dioxide 32 mmol/L (22-29); Chloride 105 mmol/L (98-107); Glomerular Filtration Rate 115.4 mL/min (90-130); Glucose 125 mg/dL (65-115); Osmolality Calculated 297 mOsm/kg (285-295); Sodium 142 mmol/L (136-145)
[2025-01-30 06:27] LABS: Magnesium 1.9 mg/dL (1.7-2.3); Phosphorus 3.2 mg/dL (2.5-4.5)
[2025-01-30 06:40] LABS: Anion Gap 9.8 (5-19); Potassium 4.8 mmol/L (3.5-5.1)
--- NOTE | 2025-01-30 08:10 | P.PN_ITS ---
Subjective 2 Subjective: Patient seen bedside this a.m., tolerating regular diet, denies any acute events overnight. Surgical dressing is clean dry and intact of the right lower extremity without strikethrough. Vitals/I&O/Wt Last Vital Signs Temp 98.0 F 01/30/25 08:00 Pulse 90 01/30/25 08:00 Resp 17 01/30/25 08:00 BP 117/76 01/30/25 08:00 Pulse Ox 93 01/30/25 08:00 O2 Del Method Nasal Cannula 01/30/25 08:00 O2 Flow Rate 4 01/30/25 08:00 FiO2 40 01/29/25 14:33 01/29/25 01/30/25 01/30/25 22:59 06:59 14:59 Intake Total 648 / 1883 480 / 2363 Output Total 950 / 1202 Balance 648 / 1631 -470 / 1161 Weight last 48 hrs Weight 230 lb 2 oz Weight 220 lb 1.6 oz Weight 216 lb 14.4 oz Weight 220 lb Physical Exam 2 Const: COMMON NORMALS: no acute distress, patient oriented x3 and alert HENMT: COMMON NORMALS: normocephalic HEAD & SCALP: normocephalic Eye: COMMON NORMALS: Equal, round and reactive pupils present PUPIL: Yes Equal, round and reactive pupils present Resp: COMMON NORMALS: normal respiratory effort, No retractions and No use of accessory muscles Cardio: COMMON NORMALS: regular rate RATE: regular rate Extremity: COMMON NORMALS: no calf tenderness NARRATIVE EXTREMITY EXAM: No range of motion or muscle strength tested secondary to quadriplegia. No pain to palpation secondary to quadriplegia. Unable to extend knee joint bilaterally due to quadriplegia right more severe than left. Plantarflexion at ankles bilaterally. GENERAL: Yes deformity Neuro: COMMON NORMALS: patient oriented x3 SENSORIUM/ORIENTATION: Yes alert SENSORY EXAM: Yes extremities MONOFILAMENT EXAM PERFORMED: Yes Psych: COMMON NORMALS: cooperative Skin: NARRATIVE SKIN EXAM: Surgical dressing right lower extremity is clean dry and intact without strikethrough, no proximal congenic streaking proximal to the dressing. WOUNDS: Yes wounds noted NAILS: discolored, dystrophic and yellow and thickened Data 01/30/25 04:58 01/30/25 04:58 Micro: Microbiology 01/29/25 14:00 Gram Stain - Final Foot - #1 A&P Assessment and plan (1) Quadriplegia: (2) Cellulitis of right foot: (3) 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: Plan 59-year-old with history of quadriplegia presenting with a foul smelling necrotic heel ulcer. Examination revealed right heel cellulitis and necrotic chronic ulceration without bony destruction, confirmed via X-ray. The condition necessitates surgical debridement due to the risk of infection progression and underlying systemic involvement. Treatment focuses on controlled infection management and wound healing. 1 day status post I&D right heel date of operation 01/29/2025. Deep tissues taken intraoperatively preliminary results showing gram-positive cocci. Requires continued IV antibiotics for cellulitis of the right lower extremity, will monitor his response to antibiotic therapy and surgical debridement to the right lower extremity. Not anticipating PICC line, wound did not extend to bone intraoperatively, x-ray was negative for osteomyelitis, ESR 01/29/2025 20 mm/h. Would anticipate a course of oral antibiotics with outpatient follow-up once he demonstrates clinical improvement. PDMP PDMP Reviewed: Not Reviewed Attestations 2 Medical Necessity Statement*: Requires continued IV antibiotics for cellulitis right lower extremity Coding Level of Care Code Acute Code for g Fwd Diagnoses Quadriplegia G82.50 Cellulitis of right foot L03.115 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 L97.413
[2025-01-30] MEDS: heparin 5,000 unit/mL INJ 1 mL 5000 UNIT SUBCUT ×2 (08:44→21:26)
[2025-01-30] MEDS: gabapentin 300 mg Capsule PO ×2 (08:44→17:31)
[2025-01-30] MEDS: baclofen 10 mg Tablet 20 MG PO ×2 (08:44→17:31)
[2025-01-30] MEDS: sodium chloride 0.9% 1,000 ML 75 ML IV ×2 (08:50→21:27)
--- NOTE | 2025-01-30 13:09 | P.PN_ITS ---
Subjective 2 Subjective: Patient was seen this morning, currently alert oriented x 3, following all commands, no fevers, no chills, no cough, Vitals/I&O/Wt Last Vital Signs Temp 98.6 F 01/30/25 11:50 Pulse 94 01/30/25 11:50 Resp 17 01/30/25 11:50 BP 154/96 01/30/25 11:50 Pulse Ox 97 01/30/25 11:50 O2 Del Method Nasal Cannula 01/30/25 11:50 O2 Flow Rate 4 01/30/25 11:50 FiO2 40 01/29/25 14:33 01/29/25 01/30/25 01/30/25 22:59 06:59 14:59 Intake Total 648 / 1883 480 / 2363 1660 / 1660 Output Total 950 / 1202 Balance 648 / 1631 -470 / 1161 1660 / 1660 Weight last 48 hrs Weight 104.383 kg Weight 99.836 kg Weight 98.384 kg Weight 99.79 kg Physical Exam 2 Const: COMMON NORMALS: no acute distress and patient oriented x3 Resp: COMMON NORMALS: normal respiratory effort, No retractions, No use of accessory muscles and clear to auscultation bilaterally AUSCULTATION: clear to auscultation bilaterally Cardio: COMMON NORMALS: regular rate, regular rhythm, S1 normal heart sound present and S2 normal heart sound present RATE: regular rate RHYTHM: r egular rhythm HEART SOUNDS: S1 normal heart sound present and S2 normal heart sound present GI: COMMON NORMALS: Normal to inspection, nondistended, normoactive bowel sounds present and non-tender Extremity: COMMON NORMALS: no pedal edema Neuro: COMMON NORMALS: patient oriented x3 Psych: COMMON NORMALS: mental status grossly normal Data 01/30/25 04:58 01/30/25 04:58 Micro: Microbiology 01/29/25 14:00 Gram Stain - Final Foot - #1 A&P Assessment and plan (1) Cellulitis of right foot: (2) Abscess of right foot excluding toes: (3) Deep tissue injury: Plan History of quadriplegia history of urostomy Cellulitis of the right foot, with foul-smelling, necrotic right heel ulcer Plan - Status post surgical intervention Incision and debridement right heel down to and including muscle, tendon and fascia, postop day 0 - Continue vancomycin - Continue cefepime Deep tissue injury - Over the sacrum - Over right thigh - CT pelvis CT/CT pelvis wo con [id number] IMPRESSION: 1. New small decubitus ulcer overlying the RIGHT hemisacrum with soft tissue thickening. Normal underlying bony sacrum. No evidence of osteomyelitis. 2. No evidence of drainable abscess or fluid collection. 3. Additional findings described above are stable CT femur CT/CT femur RT wo con* [id number] IMPRESSION: 1. Prior postoperative changes with chronic healed fracture deformity RIGHT femur. No evidence of hardware loosening. 2. No evidence of drainable abscess or fluid collection. 3. Chronic RIGHT gluteal ulcer with unchanged chronic sclerosis in the underlying ischial tuberosity - Continue vancomycin - Continue cefepime - Wound care Full code ? Heparin for DVT prophylaxis Plan for today, IV antibiotics, continue repositioning PDMP PDMP Reviewed: Not Reviewed Attestations 2 Medical Necessity Statement*: Patient requires hospitalization for cellulitis, right foot, DTI sacrum/thigh Diagnoses Cellulitis of right foot L03.115 Abscess of right foot excluding toes L02.611 Deep tissue injury T14.8XXA
[2025-01-30 17:45] LABS: Vancomycin Trough 27.2 ug/mL (10-15)
[2025-01-30] MEDS: pantoprazole 40 mg SDV IVP (21:26)
[2025-01-30] MEDS: sennosides 8.6 mg Tablet 17.2 MG PO (21:27)
[2025-01-30 23:39] LABS: Glucose Point of Care 103 mg/dL (70-110)
[2025-01-31] VITALS (87 sets, daily range): BP systolic 105–228; BP diastolic 71–156; PULSE 58–130; RESP 11–39; TEMP 36.7–37.4; O2SAT 89–98
--- NOTE | 2025-01-31 01:25 | PC.NURSE ---
pt BP 205/140, call placed to Dr. Beauchamp, instructed to recheck BP and call her back. bp rechecked manually 172/104, result given to Dr. Beauchamp, she asked if pt is responding when BP is being taken, and she is informed that patient opens eyes, says a profanity and closes eyes again. order to give hydralazine 25 mg po one time and recheck BP 30 minutes after hydralazine.
[2025-01-31] MEDS: hyDRALAzine 25 mg Tablet PO (01:34)
--- NOTE | 2025-01-31 02:13 | PC.NURSE ---
bp after hydralazine 112/74, Dr. Beauchamp notified
[2025-01-31] MEDS: cefepime 1,000 mg SDV 1000 MG IVP ×3 (05:01→20:33)
[2025-01-31] MEDS: vancomycin 1,500 MG/300 ML PIGGYBACK 200 MG IV (05:05)
[2025-01-31 05:53] LABS: Basophils # 0.1 10^3/uL (0.0-0.1); Basophils % 0.6 %; Eosinophils % 0.5 %; Hematocrit 57.9 % (37-53); Lymphocytes # 0.6 10^3/uL (0.8-4.8); Lymphocytes % 8.1 %; Mean Corpuscular HGB Conc 30.1 g/dL (30-55); Mean Corpuscular Hemoglobin 30.5 pg (27-33); Mean Corpuscular Volume 101.6 fl (82-101); Monocytes # 0.5 10^3/uL (0.2-0.9); Monocytes % 6.8 %; Neutrophils # 6.54 10^3/uL (1.8-7.7); Neutrophils % 82.4 %; Nucleated Red Blood Cells % 0 %; Platelet Count 195 10^3/cmm (157-399); Red Cell Distribution Width 13.2 % (12.1-15.1); White Blood Count 7.94 10^3/uL (3.29-11.43)
[2025-01-31 06:18] LABS: Anion Gap 11.9 (5-19); Blood Urea Nitrogen 13 mg/dL (6-20); Calcium 8.2 mg/dL (8.5-10.5); Carbon Dioxide 33 mmol/L (22-29); Chloride 106 mmol/L (98-107); Creatinine Clr Calc Pharmacy 162.9998; Glomerular Filtration Rate 137.9 mL/min (90-130); Glucose 93 mg/dL (65-115); Osmolality Calculated 304 mOsm/kg (285-295); Phosphorus 1.4 mg/dL (2.5-4.5); Potassium 3.9 mmol/L (3.5-5.1); Sodium 147 mmol/L (136-145)
--- NOTE | 2025-01-31 08:14 | P.PN_ITS ---
Subjective 2 Subjective: Patient seen bedside this a.m., was sleeping with CPAP, resting comfortably. 2 days status post debridement right heel wound down to myofascial layer date of operation 01/29/2025. Vitals/I&O/Wt Last Vital Signs Temp 98.6 F 01/31/25 04:57 Pulse 86 01/31/25 04:57 Resp 15 01/31/25 04:57 BP 148/88 01/31/25 04:57 Pulse Ox 94 01/31/25 04:57 O2 Del Method Nasal Cannula 01/30/25 15:43 O2 Flow Rate 4 01/31/25 08:00 FiO2 40 01/29/25 14:33 01/30/25 01/31/25 01/31/25 22:59 06:59 14:59 Intake Total 1046.25 / 2726.25 540 / 3266.25 Output Total 800 / 800 800 / 1600 Balance 246.25 / 1926.25 -260 / 1666.25 Weight last 48 hrs Weight 231 lb Weight 230 lb 2 oz Physical Exam 2 Const: COMMON NORMALS: no acute distress, patient oriented x3 and alert HENMT: COMMON NORMALS: normocephalic HEAD & SCALP: normocephalic Eye: COMMON NORMALS: Equal, round and reactive pupils present PUPIL: Yes Equal, round and reactive pupils present Resp: COMMON NORMALS: normal respiratory effort, No retractions and No use of accessory muscles Cardio: COMMON NORMALS: regular rate RATE: regular rate Extremity: COMMON NORMALS: no calf tenderness NARRATIVE EXTREMITY EXAM: No range of motion or muscle strength tested secondary to quadriplegia. No pain to palpation secondary to quadriplegia. Unable to extend knee joint bilaterally due to quadriplegia right more severe than left. Plantarflexion at ankles bilaterally. GENERAL: Yes deformity Neuro: COMMON NORMALS: patient oriented x3 SENSORIUM/ORIENTATION: Yes alert SENSORY EXAM: Yes extremities MONOFILAMENT EXAM PERFORMED: Yes Psych: COMMON NORMALS: cooperative Skin: NARRATIVE SKIN EXAM: Surgical dressing right lower extremity is clean dry and intact without strikethrough, no proximal congenic streaking proximal to the dressing. Upon removal of surgical dressing improved cellulitis with reduced erythema at the right lower extremity, right heel wound appears viable with healthy bleeding base, no devitalized tissue appreciated. No purulent drainage right heel. Hemostasis via manual pressure, right heel. WOUNDS: Yes wounds noted NAILS: discolored, dystrophic and yellow and thickened Data 01/31/25 04:32 01/31/25 04:32 A&P Assessment and plan (1) Quadriplegia: (2) Cellulitis of right foot: (3) 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: Plan 59-year-old with history of quadriplegia presenting with a foul smelling necrotic heel ulcer. Examination revealed right heel cellulitis and necrotic chronic ulceration without bony destruction, confirmed via X-ray. -2 days status post I&D right heel date of operation 01/29/2025. Deep tissues taken intraoperatively preliminary results showing gram-positive cocci. -Not anticipating PICC line, wound did not extend to bone intraoperatively, x- ray was negative for osteomyelitis, ESR 01/29/2025 20 mm/h. -Wound culture cultures taken intraoperatively 01/29/2025 are pending. Gram stain demonstrates moderate gram-positive cocci in pairs. Right heel wound demonstrates healthy viable base postdebridement, improved cellulitis to the right lower extremity. No further surgical intervention anticipated during his hospitalization. Recommend 14-day course of oral antibiotics at discharge and referral to wound care clinic for right heel wound and gluteal wound. PDMP PDMP Reviewed: Not Reviewed Attestations 2 Medical Necessity Statement*: Requires continued IV antibiotics for cellulitis right lower extremity Coding Level of Care Code Acute Code for Chg Fwd Diagnoses Quadriplegia G82.50 Cellulitis of right foot L03.115 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 L97.413
[2025-01-31 08:58] LABS: ABG PH Result 7.36 (7.35-7.45); Alveolar-Arterial Oxygen Gradi 22.6 mmHg (5-10); Arterial Blood Gas Hematocrit 54.5 % (42-52); Base Excess ABG 6.9 mmol/L (-2.0-2.0); Blood Gas Allen Test Pos; Blood Gas Operator Identificat GD; Blood Gas Sample Site Radial, left; Blood Gas Sample Type Arterial; Carboxyhemoglobin 1.9 %THgb (0.4-20.1); HCO3 ABG 35.3 mmol/L (22-26); HGB O2 Sat 91.6 % (95-100); Ionized Calcium Level - ABG 1.2 mmol/L (1.1-1.4); Methemoglobin 0.9 % (0.4-1.5); Oxygen Device NC; Oxygen Saturation ABG 94.3; PO2 FiO2 Ratio Arterial Blood 143; Potassium Level - ABG 3.7 mmol/L (3.5-5.0); Total Hemoglobin 17.8 g/dL (14-18)
--- NOTE | 2025-01-31 09:15 | XRR_ITS ---
PROCEDURE INFORMATION: Exam: XR Chest Exam date and time: 01/31/2025 11:24 AM Age: 59 years old Clinical indication: Shortness of breath. TECHNIQUE: Imaging protocol: Radiologic exam of the chest. Views: 1 view. COMPARISON: CR XR chest 1V portable [id number] 10/10/2020 2:39 PM FINDINGS: Lungs: There is pulmonary vascular congestion. Mild diffuse interstitial prominence which may reflect pulmonary edema; most prominent at the right base. Nodular density in the lateral left base measuring 8.3 mm. Pleural spaces: No pleural effusion. No pneumothorax. Heart/Mediastinum: The heart is enlarged. No gross evidence of pneumomediastinum. Bones/joints: Cervical hardware is noted. No gross fracture. XR/XR chest 1V portable [id number] IMPRESSION: 1. Cardiomegaly with pulmonary vascular congestion. 2. Mild diffuse interstitial prominence which may reflect pulmonary edema; most prominent at the right base. 3. Nodular density at the lateral left base measuring 8.[address] chest.
[2025-01-31 10:46] LABS: ABG PCO2 62.6 mmHg (35-45)
[2025-01-31] MEDS: FUROsemide 10 mg/mL SDV 4mL 40 MG IVP ×2 (11:05→20:33)
[2025-01-31] MEDS: heparin 5,000 unit/mL INJ 1 mL 5000 UNIT SUBCUT ×2 (11:05→20:33)
[2025-01-31 11:36] LABS: NT Pro B Type Natriuretic Pept 1061 pg/mL (0-125)
--- NOTE | 2025-01-31 14:20 | ECG_ITS ---
[facility] Test Date: 2025-01-31 Pat Name: Mihir Keller Department: Room: 255 Gender: Male [employer] Test Engineer: : 1965 Requested By: Memo Perez Order Number: [id number] Pennie MD: Abelardo Chang M.D. Measurements Intervals [place] Rate: 79 P: 38 SC: 136 QRS: 80 QRSD: 90 T: 85 QT: 391 QTc: 448 Interpretive Statements SINUS RHYTHM Compared to ECG 05/07/2021 18:14:08 No significant changes Electronically Signed On 02-01-2025 08:58:34 CDT by Abelardo Chang M.D. [email or web address]
--- NOTE | 2025-01-31 14:21 | USR_ITS ---
PROCEDURE INFORMATION: Exam: US Duplex Lower Extremity Veins, Bilateral Exam date and time: 01/31/2025 4:30 PM Age: 59 years old Clinical indication: Condition or disease; Other: Resp failure; Prior surgery; Surgery date: Post-operative (0-2 days); Surgery type: Debridement right lower extremity TECHNIQUE: Imaging protocol: Real-time duplex ultrasound of the bilateral extremities with 2-D ventura scale, color Doppler flow and spectral waveform analysis including responses to compression and other maneuvers (when performed) with image documentation. Complete exam focused on the lower extremity veins. COMPARISON: US ROR venous duplex LE RT 08/04/2019 3:59 PM FINDINGS: Right deep veins: Unremarkable. The common femoral, femoral, proximal profunda femoral, popliteal, posterior tibial and peroneal veins are patent without thrombus. Normal Doppler waveforms. Normal compressibility and/or augmentation response. Left deep veins: Unremarkable. The common femoral, femoral, proximal profunda femoral, popliteal, posterior tibial and peroneal veins are patent without thrombus. Normal Doppler waveforms. Normal compressibility and/or augmentation response. Superficial veins: Greater saphenous veins at the saphenofemoral junctions are patent bilaterally without thrombus. Soft tissues: Unremarkable. US/[place] [id number] IMPRESSION: No sonographic evidence of deep venous thrombosis.
--- NOTE | 2025-01-31 14:21 | CTR_ITS ---
PROCEDURE INFORMATION: Exam: CT Head Without Contrast Exam date and time: 01/31/2025 5:50 PM Age: 59 years old Clinical indication: Altered mental status/memory loss; Lethargy; Additional info: AMS TECHNIQUE: Imaging protocol: Computed tomography of the head without contrast. Axial, coronal and sagittal reformatted images were created and reviewed. Radiation optimization: All CT scans at this facility use at least one of these dose optimization techniques: automated exposure control; mA and/or kV adjustment per patient size (includes targeted exams where dose is matched to clinical indication); or iterative reconstruction. COMPARISON: CT head wo con* [id number] 10/06/2020 7:31 AM RADIATION DOSE METRICS: Total DLP (mGy-cm): 706.28 FINDINGS: Brain: No CT evidence of acute intracranial hemorrhage or acute territorial infarction. No significant mass effect or midline shift. Basal cisterns patent. Cerebral ventricles: Normal in size and configuration. Paranasal sinuses: Mild polypoid left sphenoid sinus mucosal thickening. No air-fluid levels. Mastoid air cells: Grossly unremarkable. Bones: Unremarkable. No acute fracture. Soft tissues: Grossly unremarkable. CT/CT head wo con* [id number]: 1[address] No CT evidence of acute intracranial pathology. 2. Additional findings, as above.
--- NOTE | 2025-01-31 14:22 | CTR_ITS ---
PROCEDURE INFORMATION: Exam: CTA Chest With Contrast Exam date and time: 01/31/2025 5:54 PM Age: 59 years old Clinical indication: Shortness of breath; SOB with hypoxia. TECHNIQUE: Imaging protocol: Computed tomographic angiography of the chest with contrast. Exam focused on the arteries. 3D rendering (Not supervised by radiologist): MIP and/or 3D reconstructed images were created by the technologist. Radiation optimization: All CT scans at this facility use at least one of these dose optimization techniques: automated exposure control; mA and/or kV adjustment per patient size (includes targeted exams where dose is matched to clinical indication); or iterative reconstruction. Contrast material: OMNI 350; Contrast volume: 92 ml; Contrast route: INTRAVENOUS (IV); COMPARISON: 1. CT angio chest w abd pel w con 01/10/2019 11:58 PM 2. CR (CHEST, ) 01/31/2025 11:24 AM RADIATION DOSE METRICS: Total DLP (mGy-cm): 538.48 FINDINGS: Pulmonary arteries: No evidence of central or lobar pulmonary emboli. Suboptimal contrast bolus timing, motion and streak degradation artifact from arms down by side positioning decreases sensitivity for smaller segmental and subsegmental emboli. Hypodensity at right middle lobe segmental artery on axial image 271 of series 6 (no corresponding finding on orthogonal images) may represent artifact, true filling defect not excluded. Aorta: Unremarkable. No aortic aneurysm. No aortic dissection. Lungs: Mild patchy right lung ground-glass opacification. Mild aubro-ofwhwak-esdk-left lower lobe compression atelectasis. Pleural spaces: Small to moderate right and small left pleural effusions. No pneumothorax. Heart: Cardiomegaly. No pericardial effusion. Lymph nodes: Mildly prominent mediastinal and hilar lymph nodes may be reactive. Calcified mediastinal and right hilar nodes in keeping with sequela of old granulomatous disease. Bones/joints: No acute fracture. Spondylosis. Lower cervical spine ACDF. Soft tissues: Unremarkable. CT/CT angio chest PE protcl [id number] IMPRESSION: 1. No definite evidence of central or lobar pulmonary emboli, cannot exclude smaller segmental or subsegmental emboli. 2. Mild patchy right lung ground-glass opacification may be edema, infectious or inflammatory. 3. Sqqhk-klgttww-ymye-left pleural effusions with adjacent atelectasis.
--- NOTE | 2025-01-31 14:25 | P.PN_ITS ---
Subjective 2 Subjective: - Patient was seen this morning patient developed acute hypoxic respiratory failure, ABG showing hypercarbia placed on BiPAP - Patient was examined he is alert to pe rson, to place, not to time, does report shortness of breath is more comfortable on BiPAP, does have mild intercostal suprasternal retractions, nasal flaring, tachypnea, tachycardia - Looks more comfortable on BiPAP with 4 0% FiO2 - Appear edematous order placed for Lasi x given 40 mg IV push Lasix - Review chest x-ray shows pulmonary vas cular congestion, BNP over thousand, will watch urine output monitor creatinine - Blood pressures this afternoon have in creased to 220/110, both arms, orders placed for Cardene drip, will move down to ICU - Given acute hypoxic hypercarbic respir atory failure, will order CT angio of the chest, venous ultrasound Vitals/I&O/Wt Last Vital Signs Temp 98.2 F 01/31/25 11:25 Pulse 79 01/31/25 14:19 Resp 16 01/31/25 11:25 BP 212/116 01/31/25 14:19 Pulse Ox 96 01/31/25 14:18 O2 Del Method BiPAP 01/31/25 14:18 O2 Flow Rate 6 01/31/25 08:47 FiO2 40 01/31/25 14:18 01/30/25 01/31/25 01/31/25 22:59 06:59 14:59 Intake Total 1046.25 / 2726.25 540 / 3266.25 Output Total 800 / 800 800 / 1600 1300 / 1300 Balance 246.25 / 1926.25 -260 / 1666.25 -1300 / -1300 Weight last 48 hrs Weight 104.78 kg Weight 104.383 kg Physical Exam 2 Const: COMMON NORMALS: no acute distress ORIENTATION/CONSCIOUSNESS: Yes awake, Yes oriented to person and Yes oriented to place; not oriented to time Neck/C-Spine: COMMON NORMALS: no JVD Resp: OTHER: Suprasternal retractions, intercostal retractions, nasal guarding, tachypnea, tachycardia, on BiPAP Cardio: COMMON NORMALS: no JVD, regular rate, regular rhythm, S1 normal heart sound present and S2 normal heart sound present RATE: regular rate RHYTHM: regular rhythm HEART SOUNDS: S1 normal heart sound present and S2 normal heart sound present GI: COMMON NORMALS: Normal to inspection, nondistended, normoactive bowel sounds present and non-tender Extremity: COMMON NORMALS: no pedal edema Neuro: SENSORIUM/ORIENTATION: Yes oriented to person, Yes oriented to place and No oriented to time Psych: COMMON NORMALS: mental status grossly normal Data 01/31/25 04:32 01/31/25 04:32 Micro: Microbiology 01/29/25 14:00 Gram Stain - Final Foot - #1 Tissue Culture - Preliminary Gram Negative Rods Gram Negative Rods#2 A&P Assessment and plan (1) Cellulitis of right foot: (2) Abscess of right foot excluding toes: (3) Deep tissue injury: (4) Acute respiratory failure with hypoxia and hypercapnia: Plan Acute hypoxic hypercapnic respiratory failure - Likely multifactorial - Possible aspiration? Keep n.p.o. - Acute fluid overload, CHF -With mild to moderate respiratory failure -CT angiogram the chest ordered -Venous ultrasound ordered Plan - Will move down to ICU - Continue BiPAP therapy - Lasix 40 IV twice daily, will with metolazone once - Monitor urine output, monitor creatinine Hypertensive urgency - Moved to ICU for Cardene drip History of quadriplegia history of urostomy Cellulitis of the right foot, with foul-smelling, necrotic right heel ulcer Plan - Status post surgical intervention Incision and debridement right heel down to and including muscle, tendon and fascia, postop - Continue vancomycin, stopped due to elevated Vanco trough switch to Zyvox - Continue cefepime Deep tissue injury - Over the sacrum - Over right thigh - CT pelvis CT/CT pelvis wo con [id number] IMPRESSION: 1. New small decubitus ulcer overlying the RIGHT hemisacrum with soft tissue thickening. Normal underlying bony sacrum. No evidence of osteomyelitis. 2. No evidence of drainable abscess or fluid collection. 3. Additional findings described above are stable CT femur CT/CT femur RT wo con* [id number] IMPRESSION: 1. Prior postoperative changes with chronic healed fracture deformity RIGHT femur. No evidence of hardware loosening. 2. No evidence of drainable abscess or fluid collection. 3. Chronic RIGHT gluteal ulcer with unchanged chronic sclerosis in the underlying ischial tuberosity - Continue vancomycin - Continue cefepime - Wound care Full code ? Heparin for DVT prophylaxis Plan for today, IV antibiotics, continue repositioning, BiPAP, IV diuresis, CT angiogram the chest, venous ultrasound, moved to ICU PDMP PDMP Reviewed: Not Reviewed Attestations 2 Medical Necessity Statement*: Patient requires hospitalization for acute hypoxic respiratory failure requiring BiPAP, IV diuresis, hypertensive urgency requiring Cardene drip Diagnoses Cellulitis of right foot L03.115 Abscess of right foot excluding toes L02.611 Deep tissue injury T14.8XXA Acute respiratory failure with hypoxia and hypercapnia J96.01; J96.02
[2025-01-31 14:55] LABS: Troponin(5th) Baseline 71 ng/L (0-15)
[2025-01-31] MEDS: metOLazone 5 MG Tablet PO (15:08)
--- NOTE | 2025-01-31 15:30 | PC.NURSE ---
Patient arrived to ICU 6 via bed on 6L NC. Transitioned to bipap once in room. Patient is AOX4. RR 27. BP 162/86 HR 85 and SR. Patient denies pain or discomfort at this time. Dressing dry and intact right foot and lower leg.
[2025-01-31] MEDS: nicardipine 20 MG/200 ML PREMIX 50 MG IV (16:06)
--- NOTE | 2025-01-31 16:20 | ECG_ITS ---
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 Measurements Intervals [place] Rate: 73 P: 32 DC: 124 QRS: 85 QRSD: 100 T: 90 QT: 422 QTc: 468 Interpretive Statements SINUS RHYTHM POSSIBLE LEFT ATRIAL ENLARGEMENT [-0.1mV P-WAVE IN V1/V2] SEPTAL MYOCARDIAL INFARCTION , OF INDETERMINATE AGE [40+ ms Q WAVE IN V1/V2] Compared to ECG 01/31/2025 14:30:52 Myocardial infarct finding now present Electronically Signed On 02-01-2025 09:01:01 CDT by Abelardo Chang M.D. [id number] [id number]
[2025-01-31 17:43] LABS: Troponin 5 2HR 76.39 ng/L (0-15); Troponin 5 2HR Delta 5.39 ABS# (0-10)
[2025-01-31] MEDS: iohexol 350 mg/mL 500 mL Btl (per mL) IV (17:59)
[2025-01-31] MEDS: morphine 4 mg/mL SDV 1 mL 2 MG IVP (18:20)
[2025-01-31] MEDS: gabapentin 300 mg Capsule PO (18:23)
[2025-01-31] MEDS: baclofen 10 mg Tablet 20 MG PO (18:23)
[2025-01-31] MEDS: docusate sodium 100 mg Capsule PO (18:23)
--- NOTE | 2025-01-31 19:17 | PC.NURSE ---
Med Surg Shift Summary At bedside report, patient was lethargic but was waking up and addressed nursing staff, shift commander nurse reported patient had been A&Ox4 but had also became lethargic and hypertensive throughout the night. When this nurse assessed patient, the patient knew his name, , and place but was no longer able to recall the date and would repeat previous answers. Patient's oxygen saturation was dropping between 81%-89% on 4LNC. This nurse increased oxygen to 6LNC and oxygen saturation increased to 89%-91%. Dr. Perez was called and a stat ABG was ordered. RT Diana placed patient on bipap after obtaining ABG. This nurse placed patient on 15 minute interval blood pressure checks to monitor patient more closely. Dr. Perez made aware of blood pressure during rounds and 40mg lasix IVP once was ordered for fluid overload. Patient's blood pressure came down to 149/98. Patient was less lethargic and started answering questions appropriately at this time. Patient's blood pressure started trending back up. Blood pressure was reading 221/121 on the automatic machine when this nurse rounded. Manual blood pressure read 212/116 on patient's right arm. Dr. Perez was notified and asked for the blood pressure to be checked on the opposite arm since patient has a spinal cord injury. Blood pressure on left arm was 224/122 automatically and 222/118 manually. Orders were placed for patient to be transferred to ICU. Report was called to ALISSA Callejas. Patient was transferred to ICU via bed with all belongings.
--- NOTE | 2025-01-31 19:48 | ECG_ITS ---
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 Measurements Intervals [place] Rate: 67 P: 29 DC: 132 QRS: 65 QRSD: 96 T: 84 QT: 430 QTc: 456 Interpretive Statements SINUS RHYTHM POSSIBLE LEFT ATRIAL ENLARGEMENT [-0.1mV P-WAVE IN V1/V2] SEPTAL MYOCARDIAL INFARCTION , OF INDETERMINATE AGE [40+ ms Q WAVE IN V1/V2] Compared to ECG 01/31/2025 17:01:09 No significant changes Electronically Signed On 02-01-2025 09:00:18 CDT by Abelardo Chang M.D. [id number] [id number]
[2025-01-31 20:26] LABS: Troponin 5 6HR 78.18 ng/L (0-15); Troponin 5 6HR Delta 7.18 ng/L (0-12)
[2025-01-31] MEDS: sennosides 8.6 mg Tablet 17.2 MG PO (20:32)
[2025-01-31] MEDS: pantoprazole 40 mg SDV IVP (20:32)
[2025-01-31] MEDS: linezolid premix 600 MG/300 ML PREMIX 300 MG IV (20:33)
--- NOTE | 2025-01-31 21:37 | PC.NURSE ---
NIH: Unable to fully complete NIH stroke scale due to patient paraplegia status.
[2025-02-01] VITALS (93 sets, daily range): BP systolic 84–199; BP diastolic 57–122; PULSE 59–100; RESP 16–39; TEMP 36.7–37; O2SAT 90–98; BMI 29.9
[2025-02-01] MEDS: cefepime 1,000 mg SDV 1000 MG IVP ×3 (05:21→22:00)
[2025-02-01 05:32] LABS: Basophils # 0.1 10^3/uL (0.0-0.1); Basophils % 0.9 %; Eosinophils # 0.1 10^3/uL (0.0-0.8); Eosinophils % 1.7 %; Hematocrit 56.1 % (37-53); Lymphocytes % 11.7 %; Mean Corpuscular Hemoglobin 30.2 pg (27-33); Mean Corpuscular Volume 97.4 fl (82-101); Mean Platelet Volume 10.1 fL (7.4-10.4); Monocytes # 0.9 10^3/uL (0.2-0.9); Monocytes % 10.7 %; Neutrophils # 6.05 10^3/uL (1.8-7.7); Neutrophils % 73.9 %; Nucleated Red Blood Cells % 0 %; Platelet Count 204 10^3/cmm (157-399); Red Blood Count 5.76 10^6/uL (3.85-5.65); White Blood Count 8.19 10^3/uL (3.29-11.43)
[2025-02-01 05:56] LABS: C Reactive Protein 106.2 mg/L (0.0-4.9)
[2025-02-01 06:03] LABS: NT Pro B Type Natriuretic Pept 1033 pg/mL (0-125); Procalcitonin 0.15 ng/mL (0-0.5)
[2025-02-01 06:14] LABS: Blood Urea Nitrogen 13 mg/dL (6-20); Calcium 8.7 mg/dL (8.5-10.5); Carbon Dioxide 34 mmol/L (22-29); Chloride 96 mmol/L (98-107); Glomerular Filtration Rate 137.9 mL/min (90-130); Glucose 83 mg/dL (65-115); Osmolality Calculated 297 mOsm/kg (285-295); Sodium 144 mmol/L (136-145)
[2025-02-01 06:22] LABS: Anion Gap 17.1 (5-19); Potassium 3.1 mmol/L (3.5-5.1)
[2025-02-01] MEDS: linezolid premix 600 MG/300 ML PREMIX 300 MG IV ×2 (08:30→22:00)
[2025-02-01] MEDS: gabapentin 300 mg Capsule PO ×2 (08:31→17:29)
[2025-02-01] MEDS: baclofen 10 mg Tablet 20 MG PO ×2 (08:31→17:28)
[2025-02-01] MEDS: docusate sodium 100 mg Capsule PO ×2 (08:32→17:29)
[2025-02-01] MEDS: heparin 5,000 unit/mL INJ 1 mL 5000 UNIT SUBCUT ×2 (08:32→22:01)
[2025-02-01] MEDS: potassium chloride ER 20 mEq Tablet 40 MEQ PO ×2 (09:17→17:28)
[2025-02-01] MEDS: FUROsemide 10 mg/mL SDV 4mL 40 MG IVP ×2 (09:18→19:45)
[2025-02-01] MEDS: lidocaine 1% 5 ML in potassium chloride premix 100 ML 26.25 ML IV (09:22)
--- NOTE | 2025-02-01 09:26 | USCV_ITS ---
Mihir Keller Age: 59 Gender: M : 1965 Exam Date: 02/01/2025 09:36 Ordering Phys: Moi Diamond DO Technologist: JACK Exam Location[place] [facility] [place]ication: Heart Failure BP: 133 / 97 HR: Rhythm: Sinus Technical Quality: Adequate MEASUREMENTS (Male / Female) Normal Values 2D ECHO LV Diastolic Diameter PLAX 5.5 cm 4.2 - 5.9 / 3.9 - 5.3 cm IVS Diastolic Thickness 1.2 cm 0.6 - 1.0 / 0.6 - 0.9 cm IVS Systolic Thickness 2.0 cm LVPW Diastolic Thickness 1.7 cm 0.6 - 1.0 / 0.6 - 0.9 cm LVPW Systolic Thickness 2.0 cm LVOT Diameter 2.1 cm LV Ejection Fraction 2D Teich 45.3 % LV Ejection Fraction MOD 4C 49.3 % LV Ejection Fraction MOD 2C 53.9 % LV Ejection Fraction 2C AL 53.2 % LA Diameter 3.3 cm RA Systolic Volume 4C AL 34.8 ml RA Systolic Volume 4C MOD 32.9 ml LA Sys Volume AL 54.3 cm cubed LA Sys Volume Index AL 24.3 cm cubed/m squared Aorta at Sinotubular Diameter 3.2 cm M-MODE LA Ao Ratio MM 1.3 AV Cusp Separation MM 1.9 cm FINDINGS Left Ventricle Mild diffuse hypokinesis of the left ventricle. The LV appears to be upper limit of normal size with an ejection fraction of 50%. Right Ventricle Possibly of normal size with a slightly diminished ejection fraction Right Atrium Right atrium not well visualized. Left Atrium Possibly normal Mitral Valve No gross abnormalities noted Aortic Valve No gross abnormalities noted Tricuspid Valve Could not be delineated well Pulmonic Valve Pulmonic valve not well visualized. Pericardium No pericardial effusion. Aorta Normal aortic annulus size. IVC Inferior vena cava not visualized. CONCLUSIONS The LV appears to be upper limit of normal size with an ejection fraction of 50%. Mild diffuse hypokinesis of the left ventricle. Possibly of normal size with a slightly diminished ejection fraction. No gross abnormalities in the mitral and aortic valves. Possibly normal left atrial size. There are no intracardiac masses. There is no pericardial effusion. Technically difficult study because of poor ultrasonic window Dr Jamel Bell MD FACC (Electronically Signed) Final Date: 01 February 2025 17:03 S
--- NOTE | 2025-02-01 11:13 | P.PN_ITS ---
Subjective 2 Subjective: Patient with a history of paraplegia with a right heel infection/abscess. He is status post I&D of right heel down to including muscle tendon and fascia. He has been on IV antibiotics. After surgery he is found to have CHF which would be a new diagnosis. He is requiring oxygen and on Lasix 40 mg twice daily Vitals/I&O/Wt Last Vital Signs Temp 98.6 F 02/01/25 04:15 Pulse 75 02/01/25 07:50 Resp 16 02/01/25 04:15 BP 139/90 02/01/25 04:15 Pulse Ox 97 02/01/25 04:14 O2 Del Method BiPAP 02/01/25 03:45 O2 Flow Rate 6 01/31/25 08:47 FiO2 40 02/01/25 07:50 01/31/25 02/01/25 02/01/25 22:59 06:59 14:59 Intake Total 1151.250 / 1151.250 300 / 1451.250 300 / 300 Output Total 1150 / 4350 3050 / 7400 Balance 1.250 / -3198.750 -2750 / -5948.750 300 / 300 Weight last 48 hrs Weight 97.182 kg Weight 104.78 kg Physical Exam 2 Narrative: Quadriplegia. Alert and oriented to person place time and situation no acute distress Heart regular normal S1-S2 without murmurs clicks gallops or rubs Lungs minimal crackles bilateral bases otherwise overall diminished Abdomen soft nontender nondistended positive bowel sounds no hepatosplenomegaly Extremities left extremity no clubbing cyanosis or edema right extremity has a wrap around the calf in order to take the pressure off that right heel the right heel is covered with some bright red blood leakage. There is some edema above the ankle and below the wrap. Data 02/01/25 05:03 02/01/25 05:03 Micro: Microbiology 01/29/25 14:00 Gram Stain - Final Foot - #1 Tissue Culture - Final Enterobacter cloacae Proteus mirabilis A&P Assessment and plan (1) Cellulitis of right foot: (2) Abscess of right foot excluding toes: (3) Deep tissue injury: (4) Acute respiratory failure with hypoxia and hypercapnia: Plan Acute hypoxic hypercapnic respiratory failure - Likely multifactorial - Changed to cardiac diet. There was a question of aspiration. I do not appreciate that at this time. - Acute fluid overload, CHF -With mild to moderate respiratory failure -CT angiogram the chest ordered- NO PE, MILD PATHCY RIGHT LUNG GROUND GLASS OPACIFICATION, MAY BE EDEMA, INFECTIOUS OR INFLAMMATORY, R>L PLEUARL EFFUSIONS. -Venous ultrasound ordered - NO DVT B/L - Lasix 40 IV twice daily, S/P metolazone once - Monitor urine output, monitor creatinine Hypertensive urgency - Taken off Cardene drip yesterday and not started on any oral antihypertensives. Will start metoprolol 25 twice daily History of quadriplegia history of urostomy Cellulitis of the right foot, with foul-smelling, necrotic right heel ulcer Plan - Status post Incision and debridement right heel down to and including muscle, tendon and fascia, postop - Continue Zyvox - Continue cefepime Deep tissue injury - Over the sacrum - Over right thigh - CT pelvis CT/CT pelvis wo con [id number] IMPRESSION: 1. New small decubitus ulcer overlying the RIGHT hemisacrum with soft tissue thickening. Normal underlying bony sacrum. No evidence of osteomyelitis. 2. No evidence of drainable abscess or fluid collection. 3. Additional findings described above are stable CT femur CT/CT femur RT wo con* [id number] IMPRESSION: 1. Prior postoperative changes with chronic healed fracture deformity RIGHT femur. No evidence of hardware loosening. 2. No evidence of drainable abscess or fluid collection. 3. Chronic RIGHT gluteal ulcer with unchanged chronic sclerosis in the underlying ischial tuberosity - Continue vancomycin - Continue cefepime - Wound care Full code ? Heparin for DVT prophylaxis PLAN FOR TODAY: ECHO CARDIAC DIET. REPLACE K WITH TOTAL OF 80 MEQ. WILL LIKELY NEED ANOTHER 40 TODAY AND THEN 80 QDAY. PDMP PDMP Reviewed: Not Reviewed Attestations 2 Medical Necessity Statement*: Patient requires hospitalization for acute hypoxic respiratory failure requiring BiPAP, IV diuresis, hypertensive urgency requiring Cardene drip Coding Level of Care Code Acute Code for Chg Fwd Diagnoses Cellulitis of right foot L03.115 Abscess of right foot excluding toes L02.611 Deep tissue injury T14.8XXA Acute respiratory failure with hypoxia and hypercapnia J96.01; J96.02
--- NOTE | 2025-02-01 14:30 | PC.SOCIAL ---
IMM Update pg 2 of IMM Updated and reviewed w/ patient. Copy provided and copy dated, initialed and placed in chart.
[2025-02-01] MEDS: metoprolol succinate ER (24 HR) 25 mg Tablet PO (17:29)
[2025-02-01] MEDS: morphine 4 mg/mL SDV 1 mL 2 MG IVP ×2 (17:29→22:02)
--- NOTE | 2025-02-01 17:52 | PM.PN ---
Subjective Subjective: Patient seen bedside this afternoon, is in the ICU. Strikethrough bleeding of the right heel dressing. Vitals/I&O/Wt Last Vital Signs Temp 98.1 F 02/01/25 16:15 Pulse 78 02/01/25 16:30 Resp 27 H 02/01/25 16:30 BP 125/88 02/01/25 16:30 Pulse Ox 93 02/01/25 16:30 O2 Del Method BiPAP 02/01/25 03:45 O2 Flow Rate 6 01/31/25 08:47 FiO2 40 02/01/25 07:50 02/01/25 02/01/25 02/01/25 06:59 14:59 22:59 Intake Total 300 / 1451.250 405 / 405 Output Total 3050 / 7400 2300 / 2300 900 / 3200 Balance -2750 / -5948.750 -1895 / -1895 -900 / -2795 Weight last 48 hrs Weight 214 lb 4 oz Weight 231 lb Physical Exam Const: COMMON NORMALS: no acute distress, patient oriented x3 and alert HENMT: COMMON NORMALS: normocephalic HEAD & SCALP: normocephalic Eye: COMMON NORMALS: Equal, round and reactive pupils present PUPIL: Yes Equal, round and reactive pupils present Resp: COMMON NORMALS: normal respiratory effort, No retractions and No use of accessory muscles Cardio: COMMON NORMALS: regular rate RATE: regular rate Extremity: COMMON NORMALS: no calf tenderness NARRATIVE EXTREMITY EXAM: No range of motion or muscle strength tested secondary to quadriplegia. No pain to palpation secondary to quadriplegia. Unable to extend knee joint bilaterally due to quadriplegia right more severe than left. Plantarflexion at ankles bilaterally. GENERAL: Yes deformity Neuro: COMMON NORMALS: patient oriented x3 SENSORIUM/ORIENTATION: Yes alert SENSORY EXAM: Yes extremities MONOFILAMENT EXAM PERFORMED: Yes Psych: COMMON NORMALS: cooperative Skin: NARRATIVE SKIN EXAM: Strikethrough bleeding at right heel dressing., no proximal lymphangitic streaking proximal to the dressing. Upon removal of surgical dressing improved cellulitis with nearly resolved erythema at the right lower extremity, right heel wound appears viable with healthy bleeding base, no devitalized tissue appreciated. No purulent drainage right heel. Hemostasis via manual pressure, right heel. 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 Examination revealed right heel cellulitis and necrotic chronic ulceration without bony destruction, confirmed via X-ray. -2 days status post I&D right heel date of operation 01/29/2025. Deep tissues taken intraoperatively preliminary results showing gram-positive cocci. -Wound did not extend to bone intraoperatively, x-ray was negative for osteomyelitis, ESR 01/29/2025 20 mm/h. -Wound culture cultures taken intraoperatively 01/29/2025 are pending. Gram stain demonstrates moderate gram-positive cocci in pairs. Right heel wound demonstrates healthy viable base postdebridement, improved cellulitis to the right lower extremity. No further surgical intervention anticipated during his hospitalization. Recommend 14-day course of oral antibiotics at discharge and referral to wound care clinic for right heel wound and gluteal wound. Wound culture significant for Enterobacter cloacae and Proteus mirabilis. 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
[2025-02-01] MEDS: pantoprazole 40 mg SDV IVP (22:00)
[2025-02-01] MEDS: sennosides 8.6 mg Tablet 17.2 MG PO (22:01)
[2025-02-02] VITALS (73 sets, daily range): BP systolic 68–171; BP diastolic 50–111; PULSE 49–106; RESP 11–28; TEMP 36.4–37.2; O2SAT 91–98
[2025-02-02 04:43] LABS: Basophils # 0.1 10^3/uL (0.0-0.1); Basophils % 0.9 %; Eosinophils # 0.3 10^3/uL (0.0-0.8); Eosinophils % 4.5 %; Lymphocytes # 0.9 10^3/uL (0.8-4.8); Lymphocytes % 15.8 %; Mean Corpuscular HGB Conc 30.9 g/dL (30-55); Mean Corpuscular Hemoglobin 30.3 pg (27-33); Mean Corpuscular Volume 98.1 fl (82-101); Monocytes # 0.7 10^3/uL (0.2-0.9); Monocytes % 12.7 %; Neutrophils # 3.62 10^3/uL (1.8-7.7); Nucleated Red Blood Cells % 0 %; Platelet Count 181 10^3/cmm (157-399); Red Blood Count 5.71 10^6/uL (3.85-5.65); Red Cell Distribution Width 13.2 % (12.1-15.1); White Blood Count 5.57 10^3/uL (3.29-11.43)
[2025-02-02 05:11] LABS: Procalcitonin 0.15 ng/mL (0-0.5)
[2025-02-02] MEDS: cefepime 1,000 mg SDV 1000 MG IVP (05:16)
[2025-02-02 05:31] LABS: NT Pro B Type Natriuretic Pept 371 pg/mL (0-125)
[2025-02-02] MEDS: FUROsemide 10 mg/mL SDV 4mL 40 MG IVP ×2 (08:45→20:32)
[2025-02-02] MEDS: baclofen 10 mg Tablet 20 MG PO ×2 (08:45→17:39)
[2025-02-02] MEDS: heparin 5,000 unit/mL INJ 1 mL 5000 UNIT SUBCUT ×2 (08:45→20:33)
[2025-02-02] MEDS: metoprolol succinate ER (24 HR) 25 mg Tablet PO (08:45)
[2025-02-02] MEDS: linezolid premix 600 MG/300 ML PREMIX 300 MG IV (08:45)
[2025-02-02] MEDS: potassium chloride ER 20 mEq Tablet 40 MEQ PO ×2 (08:45→17:38)
[2025-02-02] MEDS: docusate sodium 100 mg Capsule PO ×2 (08:45→17:39)
[2025-02-02] MEDS: gabapentin 300 mg Capsule PO ×2 (08:45→17:39)
[2025-02-02 09:21] LABS: Anion Gap 14.8 (5-19); Blood Urea Nitrogen 22 mg/dL (6-20); Chloride 89 mmol/L (98-107); Creatinine Clr Calc Pharmacy 115.5842; Glomerular Filtration Rate 98.9 mL/min (90-130); Glucose 100 mg/dL (65-115); Magnesium 1.9 mg/dL (1.7-2.3); Osmolality Calculated 295 mOsm/kg (285-295); Potassium 3.8 mmol/L (3.5-5.1); Sodium 141 mmol/L (136-145)
[2025-02-02 09:29] LABS: Carbon Dioxide 41 mmol/L (22-29)
--- NOTE | 2025-02-02 10:34 | P.PN_ITS ---
Subjective 2 Subjective: Patient feeling better today. He was able to get a good night sleep. Eating well. Repeatedly upset that he had no medical problems prior to this hospitalization. I had a lengthy conversation with him today explaining the body's compensatory mechanisms and how he likely had underlying congestive heart failure prior to surgery and unfortunately he did not have the reserve to tolerate the stress. Vitals/I&O/Wt Last Vital Signs Temp 97.6 F 02/02/25 01:15 Pulse 54 L 02/02/25 06:00 Resp 18 02/02/25 05:00 BP 108/72 02/02/25 05:00 Pulse Ox 95 02/02/25 05:00 O2 Del Method BiPAP 02/01/25 03:45 O2 Flow Rate 6 01/31/25 08:47 FiO2 40 02/01/25 07:50 02/01/25 02/02/25 02/02/25 22:59 06:59 14:59 Intake Total 240 / 645 420 / 1065 300 / 300 Output Total 1900 / 4200 200 / 4400 Balance -1660 / -3555 220 / -3335 300 / 300 Weight last 48 hrs Weight 92.533 kg Weight 97.182 kg Physical Exam 2 Narrative: Quadriplegia. Alert and oriented to person place time and situation no acute distress Heart regular normal S1-S2 without murmurs clicks gallops or rubs Lungs improved crackles right base only. Diminished from yesterday Abdomen soft nontender nondistended positive bowel sounds no hepatosplenomegaly Extremities bilateral extremities have some ankle edema Data 02/02/25 03:54 02/02/25 08:49 Micro: Microbiology 01/29/25 14:00 Gram Stain - Final Foot - #1 Tissue Culture - Final Enterobacter cloacae Proteus mirabilis Other data: ECHO: CONCLUSIONS The LV appears to be upper limit of normal size with an ejection fraction of 50%. Mild diffuse hypokinesis of the left ventricle. Possibly of normal size with a slightly diminished ejection fraction. No gross abnormalities in the mitral and aortic valves. Possibly normal left atrial size. There are no intracardiac masses. There is no pericardial effusion. Technically difficult study because of poor ultrasonic window A&P Assessment and plan (1) Cellulitis of right foot: (2) Abscess of right foot excluding toes: (3) Deep tissue injury: (4) Acute respiratory failure with hypoxia and hypercapnia: Plan Acute hypoxic hypercapnic respiratory failure- RESOLVING. MOST LIKELY NEW ONSET CHF - Likely multifactorial - Changed to cardiac diet. There was a question of aspiration. I do not appreciate that at this time. - Acute fluid overload, CHF -CT angiogram the chest ordered- NO PE, MILD PATHCY RIGHT LUNG GROUND GLASS OPACIFICATION, MAY BE EDEMA, INFECTIOUS OR INFLAMMATORY, R>L PLEUARL EFFUSIONS. -Venous ultrasound ordered - NO DVT B/L - Lasix 40 IV twice daily, S/P metolazone once - Monitor urine output, monitor creatinine Excellent urine output yesterday -5 L. Will continue IV dose today and changed to oral tomorrow Hypertensive urgency-resolved - Taken off Cardene drip 01/31/2025 and not started on any oral antihypertensives. Yesterday I started metoprolol 25 twice daily his blood sugars were low normal will change to low-dose Coreg today History of quadriplegia history of urostomy Cellulitis of the right foot, with foul-smelling, necrotic right heel ulcer Plan - Status post Incision and debridement right heel down to and including muscle, tendon and fascia, postop - Tissue Culture Final 02/01/25-0915 Organism 1 Enterobacter cloacae Growth MODERATE Organism 2 Proteus mirabilis Growth MODERATE Sens to mulitple oral and iv abx. will choose levaquin for once daily dosing. Deep tissue injury - Over the sacrum - Over right thigh - CT pelvis CT/CT pelvis wo con [id number] IMPRESSION: 1. New small decubitus ulcer overlying the RIGHT hemisacrum with soft tissue thickening. Normal underlying bony sacrum. No evidence of osteomyelitis. 2. No evidence of drainable abscess or fluid collection. 3. Additional findings described above are stable CT femur CT/CT femur RT wo con* [id number] IMPRESSION: 1. Prior postoperative changes with chronic healed fracture deformity RIGHT femur. No evidence of hardware loosening. 2. No evidence of drainable abscess or fluid collection. 3. Chronic RIGHT gluteal ulcer with unchanged chronic sclerosis in the underlying ischial tuberosity hYPOKALEMIA- IMPROVED WITH 40 MG BID REPLACEMENT. WILL DECREASE LASIX DOSE DECREASES. Full code ? Heparin for DVT prophylaxis PLAN FOR TODAY: TRANSFER TO FLOOR. CHANGE TO ORAL LASIX TOMORROW. PT FOR WC SLIDE TRANSFERS. DISCUSSED SNF VS HOME DEPENDING ON STRENGTH. PDMP PDMP Reviewed: Not Reviewed Attestations 2 Medical Necessity Statement*: Patient has been still requiring IV Lasix for acute respiratory failure. And since patient is quadriplegic and requires strength for transfer will assess need for penitentiary facility. Anticipate discharge in the next day or 2 Coding Level of Care Code Acute Code for [facility] Diagnoses Cellulitis of right foot L03.115 Abscess of right foot excluding toes L02.611 Deep tissue injury T14.8XXA Acute respiratory failure with hypoxia and hypercapnia J96.01; J96.02
[2025-02-02] MEDS: levoFLOXacin 500 mg Tablet PO (11:32)
--- NOTE | 2025-02-02 12:23 | P.PN_ITS ---
Subjective 2 Subjective: Patient seen bedside this afternoon, states he will likely be transferred out of the ICU today. No strikethrough bleeding today at right foot dressing. Vitals/I&O/Wt Last Vital Signs Temp 98.9 F 02/02/25 08:00 Pulse 77 02/02/25 11:00 Resp 20 H 02/02/25 11:00 BP 100/77 02/02/25 11:00 Pulse Ox 94 02/02/25 11:00 O2 Del Method BiPAP 02/01/25 03:45 O2 Flow Rate 6 01/31/25 08:47 FiO2 40 02/01/25 07:50 02/01/25 02/02/25 02/02/25 22:59 06:59 14:59 Intake Total 240 / 645 420 / 1065 300 / 300 Output Total 1900 / 4200 200 / 4400 Balance -1660 / -3555 220 / -3335 300 / 300 Weight last 48 hrs Weight 204 lb Weight 214 lb 4 oz Physical Exam 2 Const: COMMON NORMALS: no acute distress, patient oriented x3 and alert HENMT: COMMON NORMALS: normocephalic HEAD & SCALP: normocephalic Eye: COMMON NORMALS: Equal, round and reactive pupils present PUPIL: Yes Equal, round and reactive pupils present Resp: COMMON NORMALS: normal respiratory effort, No retractions and No use of accessory muscles Cardio: COMMON NORMALS: regular rate RATE: regular rate Extremity: COMMON NORMALS: no calf tenderness NARRATIVE EXTREMITY EXAM: No range of motion or muscle strength tested secondary to quadriplegia. No pain to palpation secondary to quadriplegia. Unable to extend knee joint bilaterally due to quadriplegia right more severe than left. Plantarflexion at ankles bilaterally. GENERAL: Yes deformity Neuro: COMMON NORMALS: patient oriented x3 SENSORIUM/ORIENTATION: Yes alert SENSORY EXAM: Yes extremities MONOFILAMENT EXAM PERFORMED: Yes Psych: COMMON NORMALS: cooperative Skin: NARRATIVE SKIN EXAM: no proximal lymphangitic streaking proximal to the dressing. Upon removal of surgical dressing improved cellulitis with nearly resolved erythema at the right lower extremity, right heel wound appears viable with healthy bleeding base, no devitalized tissue appreciated. No purulent drainage right heel. Hemostasis via manual pressure, right heel. 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 Examination revealed right heel cellulitis and necrotic chronic ulceration without bony destruction, confirmed via X-ray. -Status post I&D right heel date of operation 01/29/2025. Deep tissues taken intraoperatively significant for Enterobacter and Proteus. -Wound did not extend to bone intraoperatively, x-ray was negative for osteomyelitis, ESR 01/29/2025 20 mm/h. -Dressing changed today silver cell, 4 x 4 gauze, Kerlix and Coban. -Keep right heel suspended. Right heel wound demonstrates healthy viable base postdebridement, improved cellulitis to the right lower extremity. No further surgical intervention anticipated during his hospitalization. Recommend 14-day course of oral antibiotics at discharge and referral to wound care clinic for right heel wound and gluteal wound. Wound culture significant for Enterobacter cloacae and Proteus mirabilis. PDMP PDMP Reviewed: Not Reviewed Attestations 2 Medical Necessity Statement*: Patient has been still requiring IV Lasix for acute respiratory failure. And since patient is quadriplegic and requires strength for transfer will assess need for senior living facility. 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
[2025-02-02] MEDS: carvedilol 3.125 mg Tablet PO (17:39)
[2025-02-02] MEDS: sennosides 8.6 mg Tablet 17.2 MG PO (20:33)
[2025-02-03] VITALS (10 sets, daily range): BP systolic 90–155; BP diastolic 61–99; PULSE 68–89; RESP 15–20; TEMP 36.3–36.8; O2SAT 91–98
[2025-02-03 06:06] LABS: Anion Gap 13.3 (5-19); Blood Urea Nitrogen 33 mg/dL (6-20); Calcium 8.8 mg/dL (8.5-10.5); Chloride 92 mmol/L (98-107); Glomerular Filtration Rate 68.5 mL/min (90-130); Glucose 110 mg/dL (65-115); Magnesium 1.9 mg/dL (1.7-2.3); Osmolality Calculated 302 mOsm/kg (285-295); Potassium 4.3 mmol/L (3.5-5.1); Sodium 142 mmol/L (136-145)
[2025-02-03 06:15] LABS: Carbon Dioxide 41 mmol/L (22-29)
[2025-02-03] MEDS: docusate sodium 100 mg Capsule PO ×2 (08:55→17:30)
[2025-02-03] MEDS: heparin 5,000 unit/mL INJ 1 mL 5000 UNIT SUBCUT ×2 (08:55→21:29)
[2025-02-03] MEDS: gabapentin 300 mg Capsule PO ×2 (08:55→17:30)
[2025-02-03] MEDS: levoFLOXacin 500 mg Tablet PO (08:55)
[2025-02-03] MEDS: potassium chloride ER 20 mEq Tablet 40 MEQ PO ×2 (08:55→17:30)
[2025-02-03] MEDS: baclofen 10 mg Tablet 20 MG PO ×2 (08:55→17:30)
[2025-02-03] MEDS: FUROsemide 40 mg Tablet PO (08:55)
[2025-02-03] MEDS: carvedilol 3.125 mg Tablet PO ×2 (08:55→17:30)
[2025-02-03] MEDS: morphine 4 mg/mL SDV 1 mL 2 MG IVP ×3 (09:39→21:28)
--- NOTE | 2025-02-03 11:50 | P.PN_ITS ---
Subjective 2 Subjective: Denies complaints. Doing well no shortness of breath or chest pain Vitals/I&O/Wt Last Vital Signs Temp 97.4 F L 02/03/25 11:29 Pulse 82 02/03/25 11:29 Resp 17 02/03/25 11:29 BP 107/65 02/03/25 11:29 Pulse Ox 91 02/03/25 11:29 O2 Del Method Nasal Cannula 02/03/25 11:29 O2 Flow Rate 2 02/03/25 11:29 FiO2 40 02/01/25 07:50 02/02/25 02/03/25 02/03/25 22:59 06:59 14:59 Intake Total 940 / 1240 0 / 1240 240 / 240 Output Total 400 / 2600 650 / 3250 Balance 540 / -1360 -650 / -2010 240 / 240 Weight last 48 hrs Weight 91.127 kg Weight 92.533 kg Physical Exam 2 Narrative: Quadriplegia. C6-able to move shoulders and elbow some no hand movement alert and oriented to person place time and situation no acute distress Heart regular normal S1-S2 without murmurs clicks gallops or rubs Lungs improved crackles right base only. Diminished from yesterday Abdomen soft nontender nondistended positive bowel sounds no hepatosplenomegaly Extremities bilateral extremities have some ankle edema Data 02/02/25 03:54 02/03/25 05:07 A&P Assessment and plan (1) Cellulitis of right foot: (2) Abscess of right foot excluding toes: (3) Deep tissue injury: (4) Acute respiratory failure with hypoxia and hypercapnia: Plan Acute hypoxic hypercapnic respiratory failure- RESOLVING. MOST LIKELY NEW ONSET CHF - Changed to cardiac diet. There was a question of aspiration. I do not appreciate that at this time. -5L, then -3.3 L and -2 L so far today -now on oral lasix. Hypertensive urgency-resolved - Cardene jose luis initially, DC'd 01/31/2025 - Coreg 3.125 twice daily and Lasix 40 mg daily; blood pressures remain soft but patient is asymptomatic. History of quadriplegia history of urostomy Cellulitis of the right foot, - Status post Incision and debridement right heel down to and including muscle, tendon and fascia, postop - Enterobactor cloacae, proteus mirabilis. - NOW on levaquin. Deep tissue injury - Over the sacrum, right thigh, no osteo by CT chronic wounds hYPOKALEMIA- Corrected. appears to require lower dose of replace. change to k 40 meq once daily Full code ? Heparin for DVT prophylaxis PLAN FOR TODAY: Recommend rehab due to quadriplegic status and requiring max assist. He usually has a sister that helps him out of bed and into bed once daily each. Otherwise he can care for himself. At this time he requires much more help than that and unfortunately his elderly mother cannot assist and is in poor health herself at this time. Recommend rehab PDMP PDMP Reviewed: Not Reviewed Attestations 2 Medical Necessity Statement*: Patient has been still requiring IV Lasix for acute respiratory failure. And since patient is quadriplegic and requires strength for transfer will assess need for group home facility. Anticipate discharge in the next day or 2 Coding Level of Care Code Acute Code for [facility] Fwd Diagnoses Cellulitis of right foot L03.115 Abscess of right foot excluding toes L02.611 Deep tissue injury T14.8XXA Acute respiratory failure with hypoxia and hypercapnia J96.01; J96.02
--- NOTE | 2025-02-03 14:41 | P.PN_ITS ---
Subjective 2 Subjective: Patient seen bedside this afternoon, transferred to [facility]. Was evaluated by physical therapy. No strikethrough bleeding today at right foot dressing. Vitals/I&O/Wt Last Vital Signs Temp 97.4 F L 02/03/25 11:29 Pulse 82 02/03/25 11:29 Resp 17 02/03/25 11:29 BP 107/65 02/03/25 11:29 Pulse Ox 91 02/03/25 11:29 O2 Del Method Nasal Cannula 02/03/25 11:29 O2 Flow Rate 2 02/03/25 11:29 FiO2 40 02/01/25 07:50 02/02/25 02/03/25 02/03/25 22:59 06:59 14:59 Intake Total 940 / 1240 0 / 1240 480 / 480 Output Total 400 / 2600 650 / 3250 Balance 540 / -1360 -650 / -2010 480 / 480 Weight last 48 hrs Weight 200 lb 14.4 oz Weight 204 lb Physical Exam 2 Const: COMMON NORMALS: no acute distress, patient oriented x3 and alert HENMT: COMMON NORMALS: normocephalic HEAD & SCALP: normocephalic Eye: COMMON NORMALS: Equal, round and reactive pupils present PUPIL: Yes Equal, round and reactive pupils present Resp: COMMON NORMALS: normal respiratory effort, No retractions and No use of accessory muscles Cardio: COMMON NORMALS: regular rate RATE: regular rate Extremity: COMMON NORMALS: no calf tenderness NARRATIVE EXTREMITY EXAM: No range of motion or muscle strength tested secondary to quadriplegia. No pain to palpation secondary to quadriplegia. Unable to extend knee joint bilaterally due to quadriplegia right more severe than left. Plantarflexion at ankles bilaterally. GENERAL: Yes deformity Neuro: COMMON NORMALS: patient oriented x3 SENSORIUM/ORIENTATION: Yes alert SENSORY EXAM: Yes extremities MONOFILAMENT EXAM PERFORMED: Yes Psych: COMMON NORMALS: cooperative Skin: NARRATIVE SKIN EXAM: no proximal lymphangitic streaking proximal to the dressing. Upon removal of surgical dressing improved cellulitis with nearly resolved erythema at the right lower extremity, right heel wound appears viable with healthy bleeding base, no devitalized tissue appreciated. No purulent drainage right heel. Hemostasis via manual pressure, right heel. WOUNDS: Yes wounds noted NAILS: discolored, dystrophic and yellow and thickened Data 02/02/25 03:54 02/03/25 05:07 A&P Assessment and plan (1) Quadriplegia: (2) Cellulitis of right foot: Resolved. 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 Has granular base and epithelialized margin. Plan 59-year-old with history of quadriplegia presenting with a foul smelling necrotic heel ulcer. Examination revealed right heel cellulitis and necrotic chronic ulceration without bony destruction, confirmed via X-ray. -Status post I&D right heel date of operation 01/29/2025. Deep tissues taken intraoperatively significant for Enterobacter and Proteus. -Wound did not extend to bone intraoperatively, x-ray was negative for osteomyelitis, ESR 01/29/2025 20 mm/h. -Dressing changed today silver cell, 4 x 4 gauze, Kerlix and Coban. -Keep right heel suspended. Right heel wound demonstrates healthy viable base postdebridement, improved cellulitis to the right lower extremity. No further surgical intervention anticipated during his hospitalization. Recommend 14-day course of oral antibiotics at discharge and referral to wound care clinic for right heel wound and gluteal wound. Wound culture significant for Enterobacter cloacae and Proteus mirabilis. 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
[2025-02-03] MEDS: sennosides 8.6 mg Tablet 17.2 MG PO (21:29)
[2025-02-04] VITALS (7 sets, daily range): BP systolic 101–138; BP diastolic 70–92; PULSE 82–92; RESP 15–18; TEMP 36.5–36.9; O2SAT 90–95
[2025-02-04 05:50] LABS: Basophils # 0.1 10^3/uL (0.0-0.1); Basophils % 0.9 %; Eosinophils # 0.3 10^3/uL (0.0-0.8); Eosinophils % 3.6 %; Hematocrit 60.4 % (37-53); Lymphocytes # 1.2 10^3/uL (0.8-4.8); Lymphocytes % 15.9 %; Mean Corpuscular HGB Conc 31.1 g/dL (30-55); Mean Corpuscular Hemoglobin 30.3 pg (27-33); Mean Corpuscular Volume 97.4 fl (82-101); Mean Platelet Volume 10.1 fL (7.4-10.4); Monocytes # 0.9 10^3/uL (0.2-0.9); Monocytes % 11.4 %; Neutrophils # 5.25 10^3/uL (1.8-7.7); Neutrophils % 67.4 %; Nucleated Red Blood Cells % 0 %; Platelet Count 242 10^3/cmm (157-399); Red Cell Distribution Width 13.3 % (12.1-15.1); White Blood Count 7.79 10^3/uL (3.29-11.43)
[2025-02-04 06:11] LABS: Anion Gap 16.5 (5-19); Blood Urea Nitrogen 37 mg/dL (6-20); Calcium 8.9 mg/dL (8.5-10.5); Carbon Dioxide 37 mmol/L (22-29); Chloride 92 mmol/L (98-107); Creatinine Clr Calc Pharmacy 93.1203; Glomerular Filtration Rate 76.5 mL/min (90-130); Glucose 115 mg/dL (65-115); Osmolality Calculated 302 mOsm/kg (285-295); Potassium 4.5 mmol/L (3.5-5.1); Sodium 141 mmol/L (136-145)
[2025-02-04] MEDS: heparin 5,000 unit/mL INJ 1 mL 5000 UNIT SUBCUT (09:30)
[2025-02-04] MEDS: gabapentin 300 mg Capsule PO (09:31)
[2025-02-04] MEDS: FUROsemide 40 mg Tablet PO (09:31)
[2025-02-04] MEDS: docusate sodium 100 mg Capsule PO (09:31)
[2025-02-04] MEDS: levoFLOXacin 500 mg Tablet PO (09:31)
[2025-02-04] MEDS: carvedilol 3.125 mg Tablet PO (09:31)
[2025-02-04] MEDS: baclofen 10 mg Tablet 20 MG PO (09:31)
[2025-02-04] MEDS: morphine 4 mg/mL SDV 1 mL 2 MG IVP (09:31)
--- NOTE | 2025-02-04 15:57 | P.DS_ITS ---
Discharge Providers Date of Admission: 01/28/25 20:51 Date of Discharge: February 04, 2025 Attending Provider at Admission: Nhi Beauchamp MD Attending Provider at Discharge: Moi Diamond DO Consults: Podiatry Primary Care Provider: Jonah Kerr MD Diagnoses at Discharge Discharge Diagnosis (1) Quadriplegia: Status: Acute (2) Cellulitis of right foot: Status: Acute (3) 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: Status: Acute Reason for Visit Reason for Visit: right foot abcess Brief History: Mihir Keller is a 59 year old male with medical history significant for paraplegia now with a right heel infection and draining abscess requiring aggressive care. Patient related it has been there for just 2 days whenever he noted. I called for podiatry consult with Dr. Rios who will be seeing the patient this morning patient has been med n.p.o. after 12 midnight. Patient had been recultured from blood and the wound from the emergency room and the emergency room attending had given a dose of vancomycin and cefepime as well. This is to good coverage for gram-positive's and anaerobes with vancomycin and cefepime respectively. Pain medication optimized. Right foot x-ray did not show osteomyelitis MRI could be recommended to make sure patient does not have osteo-. Podiatry can decide to drain at the bedside or take the patient to the OR depending on the case and the depth of the abscess Hospital Course Hospital Course Patient was admitted for I&D of right foot her Dr. Rios. On postop day 2 patient became acutely hypoxic requiring BiPAP placement for hypoxic and hypercarbia. Chest x-ray showed pulmonary vascular congestion elevated BNP and elevated blood pressure. He was started on Lasix with good response. CT angiogram was negative for PE and showed the edema again. A venous ultrasound was ordered no DVT. Patient required a Cardene drip for hypertension at 1 point. The culture grew Enterobacter and Proteus and he was changed to oral antibiotic The patient had some hypokalemia with the Lasix and required potassium replacement. On 02/02/2025 patient was transferred to the floor with oral antibiotics and oral Lasix. Patient is a quadriplegic and became very weak during this hospitalization. I recommended rehab to assist with transfers versus a prison facility. He has been accepted to rehab to care for his CHF as well as aggressive physical and occupational therapy Patient is on new drug therapy for the CHF. Echo showed mild diffuse hypokinesis of the left ventricle with an EF of 50 to 55%. The patient is placed on Coreg Lasix. RONN inhibitor's at hold due to soft blood pressures but may be started as an outpatient at a low dose with close follow-up. Physical Exam Narrative: Quadriplegia. C6-able to move shoulders and elbow some no hand movement alert and oriented to person place time and situation no acute distress Heart regular normal S1-S2 without murmurs clicks gallops or rubs Lungs improved crackles right base only. Diminished from yesterday Abdomen soft nontender nondistended positive bowel sounds no hepatosplenomegaly Extremities bilateral extremities have some ankle edema Discharge Data Studies Completed and Pending Completed Studies During Hospitalization Category Date Time Status CT angio chest PE protcl [id number] Stat Cat Scan 01/31/25 14:[address] femur RT wo con* [id number] Routine Cat Scan 01/29/25 09:[address] head wo con* [id number] Routine Cat Scan 01/31/25 14:[address] pelvis wo con [id number] Routine Cat Scan 01/29/25 09:53 Completed XR chest 1V portable [id number] Routine Exams 01/31/25 09:15 Completed XR foot RT min 3V* [id number] Stat Exams 01/28/25 17:50 [place] [id number] Routine Ultrasound 01/31/25 14:21 Completed CV. echo limited [id number] Routine Ultrasound 02/01/25 09:26 Completed Pending at discharge Category Date Time Status Basic Metabolic Panel AM LABS Lab 02/05/25 04:00 Ordered Basic Metabolic Panel AM LABS Lab 02/06/25 04:00 Ordered Radiology Impressions Foot X-Ray 01/28/25 17:50 IMPRESSION: No identified acute osseous abnormality or secondary findings to suggest osteomyelitis. If there is further clinical concern, recommend follow-up MRI with and without contrast. Pelvis CT 01/29/25 09:53 IMPRESSION: 1. New small decubitus ulcer overlying the RIGHT hemisacrum with soft tissue thickening. Normal underlying bony sacrum. No evidence of osteomyelitis. 2. No evidence of drainable abscess or fluid collection. 3. Additional findings described above are stable Femur CT 01/29/25 09:54 IMPRESSION: 1. Prior postoperative changes with chronic healed fracture deformity RIGHT femur. No evidence of hardware loosening. 2. No evidence of drainable abscess or fluid collection. 3. Chronic RIGHT gluteal ulcer with unchanged chronic sclerosis in the underlying ischial tuberosity Chest X-Ray 01/31/25 09:15 IMPRESSION: 1. Cardiomegaly with pulmonary vascular congestion. 2. Mild diffuse interstitial prominence which may reflect pulmonary edema; most prominent at the right base. 3. Nodular density at the lateral left base measuring 8.[address] chest. Head CT 01/31/25 14:21 IMPRESSION: 1. No CT evidence of acute intracranial pathology. 2. Additional findings, as above. Venous Duplex 01/31/25 14:21 IMPRESSION: No sonographic evidence of deep venous thrombosis. Chest CTA 01/31/25 14:22 IMPRESSION: 1. No definite evidence of central or lobar pulmonary emboli, cannot exclude smaller segmental or subsegmental emboli. 2. Mild patchy right lung ground-glass opacification may be edema, infectious or inflammatory. 3. Sxwle-[id number]-[id number]-left pleural effusions with adjacent atelectasis. Laboratory Results WBC 7.79 10^3/uL (3.29-11.43) 02/04/25 05:23 RBC 6.20 10^6/uL (3.85-5.65) H 02/04/25 05:23 Hgb 18.80 g/dL (11.27-16.99) H 02/04/25 05:23 Hct 60.4 % (37-53) H 02/04/25 05:23 MCV 97.4 fl (82-101) 02/04/25 05:23 MCH 30.3 pg (27-33) 02/04/25 05:23 MCHC 31.1 g/dL (30-55) 02/04/25 05:23 RDW 13.3 % (12.1-15.1) 02/04/25 05:23 Plt Count 242 10^3/cmm (157-399) 02/04/25 05:23 MPV 10.1 fL (7.4-10.4) 02/04/25 05:23 Neut % (Auto) 67.4 % 02/04/25 05:23 Lymph % (Auto) 15.9 % 02/04/25 05:23 [place] % (Auto) 11.4 % 02/04/25 05:23 Eos % (Auto) 3.6 % 02/04/25 05:23 Baso % (Auto) 0.9 % 02/04/25 05:23 Neut # (Auto) 5.25 10^3/uL (1.8-7.7) 02/04/25 05:23 Lymph # (Auto) 1.2 10^3/uL (0.8-4.8) 02/04/25 05:23 [place] # (Auto) 0.9 10^3/uL (0.2-0.9) 02/04/25 05:23 Eos # (Auto) 0.3 10^3/uL (0.0-0.8) 02/04/25 05:23 Baso # (Auto) 0.1 10^3/uL (0.0-0.1) 02/04/25 05:23 Nucleated RBC % (auto) 0 % 02/04/25 05: Nucleated RBCs # 0.0 /100WBC 02/04/25 05:23 ESR 20 mm/hr (0-10) H 01/29/25 04:38 PT 16.20 SECONDS (12.1-14.9) H 01/29/25 04:38 INR 1.21 (0.8-1.2) H 01/29/25 04:38 APTT 35.0 SECONDS (23.9-36.7) 01/29/25 04:38 Specimen Type Arterial 01/31/25 08:42 Sample Site Radial, left 01/31/25 08:42 ABG pH 7.36 (7.35-7.45) 01/31/25 08:42 ABG pCO2 62.6 mmHg (35-45) H* 01/31/25 08:42 ABG pO2 63.0 mmHg (80.0-100.0) L 01/31/25 08:42 ABG PO2/FiO2 Ratio 143 01/31/25 08:42 ABG HCO3 35.3 mmol/L (22-26) H 01/31/25 08:42 ABG O2 Saturation 94.3 01/31/25 08:42 ABG Base Excess 6.9 mmol/L (-2.0-2.0) H 01/31/25 08:42 Vito Test Pos 01/31/25 08:42 A-a O2 Gradient 22.6 mmHg (5-10) H 01/31/25 08:42 Hematocrit 54.5 % (42-52) H 01/31/25 08:42 Hgb O2 Saturation 91.6 % (95-100) L 01/31/25 08:42 Carboxyhemoglobin 1.9 %THgb (0.4-20.1) 01/31/25 08:42 Methemoglobin 0.9 % (0.4-1.5) 01/31/25 08:42 Total Hemoglobin 17.8 g/dL (14-18) 01/31/25 08:42 Sodium 145.0 mmol/L (131-143) H 01/31/25 08:42 Potassium 3.7 mmol/L (3.5-5.0) 01/31/25 08:42 Glucose 92.0 mg/dL (70-115) 01/31/25 08:42 Ionized Calcium 1.2 mmol/L (1.1-1.4) 01/31/25 08:42 O2 Delivery Device Nc 01/31/25 08:42 O2 Liters/Min 6.0 % 01/31/25 08:42 FiO2 44.0 % 01/31/25 08:42 [employer]ft Worker ID Gd 01/31/25 08:42 Sodium 141 mmol/L (136-145) 02/04/25 05:23 Potassium 4.5 mmol/L (3.5-5.1) 02/04/25 05:23 Chloride 92 mmol/L (98-107) L 02/04/25 05:23 Carbon Dioxide 37 mmol/L (22-29) H 02/04/25 05:23 Anion Gap 16.5 (5-19) 02/04/25 05:23 BUN 37 mg/dL (6-20) H 02/04/25 05:23 Creatinine 1.0 mg/dL (0.7-1.2) 02/04/25 05:23 GFR Calculation 76.5 mL/min (90-130) L 02/04/25 05:23 Glucose 115 mg/dL (65-115) 02/04/25 05:23 POC Glucose 103 mg/dL (70-110) 01/30/25 23:36 Estimat Average Glucose 108 01/29/25 04:38 Hemoglobin A1c 5.4 % (4.0-6.0) 01/29/25 04:38 Calculated Osmolality 302 mOsm/kg (285-295) H 02/04/25 05:23 Lactic Acid 0.8 mmol/L (0.5-2.2) 01/29/25 04:38 Lactic Acid (Sepsis) 0.9 mmol/L (0.5-2.2) 01/28/25 21:14 Calcium 8.9 mg/dL (8.5-10.5) 02/04/25 05:23 Phosphorus 1.4 mg/dL (2.5-4.5) L D 01/31/25 04:32 Magnesium 1.9 mg/dL (1.7-2.3) 02/03/25 05:07 Total Bilirubin 1.2 mg/dL (0.15-1.2) 01/29/25 04:38 AST 9 U/L (0-40) 01/29/25 04:38 ALT 10 U/L (0-41) 01/29/25 04:38 Alkaline Phosphatase 71 U/L (40-130) 01/29/25 04:38 Troponin T Baseline 71 ng/L (0-15) H 01/31/25 14:32 Troponin T 120 Minute 76.39 ng/L (0-15) H 01/31/25 17:21 Delta Troponin T 5.39 ABS# (0-10) 01/31/25 17:21 Troponin T Hi Sens 6Hr 78.18 ng/L (0-15) H 01/31/25 20:04 Troponin T Hi Sens 6Hr Delta 7.18 ng/L (0-12) 01/31/25 20:04 C-Reactive Protein 69.0 mg/L (0.0-4.9) H 02/02/25 03:54 NT-Pro-B Natriuret Pep 371 pg/mL (0-125) H 02/02/25 03:54 Total Protein 6.3 g/dL (6.6-8.7) L 01/29/25 04:38 Albumin 2.8 g/dL (3.5-5.2) L 01/29/25 04:38 Globulin 3.5 g/dL (1.3-4.6) 01/29/25 04:38 Procalcitonin 0.15 ng/mL (0-0.5) 02/02/25 03:54 Vancomycin Trough 27.2 ug/mL (10-15) H* 01/30/25 16:54 Vitals Last Vital Signs Temp 98.5 F 02/04/25 12:00 Pulse 92 02/04/25 12:00 Resp 17 02/04/25 12:00 BP 101/70 02/04/25 12:00 Pulse Ox 92 02/04/25 12:00 O2 Del Method Nasal Cannula 02/04/25 12:00 O2 Flow Rate 2 02/04/25 12:00 FiO2 40 02/01/25 07:50 Discharge Plan Discharge Patient Disposition: Xfer Inpatient Rehab Fac Condition: Stable Prescriptions: New carvedilol 3.125 mg Tablet 3.125 mg PO BID Qty: 60 0RF docusate sodium 100 mg Capsule 100 mg PO BID Qty: 30 0RF furosemide 40 mg Tablet 40 mg PO BID Qty: 60 0RF sennosides [senna] 8.6 mg Tablet 17.2 mg PO BEDTIME Qty: 10 0RF levofloxacin 500 mg Tablet 500 mg PO DAILY Qty: 7 0RF potassium chloride 20 mEq/15 mL Liquid 40 meq PO DAILY Qty: 30 0RF Continued bisacodyl 10 mg suppository 10 mg MT DAILY PRN (Reason: Constipation) baclofen 20 mg tablet 20 mg PO BID (DME) [place] brace See Rx Instructions .Route .MEDSUPPLY Qty: 1 0RF Rx Instructions: As directed gabapentin 300 mg Capsule 300 mg PO BID zinc acetate 25 mg (zinc) Capsule 25 mg PO DAILY calcium carbonate-vitamin D3 600 mg-5 mcg (200 unit) Tablet 1 tab PO DAILY oxycodone-acetaminophen 5-325 mg tablet See Rx Instructions .ROUTE .COMPLEX Rx Instructions: 0.5 TABLET NEEDED ORALLY EVERY 6 HRS NEEDED DO NOT EXCEED 1 PER DAY 30 DAYS testosterone 20.25 mg/1.25 gram (1.62 %) gel in metered-dose pump 2 pump topical DAILY ascorbic acid (vitamin C) [Vitamin C] 1,000 mg Tablet 1,000 mg PO BID DHA 200 mg Capsule 200 mg PO DAILY@07 Fleet Enema 19-7 gram/118 mL Enema 118 ml MT DAILY PRN (Reason: Constipation) mupirocin 2 % Ointment 1 applic TOPICAL BID Rx Instructions: apply to left shoulder Held methenamine hippurate 1 gram tablet See Rx Instructions .ROUTE .COMPLEX Qty: 180 3RF Hold Instructions: Resume on 02/11/25. Dose Instruction: TAKE ONE TABLET BY MOUTH TWO TIMES A DAY * TAKE WITH 1000MG OF VITAMIN C. * Rx Instructions: TAKE ONE TABLET BY MOUTH TWO TIMES A DAY * TAKE WITH 1000MG OF VITAMIN C. * Discontinued acetaminophen 500 mg Tablet 500 mg PO Q6H PRN (Reason: Pain) magnesium hydroxide [Milk of Magnesia] 400 mg/5 mL Suspension 30 ml PO DAILY PRN (Reason: Constipation) Discharge Orders: Discharge Order (Routine); Ordered 02/04/25 Ordered By: Moi Diamond Referrals: Darren Rios DPM [Physician, Podiatry] Jonah Kerr MD [Primary Care Provider, [facility]] - 02/04/25 12:00 pm Discharge Diet: Cardiac Discharge Activity: Increase activity as tolerated and As per PT/OT instructions Patient Instructions: Acute Wound Care (DC), Opioid Safety, Post Anesthesia Care Activity Restrictions/Additional Instructions: Right heel wound care instructions from Dr. Rios D.P.M. - Keep current dressing consisting of silver cell AG, gauze, Kerlix and Ronn wrap clean, dry and intact until your follow-up visit in wound care clinic. This dressing type is indicated for up to 7 days and can be left intact until wound care clinic evaluation. - Float right heel for offloading, this is currently being achieved with bulky c ast padding dressing at the right leg and foam bump with the right heel suspended, please continue this. - Complete 14-day course of oral antibiotics as prescribed by hospitalist. New onset congestive heart failure. requires education on diet, meds. Discharge Attestations Time Spent in Discharge Care*: greater than 30 min Quality Metrics Clinical Quality Measures [ No reported AMI, CVA or VTE this stay] Coding Level of Care Code Acute Code for Chg Fwd Diagnoses Quadriplegia G82.50 Cellulitis of right foot L03.115 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 L97.413
--- NOTE | 2025-02-04 16:25 | PC.NURSE ---
report called to Audrey Hall at [facility]. Pt transferred to facility via [facility]. [facility] updated regarding ETA.
== END 2025-02-04 16:20 | DRG 981 ==
LOC: ER 20:39 → MEDSURG 20:52 → ICU 01-31 15:21 → MEDSURG 02-02 17:14
PROVIDERS: Family Medicine; Podiatrist Foot & Ankle Surgery; Admitting Provider Internal Medicine; Emergency Provider Emergency Medicine; PCP Family Medicine; Visit Provider Internal Medicine
PROC: 0LBV0ZZ Excision of Right Foot Tendon, Open Approach (ICD-10-PCS; principal; 2025-01-29 12:20)
DX: L03.115 Cellulitis of right lower limb (principal); G82.50 Quadriplegia, unspecified; J96.01 Acute respiratory failure with hypoxia; J96.02 Acute respiratory failure with hypercapnia; L02.611 Cutaneous abscess of right foot; L97.413 Non-pressure chronic ulcer of right heel and midfoot with necrosis of muscle; L89.616 Pressure-induced deep tissue damage of right heel; L89.156 Pressure-induced deep tissue damage of sacral region; L89.896 Pressure-induced deep tissue damage of other site; I16.0 Hypertensive urgency; I50.9 Heart failure, unspecified; B96.4 Proteus (mirabilis) (morganii) as the cause of diseases classified elsewhere; B96.89 Other specified bacterial agents as the cause of diseases classified elsewhere; E87.6 Hypokalemia; I11.0 Hypertensive heart disease with heart failure
CPT/HCPCS: 36415; 36416; 36600; 70450; 71045; 71275; 72192; 73630; 73700; 80048; 80051; 80053; 80202; 82330; 82805; 82962; 83036; 83605; 83735; 83880; 84100; 84145; 84484; 85025; 85610; 85651; 85730; 86140; 87070; 87077; 87176; 87186; 87205; 93005; 93308; 93970; 94660; 96365; 96372; 96374; 96375; 96376; 97110; 97162; 97167; 97530; 97535; 99285; J0692; J1644; J1938; J2020; J2270; J2404; J2405; J2470; J2704; J3010; J3370; J3480; J7030; J9999

== ENCOUNTER → 2025-03-08 14:25 | Outpatient (BNVA) | payer MEDICARE, OTHER, SELFPAY | PROVIDERS: PCP Family Medicine; Visit Provider Podiatrist Foot & Ankle Surgery | DX: G82.50 Quadriplegia, unspecified (principal); L97.412 Non-pressure chronic ulcer of right heel and midfoot with fat layer exposed | CPT/HCPCS: 99213 ==

== ENCOUNTER → 2025-04-12 14:31 | Outpatient (BNVA) | payer MEDICARE, SELFPAY | PROVIDERS: PCP Family Medicine; Visit Provider Podiatrist Foot & Ankle Surgery | DX: L97.412 Non-pressure chronic ulcer of right heel and midfoot with fat layer exposed (principal); G82.50 Quadriplegia, unspecified | CPT/HCPCS: 99213 ==

== ENCOUNTER 2025-06-10 13:40 | Inpatient (IN) | payer MEDICARE, SELFPAY ==
--- OUTSIDE RECORDS SUMMARY | 2025-06-09 05:00 | XMS_ITS ---
Author Organization [facility] Address [address] [place] [address] Care Team Providers Care Low Voltage Technician Name Role Phone Jonah Kerr MD Primary Care Provider Osman Marie [phone] Medications Medication SIG (Take, Route, Frequency, Duration) Notes Start Date End Date Status Baclofen 20 MG Tablet TAKE 1 TABLET BY MOUTH TWICE A DAY NEEDED; Duration: 90 Active Baclofen 20 MG Tablet 1 tablet with food or milk as needed Orally Three times a day; Duration: 30 days 06/09/2025 Active Eliquis [facility] Active Baclofen [facility] Active Aspirin *[facility]* Active oxyCODONE-Acetaminop hen 5-325 MG Tablet 1 tablet as needed Orally every 12 hours; Duration: 30 days As needed Not to exceed 2 per day Fill 07/09/2025 06/09/2025 08/08/2025 Active Gabapentin 300 MG Capsule 1 capsule Orally three times a day; Duration: 30 days As needed Fill 30 days from previous RX 11/12/2024 Active oxyCODONE-Acetaminop hen 5-325 MG Tablet 1 tablet as needed Orally every 12 hours; Duration: 30 days As needed Not to exceed 2 per day Fill 06/09/2025 06/09/2025 07/09/2025 Active Social History Sex Assigned At : Social History Observation Description Sex Assigned At Male Social History Additional Details Category Social Info Options Details Migrated Social History Migrated Social History Alcoholic beverages? - No, Currently on disability? - Yes, Drug or substance abuse? - No, Marital Status - single, Nonprescription drug use? - No, Smoking - No, Working currently? - No Vital Signs Height 71 in 06/09/2025 Weight 205 lbs 06/09/2025 BMI 28.59 kg/m2 06/09/2025 Height-cm 180.34 cm 06/09/2025 Weight-kg 92.99 kg 06/09/2025 Encounters Encounter Location Date Provider Diagnosis [facility] [place] [address] [place] [id number] 06/09/2025 Osman Trujillo Chronic pain due to trauma G89.21 ; Cervical pain M54.2 ; Back pain, lumbosacral M54.50 ; Pain in left shoulder M25.512 ; Unspecified abnormalities of gait and mobility R26.9 and half-way (current) use of opiate analgesic Z79.891 Assessments Encounter Date Diagnosis (ICD Code) Assessment Notes Treatment Notes Treatment Clinical Notes Section Notes 06/09/2025 Chronic pain due to trauma (ICD-10 - G89.21) I had a nice visit with the patient today regarding his chronic pain issues. Unfortunately, he had to undergo surgery to have a wound cleaned out with fluids. He had complications, which resulted in his going to rehab. He seems to have recovered for the most part. It has been a long process. He is taking more pain medication than prior to the hospitalization. He wanted this to be addressed in his prescription, which seems reasonable. This seems reasonable. This change will be reflected on his prescription that I provided today. His UDS and pill counts have been consistent with his treatment regimen. We will follow up in a couple of months and proceed accordingly. 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 Osman Trujillo. I, Dr. Osman Trujillo, personally performed the services described in this documentation, as scribed by Charisse Ruff, and it is both accurate and complete. Plan Of Treatment Medication Medication Name Sig Start Date Stop Date Notes Baclofen 20 MG Tablet 1 tablet with food or milk as needed Orally Three times a day; Duration: 30 days 06/09/2025 oxyCODONE-Acetaminophen 5-325 MG Tablet 1 tablet as needed Orally every 12 hours; Duration: 30 days 06/09/2025 08/08/2025 Fill 07/09/2025 Gabapentin 300 MG Capsule 1 capsule Orally three times a day; Duration: 30 days 11/12/2024 Fill 30 days from previous RX oxyCODONE-Acetaminophen 5-325 MG Tablet 1 tablet as needed Orally every 12 hours; Duration: 30 days 06/09/2025 07/09/2025 Fill 06/09/2025 Treatment Notes Assessment Notes Chronic pain due to trauma I had a nice visit with the patient today regarding his chronic pain issues. Unfortunately, he had to undergo surgery to have a wound cleaned out with fluids. He had complications, which resulted in his going to rehab. He seems to have recovered for the most part. It has been a long process. He is taking more pain medication than prior to the hospitalization. He wanted this to be addressed in his prescription, which seems reasonable. This seems reasonable. This change will be reflected on his prescription that I provided today. His UDS and pill counts have been consistent with his treatment regimen. We will follow up in a couple of months and proceed accordingly. Other I, Charisse Ruff, am scribing for Dr. Osman Trujillo. I, Dr. Osman Trujillo, personally performed the services described in this documentation, as scribed by Charisse Ruff, and it is both accurate and complete. Next Appt Details Follow Up: 2 Months, Reason: Provider Name:Ceci burciaga, 08/12/2025 01:00:00 PM, [address] [place], [phone], History and Physical Notes * HPI (History of Present Illness) Category Sub-Category Detail Notes Category Not es Pain Details Pain Location Lower Back,Left Leg,Right L eg Quality Throbbing,Burn/Tingl e Severity of pain at its worst 6 Severity of pain at its best 1 Severity of average pain 3 Severity of pain right now 1 Severity of pain on medication 2 When did you last take your pain medicin e 8:30Am oxycodine 5/325 Medication Details Do you have a lock b ox or safe place for medication away from minors and/or others? Yes Do you have any leftover pain medication building up at your house? No Do you understand that pain medication c an be addicting and can cause overdose? Yes Do you feel you can REDUCE the amount of medication you take today? 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 RESPIRATORY: On visual inspection, breathing equal bilaterally, trachea midline. CARDIOVASCULAR: reg rate Gastrointestinal: Examination reveals abdominal abnormalities. urostomy CERVICAL SPINE: Cervical Spine is grossly stable. Cervical ROM: greatly reduced ROM , cervical facet loading maneuvers of lateral flexion reproduced characteristic neck pain bilaterally. Neurology - MENTAL STATUS: His mood and affect are normal. Coordination: WC dependent Padded LLE brace Neurology - MOTOR STRENGTH: Left UE strength - Flexors: 4/5. Right UE strength - Flexors: 4/5. Left UE strength - Extensors: 4/5. Right UE strength - Extensors: 4/5. Left LE strength - Flexors: 0/5 Right LE strength - Flexors: 0/5 Left LE strength - Extensors: 0/5 Right LE strength - Extensors: 0/5 Left LE Tone: Decreased. Right LE Tone: Decreased. DTRs: Left biceps: 2. Right biceps: 2. Left triceps: 2. Right triceps: 2. Left brachioradialis: 2. Right brachioradialis: 2. Left patellar: 1. Right patellar: 0. Left Achilles: absent. Right Achilles: absent. Sensation: Scattered diminished areas of sensation below ~T2-3 Progress Notes * Madeline LOUISeDOB:1965 ([age] yo M)Acc No.[id number]:06/09/2025 Progress Notes Patient: Mihir Ellis Provider: Olinda Trujillo D.O. 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 Quality T hrobbing,Burn/Tingle. Severity of pain at its worst 6 . Severity of pain at its best 1 . Severity of pain on medication 2 . Severity of average pain 3 . Severity of pain right now 1 . When did you last take your pain medicine 1 0\ 8:30Am oxycodine 5/325. M edication Details: Do you have a lock box or safe place for medication away from minors and/or others? Y es. Do you have any leftover pain medication building up at your house? N o. Do you understand that pain medication can be addicting and can cause overdose? Y es. Do you feel you can REDUCE the amount of medication you take today? N o. O pioid Assessment Tools: Pill Count 2 .5. Last Urine Drug Screen 0 12/30/2024 saliva. Today's Rapid Urine Drug Screen w ill be sent for confirmation. 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 T reatment History: Test undergone in the past None Ipma. Past medication you have taken P ercocet 5 #30 G abapentin 300 mg #90 B aclofen 20 mg #60. Treatments you have had None IPMA. Vernon pollard Note: I had a spot on my foot that needed to be cleaned. I'm back to one to two pills some days. For the past 2 weeks at least half of the days, I had one at least some time. I like the Tylenol. Half the days, I needed the second one in the afternoon. Patient returns to the clinic for a 2-month follow-up. He has been having increased pain since he has been in the hospital. He spent time in rehab. * ROS: G eneral/Constitutional: Recent weight gain D enies. R ecent weight loss D enies. R espiratory: Cough D enies. W heezing D enies. S hortness of breath D enies. G astrointestinal: Abdominal pain D enies. P sychiatric: Suicidal thoughts D enies. * Screening: * COMM - Current Opioid Misuse Measure: D ocumented By: Leandro Evans core: 5?Interpretation: Score indicates low risk of abuse behaviors C OMM - Current Opioid Misuse Measure How often have you had trouble with thinking clearly or had memory problems?NeverHow often do people complain that you are not completing necessary tasks? (i.e., doing things that need to be done, such as going to class, work or appointments)NeverHow often have you had to go to someone other than your prescribing physician to get sufficient pain relief from medications? (i.e., another doctor, the Emergency Room, friends, street sources)NeverHow often have you taken your medications differently from how they are prescribed?NeverHow often have you seriously thought about hurting yourself?NeverHow much of your time was spent thinking about opioid medications (having enough, taking them, dosing schedule, etc.)?SeldomHow often have you been in an argument?SeldomHow often have you had trouble controlling your anger (e.g., road rage, screaming, etc.)?NeverHow often have you needed to take pain medications belonging to someone else?NeverHow often have you been worried about how you're handling your medications?NeverHow often have others been worried about how you're handling your medications?NeverHow often have you had to make an emergency phone call or show up at the clinic without an appointment?NeverHow often have you gotten angry with people?SeldomHow often have you had to take more of your medication than prescribed?SeldomHow often have you borrowed pain medication from someone else?NeverHow often have you used your pain medicine for symptoms other than for pain (e.g., to help you sleep, improve your mood, or relieve stress)?NeverHow often have you had to visit the Emergency Room?Seldom * Medical History: Migraines Kidney stones Medical History Verified * Surgical History: Cervical spine surgery C-6 Femur surgery Knee Surgery Lithotripsy Ureterolithotripsy Surgical History verified. * Family History: M igrated Family History: : Heart disease. F amily History Verified.. * Social History: M igrated Social History: M igrated Social History: Alcoholic beverages? - No, C urrently on disability? - Yes, D rug or substance abuse? - No, M arital Status - single, N onprescription drug use? - No, S moking - No, W orking currently? - No. S ocial History Verified. * Medications: T akingAspirin , Notes to Pharmacist: *[facility]*Baclofen , Notes to Pharmacist: *[facility]Baclofen 20 MG Tablet TAKE 1 TABLET BY MOUTH TWICE A DAY NEEDED Eliquis , Notes to Pharmacist: *[facility]*Gabapentin 300 MG Capsule 1 capsule Orally three times a day As needed, Notes to Pharmacist: Fill 30 days from previous RXoxyCODONE-Acetaminophen 5-325 MG Tablet 1 tablet as needed Orally every 6 hrs Medication List reviewed and reconciled with the patientTaking Aspirin , Notes to Pharmacist: *[facility]*Taking Baclofen , Notes to Pharmacist: *[facility]*Taking Baclofen 20 MG Tablet TAKE 1 TABLET BY MOUTH TWICE A DAY NEEDED Taking Eliquis , Notes to Pharmacist: *[facility]*Taking Gabapentin 300 MG Capsule 1 capsule Orally three times a day As needed, Notes to Pharmacist: Fill 30 days from previous RXTaking oxyCODONE-Acetaminophen 5-325 MG Tablet 1 tablet as needed Orally every 6 hrs Medication List reviewed and reconciled with the patient Objective: * Vitals: H t: 71 in, Wt:205lbs, Wt-k.99 kg, BMI:28.59Index, Ht-cm: 180.34 cm. * P ast Orders: L ab:IPMA Saliva Drug Screen (Order Date - 12/30/2024) (Collection Date & Time - 12/30/2024 03:33 PM) * Examination: G eneral Examination: C ONSTITUTIONAL: oriented to person, place and time with recent/remote memory intact, male in no acute distress noted. RESPIRATORY: On visual inspection, breathing equal bilaterally, trachea midline. CARDIOVASCULAR: reg rate Gastrointestinal: Examination reveals abdominal abnormalities. urostomy CERVICAL SPINE: Cervical Spine is grossly stable. Cervical ROM: greatly reduced ROM , cervical facet loading maneuvers of lateral flexion reproduced characteristic neck pain bilaterally. Neurology - MENTAL STATUS: His mood and affect are normal. Coordination: WC dependent Padded LLE brace Neurology - MOTOR STRENGTH: Left UE strength - Flexors: 4/5. Right UE strength - Flexors: 4/5. Left UE strength - Extensors: 4/5. Right UE strength - Extensors: 4/5. Left LE strength - Flexors: 0/5 Right LE strength - Flexors: 0/5 Left LE strength - Extensors: 0/5 Right LE strength - Extensors: 0/5 Left LE Tone: Decreased. Right LE Tone: Decreased. DTRs: Left biceps: 2. Right biceps: 2. Left triceps: 2. Right triceps: 2. Left brachioradialis: 2. Right brachioradialis: 2. Left patellar: 1. Right patellar: 0. Left Achilles: absent. Right Achilles: absent. Sensation: Scattered diminished areas of sensation below ~T2-3. Assessment: * Assessment: 1. C hronic pain due to trauma - G89.21 (Primary) 2 . C ervical pain - M54.2 3 . B ack pain, lumbosacral - M54.50 4 . P ain in left shoulder - M25.512 5 . U nspecified abnormalities of gait and mobility - R26.9 6 . L adrian term (current) use of opiate analgesic - Z79.891 Plan: * Treatment: 2. B ack pain, lumbosacral Refill oxyCODONE-Acetaminophen Tablet, 5-325 MG, 1 tablet as needed, Orally, every 12 hours As needed Not to exceed 2 per day, 30 days, 45 Tablet, Start Date: 06/09/2025, Stop Date: 07/09/2025, Refills 0, Notes to Pharmacist: Fill 06/09/2025; R efill oxyCODONE-Acetaminophen Tablet, 5-325 MG, 1 tablet as needed, Orally, every 12 hours As needed Not to exceed 2 per day, 30 days, 45 Tablet, Start Date: 06/09/2025, Stop Date: 08/08/2025, Refills 0, Notes to Pharmacist: Fill 07/09/2025. ? 3. O therelle Notes: I, Charisse Ruff, am scribing for Dr. Osman Trujillo. I, Dr. Osman Trujillo, personally performed the services described in this documentation, as scribed by Charisse Ruff, and it is both accurate and complete. * Follow Up: 2 Months Billing Information: * Procedure Codes: Care Plan Details* * Electronic signature of Osman Trujillo , DO on 06/10/2025 at 02:50 PM CDT Sign off status: Pending * Provider: Olinda Trujillo D.O. Date: Generated for Ene kulkarni/Lauro/Inna on: 02:50 PM CDT
--- NOTE | 2025-06-10 13:47 | XR_ITS ---
WS: [id number] XR foot RT min 3V* [id number] REASON FOR EXAM: pain/pressure ulcer FINDINGS: The examination is unchanged compared to 01/28/2025. Severely decreased bone density. 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 Soft tissue ulcer identified adjacent to the posterior calcaneus. No underlying bone erosion or cortical loss. XR/XR foot RT min 3V* [id number] IMPRESSION: Stable examination without findings of osteomyelitis. No acute bone or joint abnormality.
[2025-06-10 13:49] VITALS: BP 111/74; PULSE 71; RESP 16; TEMP 36.6; O2SAT 93; BMI 28.5
--- NOTE | 2025-06-10 13:56 | W.ED.EXTPRO ---
HPI - Extremity Problem General: Chief complaint: Extremity Problem,Nontraumatic Stated complaint: infected right foot Time Seen by Provider: 06/10/25 13:47 History of Present Illness: 59-year-old male who has history of spinal cord lesion is quadriplegic presents emergency room with complaints of a open wounds red and inflamed on the right heel. Has had pressure ulcers in the past. He denies any fever sweats chills denies any other injuries or ulcerations. Associated symptoms: Deny chest pain, fever(s) or rash Related Data Home Medications ?Medication ?Instructions ?Recorded ?Confirmed baclofen 20 mg tablet 20 mg PO BID 04/14/21 06/11/25 gabapentin 300 mg capsule 300 mg PO BID 05/08/21 06/11/25 ascorbic acid (vitamin C) 1,000 mg 1,000 mg PO BID 04/02/22 06/11/25 tablet (Vitamin C) docosahexaenoic acid 200 mg 200 mg PO DAILY@07 05/31/22 06/11/25 capsule ( DHA) mupirocin 2 % topical ointment 1 applic topical BID 05/31/22 06/11/25 calcium 600 mg (as 1 tab PO DAILY 01/29/25 06/11/25 carbonate)-vitamin D3 5 mcg (200 unit) tablet testosterone 2 pump topical DAILY 01/29/25 06/11/25 zinc acetate 25 mg (zinc) capsule 25 mg PO DAILY 01/29/25 06/11/25 apixaban 2.5 mg tablet (Eliquis) 1 mg PO BID 06/11/25 06/11/25 methenamine hippurate 1 gram tablet 1 g PO BID 06/11/25 06/11/25 Previous Rx's ?Medication ?Instructions ?Recorded German brace #1 ea 04/18/22 carvedilol 6.25 mg tablet 3.125 mg (1/2 x 6.25 mg) PO BID 30 06/15/25 days #30 tabs levofloxacin 750 mg tablet 750 mg PO Q24H 3 weeks #21 tabs 06/15/25 Allergies Allergy/AdvReac Type Severity Reaction Status Date / Time clindamycin Allergy rash Verified 04/12/25 14:35 Review of Systems Const: Denies: fever(s) or chills Card: Denies: chest pain Resp: Denies: dyspnea GI: Denies: abdominal pain : Denies: dysuria, urinary frequency or urinary urgency Musc: Denies: neck pain or back pain Skin/Breast: Denies: rash PFSH ED PFSH: Medical History 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 Quadriplegia Unstageable pressure ulcer of sacral region Paraplegia Bleeding hemorrhoids Pressure ulcers of skin of multiple topographic sites Osteomyelitis, pelvis Renal stones Wound of left lower extremity Osteomyelitis hip UTI (urinary tract infection) Anemia GI bleeding Acute kidney injury History of DVT (deep vein thrombosis) Renal lesion History of recurrent UTI (urinary tract infection) Rotator cuff arthropathy of left shoulder Encounter for long-term opiate analgesic use Chronic bilateral low back pain without sciatica Hx of fracture of femur 2014 metal placed right femur Hx of staphylococcal infection multiple surgeries to remove STAPH in left wrist Surgical History S/P hemorrhoidectomy Status post colonoscopy (10/25/20) H/O esophagogastroduodenoscopy (10/25/20) S/P debridement (10/07/20) right gluteal wound History of removal of retained hardware 09/2019 Dr. Hastings at [facility] left lower ext History of removal of calculus of renal pelvis through percutaneous nephrostomy History of urinary diversion procedure Hx of knee surgery Left -metal put in 2014 and removed 2016- due to infection History of urostomy 10-15 years ago Hx of neck surgery 1989 History of nasal surgery 1989 Family History Grandfather Diabetes Family history of premature coronary artery disease Mother Lupus (systemic lupus erythematosus) Social History Smoking and tobacco/nicotine status: never used tobacco/nicotine Second hand smoke exposure: Yes Alcohol intake: never Substance/Drug Use: never Marital status: Single Current occupational status: disabled Current gender identity: Male Physical Exam Const: GENERAL APPEARANCE: cooperative ORIENTATION/CONSCIOUSNESS: Yes awake, Yes oriented to person, Yes oriented to place and Yes oriented to time HENMT: COMMON NORMALS: normocephalic, atraumatic and hearing grossly normal bilaterally HEAD & SCALP: normocephalic and atraumatic Resp: COMMON NORMALS: normal respiratory effort, No retractions, No use of accessory muscles and clear to auscultation bilaterally AUSCULTATION: clear to auscultation bilaterally Cardio: COMMON NORMALS: regular rate, regular rhythm and No murmurs present (Cardio) RATE: regular rate RHYTHM: regular rhythm GI: COMMON NORMALS: Soft to palpation and No hepatosplenomegaly present AUSCULTATION: Yes normoactive bowel sounds PALPATION: Yes Soft to palpation, No Tenderness to palpation present (GI), No Guarding due to palpation present (GI) and Yes No hepatosplenomegaly present Back/Pelvis: OTHER: Extremity: OTHER: Open wound on the heel with full exposure of underlying subcutaneous tissue. Some necrotic tissue no drainage Neuro: SENSORIUM/ORIENTATION: Yes oriented to person, Yes oriented to place and Yes oriented to time Skin: COMMON NORMALS: no rashes or lesions noted GENERAL SKIN EXAM: no rashes or lesions noted Course Vital Signs: Vital signs: Vital Signs Temperature 97.6 F 06/15/25 13:17 Pulse Rate 68 06/15/25 13:17 Respiratory Rate 17 06/15/25 13:17 Blood Pressure 120/77 06/15/25 13:17 Pulse Oximetry 91 06/15/25 13:17 Oxygen Delivery Me thod Room Air 06/15/25 11:17 Oxygen Flow Rate 3 06/11/25 11:24 MDM - Extremity (Nontraumatic) Medical Decision Making Presacral decubitus ulcer full-thickness ulcer of the right heel with some exposed bone. Will discussed with hospitalist will treat for cellulitis admit consult podiatry for wound debridement. Medical Records I reviewed the patient's medical records. Lab Data I reviewed the patient's lab results. 06/15/25 04:32 06/15/25 04:32 Radiology Impressions Foot X-Ray 06/10/25 13:47 IMPRESSION: Stable examination without findings of osteomyelitis. No acute bone or joint abnormality. Foot CT 06/10/25 14:28 IMPRESSION: 1. Soft tissue ulceration over the posterior calcaneus is in contact with the cortical surface of the calcaneus. Soft tissue ulcer measures 2.9 x 3.7 cm. 2. Diffuse cellulitis around the entire foot. 3. No osteomyelitis identified. 4. Severe osteopenia. Laboratory Results WBC 8.46 10^3/uL (3.29-11.43) 06/10/25 14:13 RBC 4.60 10^6/uL (3.85-5.65) 06/10/25 14:13 Hgb 14.20 g/dL (11.27-16.99) 06/10/25 14:13 Hct 44.4 % (37-53) 06/10/25 14:13 MCV 96.5 fl (82-101) 06/10/25 14:13 MCH 30.9 pg (27-33) 06/10/25 14:13 MCHC 32.0 g/dL (30-55) 06/10/25 14:13 RDW 13.2 % (12.1-15.1) 06/10/25 14:13 Plt Count 244 10^3/cmm (157-399) 06/10/25 14:13 MPV 9.2 fL (7.4-10.4) 06/10/25 14:13 Neut % (Auto) 76.1 % 06/10/25 14:13 Lymph % (Auto) 8.9 % 06/10/25 14:13 [place]ilton % (Auto) 11.0 % 06/10/25 14:13 Eos % (Auto) 2.8 % 06/10/25 14:13 Baso % (Auto) 0.6 % 06/10/25 14:13 Neut # (Auto) 6.44 10^3/uL (1.8-7.7) 06/10/25 14:13 Lymph # (Auto) 0.8 10^3/uL (0.8-4.8) 06/10/25 14:13 [place]ilton # (Auto) 0.9 10^3/uL (0.2-0.9) 06/10/25 14:13 Eos # (Auto) 0.2 10^3/uL (0.0-0.8) 06/10/25 14:13 Baso # (Auto) 0.1 10^3/uL (0.0-0.1) 06/10/25 14:13 Nucleated RBC % (auto) 0 % 06/10/25 14:13 Nucleated RBCs # 0.0 /100WBC 06/10/25 14:13 Sodium 140 mmol/L (136-145) 06/10/25 14:13 Potassium 4.0 mmol/L (3.5-5.1) 06/10/25 14:13 Chloride 100 mmol/L (98-107) 06/10/25 14:13 Carbon Dioxide 30 mmol/L (22-29) H 06/10/25 14:13 Anion Gap 14.0 (5-19) 06/10/25 14:13 BUN 14 mg/dL (6-20) 06/10/25 14:13 Creatinine 0.7 mg/dL (0.7-1.2) 06/10/25 14:13 GFR Calculation 115.4 mL/min (90-130) 06/10/25 14:13 Glucose 128 mg/dL (65-115) H 06/10/25 14:13 Calculated Osmolality 292 mOsm/kg (285-295) 06/10/25 14:13 Lactic Acid 1.9 mmol/L (0.5-2.2) 06/10/25 14:13 Calcium 9.0 mg/dL (8.5-10.5) 06/10/25 14:13 Total Bilirubin 0.9 mg/dL (0.15-1.2) 06/10/25 14:13 AST 12 U/L (0-40) 06/10/25 14:13 ALT 9 U/L (0-41) 06/10/25 14:13 Alkaline Phosphatase 89 U/L (40-130) 06/10/25 14:13 C-Reactive Protein 53.2 mg/L (0.0-4.9) H 06/10/25 14:13 Total Protein 6.5 g/dL (6.6-8.7) L 06/10/25 14:13 Albumin 2.9 g/dL (3.5-5.2) L 06/10/25 14:13 Globulin 3.6 g/dL (1.3-4.6) 06/10/25 14:13 All radiology interpretation(s) finalized by discharge Discharge Plan Discharge Patient Disposition: Admitted As Inpatient Admit Provider: Memo Perez Clinical Impression: Cellulitis, Decubitus skin ulcer, Ulcer of right heel Condition: Stable Discharge Activity: Resume usual activity Coding Level of Care Code ED Form Press Operator for Cristy Katherine
[2025-06-10 14:24] LABS: Hematocrit 44.4 % (37-53); Hemoglobin 14.20 g/dL (11.27-16.99); Mean Corpuscular HGB Conc 32.0 g/dL (30-55); Mean Corpuscular Hemoglobin 30.9 pg (27-33); Mean Corpuscular Volume 96.5 fl (82-101); Nucleated Red Blood Cells % 0 %; Platelet Count 244 10^3/cmm (157-399); Red Blood Count 4.60 10^6/uL (3.85-5.65); White Blood Count 8.46 10^3/uL (3.29-11.43)
--- NOTE | 2025-06-10 14:28 | CT_ITS ---
WS: [id number] CT RIGHT FOOT WITH CONTRAST HISTORY: Open wound heel Technique: All [facility] scans at [facility] use at least one of these dose optimization techniques: automated exposure control; mA and/or kV adjustment per patient size (includes targeted exams where dose is matched to clinical indication); or iterative reconstruction. DLP: 189.25 mGy.cm COMPARISON: Radiograph 06/10/2025 Contrast: Omnipaque 100 mL IV. Bones are severely osteopenic. No acute fractures or osseous destruction is identified. Soft tissue ulcer involving the posterior calcaneus extends over a length of 2.9 cm and transversely by 3.7 cm. Soft tissue ulcer extends to the cortical surface of the calcaneus. There is no obvious bone destruction. There is very mild but incomplete enhancement surrounding the soft tissue ulcer. There is diffuse soft tissue edema and cellulitis surrounding the foot. No additional areas of soft tissue ulceration. No cortical bone destruction or subluxation. CT/CT foot RT w con [id number] IMPRESSION: 1. Soft tissue ulceration over the posterior calcaneus is in contact with the cortical surface of the calcaneus. Soft tissue ulcer measures 2.9 x 3.7 cm. 2. Diffuse cellulitis around the entire foot. 3. No osteomyelitis identified. 4. Severe osteopenia.
[2025-06-10 14:43] LABS: Alanine Aminotransferase 9 U/L (0-41); Albumin Level 2.9 g/dL (3.5-5.2); Alkaline Phosphatase 89 U/L (40-130); Anion Gap 14.0 (5-19); Aspartate Amino Transferase 12 U/L (0-40); Blood Urea Nitrogen 14 mg/dL (6-20); Calcium 9.0 mg/dL (8.5-10.5); Carbon Dioxide 30 mmol/L (22-29); Chloride 100 mmol/L (98-107); Creatinine Clr Calc Pharmacy 132.3874; Globulin 3.6 g/dL (1.3-4.6); Glucose 128 mg/dL (65-115); Lactic Sepsis W/Reflex 1.9 mmol/L (0.5-2.2); Osmolality Calculated 292 mOsm/kg (285-295); Potassium 4.0 mmol/L (3.5-5.1); Sodium 140 mmol/L (136-145); Total Protein 6.5 g/dL (6.6-8.7)
--- OUTSIDE RECORDS SUMMARY | 2025-06-10 14:50 | XMS_ITS | Clinical Summary ---
Author Organization [facility] Address [address] Colon: Epic Prelude ADT STEVEN [place] [address] Care Team Providers Care Creasing And Cutting Press Feeder Name Role Phone Unavailable Primary Care Provider Unavailabl e Allergies Active Allergy Reactions Criticality Noted Date Comments Clindamycin Rash High 02/04/2025 Medications acetaminophen (TYLENOL) 325 mg tablet Take 2 Tablets (650 mg) by mouth every 6 hours as needed for Pain, Mild, Pain, Moderate or Temperature (See admin instructions). 200 Tablet 5 Active baclofen (LIORESAL) 20 mg tablet Take 1 Tablet (20 mg) by mouth daily at bedtime. 30 Tablet 5 Active calcium as CARBONATE-vitam in D3 (OS-CARO 500+D) 500 mg-5 mcg (200 unit) tablet Take 1 Tablet by mouth daily. 30 Tablet 5 Active carvediloL (COREG) 6.25 mg tablet Take 1 Tablet (6.25 mg) by mouth 2 times daily with meals. 60 Tablet 5 Active enoxaparin (LOVENOX) 40 mg/0.4 mL injection Inject 0.4 mL (40 mg) by subcutaneous injection every 24 hours. 30 Each 5 Active famotidine (PEPCID) 20 mg tablet Take 1 Tablet (20 mg) by mouth 2 times daily. 60 Tablet 5 Active furosemide (LASIX) 40 mg tablet Take 1 Tablet (40 mg) by mouth two times daily, 7 hours apart. 60 Tablet 5 Active gabapentin (NEURONTIN) 300 mg capsule Take 1 Capsule (300 mg) by mouth every 12 hours. 60 Capsule 5 Active hydrALAZINE (APRESOLINE) 25 mg tablet Take 1 Tablet (25 mg) by mouth every 6 hours as needed for Other (See Comment) (SBP>160). 120 Tablet 5 Active magnesium HYDROXIDE (MILK OF MAGNESIA) 400 mg/5 mL suspension Take 30 mL by mouth 1 time daily as needed for Constipation. 473 mL 5 Active ondansetron (ZOFRAN ODT) 4 mg Tablet, Rapid Dissolve Take 1 Tablet (4 mg) by mouth every 6 hours as needed for Nausea/Emesis. Dissolve tablet on top of tongue, then swallow with saliva. 60 Tablet 5 Active oxyCODONE (ROXICODONE) 5 mg tabletIndicatio ns:Neuropathy,S pasticity,Press ure injury of sacral region, stage 2 Take 0.5 Tablets (2.5 mg) by mouth every 6 hours as needed for Pain, Severe. Max Daily Amount: 10 mg 20 Tablet Active potassium CHLORIDE (K-TAB) 20 mEq Extended Release tablet Take 1 Tablet (20 mEq) by mouth daily with breakfast. 30 Tablet 5 Active saccharomyces boulardii (FLORASTOR) 250 mg Capsule Take 1 Capsule (250 mg) by mouth 2 times daily. 60 Capsule 5 Active zinc OXIDE-cod liver oil (DESITIN) 40 % PasteIndication s:Paul groin Apply to affected area 2 times daily. 454 Gram 5 Active Active Problems Problem Noted Date Diagnosed Date Debility r/t R foot Abscess with Cellulitis s/p I&D Down to Bone 02/04/2025 Incomplete Quadriplegia (CMS /HCC) with Recently Worsening Bilateral Upper Extremity Strength 02/04/2025 New Onset CHF (congestive heart failure) 025 Pressure injury of skin of r ight heel with necrosis of muscles 02/04/2025 Pressure ulcer of sacrum 02/04/2025 Presence of urostomy 02/04/2025 Elevated hemoglobin 02/04/2025 Hypokalemia 02/04/2025 Spasticity 02/04/2025 Neuropathy 02/04/2025 Family History Medical History Relation Name Comments Cataract Father Relation Name Status Comments Father Social History Tobacco Use Types Packs/Day Years Used Date Smoking Tobacco: Never Smokeless Tobacco: Never Tobacco Cessation:Counseling Given: Not Answered Feeling Safe Answer Date Recorded Are you in a relationship wi th someone who hurts you emotionally and/or physically? 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 Gender Identity Not on file Sexual Orientation Not on file Last Filed Vital Signs Vital Sign Reading Time Taken Comments Blood Pressure 126/81 02/17/2025 4:21 AM CDT Pulse 57 02/17/2025 4:21 AM CDT Temperature 36.3 C (97.3 F) 02/17/2025 4:21 AM CDT Respiratory Rate 18 02/17/2025 4:21 AM CDT Oxygen Saturation 95% 02/17/2025 4:21 AM CDT Inhaled Oxygen Concentration - - Weight 91.9 kg (202 lb 11.2 oz) 02/15/2025 7:00 AM CDT Height 177.8 cm (5' 10 ) 02/04/2025 6:15 PM CDT Body Mass Index 29.08 02/04/2025 6:15 PM CDT Plan of Treatment Health Maintenance Due Date Last Done Comments Pre-Diabetes and Diabetes Screening 1965 DTAP/TDAP/TD VACCINES (1 - Tdap) 1984 HEPATITIS B VACCINES (1 of 3 - 19+ 3-dose series) 11/24 COLORECTAL SCREENING 2010 Colorectal Cancer Screening 2010 FIT-DNA Q 3 years 2010 FIT/FOBT Q 1 year 2010 Flex Sig/CT Colonography Q 5 years 2010 ZOSTER VACCINE (1 of 2) 12/12/2015 INFLUENZA VACCINE (#1) 2025 Insurance MEDICARE PART A AND B Advance Directives For more information, please contact: [phone] * Full Code (Latest Code Status on File) Date Activated Date Inactivated Comments 02/04/2025 6:11 PM 02/17/2025 2:37 PM
--- OUTSIDE RECORDS SUMMARY | 2025-06-10 14:50 | XMS_ITS | Encounter Summary ---
Author Organization [facility] Address [address] [place] [address] Care Team Providers Care Plant Manager Name Role Phone Unavailable Primary Care Provider Unavailabl e Encounter Details Date Type Department Care Team (Late st Contact Info) Description 12/13/1999 Outpatient Historical [facility] 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
--- OUTSIDE RECORDS SUMMARY | 2025-06-10 14:51 | XMS_ITS | Encounter Summary ---
Author Organization [facility] Address [address] [place] [address] Care Team Providers Care Reflesher Name Role Phone Unavailable Primary Care Provider Unavailabl e Encounter Details Date Type Department Care Team (Late st Contact Info) Description 02/25/2002 Outpatient Historical [facility] Opt[facility] [address] [place] [id number] Sam Felder S, OD [address] [place] [address] MYOPIA (Primary Dx) Social History Tobacco Use Types Packs/Day Years Used Date Smoking Tobacco: Never Assessed Sex and Gender Information Value Date Recorded Sex Assigned at Not on file 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
--- OUTSIDE RECORDS SUMMARY | 2025-06-10 14:51 | XMS_ITS | Encounter Summary ---
Author Organization [facility] Address [address] [place] [address] Care Team Providers Care Position Classification Manager Name Role Phone Unavailable Primary Care Provider Unavailabl e Encounter Details Date Type Department Care Team (Late st Contact Info) Description 05/10/2005 Outpatient Historical [facility] [address] [place] [phone] Sam Felder S, OD [address] [place] [address] MYOPIA (Primary Dx) Social History Tobacco Use Types Packs/Day Years Used Date Smoking Tobacco: Never Assessed Sex and Gender Information Value Date Recorded Sex Assigned at Not on file 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
--- OUTSIDE RECORDS SUMMARY | 2025-06-10 14:51 | XMS_ITS | Clinical Summary ---
Author Organization 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 Gender Identity Not on file Sexual Orientation Not on file Last Filed Vital Signs Vital Sign Reading Time Taken Comments Blood Pressure 158/98 10/23/2011 2:01 PM ONCOLOGY ADMIN Pulse 78 10/23/2011 2:01 PM ONCOLOGY ADMIN Temperature - - Respiratory Rate - - Oxygen Saturation - - Inhaled Oxygen Concentration - - Weight 99.8 kg (220 lb) 10/23/2011 2:01 PM ONCOLOGY ADMIN Height 180.3 cm (5' 11 ) 10/23/2011 2:01 PM ONCOLOGY ADMIN Body Mass Index 30.68 10/23/2011 2:01 PM ONCOLOGY ADMIN Plan of Treatment Health Maintenance Due Date Last Done Comments DTAP/TDAP/TD VACCINES (1 - Tdap) 1984 HEPATITIS B VACCINES (1 of 3 - 19+ 3-dose series) 11/24 COLORECTAL SCREENING 2010 Colorectal Cancer Screening 2010 FIT-DNA Q 3 years 2010 FIT/FOBT Q 1 year 2010 Flex Sig/CT Colonography Q 5 years 2010 ZOSTER VACCINE (1 of 2) 12/12/2015 INFLUENZA VACCINE (#1) [address] [place] [id number] Medical Envelope MEDICAID [id number]
--- OUTSIDE RECORDS SUMMARY | 2025-06-10 14:51 | XMS_ITS | Patient Health Record ---
Author Organization [facility] Address [address] [place] [address] Care Team Providers Care Solution Professional Name Role Phone Jonah Kerr MD Primary Care Provider UnavailOsman Huggins Unavailable [phone] Migration, Provider Unavailable Unavailable Ceci Astudillo Unavailable [phone] Allergies Allergen (clinical drug ingredient) Drug/Non Drug Allergy documented on EMR Reaction Allergy Type Onset Date Status clindamycin Clindamycin Unknown Drug Allergy Act chao Results Component Value Reference Range Notes Urine Drug Screen (cup read) - 34949 Reviewed date:11/12/2024 04:17:35 PM Interpretation: Performing Lab: Notes/Report: OXY + zzzUrine Drug Screen (confir mation by instrument) - 78741 Reviewed date:09/29/2024 03:17:20 PM Interpretation: Performing Lab: Notes/Report: IPMA Saliva Drug Screen Reviewed date:01/04/2025 03:33:52 PM Interpretation: Performing Lab: Notes/Report: Urine Drug Screen (cup read) - [id number] Reviewed date:07/31/2024 09:21:59 AM Interpretation: Performing Lab: Notes/Report: OXY + Reason For Referral No Information Medications Medication SIG (Take, Route, Frequency, Duration) Notes Start Date End Date Status oxyCODONE-Acetaminop hen 5-325 MG Tablet 1 tablet as needed Orally every 12 hours; Duration: 30 days As needed Not to exceed 2 per day Fill 07/09/2025 06/09/2025 08/08/2025 Active Gabapentin 300 MG Capsule 1 capsule Orally three times a day; Duration: 30 days As needed Fill 30 days from previous RX 11/12/2024 Active Baclofen 20 MG Tablet TAKE 1 TABLET BY MOUTH TWICE A DAY NEEDED; Duration: 90 Active oxyCODONE-Acetaminop hen 5-325 MG Tablet 1 tablet as needed Orally every 12 hours; Duration: 30 days As needed Not to exceed 2 per day Fill 06/09/2025 06/09/2025 07/09/2025 Active Baclofen 20 MG Tablet 1 tablet with food or milk as needed Orally Three times a day; Duration: 30 days 06/09/2025 Active Eli[facility] Active Social History Sex Assigned At : Social History Observation Description Sex Assigned At Male Social History Additional Details Category Social Info Options Details Migrated Social History Migrated Social History Alcoholic beverages? - No, Currently on disability? - Yes, Drug or substance abuse? - No, Marital Status - single, Nonprescription drug use? - No, Smoking - No, Working currently? 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) Other incomplete lesion at C7 level of cervical spinal cord, sequela (S14.157S) 4 Active confirmed Problem High risk drug monitoring status (393091921) correction (current) use of opiate analgesic (Z79.891) Active confirmed Problem Cervical pain (42247931) Cervical pain (M54.2) Active confirmed Vital Signs Height-cm 180.34 cm 06/09/2025 Weight-kg 92.99 kg 06/09/2025 Height 71 in 06/09/2025 Weight 205 lbs 06/09/2025 BMI 28.59 kg/m2 06/09/2025 Encounters Encounter Location Date Provider Diagnosis [facility] [address] [place] [address] 06/09/2025 Osman Trujillo Chronic pain due to trauma G89.21 ; Cervical pain M54.2 ; Back pain, lumbosacral M54.50 ; Pain in left shoulder M25.512 ; Unspecified abnormalities of gait and mobility R26.9 and buttermaker continuous churn (current) use of opiate analgesic Z79.891 [facility] [address] [address] 07/30/2024 Ceci Astudillo Chronic pain due to trauma G89.21 ; Pain in left shoulder M25.512 ; Back pain, lumbosacral M54.50 ; Unspecified abnormalities of gait and mobility R26.9 and buttermaker continuous churn (current) use of opiate analgesic Z79.891 [facility] [address] [address] 09/24/2024 Ceci Astudillo Chronic pain due to trauma G89.21 ; Cervical pain M54.2 ; Back pain, lumbosacral M54.50 ; Pain in left shoulder M25.512 ; Unspecified abnormalities of gait and mobility R26.9 and correction (current) use of opiate analgesic Z79.891 [facility] [address] [address] 11/12/2024 Ceci Astudillo Chronic pain due to trauma G89.21 ; Cervical pain M54.2 ; Back pain, lumbosacral M54.50 ; Pain in left shoulder M25.512 ; Unspecified abnormalities of gait and mobility R26.9 and correction (current) use of opiate analgesic Z79.891 [facility] [address] [address] 12/30/2024 Osman Trujillo Chronic pain due to trauma G89.21 ; Cervical pain M54.2 ; Back pain, lumbosacral M54.50 ; Pain in left shoulder M25.512 ; Unspecified abnormalities of gait and mobility R26.9 and correction (current) use of opiate analgesic Z79.891 [facility] [address] [place] [address] 02/24/2025 Osman Trujillo Chronic pain due to trauma G89.21 ; Cervical pain M54.2 ; Back pain, lumbosacral M54.50 ; Pain in left shoulder M25.512 ; Unspecified abnormalities of gait and mobility R26.9 and buttermaker continuous churn (current) use of opiate analgesic Z79.891 [facility] 0 0 06/20/2024 Provider Migration [facility] 0 0 06/21/2024 Provider Migration [facility] [place] [address] [place] [address] 07/20/2024 Osman [facility] [address] [place] [address] 07/30/2024 Osman Fosterarya [facility] [place] [address] [place] [phone] 08/31/2024 Osman [facility] [place] [address] [facility] [place] [address] 09/07/2024 Osman [facility] [place] [address] [place] [address], [place] [address] 09/24/2024 Osman [facility] [place] [address] [facility] [place] [address] 11/12/2024 Osman Trujillo Assessments Encounter Date Diagnosis (ICD Code) Assessment Notes Treatment Notes Treatment Clinical Notes Section Notes 07/30/2024 Chronic pain due to trauma (ICD-10 - G89.21) 07/30/2024 Pain in left shoulder (ICD-10 - M25.512) 09/24/2024 Chronic pain due to trauma (ICD-10 - G89.21) 02/24/2025 Chronic pain due to trauma (ICD-10 - G89.21) I had a nice visit with the patient today regarding his chronic pain issues. Unfortunately, he's had a rough go lately, after he discovered a heel ulcer on his right foot and ended up going to the ER and having surgery the next day. He is living in a care facility right now as they're trying to get him healed. He does have a soft boot that he's wearing to protect that area, but he is not able to do as much activity as he has been. For now, we'll just continue his medications unchanged and see him back in about 2 months. 09/24/2024 Cervical pain (ICD-10 - M54.2) 11/12/2024 Chronic pain due to trauma (ICD-10 - G89.21) I had a nice discussion with the patient today regarding his chronic pain complaints. He states he is doing reasonably well on his current medication regimen. He feels it allows him to function better overall. He denies any changes in his health since we last seen him or any untoward side effects of the medication. He states he will need a refill of his baclofen this time as he will not have enough to make it to 2 months. He tries to utilize it as sparingly as possible. The patient continues with chronic pain requiring treatment to help restore function and improve quality of life. Risks of opioid therapy as well as interaction of opioids with alcohol, illicit drugs, muscle relaxers, and other sedative medications are reviewed briefly with patient again today. The patient has trialed all other reasonable treatment options and uses the medication to alleviate pain in order to remain active and rest with less pain. No clinically relevant medication side effects are noted. Last UDS and AR REFINING SUPERVISOR reviewed today. Patient is advised that best long-term goals include increased activity, core strengthening, proper weight management, coping strategies, avoidance of painful triggers, and targeted interventional therapy. We will see the patient for routine follow up in accordance with all clinic policies. We did remind patient today of current guidelines to decrease opioid when possible. We will continue to stress nonopioid treatment. URINE TESTING TODAY; POINT OF SERVICE Urine drug screening will be performed today to monitor compliance with opioid therapy or to serve as a baseline screen for a patient who may be a candidate for opioid therapy in the future, pending UDS results. We will monitor with in-office testing (rapid testing) today and review the results prior to dispensing prescription, as well. Patient has been made aware of this policy. 06/09/2025 Chronic pain due to trauma (ICD-10 [...] a couple of months and proceed accordingly. 12/30/2024 Chronic pain due to trauma (ICD-10 - G89.21) I had a nice visit with the patient today regarding his chronic pain issues. Overall, he seems to be doing reasonably well. He denies any new problems or issues, his medications remain effective. He tries to be active, but obviously he does have his limitations. We continue his medications unchanged for a couple months, and see him back in about 2 months. 12/30/2024 Cervical pain (ICD-10 - M54.2) 11/12/2024 Cervical pain (ICD-10 - M54.2) 06/09/2025 Cervical pain (ICD-10 - M54.2) 07/30/2024 Back pain, lumbosacral (ICD-10 - M54.50) 09/24/2024 Back pain, lumbosacral (ICD-10 - M54.50) 02/24/2025 Cervical pain (ICD-10 - M54.2) 02/24/2025 Back pain, lumbosacral (ICD-10 - M54.50) 09/24/2024 Pain in left shoulder (ICD-10 - M25.512) 07/30/2024 Unspecified abnormalities of gait and mobility (ICD-10 - R26.9) 06/09/2025 Back pain, lumbosacral (ICD-10 - M54.50) 11/12/2024 Back pain, lumbosacral (ICD-10 - M54.50) 12/30/2024 Back pain, lumbosacral (ICD-10 - M54.50) 12/30/2024 Pain in left shoulder (ICD-10 - M25.512) 06/09/2025 Pain in left shoulder (ICD-10 - M25.512) 07/30/2024 correction (current) use of opiate analgesic (ICD-10 - Z79.891) 09/24/2024 Unspecified abnormalities of gait and mobility (ICD-10 - R26.9) 02/24/2025 Pain in left shoulder (ICD-10 - M25.512) 11/12/2024 Pain in left shoulder (ICD-10 - M25.512) 11/12/2024 Unspecified abnormalities of gait and mobility (ICD-10 - R26.9) 02/24/2025 Unspecified abnormalities of gait and mobility (ICD-10 - R26.9) 09/24/2024 buttermaker continuous churn (current) use of opiate analgesic (ICD-10 - Z79.891) 06/09/2025 Unspecified abnormalities of gait and mobility (ICD-10 - R26.9) 12/30/2024 Unspecified abnormalities of gait and mobility (ICD-10 - R26.9) 12/30/2024 correction (current) use of opiate analgesic (ICD-10 - Z79.891) 06/09/2025 correction (current) use of opiate analgesic (ICD-10 - Z79.891) 02/24/2025 buttermaker continuous churn (current) use of opiate analgesic (ICD-10 - Z79.891) 11/12/2024 buttermaker continuous churn (current) use of opiate analgesic (ICD-10 - Z79.891) 06/09/2025 Other I, Charisse Ruff, am scribing for Dr. Osman Trujillo. I, Dr. Osman Trujillo, personally performed the services described in this documentation, as scribed by Charisse Ruff, and it is both accurate and complete. 07/30/2024 Other I had a nice discussion with the patient today regarding his chronic pain complaints. He is doing well on his current medication regimen. He did have to go few days without his medication as he switched pharmacies and then his insurance would only allow a 7-day prescription. He states he had a hard time getting the other 23 days since because he thought the pharmacy was going to contact us. He is afraid this may happen again in August as he is changing insurance providers for his prescription's. He will give us a call if he needs anything. He denies any other changes since we last seen him or any untoward side effects of the medication. He will continue his medication at present level and return to clinic in 2 months to monitor for treatment effectiveness and compliance. 09/24/2024 Karmen I had a nice discussion with the patient today regarding his chronic pain complaints. He is doing reasonably well on his current medication regimen. He continues with multiple site pain but feels his medication does help him overall so he can complete his activities of daily living. He denies any changes in his health since we last seen him or any untoward side effects of the medication. He was sent a 3-month supply of his baclofen at his last visit so he does not need a refill of that today. He will continue his medication at present level and return to clinic in 2 months to monitor for treatment effectiveness and compliance. RECOMMEND URINE TESTING TODAY Urine drug screening will be performed today to monitor compliance with opioid therapy or to serve as a baseline screen for a patient who may be a candidate for opioid therapy in the future, pending UDS results. We will monitor with in-office testing (rapid testing) today and review the results prior to dispensing prescription. All positive results will be sent for quantitative analysis to ensure accuracy and quantify amounts. Any expected positive results that return negative will also be sent for quantitative analysis. Any questionable read or any medication we cannot test for in the office confidently will be sent for quantitative analysis, as well. Patient has been made aware of this policy and agrees to abide by our urine testing policy. The patient continues with chronic pain requiring treatment to help restore function and improve quality of life. Risks of opioid therapy as well as interaction of opioids with alcohol, illicit drugs, muscle relaxers, and other sedative medications are reviewed briefly with patient again today. The patient has trialed all other reasonable treatment options and uses the medication to alleviate pain in order to remain active and rest with less pain. No clinically relevant medication side effects are noted. Last UDS and AR REFINING SUPERVISOR reviewed today. Patient is advised that best long-term goals include increased activity, core strengthening, proper weight management, coping strategies, avoidance of painful triggers, and targeted interventional therapy. We will see the patient for routine follow up in accordance with all clinic policies. We did remind patient today of current guidelines to decrease opioid when possible. We will continue to stress nonopioid treatment. 12/30/2024 Lakshmi Siddiqui NCMA, am scribing for Dr. Osman Trujillo. I, Dr. Osman Trujillo, personally performed the services described in this documentation, as scribed by LUIGI Goodman , and it is both accurate and complete. 02/24/2025 Other I, LUIGI Goodman, am scribing for Dr. Osman Trujillo. I, Dr. Osman Trujillo, personally performed the services described in this documentation, as scribed by LUIGI Goodman, and it is both accurate and complete. Plan Of Treatment Next Appt Details Provider Name:Ceci Malu burciaga, 08/12/2025 01:00:00 PM, [address] [place], [address], Insurance Providers Payer Name Payer Address Payer Phone Subscriber Number Group Number Insured Name Patient Relationship to Insured Coverage Start Date Coverage End Date [place] [address] [address] [place] [address] [id number] Mihir Keller Self - patient is the insured [employer] [facility] [address] [address] [place] [address] [id number] Mihir Keller Self - patient is the insured [employer] [address] [address] [place] [address] [id number] KellerMihir Self - patient is the insured Medical (General) History Medical History History ICD Code migraines kidney stones Surgical History Surgery Date(Month/Year) Cervical spine surgery C-6 Femur surgery Knee Surgery Lithotripsy Ureterolithotripsy
[2025-06-10] MEDS: iohexol 350 mg/mL 500 mL Btl (per mL) IV (15:23)
[2025-06-10 16:23] VITALS: BP 149/89; PULSE 62; RESP 16; O2SAT 93
[2025-06-10 16:41] VITALS: BP 127/82; PULSE 63; RESP 18; TEMP 36.4
[2025-06-10 17:01] VITALS: BP 127/82; PULSE 63; RESP 18; TEMP 36.4; O2SAT 94
--- NOTE | 2025-06-10 17:19 | PM.HP ---
Providers/Chief Complaint Admitting Physician: Memo Perez MD Primary Care Provider: Jonah Kerr MD Chief Complaint: infected right foot History of Present Illness Mihir Keller is a 59 year old male with a past medical history of heel ulcers, sacral decubitus ulcer, history of urostomy, history of quadriplegia, currently at home, recently discharged from [facility] long-term about 2 weeks ago, who presents to [facility] due to a right heel ulcer. Patient reports that he has had increased swelling, drainage, purulence at his right heel over the last few days, no fevers, no chills, he has also developed swelling throughout the right foot, Review of Systems Const: Denies: fever(s) or chills Card: Denies: chest pain Medications/Allergies Home Medications ?Medication ?Instructions ?Recorded ?Confirmed ?Last Taken ?Type baclofen 20 mg tablet 20 mg PO BID 04/14/21 04/12/25 01/28/25 History gabapentin 300 mg capsule 300 mg PO BID 05/08/21 04/12/25 01/28/25 History bisacodyl 10 mg rectal suppository 10 mg MS DAILY PRN Constipation 08/01/21 04/12/25 05/09/22 History ascorbic acid (vitamin C) 1,000 mg 1,000 mg PO BID 04/02/22 04/12/25 01/28/25 History tablet (Vitamin C) [place] brace #1 ea 04/18/22 04/12/25 Unknown Rx docosahexaenoic acid 200 mg 200 mg PO DAILY@07 05/31/22 04/12/25 01/28/25 History capsule ( DHA) mupirocin 2 % topical ointment 1 applic topical BID 05/31/22 04/12/25 Unknown History sodium phosphates 19 gram-7 118 ml MS DAILY PRN Constipation 05/31/22 04/12/25 Unknown History gram/118 mL enema (Fleet Enema) methenamine hippurate 1 gram tablet See Rx Instructions .Route 01/01/23 04/12/25 01/28/25 Rx Held on 02/04/25. .COMPLEX #180 tabs Instructions: Resume on 02/11/25. calcium 600 mg (as 1 tab PO DAILY 01/29/25 04/12/25 01/28/25 History carbonate)-vitamin D3 5 mcg (200 unit) tablet oxycodone-acetaminophen 5 mg-325 See Rx Instructions .Route .COMPLEX 01/29/25 04/12/25 01/28/25 History mg tablet testosterone 2 pump topical DAILY 01/29/25 04/12/25 01/28/25 History zinc acetate 25 mg (zinc) capsule 25 mg PO DAILY 01/29/25 04/12/25 01/28/25 History carvedilol 3.125 mg tablet 3.125 mg PO BID #60 tabs 02/04/25 04/12/25 Unknown Rx docusate sodium 100 mg capsule 100 mg PO BID #30 caps 02/04/25 04/12/25 Unknown Rx furosemide 40 mg tablet 40 mg PO BID #60 tabs 02/04/25 04/12/25 Unknown Rx levofloxacin 500 mg tablet 500 mg PO DAILY #7 tabs 02/04/25 04/12/25 Unknown Rx potassium chloride 20 mEq/15 mL 40 meq (30 mL) PO DAILY #30 mL 02/04/25 04/12/25 Unknown Rx oral liquid sennosides 8.6 mg tablet (senna) 17.2 mg (2 x 8.6 mg) PO BEDTIME 02/04/25 04/12/25 Unknown Rx #10 tabs Allergies Allergy/AdvReac Type Severity Reaction Status Date / Time clindamycin Allergy rash Verified 04/12/25 14:35 PFSH Acute PFSH: Medical History 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 Quadriplegia Unstageable pressure ulcer of sacral region Paraplegia Bleeding hemorrhoids Pressure ulcers of skin of multiple topographic sites Osteomyelitis, pelvis Renal stones Wound of left lower extremity Osteomyelitis hip UTI (urinary tract infection) Anemia GI bleeding Acute kidney injury History of DVT (deep vein thrombosis) Renal lesion History of recurrent UTI (urinary tract infection) Rotator cuff arthropathy of left shoulder Encounter for long-term opiate analgesic use Chronic bilateral low back pain without sciatica Hx of fracture of femur 2014 metal placed right femur Hx of staphylococcal infection multiple surgeries to remove STAPH in left wrist Surgical History S/P hemorrhoidectomy Status post colonoscopy (10/25/20) H/O esophagogastroduodenoscopy (10/25/20) S/P debridement (10/07/20) right gluteal wound History of removal of retained hardware 09/2019 Dr. Hastings at [facility] left lower ext History of removal of calculus of renal pelvis through percutaneous nephrostomy History of urinary diversion procedure Hx of knee surgery Left -metal put in 2014 and removed 2016- due to infection History of urostomy 10-15 years ago Hx of neck surgery 1989 History of nasal surgery 1989 Family History Grandfather Diabetes Family history of premature coronary artery disease Mother Lupus (systemic lupus erythematosus) Social History Smoking and tobacco/nicotine status: never used tobacco/nicotine Second hand smoke exposure: Yes Alcohol intake: never Substance/Drug Use: never Marital status: Single Current occupational status: disabled Current gender identity: Male Vitals/I&O/Wt Last Vital Signs Temp 97.5 F L 06/10/25 17:01 Pulse 63 06/10/25 17:01 Resp 18 06/10/25 17:01 BP 127/82 06/10/25 17:01 Pulse Ox 94 06/10/25 17:01 O2 Del Method Room Air 06/10/25 17:01 06/10/25 06/10/25 06/10/25 06:59 14:59 22:59 Output Total 500 / 500 Balance -500 / -500 Weight last 48 hrs Weight 92.986 kg Physical Exam Const: COMMON NORMALS: no acute distress and patient oriented x3 Eye: COMMON NORMALS: Equal, round and reactive pupils present and EOMs intact bilaterally Resp: COMMON NORMALS: normal respiratory effort, No retractions, No use of accessory muscles and clear to auscultation bilaterally AUSCULTATION: clear to auscultation bilaterally Cardio: COMMON NORMALS: no JVD, regular rate, regular rhythm, S1 normal heart sound present and S2 normal heart sound present RATE: regular rate RHYTHM: regular rhythm HEART SOUNDS: S1 normal heart sound present and S2 normal heart sound present GI: COMMON NORMALS: Normal to inspection, nondistended, normoactive bowel sounds present, Soft to palpation and non-tender Extremity: COMMON NORMALS: no pedal edema NARRATIVE EXTREMITY EXAM: Right heel, ulcer, measuring 3 x 3 cm, with purulence, with erythema throughout the right foot Sacral exam, has multiple professional excoriation throughout the lower sacral area, throughout the scrotum, Neuro: COMMON NORMALS: patient oriented x3 and CN's II-XII intact bilaterally Psych: COMMON NORMALS: mental status grossly normal Data 06/10/25 14:13 06/10/25 14:13 Micro: Microbiology 06/10/25 14:13 Blood Culture - Preliminary Blood SPECIMEN COLLECTED 06/10/25 14:13 Blood Culture - Preliminary Blood SPECIMEN COLLECTED A&P Assessment and plan 1. Decubitus skin ulcer: 2. Ulcer of right heel: 3. Cellulitis: Plan: Right heel ulcer with surrounding cellulitis CT/CT foot RT w con [id number] IMPRESSION: 1. Soft tissue ulceration over the posterior calcaneus is in contact with the cortical surface of the calcaneus. Soft tissue ulcer measures 2.9 x 3.7 cm. 2. Diffuse cellulitis around the entire foot. 3. No osteomyelitis identified. 4. Severe osteopenia. Plan - Orthopedic service has been consulted - Vancomycin - Zosyn -Blood culture - N.p.o. midnight for possible surgical invention tomorrow Decubitus ulcer, sacrum, with multiple excoriations - Continue repositioning - Wound care Full code Lovenox for DVT prophylaxis PDMP PDMP Reviewed: Not Reviewed Attestations Medical Necessity Statement*: Patient requires hospitalization for right heel ulcer with surrounding cellulitis, inpatient, greater than 2 midnights Diagnoses Decubitus skin ulcer L89.90 Ulcer of right heel L97.419 Cellulitis L03.90
[2025-06-10 17:30] VITALS: BMI 30.3
[2025-06-10 17:58] LABS: Estmated Average Glucose 97; Hemoglobin A1C 5.0 % (4.0-6.0)
[2025-06-10 18:01] LABS: Procalcitonin 0.04 ng/mL (0-0.5); Thyroid Stimulating Hormone 0.71 uIU/mL (0.27-4.20)
[2025-06-10 18:12] LABS: Cholesterol 103 mg/dL (0-200); HDL Cholesterol 31 mg/dL (60-100); Triglycerides 87 mg/dL (0-150)
[2025-06-10] MEDS: pantoprazole 40 mg SDV IVP (18:42)
[2025-06-10] MEDS: piperacillin-tazobactam 3.375 GM in sodium chloride 0.9% (plus) 50 ML IV (18:44)
--- NOTE | 2025-06-10 19:16 | PHA.VACGOAL ---
Vancomycin Goal - Goal Vancomycin Indication:: SSTI - Therapy Day of therpy:: Day []of [] . Actual body weight (kg): 217 lb 5 oz - Data Labs: WBC 8.46 10^3/uL (3.29-11.43) 06/10/25 14:13 RBC 4.60 10^6/uL (3.85-5.65) 06/10/25 14:13 Hgb 14.20 g/dL (11.27-16.99) 06/10/25 14:13 Hct 44.4 % (37-53) 06/10/25 14:13 MCV 96.5 fl (82-101) 06/10/25 14:13 MCH 30.9 pg (27-33) 06/10/25 14:13 MCHC 32.0 g/dL (30-55) 06/10/25 14:13 RDW 13.2 % (12.1-15.1) 06/10/25 14:13 Sodium 140 mmol/L (136-145) 06/10/25 14:13 Potassium 4.0 mmol/L (3.5-5.1) 06/10/25 14:13 Chloride 100 mmol/L (98-107) 06/10/25 14:13 Carbon Dioxide 30 mmol/L (22-29) H 06/10/25 14:13 Anion Gap 14.0 (5-19) 06/10/25 14:13 BUN 14 mg/dL (6-20) 06/10/25 14:13 Creatinine 0.7 mg/dL (0.7-1.2) 06/10/25 14:13 GFR Calculation 115.4 mL/min (90-130) 06/10/25 14:13 Treatment plan:: new consult Regimen:: 2000 MG Q12H
[2025-06-10 20:39] VITALS: RESP 16; O2SAT 96
[2025-06-10] MEDS: morphine 4 mg/mL SDV 1 mL 2 MG IVP (20:39)
[2025-06-10 22:00] VITALS: BP 120/74; PULSE 62; RESP 17; TEMP 36.9; O2SAT 91
--- NOTE | 2025-06-10 22:21 | PM.CONSULT ---
Providers/Reason For Consult Consulting Physician/Specialty*: Dr. John Limon, D.P.M./podiatry Reason for Consult*: Right heel decubitus ulcer with cellulitis Attending Physician: Memo Perez MD Primary Care Provider: Jonah Kerr MD History of Present Illness History of Present Illness Mihir Keller is a 59 year old male with history of right heel decubitus ulceration, quadriplegia. Patient had recently undergone debridement of right heel wound during recent hospital admission. This did not extend down to bone. Was discharged on oral antibiotics. Patient states that the wound healed as he was at a [facility] facility. However over the course the past week the wound has come back. Patient states that he had offloading boots but he left them at the [facility] facility for someone else to use. He has not been using them. Podiatry was consulted to evaluate and provide further treatment recommendations. Review of Systems General: Reports: 10 or more systems reviewed and unremarkable except in HPI and below Const: Denies: fever(s), chills, body aches or change in appetite Eyes: Denies: change in vision or blurry vision Card: Denies: chest pain, palpitations or irregular heart rhythm Resp: Denies: dyspnea GI: Denies: abdominal pain, nausea, vomiting or diarrhea Musc: Reports: joint stiffness Skin/Breast: Reports: non-healing lesions and lesions Neuro: Reports: numbness in extremities Medications/Allergies Home Medications ?Medication ?Instructions ?Recorded ?Confirmed ?Last Taken ?Type baclofen 20 mg tablet 20 mg PO BID 04/14/21 04/12/25 01/28/25 History gabapentin 300 mg capsule 300 mg PO BID 05/08/21 04/12/25 01/28/25 History bisacodyl 10 mg rectal suppository 10 mg AL DAILY PRN Constipation 08/01/21 04/12/25 05/09/22 History ascorbic acid (vitamin C) 1,000 mg 1,000 mg PO BID 04/02/22 04/12/25 01/28/25 History tablet (Vitamin C) Egrman brace #1 ea 04/18/22 04/12/25 Unknown Rx docosahexaenoic acid 200 mg 200 mg PO DAILY@07 05/31/22 04/12/25 01/28/25 History capsule ( DHA) mupirocin 2 % topical ointment 1 applic topical BID 05/31/22 04/12/25 Unknown History sodium phosphates 19 gram-7 118 ml AL DAILY PRN Constipation 05/31/22 04/12/25 Unknown History gram/118 mL enema (Fleet Enema) methenamine hippurate 1 gram tablet See Rx Instructions .Route 01/01/23 04/12/25 01/28/25 Rx Held on 02/04/25. .COMPLEX #180 tabs Instructions: Resume on 02/11/25. calcium 600 mg (as 1 tab PO DAILY 01/29/25 04/12/25 01/28/25 History carbonate)-vitamin D3 5 mcg (200 unit) tablet oxycodone-acetaminophen 5 mg-325 See Rx Instructions .Route .COMPLEX 01/29/25 04/12/25 01/28/25 History mg tablet testosterone 2 pump topical DAILY 01/29/25 04/12/25 01/28/25 History zinc acetate 25 mg (zinc) capsule 25 mg PO DAILY 01/29/25 04/12/25 01/28/25 History carvedilol 3.125 mg tablet 3.125 mg PO BID #60 tabs 02/04/25 04/12/25 Unknown Rx docusate sodium 100 mg capsule 100 mg PO BID #30 caps 02/04/25 04/12/25 Unknown Rx furosemide 40 mg tablet 40 mg PO BID #60 tabs 02/04/25 04/12/25 Unknown Rx levofloxacin 500 mg tablet 500 mg PO DAILY #7 tabs 02/04/25 04/12/25 Unknown Rx potassium chloride 20 mEq/15 mL 40 meq (30 mL) PO DAILY #30 mL 02/04/25 04/12/25 Unknown Rx oral liquid sennosides 8.6 mg tablet (senna) 17.2 mg (2 x 8.6 mg) PO BEDTIME 02/04/25 04/12/25 Unknown Rx #10 tabs Allergies Allergy/AdvReac Type Severity Reaction Status Date / Time clindamycin Allergy rash Verified 04/12/25 14:35 Current Medications Generic Name Dose Route Start Last Admin Trade Name Freq PRN Reason Stop Dose Admin Carvedilol 3.125 mg 06/10/25 17:29 06/10/25 18:43 Carvedilol 3.125 Mg Tablet PO 3.125 mg BID LAYTON Administration Docusate Sodium 100 mg 06/10/25 17:29 06/10/25 18:43 Docusate Sodium 100 Mg Capsule PO 100 mg BID LAYTON Administration Enoxaparin Sodium 40 mg 06/10/25 16:45 06/10/25 18:42 Enoxaparin 40 Mg/0.4 Ml Syringe SUBCUT 40 mg Q24H LAYTON Administration Gabapentin 300 mg 06/10/25 17:29 06/10/25 18:43 Gabapentin 300 Mg Capsule PO 300 mg BID LAYTON Administration Piperacillin Sod/Tazobactam 50 mls @ 12.5 mls/hr 06/10/25 18:00 06/10/25 18:44 Sod 3.375 gm/ Sodium Chloride IV 12.5 mls/hr Q8H LAYTON Administration Protocol Vancomycin HCl 2,000 mg in 400 mls @ 200 mls/hr 06/10/25 19:15 06/10/25 20:33 Vancocin IV 200 mls/hr Q12H LAYTON Administration Morphine Sulfate 2 mg 06/10/25 16:40 06/10/25 20:39 Morphine 4 Mg/Ml Sdv 1 Ml IVP 2 mg Q4H PRN Administration SEVERE PAIN Pantoprazole Sodium 40 mg 06/10/25 16:45 06/10/25 18:42 Pantoprazole 40 Mg Sdv IVP 40 mg Q24H LAYTON Administration PFSH Acute PFSH: Medical History (Updated 06/11/25 @ 09:00 by John Limon DPM) 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 Quadriplegia Unstageable pressure ulcer of sacral region Paraplegia Bleeding hemorrhoids Pressure ulcers of skin of multiple topographic sites Osteomyelitis, pelvis Renal stones Wound of left lower extremity Osteomyelitis hip UTI (urinary tract infection) Anemia GI bleeding Acute kidney injury History of DVT (deep vein thrombosis) Renal lesion History of recurrent UTI (urinary tract infection) Rotator cuff arthropathy of left shoulder Encounter for long-term opiate analgesic use Chronic bilateral low back pain without sciatica Hx of fracture of femur 2014 metal placed right femur Hx of staphylococcal infection multiple surgeries to remove STAPH in left wrist Surgical History S/P hemorrhoidectomy Status post colonoscopy (10/25/20) H/O esophagogastroduodenoscopy (10/25/20) S/P debridement (10/07/20) right gluteal wound History of removal of retained hardware 09/2019 Dr. Hastings at [facility] left lower ext History of removal of calculus of renal pelvis through percutaneous nephrostomy History of urinary diversion procedure Hx of knee surgery Left -metal put in 2014 and removed 2017- due to infection History of urostomy 10-15 years ago Hx of neck surgery 1989 History of nasal surgery 1989 Family History Grandfather Diabetes Family history of premature coronary artery disease Mother Lupus (systemic lupus erythematosus) Social History Smoking and tobacco/nicotine status: never used tobacco/nicotine Second hand smoke exposure: Yes Alcohol intake: never Substance/Drug Use: never Marital status: Single Current occupational status: disabled Current gender identity: Male Vitals/I&O/Wt Last Vital Signs Temp 97.5 F L 06/10/25 17:01 Pulse 63 06/10/25 17:01 Resp 16 06/10/25 20:39 BP 127/82 06/10/25 17:01 Pulse Ox 96 06/10/25 20:39 O2 Del Method Room Air 06/10/25 17:30 06/10/25 06/10/25 06/10/25 06:59 14:59 22:59 Intake Total 240 / 240 Output Total 500 / 500 Balance -260 / -260 Weight last 48 hrs Weight 217 lb 5 oz Weight 205 lb Physical Exam Narrative: BELOW IS A FOCUSED LOWER EXTREMITY EXAM GENERAL: A&O x 3 VASCULAR: DP/PT pulses palpable 2/4 with CFT intact, <3seconds to distal digits DERMATOLOGICAL: Full-thickness ulceration right posterior heel mild serous drainage. Significant surrounding erythema. Necrotic tissue at wound bed. No immediate note of probe to bone. No underlying fluctuance or signs of deep space abscess. MUSCULOSKELETAL: Quadriplegia with minor lower extremity contractures. NEUROLOGICAL: Neurological sensation to the affected foot and ankle is present through L4-S1 dermatomes with no hyper/hypoesthesias, negative Tinel or Valleix's sign IMAGING: No evidence of cortical erosions or osteomyelitis on CT scan or x-rays. No subcutaneous emphysema noted. Data 06/11/25 04:28 06/11/25 04:28 Micro: Microbiology 06/10/25 14:13 Blood Culture - Preliminary Blood SPECIMEN COLLECTED 06/10/25 14:13 Blood Culture - Preliminary Blood SPECIMEN COLLECTED A&P Assessment and plan 1. Cellulitis: 2. Decubitus ulcer of right heel, stage 3: 3. Decubitus ulcer of left heel, stage 1: Plan: Right decubitus ulceration with cellulitis N.p.o. at midnight. Surgery 06/11/2025 for excisional debridement right calcaneal wound. Plan to obtain intraoperative bone biopsy to rule out osteomyelitis as well as culture. Patient wishes to have procedure done under local only. Float bilateral heels. Patient will need bilateral Prevalon boots to offload bilateral heels. Discharge plan: To be determined PDMP PDMP Reviewed: Not Reviewed Coding Level of Care Code Acute Code for [facility] Diagnoses Cellulitis L03.90 Decubitus ulcer of right heel, stage 3 L89.613 Decubitus ulcer of left heel, stage 1 L89.621
[2025-06-11] VITALS (12 sets, daily range): BP systolic 108–142; BP diastolic 64–87; PULSE 59–77; RESP 14–18; TEMP 36.6–37; O2SAT 90–99
[2025-06-11] MEDS: piperacillin-tazobactam 3.375 GM in sodium chloride 0.9% (plus) 50 ML IV ×3 (01:15→20:12)
[2025-06-11 05:11] LABS: Hematocrit 44.3 % (37-53); Hemoglobin 13.90 g/dL (11.27-16.99); Mean Corpuscular HGB Conc 31.4 g/dL (30-55); Mean Corpuscular Hemoglobin 30.6 pg (27-33); Mean Corpuscular Volume 97.6 fl (82-101); Nucleated Red Blood Cells % 0 %; Platelet Count 248 10^3/cmm (157-399); Red Blood Count 4.54 10^6/uL (3.85-5.65); White Blood Count 6.51 10^3/uL (3.29-11.43)
[2025-06-11 05:38] LABS: Alanine Aminotransferase 8 U/L (0-41); Albumin Level 2.9 g/dL (3.5-5.2); Alkaline Phosphatase 85 U/L (40-130); Anion Gap 13.9 (5-19); Aspartate Amino Transferase 11 U/L (0-40); Blood Urea Nitrogen 16 mg/dL (6-20); Calcium 8.4 mg/dL (8.5-10.5); Carbon Dioxide 30 mmol/L (22-29); Chloride 103 mmol/L (98-107); Creatinine Clr Calc Pharmacy 105.6900; Globulin 3.5 g/dL (1.3-4.6); Glucose 74 mg/dL (65-115); Osmolality Calculated 296 mOsm/kg (285-295); Potassium 3.9 mmol/L (3.5-5.1); Sodium 143 mmol/L (136-145); Total Protein 6.4 g/dL (6.6-8.7)
--- NOTE | 2025-06-11 08:42 | USCV_ITS ---
Mihir Keller Age: 59 Gender: M : 1965 Exam Date: 06/11/2025 10:09 Ordering Phys: Memo Perez MD Technologist: JACK [place]am Location[place] [facility] [place] Indication: RLE swelling and redness HISTORY: Lower extremity swelling. PROCEDURES: Venous duplex imaging was performed in only the right lower extremity. The following venous structures were evaluated: common femoral vein, profunda vein, proximal portion of the greater saphenous vein, superficial femoral vein, and the popliteal vein. In addition, the posterior tibial and peroneal trunk were evaluated. Serial compression, augmentation maneuvers, and spectral Doppler flow evaluation were performed. FINDINGS: Normal 2-D Doppler and augmentation and compressibility throughout the lower extremity venous structures. Additional imaging through the proximal calf veins also reveals no thrombus. Limited evaluation of the greater saphenous vein is patent with no thrombus. CONCLUSIONS No DVT right lower extremity. Dr. Micki Hart DO (Electronically Signed) Final Date: 11 June 2025 10:46 S
--- NOTE | 2025-06-11 10:46 | PC.SOCIAL ---
*IMM* Patient received copy of Important Message from Medicare. Copy Initialed, dated and placed in patient chart.
--- NOTE | 2025-06-11 10:46 | ANES.PREANE2 ---
Pre-Anesthetic Assessment Height/Weight: Height 5 ft 11 in Weight 217 lb Temp Pulse Resp BP Pulse Ox O2 Del Method O2 Flow Rate 98.2 F 61 18 125/82 92 Nasal Cannula 2 06/11/25 10:41 06/11/25 10:41 06/11/25 10:41 06/11/25 10:41 06/11/25 10:41 06/11/25 10:41 06/11/25 10:41 Operation Date: 06/11/25 11:15 Proposed Procedures p Incision of Bone Cortex, right reel(Right) - John Limon DPM Anesthetic Plan Other: No prior issues with anesthesia NPO since yesterday evening Patient is a quadriplegic with Medications/Allergies Home Medications ?Medication ?Instructions ?Recorded ?Confirmed ?Last Taken ?Type baclofen 20 mg tablet 20 mg PO BID 04/14/21 04/12/25 01/28/25 History gabapentin 300 mg capsule 300 mg PO BID 05/08/21 04/12/25 01/28/25 History bisacodyl 10 mg rectal suppository 10 mg [place] DAILY PRN Constipation 08/01/21 04/12/25 05/09/22 History ascorbic acid (vitamin C) 1,000 mg 1,000 mg PO BID 04/02/22 04/12/25 01/28/25 History tablet (Vitamin C) [place]wick brace #1 ea 04/18/22 04/12/25 Unknown Rx docosahexaenoic acid 200 mg 200 mg PO DAILY@07 05/31/22 04/12/25 01/28/25 History capsule ( DHA) mupirocin 2 % topical ointment 1 applic topical BID 05/31/22 04/12/25 Unknown History sodium phosphates 19 gram-7 118 ml NH DAILY PRN Constipation 05/31/22 04/12/25 Unknown History gram/118 mL enema (Fleet Enema) methenamine hippurate 1 gram tablet See Rx Instructions .Route 01/01/23 04/12/25 01/28/25 Rx Held on 02/04/25. .COMPLEX #180 tabs Instructions: Resume on 02/11/25. calcium 600 mg (as 1 tab PO DAILY 01/29/25 04/12/25 01/28/25 History carbonate)-vitamin D3 5 mcg (200 unit) tablet oxycodone-acetaminophen 5 mg-325 See Rx Instructions .Route .COMPLEX 01/29/25 04/12/25 01/28/25 History mg tablet testosterone 2 pump topical DAILY 01/29/25 04/12/25 01/28/25 History zinc acetate 25 mg (zinc) capsule 25 mg PO DAILY 01/29/25 04/12/25 01/28/25 History carvedilol 3.125 mg tablet 3.125 mg PO BID #60 tabs 02/04/25 04/12/25 Unknown Rx docusate sodium 100 mg capsule 100 mg PO BID #30 caps 02/04/25 04/12/25 Unknown Rx furosemide 40 mg tablet 40 mg PO BID #60 tabs 02/04/25 04/12/25 Unknown Rx levofloxacin 500 mg tablet 500 mg PO DAILY #7 tabs 02/04/25 04/12/25 Unknown Rx potassium chloride 20 mEq/15 mL 40 meq (30 mL) PO DAILY #30 mL 02/04/25 04/12/25 Unknown Rx oral liquid sennosides 8.6 mg tablet (senna) 17.2 mg (2 x 8.6 mg) PO BEDTIME 02/04/25 04/12/25 Unknown Rx #10 tabs Allergies Allergy/AdvReac Type Severity Reaction Status Date / Time clindamycin Allergy rash Verified 04/12/25 14:35 Current Medications Generic Name Dose Route Start Last Admin Trade Name Freq PRN Reason Stop Dose Admin Baclofen 20 mg 06/11/25 05:00 06/11/25 04:30 Baclofen 10 Mg Tablet PO 20 mg On Hold: 06/11/25 10:37 BID LAYTON Administration Comment: Order held by Process Transfer Carvedilol 3.125 mg 06/10/25 17:29 06/11/25 04:29 Carvedilol 3.125 Mg Tablet PO 3.125 mg On Hold: 06/11/25 10:37 BID LAYTON Administration Comment: Order held by Process Transfer Docusate Sodium 100 mg 06/10/25 17:29 06/11/25 04:29 Docusate Sodium 100 Mg Capsule PO 100 mg On Hold: 06/11/25 10:37 BID LAYTON Administration Comment: Order held by Process Transfer Enoxaparin Sodium 40 mg 06/10/25 16:45 06/10/25 18:42 Enoxaparin 40 Mg/0.4 Ml Syringe SUBCUT 40 mg On Hold: 06/11/25 10:37 Q24H LAYTON Administration Comment: Order held by Process Transfer Gabapentin 300 mg 06/10/25 17:29 06/11/25 04:30 Gabapentin 300 Mg Capsule PO 300 mg On Hold: 06/11/25 10:37 BID LAYTON Administration Comment: Order held by Process Transfer Piperacillin Sod/Tazobactam 50 mls @ 12.5 mls/hr 06/10/25 18:00 06/11/25 05:57 Sod 3.375 gm/ Sodium Chloride IV Infused On Hold: 06/11/25 10:37 Q8H LAYTON Infusion Comment: Order held by Process Protocol Transfer Sodium Chloride 1,000 mls @ 30 mls/hr 06/11/25 10:45 06/11/25 10:43 Sodium Chloride 0.9% IV 06/12/25 10:44 30 mls/hr .Q24H LAYTON Administration Morphine Sulfate 2 mg 06/10/25 16:40 06/10/25 20:39 Morphine 4 Mg/Ml Sdv 1 Ml IVP 2 mg On Hold: 06/11/25 10:37 Q4H PRN Administration Comment: Order held by Process SEVERE PAIN Transfer Pantoprazole Sodium 40 mg 06/10/25 16:45 06/10/25 18:42 Pantoprazole 40 Mg Sdv IVP 40 mg On Hold: 06/11/25 10:37 Q24H LAYTON Administration Comment: Order held by Process Transfer [facility] Anesthesia Medical History (Updated 06/11/25 @ 09:00 by John Limon DPM) 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 Quadriplegia Unstageable pressure ulcer of sacral region Paraplegia Bleeding hemorrhoids Pressure ulcers of skin of multiple topographic sites Osteomyelitis, pelvis Renal stones Wound of left lower extremity Osteomyelitis hip UTI (urinary tract infection) Anemia GI bleeding Acute kidney injury History of DVT (deep vein thrombosis) Renal lesion History of recurrent UTI (urinary tract infection) Rotator cuff arthropathy of left shoulder Encounter for long-term opiate analgesic use Chronic bilateral low back pain without sciatica Hx of fracture of femur 2014 metal placed right femur Hx of staphylococcal infection multiple surgeries to remove STAPH in left wrist Surgical History S/P hemorrhoidectomy Status post colonoscopy (10/25/20) H/O esophagogastroduodenoscopy (10/25/20) S/P debridement (10/07/20) right gluteal wound History of removal of retained hardware 09/2019 Dr. Hastings at [facility] left lower ext History of removal of calculus of renal pelvis through percutaneous nephrostomy History of urinary diversion procedure Hx of knee surgery Left -metal put in 2014 and removed 2016- due to infection History of urostomy 10-15 years ago Hx of neck surgery 1989 History of nasal surgery 1989 Family History Grandfather Diabetes Family history of premature coronary artery disease Mother Lupus (systemic lupus erythematosus) Social History (Reviewed 06/10/25 @ 17: by Memo Perez MD) Smoking and tobacco/nicotine status: never used tobacco/nicotine Second hand smoke exposure: Yes Alcohol intake: never Substance/Drug Use: never Marital status: Single Current occupational status: disabled Current gender identity: Male Data Anesthesia 06/11/25 04:28 06/11/25 04:28 Short CBC 06/10/25 06/11/25 Range/Units 14:13 04:28 WBC 8.46 6.51 (3.29-11.43) 10^3/uL Hgb 14.20 13.90 (11.27-16.99) g/dL Hct 44.4 44.3 (37-53) % MCV 96.5 97.6 (82-101) fl Plt Count 244 248 (157-399) 10^3/cmm Neut % (Auto) 76.1 65.6 % Neut # (Auto) 6.44 4.27 (1.8-7.7) 10^3/uL BMP 06/10/25 06/11/25 14:13 04:28 Sodium 140 143 Potassium 4.0 3.9 Chloride 100 103 Carbon Dioxide 30 H 30 H BUN 14 16 Creatinine 0.7 0.9 Glucose 128 H 74 Calcium 9.0 8.4 L Liver Function 06/10/25 06/11/25 Range/Units 14:13 04:28 Total Bilirubin 0.9 0.9 (0.15-1.2) mg/dL AST 12 11 (0-40) U/L ALT 9 8 (0-41) U/L Alkaline Phosphatase 89 85 (40-130) U/L Albumin 2.9 L 2.9 L (3.5-5.2) g/dL Coags 06/10/25 06/10/25 14:13 16:57 ESR 35 H C-Reactive Protein 53.2 H Microbiology 06/10/25 14:13 Blood Culture - Preliminary Blood SPECIMEN COLLECTED 06/10/25 14:13 Blood Culture - Preliminary Blood SPECIMEN COLLECTED Cardiac Studies: Echocardiogram Limited Views 02/01/25
--- NOTE | 2025-06-11 11:00 | P.HPUD_ITS ---
Surgery/Procedure H&P Update DATE OF PROCEDURE: June 11, 2025 DATE H&P PERFORMED: 06/10/25 H&P UPDATE INFORMATION: I have reviewed H&P completed within last 30 days, I have examined patient prior to procedure, No changes to prior documentation, H&P is in [facility] EMR on date indicated and Risks and benefits of the procedure reviewed PLANNED PROCEDURE: Operation Date: 06/11/25 11:15 Proposed Procedures p Incision of Bone Cortex, right reel(Right) - John Limon DPM
--- NOTE | 2025-06-11 11:36 | P.OP_ITS ---
Operative Report Date of procedure: June 11, 2025 Surgeon: John Limon DPM Procedure: Date of procedure: 06/11/2025 Pre-op diagnosis: Decubitus ulceration right posterior heel Post-op diagnosis: Same Post-op findings: Full-thickness ulceration extending down to the level of the tendon. No bone exposed Procedure done: Excisional debridement right posterior heel down to level of bone including bone biopsy CPT 92398 Implants: None Specimens removed: Tissue culture right posterior heel and bone biopsy right calcaneus Surgeon: Dr. John Limon DPM [employer] Helper: Mike Estimated blood loss: 5 cc Tourniquet time: No tourniquet used Complications: None The patient presents with a severe foot infection involving right posterior heel, characterized by erythema, swelling, and drainage. The infection is complicated by underlying conditions, including quadriplegia, which have contributed to the progression of the infection despite conservative management. Preoperative imaging and laboratory results indicate cellulitis, possible osteomyelitis, necessitating surgical intervention. The planned procedure is intended to address the infection, debride necrotic tissue, and, if necessary, assess the viability of surrounding structures to prevent further complications. The patient has been NPO since midnight. The history has been reviewed and the history and physical is current. The signed consent was confirmed and placed in the patient chart. Patient imaging has been reviewed and is consistent with the diagnosis. Under mild sedation, the patient was brought into the operating room and placed on the table in the supine position. Patient is receiving antibiotics around the clock on the floor, Therefore, additional antibiotic prophylaxix was not administered. No anesthesia was administered due to quadriplegia. Local anesthetic injected periwound area right posterior heel. Site was prepped in standard fashion following procedure was then performed. Attention was directed to the posterior aspect of the right calcaneus where full-thickness decubitus ulceration with necrotic tissue was visualized. This measured 4 x 0.4 0.5 x 0.1 cm with slough. Pickups and #15 blade were used to excise the overlying slough. Curette was then used to remove surrounding devitalized tissue. Rongeur was also used to remove devitalized tissue. No underlying abscess negative probe to bone. No underlying fluctuance or signs of deep space abscess. After removing devitalized tissue Wiltonidi was introduced into the posterior aspect of the calcaneus for bone biopsy to rule out osteomyelitis. Devitalized tissue was also sent as tissue culture. Site was then irrigated with copious amounts sterile saline before Betadine soaked 4 x 4 gauze, dry 4 x 4 gauze, ABD pad, Kerlix, Ronn was applied to right posterior heel. The patient tolerated the procedure and anesthesia well and without complication. The patient was transported from the operating room to the recovery room with vital signs stable and vascular status intact to all digits of the right foot. Patient is to leave bilateral heels elevated at all times and off the bed. The patient will be transferred back to the floor once anesthesia criteria is met. I will continue to round on and follow the patient in the inpatientsetting and provide recommendations to stabilize the patient for discharge.
--- NOTE | 2025-06-11 16:13 | P.PN_ITS ---
Subjective 2 Subjective: Patient was alert oriented x 3, following all commands, denies any fevers, no chills, no cough he feels that the swelling in his lower right leg is improving Vitals/I&O/Wt Last Vital Signs Temp 98.6 F 06/11/25 16:00 Pulse 64 06/11/25 16:00 Resp 17 06/11/25 16:00 BP 108/64 06/11/25 16:00 Pulse Ox 96 06/11/25 11:44 O2 Del Method Room Air 06/11/25 11:44 O2 Flow Rate 3 06/11/25 11:24 06/11/25 06/11/25 06/11/25 06:59 14:59 22:59 Intake Total 50 / 980 1640.0 / 1640.0 Output Total 240 / 740 600 / 600 Balance -190 / 240 1040.0 / 1040.0 Weight last 48 hrs Weight 98.43 kg Weight 98.571 kg Weight 92.986 kg Physical Exam 2 Const: COMMON NORMALS: no acute distress and patient oriented x3 Resp: COMMON NORMALS: normal respiratory effort, No retractions, No use of accessory muscles and clear to auscultation bilaterally AUSCULTATION: clear to auscultation bilaterally Cardio: COMMON NORMALS: regular rate, regular rhythm, S1 normal heart sound present and S2 normal heart sound present RATE: regular rate RHYTHM: r egular rhythm HEART SOUNDS: S1 normal heart sound present and S2 normal heart sound present GI: COMMON NORMALS: Normal to inspection, nondistended, normoactive bowel sounds present and non-tender Neuro: COMMON NORMALS: patient oriented x3 Psych: COMMON NORMALS: mental status grossly normal Skin: NARRATIVE SKIN EXAM: 1+ pitting edema Erythema, swelling, tenderness, mid calf, extending downward to the forefoot Data 06/11/25 04:28 06/11/25 04:28 Micro: Microbiology 06/10/25 14:13 Blood Culture - Preliminary Blood NEGATIVE TO DATE 06/10/25 14:13 Blood Culture - Preliminary Blood NEGATIVE TO DATE A&P Assessment and plan 1. Decubitus skin ulcer: 2. Ulcer of right heel: 3. Cellulitis: Plan: Right heel ulcer with surrounding cellulitis CT/CT foot RT w con [id number] IMPRESSION: 1. Soft tissue ulceration over the posterior calcaneus is in contact with the cortical surface of the calcaneus. Soft tissue ulcer measures 2.9 x 3.7 cm. 2. Diffuse cellulitis around the entire foot. 3. No osteomyelitis identified. 4. Severe osteopenia. -Venous ultrasound ordered Plan - Orthopedic service has been consulted, plans on surgical intervention today - Vancomycin - Zosyn -Blood culture Decubitus ulcer, sacrum, with multiple excoriations - Continue repositioning - Wound care Full code Lovenox for DVT prophylaxis PDMP PDMP Reviewed: Not Reviewed Attestations 2 Medical Necessity Statement*: Patient requires hospitalization for due to Pseudomonas ulcer right foot, with surrounding cellulitis Diagnoses Decubitus skin ulcer L89.90 Ulcer of right heel L97.419 Cellulitis L03.90
[2025-06-11] MEDS: pantoprazole 40 mg SDV IVP (17:02)
--- NOTE | 2025-06-11 21:25 | PC.NURSE ---
This RN called pharmacy to inform them about the vancomycin trough and they said to go ahead and finish this dose and they will get another trough before his next dose in the morning.
[2025-06-12] VITALS (7 sets, daily range): BP systolic 94–165; BP diastolic 59–103; PULSE 52–97; RESP 16–19; TEMP 36.6–37.3; O2SAT 91–95
[2025-06-12] MEDS: piperacillin-tazobactam 3.375 GM in sodium chloride 0.9% (plus) 50 ML IV ×3 (04:38→19:54)
[2025-06-12 08:01] LABS: Hematocrit 43.1 % (37-53); Hemoglobin 13.60 g/dL (11.27-16.99); Mean Corpuscular HGB Conc 31.6 g/dL (30-55); Mean Corpuscular Hemoglobin 31.3 pg (27-33); Mean Corpuscular Volume 99.1 fl (82-101); Nucleated Red Blood Cells % 0 %; Platelet Count 226 10^3/cmm (157-399); Red Blood Count 4.35 10^6/uL (3.85-5.65); White Blood Count 5.11 10^3/uL (3.29-11.43)
--- NOTE | 2025-06-12 08:03 | P.PN_ITS ---
Subjective 2 Subjective: Patient seen at bedside this morning. No overnight events. Vitals/I&O/Wt Last Vital Signs Temp 97.8 F 06/12/25 07:22 Pulse 56 L 06/12/25 07:22 Resp 16 06/12/25 07:22 BP 108/69 06/12/25 07:22 Pulse Ox 95 06/12/25 06:00 O2 Del Method Room Air 06/11/25 11:44 O2 Flow Rate 3 06/11/25 11:24 06/11/25 06/12/25 06/12/25 22:59 06:59 14:59 Intake Total 390 / 2030.0 350 / 2380.0 Output Total 9500 / 23583 Balance 390 / 1430.0 -9150 / -7720.0 Weight last 48 hrs Weight 217 lb Weight 217 lb Weight 217 lb 5 oz Weight 205 lb Physical Exam 2 Narrative: BELOW IS A FOCUSED LOWER EXTREMITY EXAM GENERAL: A&O x 3 VASCULAR: DP/PT pulses palpable 2/4 with CFT intact, <3seconds to distal digits DERMATOLOGICAL: Full-thickness ulceration right posterior heel. Wound appears healthy and granular. No underlying fluctuance no signs of deep space abscess. Erythema surrounding wound is improving. MUSCULOSKELETAL: Quadriplegia with minor lower extremity contractures. NEUROLOGICAL: Neurological sensation to the affected foot and ankle is present through L4-S1 dermatomes with no hyper/hypoesthesias, negative Tinel or Valleix's sign IMAGING: No evidence of cortical erosions or osteomyelitis on CT scan or x-rays. No subcutaneous emphysema noted. Data 06/12/25 07:52 06/12/25 07:52 Micro: Microbiology 06/10/25 14:13 Blood Culture - Preliminary Blood NEGATIVE TO DATE 06/10/25 14:13 Blood Culture - Preliminary Blood NEGATIVE TO DATE A&P Assessment and plan 1. Cellulitis: 2. Decubitus ulcer of right heel, stage 3: 3. Decubitus ulcer of left heel, stage 1: Plan: Right decubitus ulceration with cellulitis Day 1 status post excisional debridement right calcaneal wound. Doing well. Order placed for daily Santyl collagenase dressing changes. Dressing changed at bedside this morning. No further surgical intervention by podiatry during this admission. Float heels. Prevalon boots to be worn at rest at all times. Based on intraoperative findings of wound did not extending all the way down to bone, oral antibiotics appropriate for discharge pending culture results. Preliminary culture showing gram-negative rods. Continue to monitor Discharge plan: To be determined PDMP PDMP Reviewed: Not Reviewed Attestations 2 Medical Necessity Statement*: Awaiting culture results for final antibiotic recommendations. Monitoring for improvement of cellulitis Coding Level of Care Code Acute Code for [facility] Diagnoses Cellulitis L03.90 Decubitus ulcer of right heel, stage 3 L89.613 Decubitus ulcer of left heel, stage 1 L89.621
[2025-06-12 08:17] LABS: Alanine Aminotransferase 6 U/L (0-41); Albumin Level 2.6 g/dL (3.5-5.2); Alkaline Phosphatase 73 U/L (40-130); Anion Gap 10.9 (5-19); Aspartate Amino Transferase 8 U/L (0-40); Blood Urea Nitrogen 14 mg/dL (6-20); Calcium 8.1 mg/dL (8.5-10.5); Carbon Dioxide 29 mmol/L (22-29); Chloride 105 mmol/L (98-107); Creatinine Clr Calc Pharmacy 135.8871; Globulin 3.5 g/dL (1.3-4.6); Glucose 94 mg/dL (65-115); Osmolality Calculated 292 mOsm/kg (285-295); Potassium 3.9 mmol/L (3.5-5.1); Sodium 141 mmol/L (136-145); Total Protein 6.1 g/dL (6.6-8.7)
[2025-06-12] MEDS: morphine 4 mg/mL SDV 1 mL 2 MG IVP (14:40)
[2025-06-12] MEDS: pantoprazole 40 mg SDV IVP (17:08)
[2025-06-12] MEDS: linezolid premix 600 MG/300 ML PREMIX 300 MG IV (17:09)
--- NOTE | 2025-06-12 17:11 | P.PN_ITS ---
Subjective 2 Subjective: Patient was seen this morning, currently alert oriented x 3, following all commands, denies any fevers, chills, no cough, Vitals/I&O/Wt Last Vital Signs Temp 99.1 F 06/12/25 15:57 Pulse 72 06/12/25 15:57 Resp 16 06/12/25 15:57 BP 165/103 06/12/25 15:57 Pulse Ox 91 06/12/25 15:57 O2 Del Method Room Air 06/12/25 15:57 O2 Flow Rate 3 06/11/25 11:24 06/12/25 06/12/25 06/12/25 06:59 14:59 22:59 Intake Total 350 / 2380.0 530 / 530 50 / 580 Output Total 9500 / 04670 650 / 650 Balance -9150 / -7720.0 530 / 530 -600 / -70 Weight last 48 hrs Weight 98.43 kg Weight 98.43 kg Weight 98.571 kg Physical Exam 2 Const: COMMON NORMALS: no acute distress and patient oriented x3 Resp: COMMON NORMALS: normal respiratory effort, No retractions, No use of accessory muscles and clear to auscultation bilaterally AUSCULTATION: clear to auscultation bilaterally Cardio: COMMON NORMALS: regular rate, regular rhythm, S1 normal heart sound present and S2 normal heart sound present RATE: regular rate RHYTHM: r egular rhythm HEART SOUNDS: S1 normal heart sound present and S2 normal heart sound present GI: COMMON NORMALS: Normal to inspection, nondistended, normoactive bowel sounds present and non-tender OTHER: Urostomy in place Extremity: COMMON NORMALS: no pedal edema NARRATIVE EXTREMITY EXAM: Right lower extremity wrapped Erythema, swelling, tenderness, up to mid calf improving Neuro: COMMON NORMALS: patient oriented x3 Psych: COMMON NORMALS: mental status grossly normal Data 06/12/25 07:52 06/12/25 07:52 Micro: Microbiology 06/11/25 11:22 Gram Stain - Final Incision Tissue Culture - Preliminary Gram Negative Rods Gram Negative Rods#2 06/10/25 14:13 Blood Culture - Preliminary Blood NEGATIVE TO DATE 06/10/25 14:13 Blood Culture - Preliminary Blood NEGATIVE TO DATE A&P Assessment and plan 1. Decubitus skin ulcer: 2. Ulcer of right heel: 3. Cellulitis: Plan: Right heel ulcer with surrounding cellulitis CT/CT foot RT w con [id number] IMPRESSION: 1. Soft tissue ulceration over the posterior calcaneus is in contact with the cortical surface of the calcaneus. Soft tissue ulcer measures 2.9 x 3.7 cm. 2. Diffuse cellulitis around the entire foot. 3. No osteomyelitis identified. 4. Severe osteopenia. -Venous ultrasound no DVT -s/pexcisional debridement right posterior heel down to level of bone including bone biopsy Plan - Orthopedic service has been consulted, plans on surgical intervention today - Vancomycin, bank trauma level over 30, vancomycin recheck vancomycin level this afternoon, switch to Zyvox - Zosyn -Blood culture - Wound cultures pending Decubitus ulcer, sacrum, with multiple excoriations - Continue repositioning - Wound care History of quadriplegia History of urostomy in place Full code Lovenox for DVT prophylaxis PDMP PDMP Reviewed: Not Reviewed Attestations 2 Medical Necessity Statement*: Patient requires hospitalization right heel ulcer with surrounding cellulitis Diagnoses Decubitus skin ulcer L89.90 Ulcer of right heel L97.419 Cellulitis L03.90
[2025-06-13] VITALS (9 sets, daily range): BP systolic 142–171; BP diastolic 76–102; PULSE 51–67; RESP 16–18; TEMP 36.4–37; O2SAT 90–92
[2025-06-13] MEDS: morphine 4 mg/mL SDV 1 mL 2 MG IVP (00:14)
[2025-06-13] MEDS: piperacillin-tazobactam 3.375 GM in sodium chloride 0.9% (plus) 50 ML IV ×3 (03:42→19:59)
[2025-06-13] MEDS: linezolid premix 600 MG/300 ML PREMIX 300 MG IV ×2 (05:04→17:25)
[2025-06-13 05:43] LABS: Hematocrit 45.2 % (37-53); Hemoglobin 14.40 g/dL (11.27-16.99); Mean Corpuscular HGB Conc 31.9 g/dL (30-55); Mean Corpuscular Hemoglobin 31.2 pg (27-33); Mean Corpuscular Volume 97.8 fl (82-101); Nucleated Red Blood Cells % 0 %; Platelet Count 274 10^3/cmm (157-399); Red Blood Count 4.62 10^6/uL (3.85-5.65); White Blood Count 5.71 10^3/uL (3.29-11.43)
[2025-06-13 06:01] LABS: Alanine Aminotransferase 7 U/L (0-41); Albumin Level 3.0 g/dL (3.5-5.2); Alkaline Phosphatase 76 U/L (40-130); Anion Gap 11.2 (5-19); Aspartate Amino Transferase 11 U/L (0-40); Blood Urea Nitrogen 14 mg/dL (6-20); Calcium 8.3 mg/dL (8.5-10.5); Carbon Dioxide 31 mmol/L (22-29); Chloride 107 mmol/L (98-107); Creatinine Clr Calc Pharmacy 135.8871; Globulin 3.9 g/dL (1.3-4.6); Glucose 85 mg/dL (65-115); Osmolality Calculated 300 mOsm/kg (285-295); Potassium 4.2 mmol/L (3.5-5.1); Sodium 145 mmol/L (136-145); Total Protein 6.9 g/dL (6.6-8.7)
--- NOTE | 2025-06-13 12:49 | P.PN_ITS ---
Subjective 2 Subjective: Patient was seen this morning, currently alert oriented x 3, following all commands, reports that the swelling and erythema persist in the right lower extremity Vitals/I&O/Wt Last Vital Signs Temp 97.5 F L 06/13/25 11:33 Pulse 57 L 06/13/25 11:33 Resp 16 06/13/25 11:33 BP 145/93 06/13/25 11:33 Pulse Ox 92 06/13/25 11:33 O2 Del Method Room Air 06/13/25 11:33 O2 Flow Rate 3 06/11/25 11:24 06/12/25 06/13/25 06/13/25 22:59 06:59 14:59 Intake Total 830 / 1360 290 / 1650 590 / 590 Output Total 650 / 650 1100 / 1750 580 / 580 Balance 180 / 710 -810 / -100 Weight last 48 hrs Weight 98.43 kg Weight 98.43 kg Physical Exam 2 Const: COMMON NORMALS: no acute distress and patient oriented x3 Resp: COMMON NORMALS: normal respiratory effort, No retractions, No use of accessory muscles and clear to auscultation bilaterally AUSCULTATION: clear to auscultation bilaterally Cardio: COMMON NORMALS: regular rate, regular rhythm, S1 normal heart sound present and S2 normal heart sound present RATE: regular rate RHYTHM: r egular rhythm HEART SOUNDS: S1 normal heart sound present and S2 normal heart sound present GI: COMMON NORMALS: Normal to inspection, nondistended, normoactive bowel sounds present and non-tender Extremity: COMMON NORMALS: no calf tenderness Neuro: COMMON NORMALS: patient oriented x3 Psych: COMMON NORMALS: mental status grossly normal Skin: NARRATIVE SKIN EXAM: Right lower extremity, 1+ pitting edema, erythema, swelling/tenderness, improving Data 06/13/25 04:50 06/13/25 04:50 Micro: Microbiology 06/11/25 11:22 Gram Stain - Final Incision Tissue Culture - Preliminary Gram Negative Rods Gram Negative Rods#2 A&P Assessment and plan 1. Decubitus skin ulcer: 2. Ulcer of right heel: 3. Cellulitis: Plan: Right heel ulcer with surrounding cellulitis CT/CT foot RT w con [id number] IMPRESSION: 1. Soft tissue ulceration over the posterior calcaneus is in contact with the cortical surface of the calcaneus. Soft tissue ulcer measures 2.9 x 3.7 cm. 2. Diffuse cellulitis around the entire foot. 3. No osteomyelitis identified. 4. Severe osteopenia. -Venous ultrasound no DVT -s/pexcisional debridement right posterior heel down to level of bone including bone biopsy Plan - Orthopedic service has been consulted, plans on surgical intervention today - Vancomycin, vancomycin level trending downwards -On Zyvox - Zosyn -Blood culture - Wound cultures growing gram-negative rods Decubitus ulcer, sacrum, with multiple excoriations - Continue repositioning - Wound care History of quadriplegia History of urostomy in place Full code Lovenox for DVT prophylaxis PDMP PDMP Reviewed: Not Reviewed Attestations 2 Medical Necessity Statement*: Patient requires hospitalization for right heel ulcers with surrounding cellulitis, edema Diagnoses Decubitus skin ulcer L89.90 Ulcer of right heel L97.419 Cellulitis L03.90
[2025-06-13] MEDS: FUROsemide 10 mg/mL SDV 4mL 20 MG IVP (13:59)
[2025-06-13] MEDS: pantoprazole 40 mg SDV IVP (16:36)
[2025-06-14] VITALS (8 sets, daily range): BP systolic 124–169; BP diastolic 79–101; PULSE 49–70; RESP 16–18; TEMP 36.4–36.6; O2SAT 90–96
[2025-06-14] MEDS: piperacillin-tazobactam 3.375 GM in sodium chloride 0.9% (plus) 50 ML IV ×3 (03:18→20:17)
[2025-06-14] MEDS: linezolid premix 600 MG/300 ML PREMIX 300 MG IV ×2 (05:09→17:33)
[2025-06-14 05:45] LABS: Hematocrit 46.9 % (37-53); Hemoglobin 15.20 g/dL (11.27-16.99); Mean Corpuscular HGB Conc 32.4 g/dL (30-55); Mean Corpuscular Hemoglobin 31.6 pg (27-33); Mean Corpuscular Volume 97.5 fl (82-101); Nucleated Red Blood Cells % 0 %; Platelet Count 278 10^3/cmm (157-399); Red Blood Count 4.81 10^6/uL (3.85-5.65); White Blood Count 6.38 10^3/uL (3.29-11.43)
[2025-06-14 06:10] LABS: Anion Gap 11.8 (5-19); Blood Urea Nitrogen 14 mg/dL (6-20); Calcium 8.7 mg/dL (8.5-10.5); Carbon Dioxide 32 mmol/L (22-29); Chloride 100 mmol/L (98-107); Creatinine Clr Calc Pharmacy 135.8871; Glucose 77 mg/dL (65-115); Osmolality Calculated 289 mOsm/kg (285-295); Potassium 3.8 mmol/L (3.5-5.1); Sodium 140 mmol/L (136-145)
--- NOTE | 2025-06-14 10:43 | P.PN_ITS ---
Subjective 2 Subjective: Patient seen at bedside this morning. Resting comfortably. Vitals/I&O/Wt Last Vital Signs Temp 97.8 F 06/14/25 07:30 Pulse 53 L 06/14/25 07:30 Resp 17 06/14/25 07:30 BP 131/79 06/14/25 07:30 Pulse Ox 91 06/14/25 07:30 O2 Del Method Room Air 06/14/25 07:30 O2 Flow Rate 3 06/11/25 11:24 06/13/25 06/14/25 06/14/25 22:59 06:59 14:59 Intake Total 590 / 1180 350 / 1530 410 / 410 Output Total 1700 / 2280 1525 / 3805 350 / 350 Balance -1110 / -1100 -1175 / -2275 60 / 60 Weight last 48 hrs Weight 224 lb 3.2 oz Weight 217 lb Physical Exam 2 Narrative: BELOW IS A FOCUSED LOWER EXTREMITY EXAM GENERAL: A&O x 3 VASCULAR: DP/PT pulses palpable 2/4 with CFT intact, <3seconds to distal digits DERMATOLOGICAL: Full-thickness ulceration right posterior heel. Wound appears healthy and granular. No underlying fluctuance no signs of deep space abscess. Erythema surrounding wound is improving. MUSCULOSKELETAL: Quadriplegia with minor lower extremity contractures. NEUROLOGICAL: Neurological sensation to the affected foot and ankle is present through L4-S1 dermatomes with no hyper/hypoesthesias, negative Tinel or Valleix's sign IMAGING: No evidence of cortical erosions or osteomyelitis on CT scan or x-rays. No subcutaneous emphysema noted. Data 06/14/25 04:38 06/14/25 04:38 Micro: Microbiology 06/11/25 11:22 Gram Stain - Final Incision Tissue Culture - Preliminary Escherichia coli Morganella morganii Coag positive Staphylococcus A&P Assessment and plan 1. Cellulitis: 2. Decubitus ulcer of right heel, stage 3: 3. Decubitus ulcer of left heel, stage 1: Plan: Right decubitus ulceration with cellulitis Dressing changed at bedside this morning consisting of Santyl collagenase. Wound is much improved erythema has receded. Continue offloading. Discussed with hospitalist. Given recent cultures of polymicrobial infection and proximity to posterior calcaneus. PICC line most appropriate with long-term IV antibiotic therapy. Appreciate ID recommendations. Pathology pending Discharge plan: To be determined PDMP PDMP Reviewed: Not Reviewed Attestations 2 Medical Necessity Statement*: Awaiting PICC line placement and ID recommendations Coding Level of Care Code Acute Code for [facility] Diagnoses Cellulitis L03.90 Decubitus ulcer of right heel, stage 3 L89.613 Decubitus ulcer of left heel, stage 1 L89.621
--- NOTE | 2025-06-14 10:43 | PC.SOCIAL ---
IMM Updated Updated pt on IMM. No questions voiced. Provided pt a copy. Initialed, dated, & timed copy in chart.
[2025-06-14] MEDS: morphine 4 mg/mL SDV 1 mL 2 MG IVP (11:37)
[2025-06-14] MEDS: pantoprazole 40 mg SDV IVP (16:04)
--- NOTE | 2025-06-14 17:05 | P.PN_ITS ---
Subjective 2 Subjective: Was seen this morning, currently alert oriented x 3, following commands, no fevers, chills, no cough, no nausea, no vomiting Vitals/I&O/Wt Last Vital Signs Temp 97.7 F 06/14/25 15:18 Pulse 65 06/14/25 15:18 Resp 18 06/14/25 15:18 BP 124/90 06/14/25 15:18 Pulse Ox 95 06/14/25 15:18 O2 Del Method Room Air 06/14/25 15:18 O2 Flow Rate 3 06/11/25 11:24 06/14/25 06/14/25 06/14/25 06:59 14:59 22:59 Intake Total 350 / 1530 890 / 890 50 / 940 Output Total 1525 / 3805 1275 / 1275 Balance -1175 / -2275 -385 / -385 50 / -335 Weight last 48 hrs Weight 101.695 kg Weight 98.43 kg Physical Exam 2 Const: COMMON NORMALS: no acute distress and patient oriented x3 Resp: COMMON NORMALS: normal respiratory effort, No retractions, No use of accessory muscles and clear to auscultation bilaterally AUSCULTATION: clear to auscultation bilaterally Cardio: COMMON NORMALS: regular rate, regular rhythm, S1 normal heart sound present and S2 normal heart sound present RATE: regular rate RHYTHM: r egular rhythm HEART SOUNDS: S1 normal heart sound present and S2 normal heart sound present GI: COMMON NORMALS: Normal to inspection, nondistended, normoactive bowel sounds present and non-tender Extremity: COMMON NORMALS: no pedal edema Neuro: COMMON NORMALS: patient oriented x3 Psych: COMMON NORMALS: mental status grossly normal Skin: NARRATIVE SKIN EXAM: Erythema/swelling/tenderness significantly improving Data 06/14/25 04:38 06/14/25 04:38 Micro: Microbiology 06/11/25 11:22 Gram Stain - Final Incision Tissue Culture - Final Escherichia coli Morganella morganii Staphylococcus aureus A&P Assessment and plan 1. Decubitus skin ulcer: 2. Ulcer of right heel: 3. Cellulitis: Plan: Right heel ulcer with surrounding cellulitis CT/CT foot RT w con [id number] IMPRESSION: 1. Soft tissue ulceration over the posterior calcaneus is in contact with the cortical surface of the calcaneus. Soft tissue ulcer measures 2.9 x 3.7 cm. 2. Diffuse cellulitis around the entire foot. 3. No osteomyelitis identified. 4. Severe osteopenia. -Venous ultrasound no DVT -s/pexcisional debridement right posterior heel down to level of bone including bone biopsy - Bone biopsy pending Plan - Orthopedic service has been consulted, - Vancomycin, vancomycin level trending downwards -On Zyvox - Zosyn -Blood culture - Wound cultures growing Morganella, E. coli, Staph aureus - Awaiting biopsy, concern for osteomyelitis, IV versus p.o. antibiotics Decubitus ulcer, sacrum, with multiple excoriations - Continue repositioning - Wound care History of quadriplegia History of urostomy in place Full code Lovenox for DVT prophylaxis Plan for today IV antibiotics, infectious disease consulted, awaiting biopsy results assess for osteomyelitis PDMP PDMP Reviewed: Not Reviewed Attestations 2 Medical Necessity Statement*: Patient requires hospitalization for right heel ulcer with cellulitis requiring IV antibiotics, awaiting biopsy Diagnoses Decubitus skin ulcer L89.90 Ulcer of right heel L97.419 Cellulitis L03.90
[2025-06-15] VITALS: BP 140/96; PULSE 60; RESP 17; TEMP 36.4; O2SAT 90
[2025-06-15 04:00] VITALS: BP 114/75; PULSE 68; RESP 16; TEMP 36.5; O2SAT 92
[2025-06-15] MEDS: piperacillin-tazobactam 3.375 GM in sodium chloride 0.9% (plus) 50 ML IV (05:12)
[2025-06-15] MEDS: linezolid premix 600 MG/300 ML PREMIX 300 MG IV (05:12)
[2025-06-15 05:26] LABS: Hematocrit 52.1 % (37-53); Hemoglobin 16.50 g/dL (11.27-16.99); Mean Corpuscular HGB Conc 31.7 g/dL (30-55); Mean Corpuscular Hemoglobin 30.4 pg (27-33); Mean Corpuscular Volume 96.1 fl (82-101); Nucleated Red Blood Cells % 0 %; Platelet Count 325 10^3/cmm (157-399); Red Blood Count 5.42 10^6/uL (3.85-5.65); White Blood Count 9.29 10^3/uL (3.29-11.43)
[2025-06-15 05:53] LABS: Anion Gap 16.5 (5-19); Blood Urea Nitrogen 19 mg/dL (6-20); Calcium 8.9 mg/dL (8.5-10.5); Carbon Dioxide 28 mmol/L (22-29); Chloride 103 mmol/L (98-107); Creatinine Clr Calc Pharmacy 117.6733; Glucose 87 mg/dL (65-115); Osmolality Calculated 300 mOsm/kg (285-295); Potassium 3.5 mmol/L (3.5-5.1); Sodium 144 mmol/L (136-145)
--- NOTE | 2025-06-15 06:14 | PM.CONSULT ---
Providers/Reason For Consult Consulting Physician/Specialty*: Katia Infante MD/ Infectious Disease Reason for Consult*: heel osteomyelitis Requesting Physician: Memo Perez MD Attending Physician: Memo Perez MD Primary Care Provider: Jonah Kerr MD History of Present Illness History of Present Illness Mihir Keller is a 59 year old male with PMH paraplegia, autonomic instability , past h/o sacral osteomyelitis 2020 admitted to the hospital on 06/10/25 with a chronic right LE calcaneal pressure ulcer which had developed signs of cellulitis and started to drain. He was previously treated in January 2025 for calcaneal ulcer with oral abx and ongoing wound care at [facility]. He discharged home 2 weeks ago and now had the wound open up again with increased drainage and malodor prior to admission. He was taken to the OR on 06/11/25 where he was found to have Full-thickness ulceration extending down to the level of the tendon. No bone exposed. Bone biopsy was taken in the OR. CT of the foot did not show any cortical disruption. Cx from the OR with polymicorbial growth including E.coli, Morganella and MSSA. CRP elevated ~50, down from 100 in 01/2025. He is currently afebrile. On treatment with Zosyn and linezolid Review of Systems General: Reports: 10 or more systems reviewed and unremarkable except in HPI and below Const: Denies: fever(s), chills or body aches Eyes: Denies: change in vision, blurry vision or photophobia ENMT: Reports: hoarseness; Denies: throat pain, enlarged tonsils, odynophagia or nasal congestion Card: Denies: chest pain, palpitations, irregular heart rhythm, edema, swelling of feet/ankles, lightheadedness, pre-syncope, dyspnea on exertion or orthopnea Resp: Denies: dyspnea, productive cough, non-productive cough, wheezing, stridor, pain on inspiration, change in phlegm color, hemoptysis or chest congestion GI: Denies: abdominal pain, nausea, vomiting, hematemesis, coffee ground emesis, dysphagia, heartburn, diarrhea, constipation, GI cramping, change in stool character, hematochezia or melena : Denies: flank pain, dysuria, urinary frequency, urinary urgency, urinary hesitancy or hematuria Musc: Denies: neck pain, back pain, extremity pain, joint swelling, joint warmth or deformity Neuro: Denies: headache(s), numbness in extremities, weakness in extremities, sensory changes, difficulty walking, frequent falls, dizziness, vertigo, behavioral changes, Slurred speech present or seizure-like activity Psych: Denies: anxiety, depression, suicidal ideation or homicidal ideation Endo: Denies: polyuria, polydipsia, tired all the time, cold intolerance or hot flashes Boaz/Lymph: Denies: easy bruising or easy bleeding Medications/Allergies Home Medications ?Medication ?Instructions ?Recorded ?Confirmed ?Last Taken ?Type baclofen 20 mg tablet 20 mg PO BID 04/14/21 06/11/25 06/10/25 08:00 History gabapentin 300 mg capsule 300 mg PO BID 05/08/21 06/11/25 06/10/25 08:00 History ascorbic acid (vitamin C) 1,000 mg 1,000 mg PO BID 04/02/22 06/11/25 06/10/25 08:00 History tablet (Vitamin C) Cygnetap rosado #1 ea 04/18/22 06/11/25 Unknown Rx docosahexaenoic acid 200 mg 200 mg PO DAILY@07 05/31/22 06/11/25 06/10/25 08:00 History capsule ( DHA) mupirocin 2 % topical ointment 1 applic topical BID 05/31/22 06/11/25 Unknown History calcium 600 mg (as 1 tab PO DAILY 01/29/25 06/11/25 06/10/25 08:00 History carbonate)-vitamin D3 5 mcg (200 unit) tablet testosterone 2 pump topical DAILY 01/29/25 06/11/25 01/28/25 History zinc acetate 25 mg (zinc) capsule 25 mg PO DAILY 01/29/25 06/11/25 06/10/25 08:00 History apixaban 2.5 mg tablet (Eliquis) 1 mg PO BID 06/11/25 06/11/25 06/10/25 08:00 History carvedilol 6.25 mg tablet 1 mg PO BID 06/11/25 06/11/25 06/10/25 08:00 History methenamine hippurate 1 gram tablet 1 g PO BID 1006/11/25 06/10/25 08:00 History Allergies Allergy/AdvReac Type Severity Reaction Status Date / Time clindamycin Allergy rash Verified 04/12/25 14:35 Current Medications Generic Name Dose Route Start Last Admin Trade Name Mumtazq PRN Reason Stop Dose Admin Baclofen 20 mg 06/11/25 05:00 06/15/25 05:12 Baclofen 10 Mg Tablet PO 20 mg BID [facility] Administration Carvedilol 3.125 mg 06/10/25 17:29 06/15/25 05:12 Carvedilol 3.125 Mg Tablet PO 3.125 mg BID [facility] Administration Collagenase 1 applic 06/12/25 09:00 06/14/25 10:57 Collagenase Oint 30 Gm TOPICAL Not Given DAILY [facility] Docusate Sodium 100 mg 06/10/25 17:29 06/15/25 05:12 Docusate Sodium 100 Mg Capsule PO 100 mg BID [facility] Administration Enoxaparin Sodium 40 mg 06/10/25 16:45 06/14/25 16:04 Enoxaparin 40 Mg/0.4 Ml Syringe SUBCUT 40 mg Q24H [facility] Administration Gabapentin 300 mg 06/10/25 17:29 06/15/25 05:12 Gabapentin 300 Mg Capsule PO 300 mg BID [facility] Administration Piperacillin Sod/Tazobactam 50 mls @ 12.5 mls/hr 06/10/25 18:00 06/15/25 05:12 Sod 3.375 gm/ Sodium Chloride IV 12.5 mls/hr Q8H [facility] Administration Protocol Linezolid 600 mg in 300 mls @ 300 mls/hr 06/12/25 18:00 06/15/25 05:12 Zyvox Premix IV 300 mls/hr Q12H [facility] Administration Protocol Morphine Sulfate 2 mg 06/10/25 16:40 06/14/25 11:37 Morphine 4 Mg/Ml Sdv 1 Ml IVP 2 mg Q4H PRN Administration SEVERE PAIN Pantoprazole Sodium 40 mg 06/10/25 16:45 06/14/25 16:04 Pantoprazole 40 Mg Sdv IVP 40 mg Q24H [facility] Administration PFSH Acute PFSH: Medical History 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 Quadriplegia Unstageable pressure ulcer of sacral region Paraplegia Bleeding hemorrhoids Pressure ulcers of skin of multiple topographic sites Osteomyelitis, pelvis Renal stones Wound of left lower extremity Osteomyelitis hip UTI (urinary tract infection) Anemia GI bleeding Acute kidney injury History of DVT (deep vein thrombosis) Renal lesion History of recurrent UTI (urinary tract infection) Rotator cuff arthropathy of left shoulder Encounter for long-term opiate analgesic use Chronic bilateral low back pain without sciatica Hx of fracture of femur 2015 metal placed right femur Hx of staphylococcal infection multiple surgeries to remove STAPH in left wrist Surgical History S/P hemorrhoidectomy Status post colonoscopy (10/25/20) H/O esophagogastroduodenoscopy (10/25/20) S/P debridement (10/07/20) right gluteal wound History of removal of retained hardware 09/2019 Dr. Hastings at [facility] left lower ext History of removal of calculus of renal pelvis through percutaneous nephrostomy History of urinary diversion procedure Hx of knee surgery Left -metal put in 2014 and removed 2016- due to infection History of urostomy 10-15 years ago Hx of neck surgery 1989 History of nasal surgery 1989 Family History Grandfather Diabetes Family history of premature coronary artery disease Mother Lupus (systemic lupus erythematosus) Social History Smoking and tobacco/nicotine status: never used tobacco/nicotine Second hand smoke exposure: Yes Alcohol intake: never Substance/Drug Use: never Marital status: Single Current occupational status: disabled Current gender identity: Male Vitals/I&O/Wt Last Vital Signs Temp 97.7 F 06/15/25 04:00 Pulse 68 06/15/25 04:00 Resp 16 06/15/25 04:00 BP 114/75 06/15/25 04:00 Pulse Ox 92 06/15/25 04:00 O2 Del Method Room Air 06/15/25 04:00 O2 Flow Rate 3 06/11/25 11:24 06/14/25 06/14/25 06/15/25 14:59 22:59 06:59 Intake Total 890 / 890 710 / 1600 50 / 1650 Output Total 1275 / 1275 1999 / 3275 1000 / 4275 Balance -385 / -385 -1290 / -1675 -950 / -2625 Weight last 48 hrs Weight 96.247 kg Weight 101.695 kg Physical Exam Narrative: General: No acute distress, AO x3 Patient seen via telehealth today Data 06/15/25 04:32 06/15/25 04:32 Micro: Microbiology 06/11/25 11:22 Gram Stain - Final Incision Tissue Culture - Final Escherichia coli Morganella morganii Staphylococcus aureus NAME: Mihir Keller LOC: [facility] #: [id number] AGE/SX: 59/M ROOM: 254 RE06/10/[address]: Memo Perez MD : 1965 BED: 2 DIS: FAX #: STATUS: ADM IN TLOC: Spec #: [id number] Yamilet: 06/11/25 Status: COMP Req #: [id number] Recd: 06/11/[address]: John Limon DPChhaya Src: Incision SpDesc: Ordered: Tissue Cult GS Comments: Comment right heel incision Procedure Result Verified Site Gram Stain Final 06/12/25-163 Result RARE WHITE BLOOD CELLS RARE GRAM NEGATIVE RODS Tissue Culture Final 06/14/25-1121 Organism 1 Escherichia coli Growth MODERATE Organism 2 Morganella morganii Growth MODERATE Organism 3 Staphylococcus aureus Growth MODERATE FEW MIXED SUPERFICIAL JESUSITA ON DAY 3 CRITICAL RESULT YES/NO: YES CRITICAL CALLED BY: RT TO AND READ BACK BY: [email or web address] DATE: 06/14/25 TIME: 1121 E coli M morganii S aureus M.I.C. RX M.I.C. RX M.I.C. RX --------- ------ --------- ------ --------- ------ * Amikacin <=16 S <=16 S * Amoxicillin/Clavulanate <=8/4 S * Ampicillin <=8 S * Ampicillin/Sulbactam <=8/4 S 16/8 I * Aztreonam <=4 S <=4 S * Cefepime <=8 S <=8 S * Ceftriaxone <=1 S <=1 S * Cefuroxime <=4 S * Ciprofloxacin <=1 S <=1 S >2 R * Clindamycin <=0.5 S * Erythromycin >4 R * Gentamicin <=2 S <=2 S <=4 S * Imipenem <=1 S 2 I * Levofloxacin <=2 S <=2 S >4 R * Linezolid 4 S * Moxifloxacin 2 S * Oxacillin 0.5 S * Penicillin <=0.03 S * Rifampin <=1 S * Tetracycline <=4 S <=4 S >8 R * Trimethoprim/Sulfamethoxazole <=2/38 S <=2/38 S <=0.5/9.5 S Vancomycin 2 S * Piperacillin/Tazobactam <=16 S <=16 S Daptomycin <=0.5 S Tissue Culture Preliminary (changed) 06/13/25-1605 Organism 1 Escherichia coli Growth MODERATE Organism 2 Morganella morganii Growth MODERATE Organism 3 Coag positive Staphylococcus Growth MODERATE FEW MIXED SUPERFICIAL JESUSITA ON DAY 2 RESULTS TO FOLLOW E coli M morganii M.I.C. RX M.I.C. RX --------- ------ --------- ------ * Amikacin <=16 S <=16 S * Amoxicillin/Clavulanate <=8/4 S * Ampicillin <=8 S * Ampicillin/Sulbactam <=8/4 S 16/8 I * Aztreonam <=4 S <=4 S * Cefepime <=8 S <=8 S * Ceftriaxone <=1 S <=1 S * Cefuroxime <=4 S * Ciprofloxacin <=1 S <=1 S * Gentamicin <=2 S <=2 S * Imipenem <=1 S 2 I * Levofloxacin <=2 S <=2 S * Tetracycline <=4 S <=4 S * Trimethoprim/Sulfamethoxazole <=2/38 S <=2/38 S * Piperacillin/Tazobactam <=16 S <=16 S Tissue Culture Preliminary (changed) 06/12/25163 Organism 1 Gram Negative Rods Growth MODERATE Organism 2 Gram Negative Rods#2 Growth MODERATE FEW MIXED SUPERFICIAL JESUSITA ON DAY 1 RESULTS TO FOLLOW NAME: Mihir Keller LOC: [facility] U #: [id number] AGE/SX: 59/M ROOM: 276 RE01/28/[address]: Moi Diamond DO : 1965 BED: 2 DIS: 02/04/25 FAX #: STATUS: DIS IN TLOC: Spec #: [id number] Yamilet: 01/29/25-1400 Status: COMP Req #: [id number] Recd: 01/29/25-[address]: Darren Rios DPM Src: Foot SpDesc: #1 Ordered: Tissue Cult GS Comments: Comment right heal Procedure Result Verified Site Gram Stain Final 01/29/25-1552 Result MODERATE GRAM POSITIVE COCCI IN PAIRS FEW WHITE BLOOD CELLS Tissue Culture Final 02/01/25-0915 Organism 1 Enterobacter cloacae Growth MODERATE Organism 2 Proteus mirabilis Growth MODERATE DAY 2 E cloacae P mirabili M.I.C. RX M.I.C. RX --------- ------ --------- ------ * Amikacin <=16 S <=16 S * Amoxicillin/Clavulanate <=8/4 S * Ampicillin 16 I * Ampicillin/Sulbactam <=8/4 S * Aztreonam <=4 S <=4 S * Cefepime <=8 S <=8 S * Ceftriaxone <=1 S <=1 S * Cefuroxime 8 S <=4 S * Ciprofloxacin 2 I 2 I * Gentamicin 4 S <=2 S * Imipenem <=1 S * Levofloxacin <=2 S <=2 S * Tetracycline >8 R * Trimethoprim/Sulfamethoxazole <=2/38 S <=2/38 S * Piperacillin/Tazobactam <=16 S <=16 S Tissue Culture Preliminary (changed) 01/31/25-1106 Organism 1 Gram Negative Rods Growth MODERATE Organism 2 Gram Negative Rods#2 Growth MODERATE DAY 1 RESULTS TO FOLLOW Other data: Radiology Impressions Foot X-Ray 06/10/25 13:47 IMPRESSION: Stable examination without findings of osteomyelitis. No acute bone or joint abnormality. Foot CT 06/10/25 14:28 IMPRESSION: 1. Soft tissue ulceration over the posterior calcaneus is in contact with the cortical surface of the calcaneus. Soft tissue ulcer measures 2.9 x 3.7 cm. 2. Diffuse cellulitis around the entire foot. 3. No osteomyelitis identified. 4. Severe osteopenia. Laboratory Results WBC 9.29 10^3/uL (3.29-11.43) 06/15/25 04:32 RBC 5.42 10^6/uL (3.85-5.65) 06/15/25 04:32 Hgb 16.50 g/dL (11.27-16.99) 06/15/25 04:32 Hct 52.1 % (37-53) 06/15/25 04:32 MCV 96.1 fl (82-101) 06/15/25 04:32 MCH 30.4 pg (27-33) 06/15/25 04:32 MCHC 31.7 g/dL (30-55) 06/15/25 04:32 RDW 13.0 % (12.1-15.1) 06/15/25 04:32 Plt Count 325 10^3/cmm (157-399) 06/15/25 04:32 MPV 9.2 fL (7.4-10.4) 06/15/25 04:32 Neut % (Auto) 68.0 % 06/15/25 04:32 Lymph % (Auto) 18.0 % 06/15/25 04:32 [place] % (Auto) 7.6 % 06/15/25 04:32 Eos % (Auto) 5.1 % 06/15/25 04:32 Baso % (Auto) 0.8 % 06/15/25 04:32 Neut # (Auto) 6.32 10^3/uL (1.8-7.7) 06/15/25 04:32 Lymph # (Auto) 1.7 10^3/uL (0.8-4.8) 06/15/25 04:32 [place] # (Auto) 0.7 10^3/uL (0.2-0.9) 06/15/25 04:32 Eos # (Auto) 0.5 10^3/uL (0.0-0.8) 06/15/25 04:32 Baso # (Auto) 0.1 10^3/uL (0.0-0.1) 06/15/25 04:32 Nucleated RBC % (auto) 0 % 06/15/25 04:32 Nucleated RBCs # 0.0 /100WBC 06/15/25 04:32 ESR 35 mm/hr (0-10) H 06/10/25 16:57 Sodium 144 mmol/L (136-145) 06/15/25 04:32 Potassium 3.5 mmol/L (3.5-5.1) 06/15/25 04:32 Chloride 103 mmol/L (98-107) 06/15/25 04:32 Carbon Dioxide 28 mmol/L (22-29) 06/15/25 04:32 Anion Gap 16.5 (5-19) 06/15/25 04:32 BUN 19 mg/dL (6-20) 06/15/25 04:32 Creatinine 0.8 mg/dL (0.7-1.2) 06/15/25 04:32 GFR Calculation 98.9 mL/min (90-130) 06/15/25 04:32 Glucose 87 mg/dL (65-115) 06/15/25 04:32 Estimat Average Glucose 97 06/10/25 16:57 Hemoglobin A1c 5.0 % (4.0-6.0) 06/10/25 16:57 Calculated Osmolality 300 mOsm/kg (285-295) H 06/15/25 04:32 Lactic Acid 1.9 mmol/L (0.5-2.2) 06/10/25 14:13 Calcium 8.9 mg/dL (8.5-10.5) 06/15/25 04:32 Total Bilirubin 0.4 mg/dL (0.15-1.2) 06/13/25 04:50 AST 11 U/L (0-40) 06/13/25 04:50 ALT 7 U/L (0-41) 06/13/25 04:50 Alkaline Phosphatase 76 U/L (40-130) 06/13/25 04:50 C-Reactive Protein 53.2 mg/L (0.0-4.9) H 06/10/25 14:13 Total Protein 6.9 g/dL (6.6-8.7) 06/13/25 04:50 Albumin 3.0 g/dL (3.5-5.2) L 06/13/25 04:50 Globulin 3.9 g/dL (1.3-4.6) 06/13/25 04:50 Triglycerides 87 mg/dL (0-150) 06/10/25 16:57 Cholesterol 103 mg/dL (0-200) 06/10/25 16:57 LDL Cholesterol, Calc 55 mg/dL (50-129) 06/10/25 16:57 HDL Cholesterol 31 mg/dL (60-100) L 06/10/25 16:57 LDL/HDL Ratio 1.77 RATIO (0.00-3.22) 06/10/25 16:57 Cholesterol/HDL Ratio 3.32 mg/dL (1.0-5.00) 06/10/25 16:57 Procalcitonin 0.04 ng/mL (0-0.5) 06/10/25 16:57 TSH 0.71 uIU/mL (0.27-4.20) 06/10/25 16:57 Vancomycin Trough 23.3 ug/mL (10-15) H 06/12/25 15:25 A&P Assessment and plan 1. Cellulitis: 2. Decubitus skin ulcer: Plan: 59M with quadriplegia, autonomic instability, h/o sacral osteomyelitis with staph aureus in 2020, treated and recovered, currently admitted with cellulitis surrouding a decubitus ulcer over his right calcaneum. Previously treated with oral abx in January 2025 for this wound without evidnece of osteomyelitis at that time. Patient currently admitted on 06/10, taken to OR for debridement on 06/11. Deep tissue cx from the OR showed Morganella morganii, E. coli s/t Fluoroquinolones and MSSA no cortical destruction noted on CT imaging negative probe to bone in OR, however given close proximity to bone, concern for osteomyelitis still persisting. He has undergone a bone biopsy, results of which are iv awaited. Since patient is otherwise stable and if no further OR intervention is planned, he may be discharged from an ID standpoint with oral Levofloxacin 750mg po daily and iv dalbavancin 1500mg x 1 followed by 1500mg second dose 1 week later. Above regimen will be appropriate if pending bone cx eventually returns positive for osteomyelitis. (Jonathan AR, Cynthia CANO, Ron MURRY, Dolly C, Adrien M, Devin TL, Abby MANCERA, Archie CARBAJAL, Thanh TL. Effectiveness of Dalbavancin Compared With Standard of Care for the Treatment of Osteomyelitis: A Real-world Analysis. Open Forum Infect Dis. 2020Aug 12;9(2):whuq213. doi: 10.1093/ofid/hfli833. PMID: 87870999; PMCID: [id number].) Continue wound care F/up ID clinic on Jul 06, 2025 PDMP PDMP Reviewed: Not Reviewed Consult Attestations Medical Necessity Statement: per admitting Coding Level of Care Code Acute Code for Chg Fwd High MDM includes number and complexity of problems actively addressed during encounter, amount and/or complexity of data reviewed/ordered and described risk of complication, morbidity or mortality of management as documented Diagnoses Cellulitis L03.90 Decubitus skin ulcer L89.90
[2025-06-15 07:12] VITALS: BP 89/54; PULSE 62; RESP 17; TEMP 36.4; O2SAT 93
[2025-06-15 11:17] VITALS: BP 120/77; PULSE 68; RESP 17; TEMP 36.4; O2SAT 91
--- NOTE | 2025-06-15 12:27 | PM.DCS ---
Discharge Providers Date of Admission: 06/10/25 16:34 Date of Discharge: June 15, 2025 Attending Provider at Admission: Memo Perez MD Attending Provider at Discharge: Memo Perez MD Primary Care Provider: Jonah Kerr MD Diagnoses at Discharge Discharge Diagnosis 1. Cellulitis: 2. Decubitus skin ulcer: Reason for Visit Reason for Visit: infected right foot Hospital Course Hospital Course Mihir Keller is a 59 year old male with a past medical history of heel ulcers, sacral decubitus ulcer, history of urostomy, history of quadriplegia, currently at home, recently discharged from [facility] senior care about 2 weeks ago, who presents to [facility] due to a right heel ulcer. Patient reports that he has had increased swelling, drainage, purulence at his right heel over the last few days, no fevers, no chills, he has also developed swelling throughout the right foot, Right heel ulcer with surrounding cellulitis CT/CT foot RT w con [id number] IMPRESSION: 1. Soft tissue ulceration over the posterior calcaneus is in contact with the cortical surface of the calcaneus. Soft tissue ulcer measures 2.9 x 3.7 cm. 2. Diffuse cellulitis around the entire foot. 3. No osteomyelitis identified. 4. Severe osteopenia. -Venous ultrasound no DVT -s/pexcisional debridement right posterior heel down to level of bone including bone biopsy by podiatry -Managed IV antibiotics - Bone biopsy negative for osteomyelitis - Wound culture showing Morganella, E. coli, Staph aureus - Continue Levaquin 750 mg p.o. daily for 21 days - IV Dalbavancin 1500 mg June 22 2025 Decubitus ulcer, multiple excoriations, continue repositioning, wound care Physical Exam Const: COMMON NORMALS: no acute distress and patient oriented x3 Resp: COMMON NORMALS: normal respiratory effort, No retractions, No use of accessory muscles and clear to auscultation bilaterally AUSCULTATION: clear to auscultation bilaterally Cardio: COMMON NORMALS: regular rate, regular rhythm, S1 normal heart sound present and S2 normal heart sound present RATE: regular rate RHYTHM: regular rhythm HEART SOUNDS: S1 normal heart sound present and S2 normal heart sound present GI: COMMON NORMALS: Normal to inspection, nondistended, normoactive bowel sounds present and non-tender Extremity: COMMON NORMALS: no pedal edema Neuro: COMMON NORMALS: patient oriented x3 Psych: COMMON NORMALS: mental status grossly normal Discharge Data Studies Completed and Pending Completed Studies During Hospitalization Category Date Time Status CT foot RT w con [id number] Stat Cat Scan 06/10/25 14:28 Completed XR foot RT min 3V* [id number] Stat Exams 06/10/25 13:47 Completed US venous duplex lower extremity RT [CV venous duplex Ultrasound 06/11/25 08:[place] [id number]] Routine Pending at discharge Category Date Time Status Basic Metabolic Panel AM LABS Lab 06/16/25 04:00 Ordered Blood Culture Stat Lab 06/10/25 14:13 Results Complete Blood Count w/Auto AM LABS Lab 06/16/25 04:00 Ordered Pathology: Surgical [PTH] Routine Pth 06/11/25 11:51 Received Radiology Impressions Foot X-Ray 06/10/25 13:47 IMPRESSION: Stable examination without findings of osteomyelitis. No acute bone or joint abnormality. Foot CT 06/10/25 14:28 IMPRESSION: 1. Soft tissue ulceration over the posterior calcaneus is in contact with the cortical surface of the calcaneus. Soft tissue ulcer measures 2.9 x 3.7 cm. 2. Diffuse cellulitis around the entire foot. 3. No osteomyelitis identified. 4. Severe osteopenia. Laboratory Results WBC 9.29 10^3/uL (3.29-11.43) 06/15/25 04:32 RBC 5.42 10^6/uL (3.85-5.65) 06/15/25 04:32 Hgb 16.50 g/dL (11.27-16.99) 06/15/25 04:32 Hct 52.1 % (37-53) 06/15/25 04:32 MCV 96.1 fl (82-101) 06/15/25 04:32 MCH 30.4 pg (27-33) 06/15/25 04:32 MCHC 31.7 g/dL (30-55) 06/15/25 04:32 RDW 13.0 % (12.1-15.1) 06/15/25 04:32 Plt Count 325 10^3/cmm (157-399) 06/15/25 04:32 MPV 9.2 fL (7.4-10.4) 06/15/25 04:32 Neut % (Auto) 68.0 % 06/15/25 04:32 Lymph % (Auto) 18.0 % 06/15/25 04:32 Cloud % (Auto) 7.6 % 06/15/25 04:32 Eos % (Auto) 5.1 % 06/15/25 04:32 Baso % (Auto) 0.8 % 06/15/25 04:32 Neut # (Auto) 6.32 10^3/uL (1.8-7.7) 06/15/25 04:32 Lymph # (Auto) 1.7 10^3/uL (0.8-4.8) 06/15/25 04:32 Cloud # (Auto) 0.7 10^3/uL (0.2-0.9) 06/15/25 04:32 Eos # (Auto) 0.5 10^3/uL (0.0-0.8) 06/15/25 04:32 Baso # (Auto) 0.1 10^3/uL (0.0-0.1) 06/15/25 04:32 Nucleated RBC % (auto) 0 % 06/15/25 04:32 Nucleated RBCs # 0.0 /100WBC 06/15/25 04:32 ESR 35 mm/hr (0-10) H 06/10/25 16:57 Sodium 144 mmol/L (136-145) 06/15/25 04:32 Potassium 3.5 mmol/L (3.5-5.1) 06/15/25 04:32 Chloride 103 mmol/L (98-107) 06/15/25 04:32 Carbon Dioxide 28 mmol/L (22-29) 06/15/25 04:32 Anion Gap 16.5 (5-19) 06/15/25 04:32 BUN 19 mg/dL (6-20) 06/15/25 04:32 Creatinine 0.8 mg/dL (0.7-1.2) 06/15/25 04:32 GFR Calculation 98.9 mL/min (90-130) 06/15/25 04:32 Glucose 87 mg/dL (65-115) 06/15/25 04:32 Estimat Average Glucose 97 06/10/25 16:57 Hemoglobin A1c 5.0 % (4.0-6.0) 06/10/25 16:57 Calculated Osmolality 300 mOsm/kg (285-295) H 06/15/25 04:32 Lactic Acid 1.9 mmol/L (0.5-2.2) 06/10/25 14:13 Calcium 8.9 mg/dL (8.5-10.5) 06/15/25 04:32 Total Bilirubin 0.4 mg/dL (0.15-1.2) 06/13/25 04:50 AST 11 U/L (0-40) 06/13/25 04:50 ALT 7 U/L (0-41) 06/13/25 04:50 Alkaline Phosphatase 76 U/L (40-130) 06/13/25 04:50 C-Reactive Protein 53.2 mg/L (0.0-4.9) H 06/10/25 14:13 Total Protein 6.9 g/dL (6.6-8.7) 06/13/25 04:50 Albumin 3.0 g/dL (3.5-5.2) L 06/13/25 04:50 Globulin 3.9 g/dL (1.3-4.6) 06/13/25 04:50 Triglycerides 87 mg/dL (0-150) 06/10/25 16:57 Cholesterol 103 mg/dL (0-200) 06/10/25 16:57 LDL Cholesterol, Calc 55 mg/dL (50-129) 06/10/25 16:57 HDL Cholesterol 31 mg/dL (60-100) L 06/10/25 16:57 LDL/HDL Ratio 1.77 RATIO (0.00-3.22) 06/10/25 16:57 Cholesterol/HDL Ratio 3.32 mg/dL (1.0-5.00) 06/10/25 16:57 Procalcitonin 0.04 ng/mL (0-0.5) 06/10/25 16:57 TSH 0.71 uIU/mL (0.27-4.20) 06/10/25 16:57 Vancomycin Trough 23.3 ug/mL (10-15) H 06/12/25 15:25 Vitals Last Vital Signs Temp 97.6 F 06/15/25 11:17 Pulse 68 06/15/25 11:17 Resp 17 06/15/25 11:17 BP 120/77 06/15/25 11:17 Pulse Ox 91 06/15/25 11:17 O2 Del Method Room Air 06/15/25 11:17 O2 Flow Rate 3 06/11/25 11:24 Discharge Plan Discharge Patient Disposition: Home Condition: Stable Prescriptions: New levofloxacin 750 mg tablet 750 mg PO Q24H 21 Days Qty: 21 0RF Continued baclofen 20 mg tablet 20 mg PO BID (DME) German brace See Rx Instructions .Route .MEDSUPPLY Qty: 1 0RF Rx Instructions: As directed gabapentin 300 mg Capsule 300 mg PO BID zinc acetate 25 mg (zinc) Capsule 25 mg PO DAILY calcium carbonate-vitamin D3 600 mg-5 mcg (200 unit) Tablet 1 tab PO DAILY testosterone 20.25 mg/1.25 gram (1.62 %) gel in metered-dose pump 2 pump topical DAILY methenamine hippurate 1 gram tablet 1 g PO BID Eliquis 2.5 mg tablet 1 mg PO BID ascorbic acid (vitamin C) [Vitamin C] 1,000 mg Tablet 1,000 mg PO BID DHA 200 mg Capsule 200 mg PO DAILY@07 mupirocin 2 % Ointment 1 applic TOPICAL BID Rx Instructions: apply to left shoulder Changed carvedilol 6.25 mg tablet 3.125 mg PO BID 30 Days Qty: 30 0RF Discharge Order = DC NOW: Discharge Order (Routine); Ordered 06/15/25 Ordered By: Memo Perez Other Ambulatory Orders: Miscellaneous Procedure (Order) Location: None Selected Ordered By: Katia Infante Referrals: Infectious Disease Group [facility] [Provider Group, Infectious Disease] - 07/06/25 3:30 pm [facility] Infusion Center [Outside] - 06/23/25 9:00 am John Abraham DPM [Physician, Podiatry] - 06/21/25 2:30 pm Leandro Orozco MD [Physician, Wound Care] - 06/16/25 2:30 pm Jonah Kerr MD [Primary Care Provider, Family Practice] - 06/22/25 11:30 am Discharge Activity: Resume usual activity Patient Instructions: Levofloxacin (By mouth), Acute Wound Care (DC), Opioid Safety, Post Anesthesia Care, Patient Portal & Kip Instructions Activity Restrictions/Additional Instructions: PODIATRY DISCHARGE INSTRUCTIONS--DR. ABRAHAM -Dressing changes: Daily dressing change consisting of Santyl collagenase dry sterile dressing. Keep heels offloaded using Prevalon boots -Follow up: Follow-up with Dr. Abraham within 7 days of discharge -Please contact podiatry clinic at [phone] with any questions regarding patient's discharge - Continue Levaquin 750 mg p.o. daily for 21 days - IV Dalbavancin 1500 mg June 22 2025 Discharge Attestations Time Spent in Discharge Care*: greater than 30 min Quality Metrics Clinical Quality Measures [ No reported AMI, CVA or VTE this stay] Coding Level of Care Code 10079 Total time (in minutes) for Discharge: 45 Diagnoses Cellulitis L03.90 Decubitus skin ulcer L89.612 Laterality: right Pressure injury location: heel Pressure injury stage: stage 2
[2025-06-15 13:17] VITALS: BP 120/77; PULSE 68; RESP 17; TEMP 36.4; O2SAT 91
== END 2025-06-15 13:18 | disposition home or self-care (01) | DRG 987 ==
LOC: ER 16:23 → MEDSURG 16:34
PROVIDERS: Podiatrist Foot & Ankle Surgery; Admitting Provider Family Medicine; Emergency Provider Family Medicine; PCP Family Medicine; Visit Provider Family Medicine
DX: L03.115 Cellulitis of right lower limb (principal); G82.50 Quadriplegia, unspecified; L89.613 Pressure ulcer of right heel, stage 3; I96 Gangrene, not elsewhere classified; L89.151 Pressure ulcer of sacral region, stage 1; M85.80 Other specified disorders of bone density and structure, unspecified site; B96.20 Unspecified Escherichia coli [E. coli] as the cause of diseases classified elsewhere; B95.61 Methicillin susceptible Staphylococcus aureus infection as the cause of diseases classified elsewhere; Z79.899 Other long term (current) drug therapy; Z79.01 Long term (current) use of anticoagulants; Z88.1 Allergy status to other antibiotic agents; Z87.442 Personal history of urinary calculi; Z86.718 Personal history of other venous thrombosis and embolism; Z86.14 Personal history of Methicillin resistant Staphylococcus aureus infection
CPT/HCPCS: 36415; 73630; 73701; 80048; 80053; 80061; 80202; 83036; 83605; 84145; 84443; 85025; 85651; 86140; 87040; 87070; 87077; 87176; 87186; 87205; 88307; 88311; 93971; 94664; 96365; 96372; 99285; J0875; J1650; J1938; J2020; J2270; J2470; J2543; J3372; J7030; J7060; J9999

== ENCOUNTER → 2025-06-21 14:47 | Outpatient (BNVA) | payer MEDICARE, SELFPAY | PROVIDERS: PCP Family Medicine; Visit Provider Podiatrist Foot & Ankle Surgery | DX: L89.613 Pressure ulcer of right heel, stage 3 (principal) | CPT/HCPCS: 99213 ==

== ENCOUNTER 2025-06-23 09:10 | Oncology outpatient (recurring) (ONCR) | payer MEDICARE, SELFPAY ==
[2025-06-23 09:53] VITALS: BP 122/82; PULSE 67; RESP 18; TEMP 37.2; O2SAT 99
[2025-06-23 10:29] VITALS: BP 120/77; PULSE 67; O2SAT 95
== END 2025-06-25 23:59 | disposition home or self-care (01) ==
LOC: ONCMED 09:10
PROVIDERS: PCP Family Medicine; Visit Provider Internal Medicine Medical Oncology
DX: L89.613 Pressure ulcer of right heel, stage 3 (principal); Z79.899 Other long term (current) drug therapy
CPT/HCPCS: 96365; 97597; 99213; A6210; A6252; J0875; J7060

== ENCOUNTER → 2025-06-30 13:12 | Outpatient (BNVA) | payer MEDICARE, SELFPAY | PROVIDERS: PCP Family Medicine; Visit Provider Thoracic Surgery (Cardiothoracic Vascular Surgery) | DX: I96 Gangrene, not elsewhere classified (principal); L89.613 Pressure ulcer of right heel, stage 3; L89.312 Pressure ulcer of right buttock, stage 2 | CPT/HCPCS: 97597; 97598; A6253 ==

== ENCOUNTER → 2025-07-07 13:26 | Outpatient (BNVA) | payer MEDICARE, SELFPAY | PROVIDERS: PCP Family Medicine; Visit Provider Thoracic Surgery (Cardiothoracic Vascular Surgery) | DX: I96 Gangrene, not elsewhere classified (principal); L89.613 Pressure ulcer of right heel, stage 3; L89.313 Pressure ulcer of right buttock, stage 3 | CPT/HCPCS: 97597; A6252 ==

== ENCOUNTER → 2025-07-13 14:34 | Outpatient (BNVA) | payer MEDICARE, SELFPAY | PROVIDERS: PCP Family Medicine; Visit Provider Podiatrist Foot & Ankle Surgery | DX: L89.613 Pressure ulcer of right heel, stage 3 (principal) | CPT/HCPCS: 99213 ==

== ENCOUNTER → 2025-07-14 14:36 | Outpatient (BNVA) | payer MEDICARE, SELFPAY | PROVIDERS: PCP Family Medicine; Visit Provider Thoracic Surgery (Cardiothoracic Vascular Surgery) | DX: I96 Gangrene, not elsewhere classified (principal); L89.613 Pressure ulcer of right heel, stage 3; L89.313 Pressure ulcer of right buttock, stage 3 | CPT/HCPCS: 97597; A6252 ==

== ENCOUNTER → 2025-07-28 11:23 | Outpatient (BNVA) | payer MEDICARE, SELFPAY | PROVIDERS: PCP Family Medicine; Visit Provider Thoracic Surgery (Cardiothoracic Vascular Surgery) | DX: I96 Gangrene, not elsewhere classified (principal); L89.613 Pressure ulcer of right heel, stage 3; L89.313 Pressure ulcer of right buttock, stage 3 | CPT/HCPCS: 97597; A6252 ==

== ENCOUNTER → 2025-08-04 13:51 | Outpatient (BNVA) | payer MEDICARE, SELFPAY | PROVIDERS: PCP Family Medicine; Visit Provider Thoracic Surgery (Cardiothoracic Vascular Surgery) | DX: E11.52 Type 2 diabetes mellitus with diabetic peripheral angiopathy with gangrene (principal); E11.621 Type 2 diabetes mellitus with foot ulcer; L89.613 Pressure ulcer of right heel, stage 3; L89.313 Pressure ulcer of right buttock, stage 3 | CPT/HCPCS: 97597; A6251; A6252 ==

== ENCOUNTER → 2025-08-17 14:44 | Outpatient (BNVA) | payer MEDICARE, SELFPAY | PROVIDERS: PCP Family Medicine; Visit Provider Thoracic Surgery (Cardiothoracic Vascular Surgery) | DX: I96 Gangrene, not elsewhere classified (principal); L89.613 Pressure ulcer of right heel, stage 3; L89.313 Pressure ulcer of right buttock, stage 3 | CPT/HCPCS: 97597; A6252 ==